=== PATIENT | male | born 1945 | race Caucasian/White ===

== ENCOUNTER 2019-11-14 09:49 | Inpatient (IN) | payer MEDICARE, OTHER, SELFPAY ==
[2019-11-14] VITALS (48 sets, daily range): BP systolic 137–200; BP diastolic 77–114; PULSE 75–97; RESP 12–26; TEMP 36.1–37.2; O2SAT 92–100; BMI 27.8; BMI 24.7; BMI 80.5
--- NOTE | 2019-11-14 09:50 | CT_ITS ---
STUDY: CT BRAIN WITHOUT CONTRAST REASON FOR EXAM: Male, 72 years old. CVA RADIATION DOSAGE (If Supplied By Facility): CTDIvol = ( 44.99 ) mGy, DLP = ( 846.73 ) mGycm TECHNIQUE: Transaxial CT imaging of the brain was performed without administration of intravenous contrast material. Individualized dose optimization techniques were used for this CT. COMPARISON: No relevant priors. FINDINGS: Normal soft tissue structures. Normal calvarium. There is mild cerebral atrophy with widening of the extra-axial spaces and ventricular dilatation. There are areas of decreased attenuation within the white matter tracts of the supratentorial brain, consistent with microvascular disease changes. Normal basal ganglia and thalami. Normal brainstem. Normal cerebellum. There is no intracranial hemorrhage. There are no findings of an acute ischemic infarction. Atherosclerotic calcification of the vertebral arteries and cavernous portions of the internal carotid arteries bilaterally. 1.2 cm polyp along the lateral wall of the right axillary sinus. CT/Brain/Head without Contrast IMPRESSION: Chronic involutional changes of the brain. N.B. : The above information has been verbally conveyed by Júnior Harrison to Rod Cartagena on 11/14/2019 10:08:04 (ET). Electronically Signed: Júnior Harrison, at 10:09 EDT , Service support ,
--- NOTE | 2019-11-14 09:50 | EKG12_ITS ---
Test Reason : CVA Blood Pressure : / mmHG Vent. Rate : 086 BPM Atrial Rate : 086 BPM P-R Int : 176 ms QRS Dur : 080 ms QT Int : 382 ms P-R-T Axes : 058 -24 044 degrees QTc Int : 457 ms Normal sinus rhythm Normal ECG Confirmed by RAY BULLOCK, JOSE ([id number]), editorial project manager SARAH CHRISTIAN ([id number]) on 11/17/2019 1:43:25 PM Referred By: ELOY Confirmed By:JOSE BELL MD
--- NOTE | 2019-11-14 09:51 | CT_ITS ---
STUDY: CTA HEAD AND NECK WITH CONTRAST REASON FOR EXAM: Male, 72 years old. NEURO DEFICIT RADIATION DOSAGE (If Supplied By Facility): CTDIvol = ( 25.31 ) mGy, DLP = ( 656.68 ) mGycm TECHNIQUE: CT angiography was performed with a multi-detector CT scanner. Data acquisition was obtained from the skull base through the vertex following intravenous administration of IV 100mL [id number]-370. MIP images were reconstructed from the axial data set. Post-processing of the angiographic images was performed, with multiplanar reformation and 3D reconstruction. Individualized dose optimization techniques were used for this CT. COMPARISON: No relevant priors. FINDINGS: Normal bilateral petrous carotid arteries. There is calcified plaque formation of the right cavernous carotid artery, without a cross-sectional luminal stenosis. There is calcified plaque formation of the left cavernous carotid artery, without a cross-sectional luminal stenosis. Normal right A1 segments of the anterior cerebral artery. Normal left A1 segments of the anterior cerebral artery. Normal intact anterior communicating artery (ACOM). Normal bilateral A2 segments of the anterior cerebral arteries. Normal right M1 and M2 segments of the middle cerebral arteries, with a normal M1 bifurcation. Normal left M1 and M2 segments of the middle cerebral arteries, with a normal M1 bifurcation. Normal right posterior communicating artery (PCOM). Normal left posterior communicating artery (PCOM). Normal bilateral vertebral arteries. Normal basilar artery with a normal basilar bifurcation. The visualized bilateral superior cerebellar (SCA) arteries are normal. Normal bilateral P1, P2 and visualized P3 segments of the posterior cerebral arteries. There is no demonstrated aneurysm of the [place] of [place]. There is no demonstrated abnormality of the visualized brain. AORTIC ARCH: There is atherosclerotic calcific plaque formation of the aortic arch and great vessels arising from the aortic arch, without a hemodynamically significant stenosis. There is a normal origin of the brachiocephalic, left common carotid, and left subclavian arteries. Atherosclerotic plaque formation at the origins of the right brachiocephalic artery and left subclavian artery. RIGHT CAROTID ARTERIES: Normal right common carotid artery (CCA). Normal right common carotid bulb. There is mild atherosclerotic plaque formation of the origin of the right internal carotid artery with less than 50% cross sectional diameter stenosis. Normal visualized cervical portion of the right internal carotid artery. Normal origin of the right external carotid artery (ECA). LEFT CAROTID ARTERIES: Normal left common carotid artery (CCA). Normal left common carotid bulb. There is moderate atherosclerotic plaque formation of the origin of the left internal carotid artery with an estimated stenosis of 50-69% stenosis. Normal visualized cervical portion of the left internal carotid artery. Normal origin of the left external carotid artery (ECA). VERTEBRAL ARTERIES: Normal bilateral vertebral arteries. CT/CTA Head AND Neck W/ Contrast IMPRESSION: Calcific plaque at the origin of the left internal carotid artery causing between 50 and 69% stenosis. Mild calcific plaque at the origin of the right internal carotid artery with less than 50% stenosis. Electronically Signed: Júnior Harrison, at 11:39 EDT , Service support ,
[2019-11-14 10:08] LABS: Absolute Lymphocyte Count 1.27 X10^3/uL (0.83-4.51); Absolute Neutrophil Count 2.9 X10^3/uL (2.0-7.7); Basophil# 0.03 X10^3/uL; Basophil% 0.6 % (0-1); Eosinophil# 0.06 X10^3/uL; Eosinophils% 1.2 % (0-5); Hematocrit 41.3 % (40-54); Hemoglobin 14.4 g/dL (13.0-16.5); Lymphocyte # 1.27 X10^3/ul (4.0); Lymphocyte % 26.2 % (19-41); Mean Corp Hgb Conc 34.9 g/dL (32-36); Mean Corpuscular Hgb 31.3 pg (27.0-32.0); Mean Corpuscular Volume 89.8 fL (80-94); Mean Platelet Vol. 9.1 fl (6.2-12.0); Monocyte# 0.53 X10^3/uL; NRBC Flagged by Analyzer 0 % (0-5); Neutrophil # 2.94 X10^3/uL (2.7-7.7); Neutrophil % 60.8 % (47-70); Platelet Count 282 K/mm3 (150-450); RBC Distribution Width CV 11.9 % (11.6-14.6); RBC Distribution Width SD 38.7 fl (35.1-43.9); White Blood Count 4.8 K/mm3 (4.4-11.0)
--- NOTE | 2019-11-14 10:12 | ED.RN ---
Awaiting troponin results prior to activase administration. Lab [id number] and will call as soon as troponin is resulted.
[2019-11-14] MEDS: Ondansetron 4 MG/2 ML Vial IV (10:15)
[2019-11-14 10:16] LABS: Prothrombin Time (Protime)PT. 12.6 SECONDS (11.7-14.9)
[2019-11-14] MEDS: DiphenhydrAMINE 50 MG/ML Syringe 25 MG IV (10:18)
[2019-11-14] MEDS: MethylPREDNISolone 125 MG/2 ML Vial IV (10:19)
[2019-11-14] MEDS: 0.9% Normal Saline 1,000 ML 100 ML IV (10:25)
[2019-11-14 10:26] LABS: Anion Gap 14 (5-15); BUN 7 mg/dL (7-18); BUN/Creat Ratio 6.5 RATIO (10-20); Chloride 90 mmol/L (98-107); Creatinine, Serum 1.07 mg/dL (0.70-1.30); EST Glomerular Filtration Rate 73 mL/min (>60); Est Glom Filt Rate - Afr Amer 88 mL/min (>60); Estimated Creatinine Clearance 66.33 ml/min; Glucose 122 mg/dL (74-106); Potassium 3.4 mmol/L (3.5-5.1); Sodium Level 129 mmol/L (136-145)
[2019-11-14] MEDS: Labetalol (Prefilled) 20 MG/4 ML IV ×2 (10:29→15:37)
--- NOTE | 2019-11-14 10:40 | RAD_ITS ---
STUDY: X-RAY CHEST REASON FOR EXAM: Male, 72 years old. Stroke protocol TECHNIQUE: Single AP portable view of the chest. COMPARISON: None. FINDINGS: EKG electrodes are seen. Minimal increased markings at the lung bases suggestive of mild bibasilar atelectasis and/or scarring. Blunting of the left costophrenic angle. Normal size heart. Normal mediastinum and kennedi. Normal visualized pulmonary arteries. There is atherosclerotic calcification of the aortic arch with tortuosity. There are diffuse degenerative changes of the visualized thoracic spine. Normal visualized ribs, clavicles, and shoulders. There is no demonstrated abnormality of the visualized soft tissue structures of the upper abdomen. RAD/Chest 1 View IMPRESSION: Findings suggesting mild bibasilar scarring with blunting of the left costophrenic angle. Electronically Signed: Júnior Harrison, at 10:58 EDT , Service support ,
--- NOTE | 2019-11-14 10:41 | ED.DCSUM_ITS ---
- ER Visit Summary Date of Service: 11/14/19 Chief Complaint: Stroke History of Present Illness: The patient is a 72 M who presents by EMS for possible stroke. EMS was initially contacted for chest pain, and they reported that he was in and out of consciousness. At 9:39 AM, they noticed left-sided facial droop and he was unable to move the left arm. Stroke team was activated. History is limited secondary to the patient's medical condition. I did briefly speak with his over the phone while he was in the CAT scanner and he has an IV dye allergy but he takes no blood thinners. Patient's chest pain has currently resolved. He is only complaining of a headache and some nausea. Physical Examination: Blood pressure 168/97. Other vitals are normal. Head and neck atraumatic. Heart regular. Lungs clear. Abdomen soft. Skin appears normal. Stroke scale equals 14. He has decreased level of consciousness, change in gaze and visual mi, mild facial palsy, left arm and leg weakness, mild right arm and right leg weakness, dysarthria, and mild expressive aphasia. Test Results: CT brain without contrast was unremarkable per radiology. EKG showed sinus rhythm at a rate of 86. CBC normal. Sodium 129, potassium 3.4, chloride 90, glucose 122, coags normal, troponin normal. Further testing is pending at this time. Emergency Department Course and Treatment: Stroke team was activated per EMS before arrival. The patient went directly to CT. NIH score was 14. Noncontrast CT was negative. TPA was ordered. Neurology wanted us to hold the TPA until we confirm he was not having an IV. His EKG did not show signs of ischemia or infarction. Troponin was normal. He is not having chest pain currently. After subsequent discussion with neuro, TPA was ordered. He did receive Zofran for nausea and labetalol for hypertension. Patient will need CTA head and neck for his high NIH score. He is allergic to contrast and was premedicated with Solu-Medrol and Benadryl. If he does not have a large vessel occlusion, he will be admitted here for further care. Further testing is pending at this time. Per radiology, he has carotid occlusion but no large vessel occlusion on CTA. Patient is stable and will be admitted to the hospital here. Treatment Plan: As above Disposition: Admission Impression: Acute stroke This note was generated with [employer] dictation software. It may contain incorrect words, spelling, and punctuation that were not noted in review of the chart prior to signing
--- NOTE | 2019-11-14 11:15 | CM.ED ---
SOCIAL WORK This worker responded to Stroke Alert. No family at time alert was called. Nursing requested this worker follow up with . Call to number given, no answer. Call to patient's son, Jered [phone]. Per Jered, spoke with patient's 10 minutes ago and should be arriving to hospital any time. This worker to remain available for needs. Shannan Khoury, MUNITIONS FACTORY WORKER, DOCTOR OSTEOPATHIC
--- NOTE | 2019-11-14 11:16 | ED.RN ---
Pt to CT via cart, Susie Reyes RN at side
--- NOTE | 2019-11-14 11:23 | CM.ED ---
SOCIAL WORK arrived to ER. Nursing in with gathering information on medications. This worker introduced role. Support provided. Patient out of room at this time. Shannan Khoury, DRIVING INSTRUCTOR, MANAGER MARKETING COMMUNICATIONS
--- NOTE | 2019-11-14 11:30 | ED.RN ---
at side. Informed of plan of care
--- NOTE | 2019-11-14 11:52 | NURSING ---
ICU STROKE PAINTSIL
--- NOTE | 2019-11-14 11:53 | CHAPLAIN ---
Type of Pastoral Visit ___ Initial Visit ___ Follow-up Visit ___ On-call Visit ___ General Patient Visit ___ Spiritual Assessment ___ Family Conference ___ Bereavement _x__ Rapid Response ___ Code Blue ___ Other (describe below) Pastoral Care Referral From ___ Patient ___ Family ___ Nurse ___ Physician ___ Pump Oiler ___ Account Development Manager _x__ Other (describe below) Sacrament/Intervention ___ Active listening ___ Anointing ___ Rastafarian ___ Bereavement ___ Communion ___ Jadyn exploration ___ ___ Life review ___ Prayer ___ Reconciliation ___ Sacrament of Sick _x__ Supportive presence ___ Wedding ___ Other (describe below) Pastoral Comments offer of presence; as patient was medically evaluated waited for spouse to arrive; as spouse was delayed in coming this frameman left the unit after informing SW and US and RN to call if assistance/support needed; no follow up was requested
--- NOTE | 2019-11-14 11:55 | HP.PCM_ITS ---
Problem List (1) CVA (cerebral vascular accident) Status: Acute Qualifiers: CVA mechanism: unspecified Qualified Code(s): I63.9 - Cerebral infarction, unspecified (2) Hypertension Status: Chronic Qualifiers: Hypertension type: essential hypertension Qualified Code(s): I10 - Essential (primary) hypertension (3) BPH (benign prostatic hyperplasia) Status: Chronic Qualifiers: Lower urinary tract symptom presence: symptoms absent Qualified Code(s): N40.0 - Benign prostatic hyperplasia without lower urinary tract symptoms (4) Vitamin B12 deficiency Status: Chronic History of Present Illness Date of Admission: 11/14/19 Chief Complaint: Left sided weakness - today The patient is a 74 year old M with past medical history of hypertension, chronic venous insufficiency, remote history of prostate cancer status post treatment who presented with left-sided weakness. 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 He said to have gone to work this morning as a code enforcement inspector. His said to him go to work without any complaints. He had complained of feeling fatigue the night before. The EMS were called to the workplace for complaints of chest pain. Patient admitted to feeling lightheaded and not feeling well. He was diaphoretic. EKG did not show any acute STEMI. Patient was convinced to go to the hospital. He was supposed to have gone to [facility] but was noted to be semi-responsive. Evaluation by the EMS found patient to have a left-sided facial droop with no strength in his left arm and leg. Stroke team was activated. Patient's admitting NIHSS score was 14. He received TPA at 10:30am. Patient was seen in the ICU. He complains of mild headache. Denied any dizziness. He still had left-sided weakness. Denied any chest pain or palpitations. Vitals in the ED showed temperature 97.7 F, heart rate 97, blood pressure 186/98, respiratory 16, SPO2 was 99% on 2 L oxygen. CBCD was unremarkable. CMP shows sodium 129, potassium 3.4, bicarbonate 25, BUN 7, creatinine 1.07, Glucose 122, magnesium 1.4. CT scan of the brain showed chronic involuntary changes. CTA of the head and neck showed calcific plaque at the origin of the left internal carotid artery causing 50 to 69% stenosis, right internal carotid artery less than 50% stenosis. Chest x-ray showed mild bibasilar scarring blunting the left costophrenic angle. Past Medical History Past Medical History (Chronic Problems): Chronic Problems Hypertension (Chronic) BPH (benign prostatic hyperplasia) (Chronic) Vitamin B12 deficiency (Chronic) Allergies Iodinated Contrast Media [CONTRASTS] Allergy (Verified 11/14/19 11:24) PT UNABLE TO RESPOND-NEEDS F/U Home Medications: Ambulatory Orders Medication Instructions Recorded Amlodipine Besylate 5 mg PO DAILY 11/14/19 Cyanocobalamin (Vitamin B-12) 1,000 mcg PO DAILY 11/14/19 [Vitamin B-12] Hydrochlorothiazide [Hctz] 25 mg PO DAILY 11/14/19 Losartan Potassium [Cozaar] 100 mg PO DAILY 11/14/19 Metoprolol(XL)Succ [Toprol Xl 100 mg PO DAILY 11/14/19 (Beta Gokul)] Tamsulosin HCl 0.4 mg PO DAILY 11/14/19 Surgical History: - - s/p leg vein surgeries Psychiatric History: No pertinent psych hx Lives: Spouse/ Significant Other Smoking Status: Former smoker Tobacco Use: Non-smoker Alcohol: Heavy Drugs: None - *Family History Maternal History Items: Unknown Paternal History Items: Heart Disease Review of Systems Constitutional: Reports: Weakness, Fatigue. Denies: Anorexia, Chills, Fever, Malaise, Weight Change Eyes: Denies: Blurred vision, Cataracts, Conjunctivae Inflammation, Pain, Redness, Vision Change HEENT: Denies: Difficulty Hearing, Difficulty Swallowing, Head Aches, Hearing Changes, Sinus Congestion, Sinus Drainage Cardiovascular: Reports: Chest Pain. Denies: Claudication, Orthopnea, Palpitations, Paroxysmal Noc. Dyspnea Respiratory: Reports: Shortness of breath upon exertion. Denies: Cough, Hemoptysis, Shortness of breath at rest, Sputum production Gastrointestinal: Denies: Abdominal Pain, Constipation, Hematemesis, Hematochez ia, Nausea, Vomiting Genitourinary: Denies: Dysuria Musculoskeletal: Denies: Joint Pain, Joint stiffness, Joint swelling, Joint Tenderness Skin: Denies: Rash, Wounds Neurological: Reports: Focal weakness, Numbness, Tingling. Denies: Difficulty swallowing Psychiatric: Denies: Anxiety, Depression, Homicidal Ideations, Suicidal Ideations Endocrine: Denies: Change in Body Habitus, Heat/ Cold Intolerance Hematologic/ Lymphatic: Denies: Easy Bruising, Easy Bleeding VTE Information - Inpt Only VTE Present on Admission: No VTE Pharm Prophylaxis ordered?: Yes Patient Problems: Active and Suspected Problems CVA (cerebral vascular accident) (Acute) - Physical Exam Vitals/I&O's: Vital Signs Temp Pulse Resp BP Pulse Ox 97.0 F L 87 18 137/77 H 96 11/14/19 11:53 11/14/19 11:53 11/14/19 11:53 11/14/19 11:53 11/14/19 11:53 Oxygen Flow Rate (L/min) 2 Oxygen Delivery Method Nasal Cannula Weight: 88 kg Body Mass Index (BMI) 27.8 Finger Stick Blood Glucose 119 Intake and Output for Last 24 Hours 11/12/19 11/13/19 11/14/19 23:59 23:59 23:59 Intake Total 571.3 / 571.3 Balance 571.3 / 571.3 General: Alert, Oriented x3, Cooperative, No apparent distress HEENT: Atraumatic, PERRLA, EOMI, Normocephalic Oral: Moist Mucosa Neck: Supple Lungs: Clear to auscultation, Normal air movement Cardiovascular: Regular rate, Regular Rhythm, Normal S1, Normal S2, No murmurs Abdomen: Bowel Sounds Present, Soft, Non Tender, Non-Distended, No Hepato- splenomegaly Extremities: No edema Skin: No rashes Musculoskeletal: No Tenderness to Palpation of Joints or Extremities Lymphatic: No Cervical, Supraclavicular, or Inguinal Adenopathy Neurological: - - Left eye ptosis, not new, left partial hemianopsia, left facial droop, dysarthria, power in LUE is 2/5, power in LLE 1-2/5, increased tone, power in RUE 4/5, LLE 4/5 Psych/Mental Status: Normal Affect, Appropriate Laboratory Results 11/14/19 09:55: WBC 4.8, RBC 4.60, Hgb 14.4, Hct 41.3, MCV 89.8, MCH 31.3, MCHC 34.9, RDW Std Deviation 38.7, RDW Coeff of Denae 11.9, Plt Count 282, MPV 9.1, Immature Gran % (Auto) 0.200, Neut % (Auto) 60.8, Lymph % (Auto) 26.2, [place] % (Auto) 11.0 H, Eos % (Auto) 1.2, Baso % (Auto) 0.6, Absolute Neuts (auto) 2.9, Absolute Lymphs (auto) 1.27, Nucleated RBC % 0 11/14/19 09:55: PT 12.6, INR 1.0, APTT 25.0 11/14/19 09:55: Sodium 129 L, Potassium 3.4 L, Chloride 90 L, Carbon Dioxide 25.0, Anion Gap 14, BUN 7, Creatinine 1.07, Estim Creat Clear Calc 66.33, Est GFR (MDRD) Af Amer 88, Est GFR (MDRD) Non-Af 73, BUN/Creatinine Ratio 6.5 L, Glucose 122 H, Calcium 9.0, Troponin I 0.025 Current Medications Acetaminophen (Tylenol) 650 mg PO .X1 PRN PRN Reason: Temp > 99.6 F Diphenhydramine HCl (Benadryl) 50 mg IV .X1 PRN PRN Reason: Allergic Reaction Stop: 11/16/19 10:06 Sodium Chloride () 500 mls @ 999 mls/hr IV .Q31M ONE Last Infusion: 11/14/19 10:53 Dose: Infused Documented by: Sodium Chloride () 1,000 mls @ 100 mls/hr IV .Q10H JESUS Last Admin: 11/14/19 10:25 Dose: 100 mls/hr Documented by: Famotidine 20 mg/ Sodium (Chloride) 10 mls @ 300 mls/hr IV .X1 PRN PRN Reason: Allergic Reaction Stop: 11/16/19 10:06 Nicardipine/Dextrose (Cardene-Dex 20 Mg/200 Ml Soln) 20 mg in 200 mls @ 50 mls/hr IV .Q4H PRN; Protocol PRN Reason: See Instructions Labetalol HCl (Trandate) 20 mg IV X1 PRN PRN Reason: Blood Pressure Last Admin: 11/14/19 10:29 Dose: 20 mg Documented by: Labetalol HCl (Trandate) 20 mg IV X1 PRN; Protocol PRN Reason: BLOOD PRESSURE Methylprednisolone (Solu-Medrol) 125 mg IV .X1 PRN PRN Reason: Allergic Reaction Stop: 11/16/19 10:06 Assessment/Plan All Active Problems CVA (cerebral vascular accident) (Acute) 1. Acute left hemiplegia secondary to acute CVA, s/p TPA Admitting NIHSS was 14; NIHSS post-TPA 15 Will admit to ICU, post-TPA protocol( given at 10:30AM) Will get CT head without contrast, MRI of brain without contrast 24 hours post TPA. PT/OT/ST to evaluate and treat Journeyman Level Acoustic Analyst consult 2. Hypertension, uncontrolled, would hold patient's home medications, Continue with post-TPA protocol 3. Hypokalemia, potassium was 3.4, will replace, recheck in a.m. 4. Hypomagnesemia, magnesium is 1.4, replace, recheck in a.m. 5. Chronic alcohol use disorder, patient is a heavy drinker per , Will monitor on alcohol withdrawal protocol 6. BPH, continue on Flomax 7. DVT PPx-status post TPA, continue on SCDs Inpatient E&M: [id number] Init Hosp L3
--- NOTE | 2019-11-14 11:57 | NURSING ---
ICU 6
[2019-11-14 13:23] LABS: AST(SGOT) 32 U/L (15-37); Alanine Aminotransfer ALT/SGPT 31 U/L (16-61); Albumin, Serum 3.7 g/dL (3.2-5.0); Alkaline Phosphatase 79 U/L (45-117); Bilirubin, Direct 0.53 mg/dL (0.00-0.30); Magnesium 1.4 mg/dL (1.6-2.6); Protein, Total 7.7 g/dL (6.4-8.2)
[2019-11-14 14:07] LABS: Hemoglobin A1c 5.7 % (3.8-5.6)
[2019-11-14] MEDS: Potassium Chloride 10mEq/100mL 10 MEQ/100 ML IV.SOLN. 100 MEQ IV BOLUS ×2 (14:38→16:38)
--- NOTE | 2019-11-14 14:52 | PCM.CON.CC ---
Problem List (1) Alcohol consumption heavy Status: Chronic Comment: 6-8 beers daily (2) CVA (cerebral vascular accident) Status: Acute Qualifiers: CVA mechanism: unspecified Qualified Code(s): I63.9 - Cerebral infarction, unspecified (3) Hypertension Status: Chronic Qualifiers: Hypertension type: essential hypertension Qualified Code(s): I10 - Essential (primary) hypertension (4) BPH (benign prostatic hyperplasia) Status: Chronic Qualifiers: Lower urinary tract symptom presence: symptoms absent Qualified Code(s): N40.0 - Benign prostatic hyperplasia without lower urinary tract symptoms (5) Vitamin B12 deficiency Status: Chronic Reason for Consult Date of Consultation: 11/14/19 Reason for Consultation: CVA status post TPA History of Present Illness: The patient is a 74 year old M, with past medical history listed below, who presented to [facility] on 11/14/2019 secondary to possible stroke. EMS was contacted initially for chest pain that occurred while he was at work. Patient was reportedly in and out of consciousness and at 9:39 AM coworkers had noticed a left facial droop and an inability to move his left arm. EMS activated stroke team. Patient reportedly had an IV dye allergy and takes no blood thinners. On arrival to the ER, patient's chest pain had resolved. Patient had a stroke team activated. At that time patient had been complaining of a headache and some mild nausea. Initial CT scan without contrast was negative. Neurology was consulted for possible TPA, but wanted to delay to rule out myocardial infarction. Troponins were negative and patient received TPA secondary to an NIH score of 14. Patient was treated with Solu-Medrol and Benadryl prior to a CTA that showed moderate left internal carotid stenosis and mild right internal carotid stenosis. On arrival to the intensive care unit, patient was noted to have significant discomfort with opening the left eye. Patient was also noted to have a left facial droop, dysarthria, left-sided weakness and a right arm drift. Patient also has decreased sensation noted on the right arm. Patient's blood pressure has been somewhat labile, but no intervention is been required. Patient reports that he drinks 6-8 beers per day. Patient does have a [id number] smoking history, but quit some time ago. Patient denies any illicit drug use. 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 Patient continues to report that he believes he was in [facility] and was brought in from home by EMS. Neither of these are true. Patient was also asking if he could potentially go home today. Review of systems otherwise negative from a constitutional, HEENT, respiratory, cardiovascular, GI, genitourinary, musculoskeletal, skin, neurologic, psychiatric and hematologic system unless stated above. Past Medical History Past Medical History (Chronic Problems): Chronic Problems Hypertension (Chronic) BPH (benign prostatic hyperplasia) (Chronic) Vitamin B12 deficiency (Chronic) Alcohol consumption heavy (Chronic) 6-8 beers daily Allergies Iodinated Contrast Media [CONTRASTS] Allergy (Verified 11/14/19 11:24) PT UNABLE TO RESPOND-NEEDS F/U Home Medications: Ambulatory Orders Medication Instructions Recorded Amlodipine Besylate 5 mg PO DAILY 11/14/19 Cyanocobalamin (Vitamin B-12) 1,000 mcg PO DAILY 11/14/19 [Vitamin B-12] Hydrochlorothiazide [Hctz] 25 mg PO DAILY 11/14/19 Losartan Potassium [Cozaar] 100 mg PO DAILY 11/14/19 Metoprolol(XL)Succ [Toprol Xl 100 mg PO DAILY 11/14/19 (Beta Gokul)] Tamsulosin HCl 0.4 mg PO DINNER 11/14/19 Surgical History: - - s/p leg vein surgeries Psychiatric History: No pertinent psych hx Lives: Spouse/ Significant Other Smoking Status: Former smoker Tobacco Use: Non-smoker Alcohol: Heavy Drugs: None - *Family History Maternal History Items: Unknown Paternal History Items: Heart Disease Review of Systems Comment: See HPI Patient Problems: Active and Suspected Problems CVA (cerebral vascular accident) (Acute) Objective: All imaging was personally reviewed. Chest x-ray showed by basilar scarring. No previous echocardiogram is available for review. CT head reports were reviewed. - Physical Exam Vitals/I&O's: Vital Signs Temp Pulse Resp BP Pulse Ox 36.8 C 81 16 165/103 H 97 11/14/19 14:00 11/14/19 14:00 11/14/19 14:00 11/14/19 14:00 11/14/19 14:00 Oxygen Flow Rate (L/min) 2 Oxygen Delivery Method Room Air Weight: 88 kg Body Mass Index (BMI) 27.8 Finger Stick Blood Glucose 119 Intake and Output for Last 24 Hours 11/12/19 11/13/19 11/14/19 23:59 23:59 23:59 Intake Total 1099.63 / 1099.63 Output Total 975 / 975 Balance 124.63 / 124.63 General: Alert, Cooperative, No apparent distress, - - Slight dysarthria HEENT: Atraumatic, PERRLA, EOMI, Normocephalic, - - Left temporal hemianopsia. Closes left eye as appears discomfort. Able to spontaneously open eye Oral: Moist Mucosa, No Gingival or Mucosal Lesions/ Ulcerations Neck: Supple, No JVD, No Nodes, Trachea Midline Lungs: No rhonchi, No wheeze, No rales, Diminished, - - Symmetric expansion. Slightly increased AP diameter. Cardiovascular: Regular rate, Regular Rhythm, Normal S1, Normal S2, No murmurs, No rub noted, No Gallop Abdomen: Bowel Sounds Present, Soft, Non Tender, Non-Distended Extremities: No clubbing, No cyanosis, No edema, Capillary Refill Less than 3 Seconds Skin: No rashes, No breakdown Musculoskeletal: No Tenderness to Palpation of Joints or Extremities Lymphatic: No Cervical, Supraclavicular, or Inguinal Adenopathy Neurological: - - Left-sided paresthesia, left upper extremity weakness, left lower extremity paralysis and drift of the right upper extremity. Psych/Mental Status: Normal Affect, Appropriate Laboratory Results 11/14/19 09:55: WBC 4.8, RBC 4.60, Hgb 14.4, Hct 41.3, MCV 89.8, MCH 31.3, MCHC 34.9, RDW Std Deviation 38.7, RDW Coeff of Denae 11.9, Plt Count 282, MPV 9.1, Immature Gran % (Auto) 0.200, Neut % (Auto) 60.8, Lymph % (Auto) 26.2, [place] % (Auto) 11.0 H, Eos % (Auto) 1.2, Baso % (Auto) 0.6, Absolute Neuts (auto) 2.9, Absolute Lymphs (auto) 1.27, Nucleated RBC % 0 11/14/19 09:55: PT 12.6, INR 1.0, APTT 25.0 11/14/19 09:55: Sodium 129 L, Potassium 3.4 L, Chloride 90 L, Carbon Dioxide 25.0, Anion Gap 14, BUN 7, Creatinine 1.07, Estim Creat Clear Calc 66.33, Est GFR (MDRD) Af Amer 88, Est GFR (MDRD) Non-Af 73, BUN/Creatinine Ratio 6.5 L, Glucose 122 H, Calcium 9.0, Troponin I 0.025 11/14/19 09:55: Hemoglobin A1c 5.7 H 11/14/19 12:40: Magnesium 1.4 L, Total Bilirubin 1.50 H, Direct Bilirubin 0.53 H, AST 32, ALT 31, Alkaline Phosphatase 79, Total Protein 7.7, Albumin 3.7, Globulin 4.0 11/14/19 12:40: Magnesium Cancelled Current Medications Acetaminophen (Tylenol) 650 mg PO Q6H PRN PRN PRN Reason: Pain Score 1-10/Temp > 100.7 F Dicyclomine HCl (Bentyl) 20 mg PO Q6H PRN PRN PRN Reason: abdominal discomfort Diphenhydramine HCl (Benadryl) 50 mg IV .X1 PRN PRN Reason: Allergic Reaction Stop: 11/16/19 10:06 Folic Acid (Folic Acid) 1 mg PO DAILY@0800 JESUS Gabapentin (Neurontin) 300 mg PO Q8H PRN PRN PRN Reason: moderate to severe anxiety Hydroxyzine Pamoate (Vistaril Pamoate Capsule) 50 mg PO Q4H PRN PRN PRN Reason: mild anxiety Sodium Chloride () 500 mls @ 999 mls/hr IV .Q31M ONE Last Infusion: 11/14/19 10:53 Dose: Infused Documented by: Sodium Chloride () 1,000 mls @ 100 mls/hr IV .Q10H JESUS Last Infusion: 11/14/19 14:42 Dose: 0 mls/hr Documented by: Famotidine 20 mg/ Sodium (Chloride) 10 mls @ 300 mls/hr IV .X1 PRN PRN Reason: Allergic Reaction Stop: 11/16/19 10:06 Nicardipine/Dextrose (Cardene-Dex 20 Mg/200 Ml Soln) 20 mg in 200 mls @ 50 mls/hr IV .Q4H PRN; Protocol PRN Reason: See Instructions Potassium Chloride () 10 meq in 100 mls @ 100 mls/hr IV BOLUS Q1H JESUS Stop: 11/14/19 15:29 Last Admin: 11/14/19 14:38 Dose: 100 mls/hr Documented by: Sodium Chloride () 250 mls @ 15 mls/hr IV .[id number] PRN PRN Reason: Saline Flush Sodium Chloride () 250 mls @ 15 mls/hr IV .[id number] PRN PRN Reason: Additional IVPB Infusion Magnesium Sulfate 2 gm/ Sodium (Chloride) 104 mls @ 52 mls/hr IV X1 ONE Stop: 11/14/19 15:59 Labetalol HCl (Trandate) 20 mg IV X1 PRN PRN Reason: Blood Pressure Last Admin: 11/14/19 10:29 Dose: 20 mg Documented by: Labetalol HCl (Trandate) 20 mg IV X1 PRN; Protocol PRN Reason: BLOOD PRESSURE Loperamide HCl (Imodium) 2 mg PO Q4H PRN PRN PRN Reason: LOOSE STOOLS Methylprednisolone (Solu-Medrol) 125 mg IV .X1 PRN PRN Reason: Allergic Reaction Stop: 11/16/19 10:06 Ondansetron HCl (Zofran) 4 mg IV Q8H PRN PRN PRN Reason: NAUSEA/VOMITING Ondansetron HCl (Zofran) 8 mg PO Q8H PRN PRN PRN Reason: NAUSEA Sodium Chloride () 10 - 40 ml IV UD PRN PRN Reason: SALINE FLUSH Tamsulosin HCl (Flomax) 0.4 mg PO DAILY@1730 JESUS Thiamine HCl (Vitamin B1) 100 mg PO DAILYCM JESUS Trazodone HCl (Desyrel) 100 mg PO QHS PRN PRN Reason: INSOMNIA Clinical Impression(s) from Imaging Studies Brain CT 11/14/19 09:50 IMPRESSION: Chronic involutional changes of the brain. N.B. : The above information has been verbally conveyed by Júnior Harrison to Rod Cartagena on 11/14/2019 10:08:04 (ET). Electronically Signed: Júnior Harrison, at 10:09 EDT , Service support , ADDENDUM: 11/14/19 1016 IMPRESSION: Chronic involutional changes of the brain. N.B. : The above information has been verbally conveyed by Júnior Harrison to Rod Cartagena on 11/14/2019 10:08:04 (ET). Electronically Signed: Júnior Harrison, at 10:09 EDT , Service support , Head/Neck CTA 11/14/19 09:51 IMPRESSION: Calcific plaque at the origin of the left internal carotid artery causing between 50 and 69% stenosis. Mild calcific plaque at the origin of the right internal carotid artery with less than 50% stenosis. Electronically Signed: Júnior Harrison, at 11:39 EDT , Service support , Chest X-Ray 11/14/19 10:40 IMPRESSION: Findings suggesting mild bibasilar scarring with blunting of the left costophrenic angle. Electronically Signed: Júnior Harrison, at 10:58 EDT , Service support , Assessment/Plan Active and Suspected Problems CVA (cerebral vascular accident) (Acute) RECOMMENDATIONS: 1. Continue post TPA protocol 2. Initiate CIWA protocol 3. Await swallow evaluation prior to initiation of any basal therapy for alcohol 4. PRN labetalol and hydralazine if needed for hypertension 5. Okay to continue Flomax for BPH IMPRESSIONS: 1. 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 Patient was given TPA at 10:30 AM and does not appear to have any complications with bleeding at this time. There has been some improvement in facial droop noted by nursing, but this is not reflected in the NIH. We will continue with post TPA protocol. Anticipate MRI tomorrow for evaluation. Therapies have been consulted. 2. Hypertension Unclear compliance with baseline medications. Patient has had some elevated blood pressures noted during hospitalization. Will treat with PRN hydralazine and labetalol. If patient passes swallow evaluation, home medications can be initiated in a stepwise fashion. 3. Euvolemic hyponatremia/hypochloremia/alcohol abuse versus chronic alcohol use disorder/hypomagnesemia Electrolyte issues may be secondary to chronic alcohol intake. Patient reported 8 beers, but is reporting up to 24 beers per day. Patient will be placed on the CIWA protocol. Thiamine and folate have been ordered. 4. Poor historian/BPH/history of tobacco abuse Complicates care, management, recovery and prognosis. Did confirm with full CODE STATUS. Addendum 3:50 PM: Called emergently to patient's bedside at approximately 3:30 PM secondary to elevated blood pressure, chest pain, left arm pain and worsening left facial droop. Patient was given labetalol per the protocol with improvement in pain. EKG showed no ST segment changes. Patient will be continued per the protocol Inpatient E&M: 83162 Init Hosp L3
--- NOTE | 2019-11-14 16:00 | EKG12_ITS ---
Test Reason : Blood Pressure : / mmHG Vent. Rate : 082 BPM Atrial Rate : 082 BPM P-R Int : 198 ms QRS Dur : 084 ms QT Int : 392 ms P-R-T Axes : 044 -32 039 degrees QTc Int : 457 ms Normal sinus rhythm Left axis deviation Abnormal ECG When compared with ECG of 14-NOV-2019 10:11, No significant change was found Confirmed by RAY BULLOCK, JOSE ([id number]), web editor SARAH CHRISTIAN ([id number]) on 11/25/2019 12:49:38 PM Referred By: Confirmed By:JOSE BELL MD
[2019-11-15] VITALS (36 sets, daily range): BP systolic 104–177; BP diastolic 65–103; PULSE 67–88; RESP 12–21; TEMP 36.8–37.4; O2SAT 93–99; BMI 24.7
[2019-11-15 04:41] LABS: Absolute Lymphocyte Count 0.44 X10^3/uL (0.83-4.51); Absolute Neutrophil Count 4.5 X10^3/uL (2.0-7.7); Eosinophil# 0.01 X10^3/uL; Eosinophils% 0.2 % (0-5); Hematocrit 44.6 % (40-54); Hemoglobin 15.1 g/dL (13.0-16.5); Lymphocyte # 0.44 X10^3/ul (4.0); Lymphocyte % 8.3 % (19-41); Mean Corp Hgb Conc 33.9 g/dL (32-36); Mean Corpuscular Hgb 31.1 pg (27.0-32.0); Mean Platelet Vol. 9.4 fl (6.2-12.0); Monocyte# 0.37 X10^3/uL; Monocyte% 6.9 % (0-10); NRBC Flagged by Analyzer 0 % (0-5); Neutrophil % 84.4 % (47-70); POSITIVE DIFFERENTIAL YES; Platelet Count 291 K/mm3 (150-450); RBC Distribution Width CV 11.9 % (11.6-14.6); RBC Distribution Width SD 39.9 fl (35.1-43.9); Red Blood Count 4.85 M/mm3 (4.6-6.2); White Blood Count 5.3 K/mm3 (4.4-11.0)
[2019-11-15 04:44] LABS: Differential Indicated SCAN CRITERIA MET
[2019-11-15 05:02] LABS: ALB/GLOB Ratio 0.8 RATIO (0.9-2.4); AST(SGOT) 19 U/L (15-37); Alanine Aminotransfer ALT/SGPT 23 U/L (16-61); Albumin, Serum 2.8 g/dL (3.2-5.0); Alkaline Phosphatase 61 U/L (45-117); Anion Gap 9 (5-15); BUN 8 mg/dL (7-18); BUN/Creat Ratio 12.2 RATIO (10-20); Calcium,Total 7.6 mg/dL (8.5-10.1); Chloride 106 mmol/L (98-107); Cholesterol 153 mg/dL (200); Creatinine, Serum 0.66 mg/dL (0.70-1.30); EST Glomerular Filtration Rate 127 mL/min (>60); Est Glom Filt Rate - Afr Amer 153 mL/min (>60); Estimated Creatinine Clearance 71.12 ml/min; Globulin 3.5 g/dL (2.2-4.2); Glucose 121 mg/dL (74-106); High Density Lipoprotein 97 mg/dL; Magnesium 1.7 mg/dL (1.6-2.6); Potassium 3.7 mmol/L (3.5-5.1); Protein, Total 6.3 g/dL (6.4-8.2); Sodium Level 138 mmol/L (136-145); Triglycerides 37 mg/dL; Very Low Density Lipoprotein 7 mg/dL (5-40)
[2019-11-15 05:07] LABS: Differential Comment SCANNED
--- NOTE | 2019-11-15 07:54 | PN_ITS ---
Subjective: Patient did okay overnight. No bleeding complications have been reported. Patient's NIH has been relatively variable with a shelby of 9, but currently at 10. Patient has had improvement in right-sided symptoms and speech, but continues to have left paresthesia, left upper extremity weakness and left lower extremity paralysis. Patient has been able to be taken off of Cardene drip. General: Alert, Oriented x3, Cooperative, No apparent distress, - - More clear speech. Still attempts to close left eye HEENT: Atraumatic, PERRLA, EOMI, - - Difficulty assessing left eye secondary to voluntary closing. Appears to have a left temporal hemianopsia Oral: Moist Mucosa, No Gingival or Mucosal Lesions/ Ulcerations, - - No facial droop appreciated Neck: Supple, No JVD, No Nodes, Trachea Midline Lungs: No rhonchi, No wheeze, No rales, Diminished, - - Symmetric expansion. Cardiovascular: Regular rate, Regular Rhythm, Normal S1, Normal S2, No murmurs, No rub noted, No Gallop Abdomen: Bowel Sounds Present, Soft, Non Tender, Non-Distended Extremities: No clubbing, No cyanosis, No edema Skin: - - No change compared to previous Musculoskeletal: No Tenderness to Palpation of Joints or Extremities Lymphatic: No Cervical, Supraclavicular, or Inguinal Adenopathy Neurological: - - Left upper extremity weakness, left lower extremity paralysis and left-sided decreased sensation noted. Psych/Mental Status: Alert and oriented to time, place, person, mood and affect Vital Signs Temp Pulse Resp BP Pulse Ox 36.9 C 68 14 134/81 H 95 11/15/19 07:00 11/15/19 07:00 11/15/19 07:00 11/15/19 07:00 11/15/19 07:00 Oxygen Flow Rate (L/min) 2 Oxygen Delivery Method Room Air Weight: 80.3 kg Body Mass Index (BMI) 24.7 Finger Stick Blood Glucose 119 Intake and Output for Last 24 Hours 11/13/19 11/14/19 11/15/19 23:59 23:59 23:59 Intake Total 1596.91 / 1596.91 Output Total 3255 / 3255 285 / 285 Balance -1658.09 / -1658.09 -285 / -285 Labs (Last 48 Hours) 11/14/19 11/14/19 11/14/19 09:55 09:55 09:55 WBC 4.8 RBC 4.60 Hgb 14.4 Hct 41.3 MCV 89.8 MCH 31.3 MCHC 34.9 RDW Std Deviation 38.7 RDW Coeff of Denae 11.9 Plt Count 282 MPV 9.1 Immature Gran % (Auto) 0.200 Neut % (Auto) 60.8 Lymph % (Auto) 26.2 [place] % (Auto) 11.0 H Eos % (Auto) 1.2 Baso % (Auto) 0.6 Absolute Neuts (auto) 2.9 Absolute Lymphs (auto) 1.27 Nucleated RBC % 0 Differential Comment PT 12.6 INR 1.0 APTT 25.0 Sodium 129 L Potassium 3.4 L Chloride 90 L Carbon Dioxide 25.0 Anion Gap 14 BUN 7 Creatinine 1.07 Estim Creat Clear Calc 66.33 Est GFR (MDRD) Af Amer 88 Est GFR (MDRD) Non-Af 73 BUN/Creatinine Ratio 6.5 L Glucose 122 H Hemoglobin A1c Calcium 9.0 Magnesium Total Bilirubin Direct Bilirubin AST ALT Alkaline Phosphatase Troponin I 0.025 Total Protein Albumin Globulin Albumin/Globulin Ratio Triglycerides Cholesterol LDL Cholesterol VLDL Cholesterol HDL Cholesterol 11/14/19 11/14/19 11/14/19 09:55 12:40 12:40 WBC RBC Hgb Hct MCV MCH MCHC RDW Std Deviation RDW Coeff of Denae Plt Count MPV Immature Gran % (Auto) Neut % (Auto) Lymph % (Auto) [place] % (Auto) Eos % (Auto) Baso % (Auto) Absolute Neuts (auto) Absolute Lymphs (auto) Nucleated RBC % Differential Comment PT INR APTT Sodium Potassium Chloride Carbon Dioxide Anion Gap BUN Creatinine Estim Creat Clear Calc Est GFR (MDRD) Af Amer Est GFR (MDRD) Non-Af BUN/Creatinine Ratio Glucose Hemoglobin A1c 5.7 H Calcium Magnesium 1.4 L Cancelled Total Bilirubin 1.50 H Direct Bilirubin 0.53 H AST 32 ALT 31 Alkaline Phosphatase 79 Troponin I Total Protein 7.7 Albumin 3.7 Globulin 4.0 Albumin/Globulin Ratio Triglycerides Cholesterol LDL Cholesterol VLDL Cholesterol HDL Cholesterol 11/15/19 11/15/19 04:30 04:30 WBC 5.3 RBC 4.85 Hgb 15.1 Hct 44.6 MCV 92.0 MCH 31.1 MCHC 33.9 RDW Std Deviation 39.9 RDW Coeff of Denae 11.9 Plt Count 291 MPV 9.4 Immature Gran % (Auto) 0.200 Neut % (Auto) 84.4 H Lymph % (Auto) 8.3 L [place] % (Auto) 6.9 Eos % (Auto) 0.2 Baso % (Auto) 0.0 Absolute Neuts (auto) 4.5 Absolute Lymphs (auto) 0.44 L Nucleated RBC % 0 Differential Comment SCANNED PT INR APTT Sodium 138 Potassium 3.7 Chloride 106 Carbon Dioxide 23.0 Anion Gap 9 BUN 8 Creatinine 0.66 L Estim Creat Clear Calc 71.12 Est GFR (MDRD) Af Amer 153 Est GFR (MDRD) Non-Af 127 BUN/Creatinine Ratio 12.2 Glucose 121 H Hemoglobin A1c Calcium 7.6 L Magnesium 1.7 Total Bilirubin 0.70 Direct Bilirubin AST 19 ALT 23 Alkaline Phosphatase 61 Troponin I Total Protein 6.3 L Albumin 2.8 L Globulin 3.5 Albumin/Globulin Ratio 0.8 L Triglycerides 37 Cholesterol 153 LDL Cholesterol 49 VLDL Cholesterol 7 HDL Cholesterol 97 Clinical Impression(s) from Imaging Studies Brain CT 11/14/19 09:50 IMPRESSION: Chronic involutional changes of the brain. N.B. : The above information has been verbally conveyed by Júnior Harrison to Rod Cartagena on 11/14/2019 10:08:04 (ET). Electronically Signed: Júnior Harrison, at 10:09 EDT , Service support , ADDENDUM: 11/14/19 1016 IMPRESSION: Chronic involutional changes of the brain. N.B. : The above information has been verbally conveyed by Júnior Harrison to Rod Cartagena on 11/14/2019 10:08:04 (ET). Electronically Signed: Júnior Harrison at 10:09 EDT , Service support , Head/Neck CTA 11/14/19 09:51 IMPRESSION: Calcific plaque at the origin of the left internal carotid artery causing between 50 and 69% stenosis. Mild calcific plaque at the origin of the right internal carotid artery with less than 50% stenosis. Electronically Signed: Júnior Harrison, at 11:39 EDT , Service support , Chest X-Ray 11/14/19 10:40 IMPRESSION: Findings suggesting mild bibasilar scarring with blunting of the left costophrenic angle. Electronically Signed: Júnior Harrison, at 10:58 EDT , Service support , Medical Necessity - Tobacco Use Smoking Status: Former smoker Tobacco Use: Non-smoker Assessment/Plan All Active Problems CVA (cerebral vascular accident) (Acute) RECOMMENDATIONS: 1. Continue post TPA protocol 2. Continue CIWA protocol 3. Continue aggressive therapies 4. Okay to discontinue CT if MRI can be timed appropriately 5. Okay to continue Flomax for BPH 6. Hemodynamically stable on room air. Will sign off from a critical care perspective if MRI/CT shows no complications IMPRESSIONS: 1. 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 Patient was given TPA at 10:30 AM and does not appear to have any complications with bleeding at this time. Continue with post TPA protocol. Patient has had some improvement following TPA. Likely okay to discontinue CT scan if MRI can be timed appropriately. Patient would benefit from neurologic evaluation and aggressive therapies. 2. Hypertension Unclear compliance with baseline medications. Patient has had some elevated blood pressures noted during hospitalization. Will treat with PRN hydralazine and labetalol. If patient passes swallow evaluation, home medications can be initiated in a stepwise fashion. 3. Euvolemic hyponatremia/hypochloremia/alcohol abuse versus chronic alcohol use disorder/hypomagnesemia Electrolyte issues may be secondary to chronic alcohol intake. Patient reported 8 beers, but is reporting up to 24 beers per day. Patient will be placed on the CIWA protocol. Thiamine and folate have been ordered. No intervention is been required thus far. 4. Poor historian/BPH/history of tobacco abuse Complicates care, management, recovery and prognosis. Did confirm with full CODE STATUS. Inpatient E&M: 10747 Subs Hosp L3
--- NOTE | 2019-11-15 08:31 | PN_ITS ---
Patient Problems: Active and Suspected Problems CVA (cerebral vascular accident) (Acute) Reason for Visit: Follow-up on acute stroke status post TPA/hypertensive emergency Subjective: Patient was seen and examined. He feels improved. The weakness in his left upper and lower extremities are getting better. He denied any headaches or dizziness or palpitation. Overnight, patient received medications for blood pressure control on account of worsening left upper and lower extremity pain with worsening dysarthria. His NIHSS score is 9. Objective: Physical exam: General: Alert, Oriented x3, Cooperative, No apparent distress HEENT: Atraumatic, PERRLA, EOMI, Normocephalic Oral: Moist Mucosa Neck: Supple Lungs: Clear to auscultation, Normal air movement Cardiovascular: Regular rate, Regular Rhythm, Normal S1, Normal S2, No murmurs Abdomen: Bowel Sounds Present, Soft, Non Tender, Non-Distended, No Hepato- splenomegaly Extremities: No edema Skin: No rashes Musculoskeletal: No Tenderness to Palpation of Joints or Extremities Lymphatic: No Cervical, Supraclavicular, or Inguinal Adenopathy Neurological: - - Left eye ptosis, not new, left partial hemianopsia, left facial droop, dysarthria, power in LUE is 2/5, power in LLE 1-2/5, increased tone, power in RUE 4/5, LLE 4/5 Psych/Mental Status: Normal Affect, Appropriate Vitals/I&O's: Vital Signs Temp Pulse Resp BP Pulse Ox 98.5 F 73 18 158/84 H 94 11/15/19 07:30 11/15/19 08:30 11/15/19 08:30 11/15/19 08:30 11/15/19 08:30 Oxygen Flow Rate (L/min) 2 Oxygen Delivery Method Room Air Weight: 80.3 kg Body Mass Index (BMI) 24.7 Finger Stick Blood Glucose 119 Intake and Output for Last 24 Hours 11/13/19 11/14/19 11/15/19 23:59 23:59 23:59 Intake Total 1596.91 / 1596.91 Output Total 3255 / 3255 285 / 285 Balance -1658.09 / -1658.09 -285 / -285 Laboratory Results 11/14/19 09:55: WBC 4.8, RBC 4.60, Hgb 14.4, Hct 41.3, MCV 89.8, MCH 31.3, MCHC 34.9, RDW Std Deviation 38.7, RDW Coeff of Denae 11.9, Plt Count 282, MPV 9.1, Immature Gran % (Auto) 0.200, Neut % (Auto) 60.8, Lymph % (Auto) 26.2, Ogle % (Auto) 11.0 H, Eos % (Auto) 1.2, Baso % (Auto) 0.6, Absolute Neuts (auto) 2.9, Absolute Lymphs (auto) 1.27, Nucleated RBC % 0 11/14/19 09:55: PT 12.6, INR 1.0, APTT 25.0 11/14/19 09:55: Sodium 129 L, Potassium 3.4 L, Chloride 90 L, Carbon Dioxide 25.0, Anion Gap 14, BUN 7, Creatinine 1.07, Estim Creat Clear Calc 66.33, Est GFR (MDRD) Af Amer 88, Est GFR (MDRD) Non-Af 73, BUN/Creatinine Ratio 6.5 L, Glucose 122 H, Calcium 9.0, Troponin I 0.025 11/14/19 09:55: Hemoglobin A1c 5.7 H 11/14/19 12:40: Magnesium 1.4 L, Total Bilirubin 1.50 H, Direct Bilirubin 0.53 H , AST 32, ALT 31, Alkaline Phosphatase 79, Total Protein 7.7, Albumin 3.7, Globulin 4.0 11/14/19 12:40: Magnesium Cancelled 11/15/19 04:30: WBC 5.3, RBC 4.85, Hgb 15.1, Hct 44.6, MCV 92.0, MCH 31.1, MCHC 33.9, RDW Std Deviation 39.9, RDW Coeff of Denae 11.9, Plt Count 291, MPV 9.4, Immature Gran % (Auto) 0.200, Neut % (Auto) 84.4 H, Lymph % (Auto) 8.3 L, Ogle % (Auto) 6.9, Eos % (Auto) 0.2, Baso % (Auto) 0.0, Absolute Neuts (auto) 4.5, Abso lute Lymphs (auto) 0.44 L, Nucleated RBC % 0, Differential Comment SCANNED 11/15/19 04:30: Sodium 138, Potassium 3.7, Chloride 106, Carbon Dioxide 23.0, Anion Gap 9, BUN 8, Creatinine 0.66 L, Estim Creat Clear Calc 71.12, Est GFR (MDRD) Af Amer 153, Est GFR (MDRD) Non-Af 127, BUN/Creatinine Ratio 12.2, Glucose 121 H, Calcium 7.6 L, Magnesium 1.7, Total Bilirubin 0.70, AST 19, ALT 23, Alkaline Phosphatase 61, Total Protein 6.3 L, Albumin 2.8 L, Globulin 3.5, Albumin/Globulin Ratio 0.8 L, Triglycerides 37, Cholesterol 153, LDL Cholesterol 49, VLDL Cholesterol 7, HDL Cholesterol 97 Current Medications Acetaminophen (Tylenol) 650 mg PO Q6H PRN PRN PRN Reason: Pain Score 1-10/Temp > 100.7 F Dicyclomine HCl (Bentyl) 20 mg PO Q6H PRN PRN PRN Reason: abdominal discomfort Diphenhydramine HCl (Benadryl) 50 mg IV .X1 PRN PRN Reason: Allergic Reaction Stop: 11/16/19 10:06 Gabapentin (Neurontin) 300 mg PO Q8H PRN PRN PRN Reason: moderate to severe anxiety Hydroxyzine Pamoate (Vistaril Pamoate Capsule) 50 mg PO Q4H PRN PRN PRN Reason: mild anxiety Sodium Chloride () 500 mls @ 999 mls/hr IV .Q31M ONE Last Infusion: 11/14/19 10:53 Dose: Infused Documented by: Famotidine 20 mg/ Sodium (Chloride) 10 mls @ 300 mls/hr IV .X1 PRN PRN Reason: Allergic Reaction Stop: 11/16/19 10:06 Nicardipine/Dextrose (Cardene-Dex 20 Mg/200 Ml Soln) 20 mg in 200 mls @ 50 mls/hr IV .Q4H PRN; Protocol PRN Reason: See Instructions Last Titration: 11/14/19 20:15 Dose: 0 mg/hr, 0 mls/hr Documented by: Sodium Chloride () 250 mls @ 15 mls/hr IV .[id number] PRN PRN Reason: Saline Flush Sodium Chloride () 250 mls @ 15 mls/hr IV .[id number] PRN PRN Reason: Additional IVPB Infusion Folic Acid 1 mg/ Sodium (Chloride) 50.2 mls @ 200 mls/hr IV DAILY [facility] Last Infusion: 11/14/19 20:45 Dose: Infused Documented by: Thiamine HCl 100 mg/ Sodium (Chloride) 51 mls @ 200 mls/hr IV DAILY [facility] Last Infusion: 11/14/19 20:20 Dose: Infused Documented by: Influenza Virus Vaccine Quadrival (Flucelvax /Fluzone ) 0.5 ml IM .ONCE ONE Stop: 11/15/19 10:01 Loperamide HCl (Imodium) 2 mg PO Q4H PRN PRN PRN Reason: LOOSE STOOLS Lorazepam (Ativan) 2 mg IV Q2H PRN PRN; Protocol PRN Reason: CIWA score > 8 but <15 Lorazepam (Ativan) 2 mg IV UD PRN; Protocol PRN Reason: CIWA score >/=15. Methylprednisolone (Solu-Medrol) 125 mg IV .X1 PRN PRN Reason: Allergic Reaction Stop: 11/16/19 10:06 Ondansetron HCl (Zofran) 4 mg IV Q8H PRN PRN PRN Reason: NAUSEA/VOMITING Ondansetron HCl (Zofran) 8 mg PO Q8H PRN PRN PRN Reason: NAUSEA Sodium Chloride () 10 - 40 ml IV UD PRN PRN Reason: SALINE FLUSH Tamsulosin HCl (Flomax) 0.4 mg PO DAILY@1730 [facility] Last Admin: 11/14/19 16:42 Dose: Not Given Documented by: Trazodone HCl (Desyrel) 100 mg PO QHS PRN PRN Reason: INSOMNIA STROKE Vital Signs/Narrative: Vital Signs Temp Pulse Resp BP BP Pulse Ox 11/15/19 08:30 73 18 158/84 H 94 11/15/19 07:30 98.5 F 76 21 H 156/90 H 95 11/15/19 07:00 98.5 F 68 14 134/81 H 95 11/15/19 06:30 98.5 F 71 12 146/88 H 94 11/15/19 06:00 98.5 F 71 14 131/76 H 95 11/15/19 05:30 98.4 F 72 13 133/82 H 94 11/15/19 05:00 98.4 F 74 14 152/91 H 94 Medical Necessity - Tobacco Use Smoking Status: Former smoker Tobacco Use: Non-smoker Assessment/Plan All Active Problems CVA (cerebral vascular accident) (Acute) 1. Acute left hemiplegia secondary to acute CVA, s/p TPA (given at 10:30AM on 11/14/19) Admitting NIHSS was 14; NIHSS this morning is 9 Status post TPA protocol. MRI brain pending. Will consult Tele-neurology and follow-up on recommendations HgbA1c was 5.7. Total cholesterol is 153, triglycerides 37, LDL 49 2. Hypertension, remains uncontrolled, Home meds on hold on account of severe dysphagia Continue with post-TPA protocol 3. Hypokalemia, resolved, recheck in a.m. 4. Hypomagnesemia, resolved, Recheck in a.m. 5. Dysphagia secondary to #1 Speech therapy consulted, on a mechanical soft diet/pur?ed with swallow precautions 6. Chronic alcohol use disorder, patient is a heavy drinker per , Continue to monitor on alcohol withdrawal protocol 7. KAROLYN, prerenal, likely from dehydration, admitting creatinine was 1.07, cre atinine today 0.66 8. BPH, continue on Flomax 9. DVT PPx-status post TPA, continue on SCDs We will resume DVT prophylaxis with anticoagulation from tomorrow Inpatient E&M: 28485 Subs Hosp L3
--- NOTE | 2019-11-15 11:00 | MRI_ITS ---
STUDY: MRI BRAIN WITHOUT CONTRAST REASON FOR EXAM: Male, 74 years old. cva, 24 hr post tpa, lt facial droop, left arm weakness, h/a, lt leg paralysis, rt arm weakness TECHNIQUE: Standardized multiplanar fat and water weighted pulse sequences were obtained. COMPARISON: CT 11/14/2019 FINDINGS: There is moderate cerebral atrophy with widening of the extra-axial spaces and ventricular dilatation. There are a limited number of small white matter hyperintensities, distributed throughout the deep white matter tracts of the cerebral hemispheres, consistent with mild chronic white matter ischemic changes. There is no evidence for recent intracranial ischemia or other cause of cytotoxic edema on diffusion weighted imaging (DWI). Normal T2* images of the brain without demonstrated susceptibility artifact. There is no demonstrated hemosiderin stain. Normal bilateral basal ganglia. Normal thalami. There is no extra-axial fluid accumulation. Normal flow voids within the major intracranial circulation suggesting patency by spin echo criteria. Normal sella turcica, pituitary gland, infundibular stalk, optic chiasm and hypothalamus. Normal tectal plate and pineal gland. Normal midbrain, aris and medulla. Normal cerebellum. Normal basal cisterns. Normal bilateral temporal bones. Normal bilateral internal auditory canals. There are bilateral ocular lens implants with otherwise normal intraorbital contents. Normal visualized paranasal sinuses. Normal calvarium and skull base. Normal visualized soft tissue structures. Normal visualized upper cervical spine. MRI/Brain without Contrast IMPRESSION: Involutional changes of the brain, as described above. No acute infarct or hemorrhage. Electronically Signed: Darrion Sanford MD at 12:41 EDT Tel , Service support ,
[2019-11-15] MEDS: 0.9% Saline Lock 10 ML Syringe IV (12:54)
--- NOTE | 2019-11-15 13:10 | TELEMED_ITS ---
SOC Telemed has confirmed receipt of a request for visit. This document confirms receipt of the order initiating the consult. To find the results of the consultation, please view the patient's reports for the scanned Telemed Consult.
--- NOTE | 2019-11-15 13:18 | CASEMGMT ---
Addendum entered by Mimi High 11/15/19 13:32: SW did ask pt about his alcohol consumption, pt states drinks 8 beers per day, not interested in any rehab or referrals for this at this time. HENOK Jimenez Original Note: SW reviewed chart, met w/pt briefly. Pt having some difficulty answering questions, forgetting the questions shortly after SW asked them so conversation brief. PHQ-9 deferred at this time due to pt having forgetting questions shortly after they are being asked. 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 after an injury. SW inquired w/pt, he confirmed this. Plan: TBD SW spoke w/pt briefly about discharge plan. Pt wants to go home and go back to work. had mentioned to RN earlier however that pt may need rehab, they may want [facility] or [facility] Rehab, not sure yet. SW explained to pt we can talk more about this once he has had more testing, to see what will be most appropriate at discharge. Pt struggling to stay awake during conversation, and at this time pt is reporting wants to go home. SW did leave a list of rehab facilities in the room. SW called , message left to call SW back. SW will follow up Sunday w/pt and , and make appropriate referral as needed. HENOK Jimenez
[2019-11-15] MEDS: Acetaminophen 325 MG Tablet 650 MG PO ×2 (13:53→20:49)
--- NOTE | 2019-11-15 14:20 | ECHOD_ITS ---
Reason For Study: TIA/CVA Procedure This was a 2D Doppler, Color Flow transthoracic echocardiogram. The study was technically difficult. Exam performed portable in patient room. Left Ventricle Normal LV size. Left ventricular systolic function is normal. The estimated ejection fraction is 65 %. Stage 1 diastolic dysfunction. No regional wall motion abnormalities noted. Right Ventricle Normal RV size. Normal systolic function. Atria The left atrium is moderately enlarged. The right atrium is mildly enlarged. Bubble contrast study negative for right to left interatrial shunt. Mitral Valve Normal mitral valve. Tricuspid Valve Normal tricuspid valve. Aortic Valve Normal aortic valve. Pulmonic Valve The pulmonic valve is not well visualized. Great Vessels Normal aortic root. The pulmonary artery is normal size. Normal inferior vena cava. Pericardium/Pleural No pericardial effusion. Medication Performed a rapid injection of agitated mix of 9 cc saline and 1cc air to assess for atrial septal defect. MMode/2D Measurements & Calculations LVIDd: 4.5 cm IVSd: 0.90 cm Ao root diam: 4.3 cm LVIDs: 3.1 cm LVPWd: 1.2 cm RVDd: 4.6 cm FS: 30.7 % LAV(MOD-bp): 89.8 ml LA A4 area: 25.5 cm2 LA dimension(2D): 3.4 cm LAV(MOD-bp) Indexed: 44.9 ml/m2 LAV(MOD-sp2): 80.1 ml LAV(MOD-sp4): 84.6 ml RA A4 area: 22.7 cm2 Time Measurements MV dec time: 0.21 sec Doppler Measurements & Calculations MV E max paco: 54.5 cm/sec Lat Peak E' Paco: 8.4 cm/sec Med Peak E' Paco: 6.7 cm/sec MV A max paco: 61.3 cm/sec E/E' lat: 6.5 E/E' med: 8.1 MV E/A: 0.89 Ao V2 max: 144.7 cm/sec LV V1 max: 113.7 cm/sec PA V2 max: 131.6 cm/sec Ao max P.4 mmHg LV V1 max P.2 mmHg Interpretation Summary Normal LV size. Left ventricular systolic function is normal. The estimated ejection fraction is 65 %. Stage 1 diastolic dysfunction. Structurally normal valves. Ordering Physician: Brittaney Mcgarry Performed By: Estela Bojorquez, CARLOS, RVT
[2019-11-15] MEDS: 0.9% Normal Saline 1,000 ML 50 ML IV (16:00)
[2019-11-15] MEDS: Tamsulosin HCl 0.4 MG Capsule PO (18:05)
[2019-11-15] MEDS: Aspirin 81 MG TAB.CHEW PO (18:05)
[2019-11-15] MEDS: Clopidogrel Bisulfate 75 MG Tablet PO (18:05)
[2019-11-15] MEDS: Atorvastatin Calcium 20 MG Tablet PO (20:43)
[2019-11-16] VITALS (20 sets, daily range): BP systolic 103–179; BP diastolic 62–94; PULSE 60–114; RESP 13–20; TEMP 36.6–37.2; O2SAT 94–99; BMI 24.7
[2019-11-16 05:47] LABS: Absolute Lymphocyte Count 1.22 X10^3/uL (0.83-4.51); Absolute Neutrophil Count 5.8 X10^3/uL (2.0-7.7); Basophil# 0.03 X10^3/uL; Basophil% 0.4 % (0-1); Eosinophil# 0.04 X10^3/uL; Eosinophils% 0.5 % (0-5); Hematocrit 43.3 % (40-54); Hemoglobin 14.4 g/dL (13.0-16.5); Lymphocyte # 1.22 X10^3/ul (4.0); Lymphocyte % 15.5 % (19-41); Mean Corp Hgb Conc 33.3 g/dL (32-36); Mean Corpuscular Hgb 31.2 pg (27.0-32.0); Mean Corpuscular Volume 93.9 fL (80-94); Mean Platelet Vol. 9.3 fl (6.2-12.0); Monocyte# 0.74 X10^3/uL; Monocyte% 9.4 % (0-10); NRBC Flagged by Analyzer 0 % (0-5); Neutrophil # 5.84 X10^3/uL (2.7-7.7); Neutrophil % 73.9 % (47-70); Platelet Count 262 K/mm3 (150-450); RBC Distribution Width CV 12.4 % (11.6-14.6); RBC Distribution Width SD 42.6 fl (35.1-43.9); Red Blood Count 4.61 M/mm3 (4.6-6.2); White Blood Count 7.9 K/mm3 (4.4-11.0)
[2019-11-16 06:17] LABS: ALB/GLOB Ratio 0.8 RATIO (0.9-2.4); AST(SGOT) 15 U/L (15-37); Alanine Aminotransfer ALT/SGPT 24 U/L (16-61); Albumin, Serum 3.2 g/dL (3.2-5.0); Alkaline Phosphatase 65 U/L (45-117); Anion Gap 5 (5-15); BUN 17 mg/dL (7-18); BUN/Creat Ratio 19.4 RATIO (10-20); Calcium,Total 9.2 mg/dL (8.5-10.1); Chloride 102 mmol/L (98-107); Creatinine, Serum 0.88 mg/dL (0.70-1.30); EST Glomerular Filtration Rate 91 mL/min (>60); Est Glom Filt Rate - Afr Amer 110 mL/min (>60); Estimated Creatinine Clearance 80.81 ml/min; Globulin 3.8 g/dL (2.2-4.2); Glucose 111 mg/dL (74-106); Lipase 141 U/L (73-393); Potassium 3.8 mmol/L (3.5-5.1); Sodium Level 136 mmol/L (136-145)
[2019-11-16 07:32] LABS: International Normalized Ratio 1.1; Prothrombin Time (Protime)PT. 13.3 SECONDS (11.7-14.9)
[2019-11-16 07:37] LABS: Fibrinogen 310 mg/dl (203-444)
--- NOTE | 2019-11-16 08:19 | PCM.PN.HOSP ---
Patient Problems: Active and Suspected Problems CVA (cerebral vascular accident) (Acute) Reason for Visit: Follow-up on acute stroke status post TPA Subjective: Patient was seen and examined. Denied any new complaint. He feels much improved. Strength in his left upper and lower extremities are improved. Patient had episodes of bleeding from his [place]. Urine in the bag looks clear, with a pink tinge. Objective: Physical exam: General: Alert, Oriented x3, Cooperative, No apparent distress HEENT: Atraumatic, PERRLA, EOMI, Normocephalic Oral: Moist Mucosa Neck: Supple Lungs: Clear to auscultation, Normal air movement Cardiovascular: Regular rate, Regular Rhythm, Normal S1, Normal S2, No murmurs Abdomen: Bowel Sounds Present, Soft, Non Tender, Non-Distended, No Hepato-splenomegaly Extremities: No edema Skin: No rashes Musculoskeletal: No Tenderness to Palpation of Joints or Extremities Lymphatic: No Cervical, Supraclavicular, or Inguinal Adenopathy Neurological: - - Left eye ptosis, not new, left partial hemianopsia, left facial droop, appears improved, dysarthria, improved, power in LUE is 3-4/5, power in LLE 3/5, increased tone, power in RUE 5/5, LLE 5/5 Psych/Mental Status: Normal Affect, Appropriate Vitals/I&O's: Vital Signs Temp Pulse Resp BP Pulse Ox 98.2 F 71 14 154/81 H 97 11/16/19 06:00 11/16/19 07:00 11/16/19 06:00 11/16/19 06:00 11/16/19 06:00 Oxygen Flow Rate (L/min) 2 Oxygen Delivery Method Room Air Weight: 80.6 kg Body Mass Index (BMI) 24.7 Finger Stick Blood Glucose 119 Intake and Output for Last 24 Hours 11/14/19 11/15/19 11/16/19 23:59 23:59 23:59 Intake Total 1596.91 / 1596.91 972.87 / 972.87 180 / 180 Output Total 3255 / 3255 905 / 1005 310 / 310 Balance -1658.09 / -1658.09 67.87 / -32.13 -130 / -130 Laboratory Results 11/16/19 05:30: WBC 7.9, RBC 4.61, Hgb 14.4, Hct 43.3, MCV 93.9, MCH 31.2, MCHC 33.3, RDW Std Deviation 42.6, RDW Coeff of Denae 12.4, Plt Count 262, MPV 9.3, Immature Gran % (Auto) 0.300, Neut % (Auto) 73.9 H, Lymph % (Auto) 15.5 L, [place] % (Auto) 9.4, Eos % (Auto) 0.5, Baso % (Auto) 0.4, Absolute Neuts (auto) 5.8, Absolute Lymphs (auto) 1.22, Nucleated RBC % 0 11/16/19 05:30: Sodium 136, Potassium 3.8, Chloride 102, Carbon Dioxide 29.0, Anion Gap 5, BUN 17, Creatinine 0.88, Estim Creat Clear Calc 80.81, Est GFR (MDRD) Af Amer 110, Est GFR (MDRD) Non-Af 91, BUN/Creatinine Ratio 19.4, Glucose 111 H, Calcium 9.2, Total Bilirubin 0.90, AST 15, ALT 24, Alkaline Phosphatase 65, Total Protein 7.0, Albumin 3.2, Globulin 3.8, Albumin/Globulin Ratio 0.8 L, Lipase 141 11/16/19 05:30: PT 13.3, INR 1.1, APTT 26.0, Fibrinogen 310 Current Medications Acetaminophen (Tylenol) 650 mg PO Q6H PRN PRN PRN Reason: Pain Score 1-10/Temp > 100.7 F Last Admin: 11/15/19 20:49 Dose: 650 mg Documented by: Amlodipine Besylate (Norvasc) 5 mg PO DAILY [facility] Aspirin (Aspirin, Baby) 81 mg PO DAILY@0800 [facility] Last Admin: 11/15/19 18:05 Dose: 81 mg Documented by: Atorvastatin Calcium (Lipitor) 20 mg PO QHS [facility] Last Admin: 11/15/19 20:43 Dose: 20 mg Documented by: Clopidogrel Bisulfate (Plavix) 75 mg PO DAILY [facility] Last Admin: 11/15/19 18:05 Dose: 75 mg Documented by: Dicyclomine HCl (Bentyl) 20 mg PO Q6H PRN PRN PRN Reason: abdominal discomfort Diphenhydramine HCl (Benadryl) 50 mg IV .X1 PRN PRN Reason: Allergic Reaction Stop: 11/16/19 10:06 Gabapentin (Neurontin) 300 mg PO Q8H PRN PRN PRN Reason: moderate to severe anxiety Hydroxyzine Pamoate (Vistaril Pamoate Capsule) 50 mg PO Q4H PRN PRN PRN Reason: mild anxiety Sodium Chloride () 500 mls @ 999 mls/hr IV .Q31M ONE Last Infusion: 11/14/19 10:53 Dose: Infused Documented by: Famotidine 20 mg/ Sodium (Chloride) 10 mls @ 300 mls/hr IV .X1 PRN PRN Reason: Allergic Reaction Stop: 11/16/19 10:06 Nicardipine/Dextrose (Cardene-Dex 20 Mg/200 Ml Soln) 20 mg in 200 mls @ 50 mls/hr IV .Q4H PRN; Protocol PRN Reason: See Instructions Last Titration: 11/14/19 20:15 Dose: 0 mg/hr, 0 mls/hr Documented by: Sodium Chloride () 250 mls @ 15 mls/hr IV .[id number] PRN PRN Reason: Saline Flush Sodium Chloride () 250 mls @ 15 mls/hr IV .[id number] PRN PRN Reason: Additional IVPB Infusion Folic Acid 1 mg/ Sodium (Chloride) 50.2 mls @ 200 mls/hr IV DAILY [facility] Last Infusion: 11/15/19 13:43 Dose: Infused Documented by: Thiamine HCl 100 mg/ Sodium (Chloride) 51 mls @ 200 mls/hr IV DAILY [facility] Last Infusion: 11/15/19 13:11 Dose: Infused Documented by: Sodium Chloride () 1,000 mls @ 50 mls/hr IV .Q20H [facility] Stop: 11/16/19 10:24 Last Infusion: 11/15/19 23:50 Dose: 50 mls/hr Documented by: Influenza Virus Vaccine Quadrival (Flucelvax /Fluzone ) 0.5 ml IM .ONCE ONE Stop: 11/16/19 13:01 Loperamide HCl (Imodium) 2 mg PO Q4H PRN PRN PRN Reason: LOOSE STOOLS Lorazepam (Ativan) 2 mg IV Q2H PRN PRN; Protocol PRN Reason: CIWA score > 8 but <15 Lorazepam (Ativan) 2 mg IV UD PRN; Protocol PRN Reason: CIWA score >/=15. Losartan Potassium (Cozaar) 100 mg PO DAILY [facility] Methylprednisolone (Solu-Medrol) 125 mg IV .X1 PRN PRN Reason: Allergic Reaction Stop: 11/16/19 10:06 Nutritional Formula (Lactose Free) (Ensure Enlive) 120 ml PO 4X/DAY [facility] Last Admin: 11/15/19 20:43 Dose: 120 ml Documented by: Ondansetron HCl (Zofran) 4 mg IV Q8H PRN PRN PRN Reason: NAUSEA/VOMITING Ondansetron HCl (Zofran) 8 mg PO Q8H PRN PRN PRN Reason: NAUSEA Sodium Chloride () 10 - 40 ml IV UD PRN PRN Reason: SALINE FLUSH Last Admin: 11/15/19 12:54 Dose: 20 ml Documented by: Tamsulosin HCl (Flomax) 0.4 mg PO DAILY@1730 [facility] Last Admin: 11/15/19 18:05 Dose: 0.4 mg Documented by: Trazodone HCl (Desyrel) 100 mg PO QHS PRN PRN Reason: INSOMNIA STROKE Vital Signs/Narrative: Vital Signs Temp Pulse Resp BP BP Pulse Ox 11/16/19 07:00 71 11/16/19 06:00 98.2 F 64 14 154/81 H 154/81 H 97 11/16/19 05:00 98 F 70 17 174/92 H 98 Medical Necessity - Tobacco Use Smoking Status: Former smoker Tobacco Use: Non-smoker Assessment/Plan All Active Problems CVA (cerebral vascular accident) (Acute) 1. Acute left hemiplegia secondary to acute CVA, s/p TPA (given at 10:30AM on 11/14/19) Admitting NIHSS was 14; Status post TPA protocol. MRI brain is negative; likely acute MRI negative CVA CT of the head and neck shows left internal carotid artery stenosis of 50 to 69%, right internal carotid artery stenosis less than 50%. Intracranial CT was unremarkable. HgbA1c was 5.7. Total cholesterol is 153, triglycerides 37, LDL 49 2D echo pending Discussed with SOC tele-neurology, recommended aspirin and Plavix overlap for 3 weeks and then monotherapy On atorvastatin 20 mg nightly Patient will require intensive acute rehab-discussed with both patient and her -both agree 2. Hypertension, remains uncontrolled, 24-hour permissive hypertensive. Over Resumed on amlodipine 5 mg p.o. daily, losartan 100 mg p.o. daily Home Hydrochlorothiazide and metoprolol remains on hold; will consider resumption if blood pressure remains uncontrolled 3. Hypokalemia, resolved 4. Hypomagnesemia, resolved, 5. Dysphagia secondary to #1, on a mechanical soft diet/pur?ed with swallow precautions Speech therapy consulted 6. Chronic alcohol use disorder, patient is a heavy drinker per , Continue to monitor on alcohol withdrawal protocol Would hold off on starting on phenobarbital taper as patient is showing no signs of acute withdrawal Continue on po thiamine and folic acid 7. KAROLYN, prerenal, likely from dehydration, resolved Admitting creatinine was 1.07, creatinine today 0.88 8. BPH, continue on Flomax 9. DVT PPx-will start on Lovenox SC Inpatient E&M: 15873 Subs Hosp L2
[2019-11-16 11:51] LABS: Magnesium 1.8 mg/dL (1.6-2.6)
[2019-11-16] MEDS: Aspirin 81 MG TAB.CHEW PO (12:01)
[2019-11-16] MEDS: amLODIPine 5 MG Tablet PO (12:01)
[2019-11-16] MEDS: Clopidogrel Bisulfate 75 MG Tablet PO (12:02)
--- NOTE | 2019-11-16 12:15 | RAD_ITS ---
STUDY: X-RAY - PELVIS AND BILATERAL HIPS REASON FOR EXAM: Male, 74 years old. bilateral hip and low back pain, no trauma TECHNIQUE: AP view of the pelvis.? 2 views of the right hip, and 2 views of the left hip were obtained. COMPARISON: None. FINDINGS: There is a non-specific bowel gas pattern. Normal visualized soft tissue structures. Metallic implants of the prostate gland noted. Normal bilateral iliac wings, sacroiliac joints and visualized sacrum. Normal bilateral superior and inferior pubic rami. Normal pubic symphysis. Normal bilateral ischial tuberosities. 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 Normal right acetabulum. There is mild articular joint space narrowing of the right hip. Normal visualized left femoral head. There is osteoarthritic spur formation of the left acetabular rim. There is mild articular joint space narrowing of the left hip. RAD/Hips B/L min 2 views w/ Pelvis IMPRESSION: Degenerative changes of the bilateral hips. No fracture or malalignment. Electronically Signed: Hiro Lyons MD ([place]) at 13:04 EDT , Service support ,
[2019-11-16] MEDS: Acetaminophen 325 MG Tablet 650 MG PO (13:23)
[2019-11-16] MEDS: Losartan Potassium 100 MG Tablet PO (14:07)
[2019-11-16] MEDS: Enoxaparin 40 MG/0.4 ML Syringe SC (14:07)
[2019-11-16] MEDS: Tamsulosin HCl 0.4 MG Capsule PO (17:17)
[2019-11-16] MEDS: Atorvastatin Calcium 20 MG Tablet PO (21:08)
[2019-11-17] VITALS (8 sets, daily range): BP systolic 139–168; BP diastolic 88–99; PULSE 63–102; RESP 14–18; TEMP 36.4–36.6; O2SAT 94–97; BMI 24.7
[2019-11-17] MEDS: Enoxaparin 40 MG/0.4 ML Syringe SC (06:05)
[2019-11-17] MEDS: Aspirin 81 MG TAB.CHEW PO (09:12)
[2019-11-17] MEDS: amLODIPine 5 MG Tablet PO (09:12)
[2019-11-17] MEDS: Losartan Potassium 100 MG Tablet PO (09:12)
[2019-11-17] MEDS: Clopidogrel Bisulfate 75 MG Tablet PO (09:12)
--- NOTE | 2019-11-17 10:58 | CASEMGMT ---
SW completed PHQ 9 with patient as he had a Stroke/TIA. He scored a 0 which indicates no depression. Ruth RICE MSW
--- NOTE | 2019-11-17 10:59 | CASEMGMT ---
ALEXIS received a call from Lou in [facility] and Dr Mcbride will take patient if he is in agreement. ALEXIS met with patient, introduced self and role at [facility]. SW discussed d/c planning with patient. He is open to going to [facility] 4th floor rehab unit. SW let him know they would be willing to take him. He asked if SW could come back and talk with his when she gets here. SW told him SW can definitely come back when his gets here. SW told him to just ask for Social Work. Plan: d/c to [facility] 4th floor Inpatient Rehab Unit Ruth RICE MSW
--- NOTE | 2019-11-17 11:44 | DCINST_ITS ---
- Discharge Diagnoses Current Active Problems: Current Active and Chronic Problems 1. 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 Hypertension, uncontrolled 3. Hypokalemia, resolved likely secondary to chronic EtOH abuse 4. Hypomagnesemia, resolved likely secondary to chronic EtOH abuse 5. Hyponatremia, resolved likely secondary to dehydration and chronic EtOH abuse 6. Chronic alcohol use disorder 7. Renal Insufficiency, likely prerenal from dehydration coupled with EtOH abuse, resolved 8. BPH You will use the following diet at home:: Cardiac - Mechanical soft diet/pur?ed with swallow precautions Your food should be the consistency of: Puree - Mechanical soft diet/pur?ed with swallow precautions Your liquids should be the consistency of: Regular/Thin Discharge Activity: - - Continue aggressive PT/OT/ST in acute rehab setting with assist devices as needed. May resume sexual activity in: No Restrictions Call your doctor if you observe: Fever of 101 or Higher, Inability to urinate, Inability to have a bowel movement, Shortness of breath, Dizziness, Fainting spells, Chest pain, Uncontrolled pain Instructions: Intimacy After Stroke, Effects of a Stroke on the Brain and Body, What Is Ischemic Stroke?, Stroke: Taking Medications, Preparing Your Home After Stroke, ED Alcohol Abuse, Addiction: Your Treatment Options Additional Instructions: During the admission you were evaluated and aggressively treated for acute stroke. You will transition to acute rehab to continue ongoing aggressive physical therapy, Occupational Therapy and speech therapy. Currently from most recent speech therapy evaluation you are to be maintained on mechanical soft diet/pur?ed with swallow precautions but with continued aggressive interventions she may able to return to a normal diet texture. Additionally, per neurology recommendations he will be maintained on a dual antiplatelet therapy with aspirin and Plavix for 3 weeks with then transition to single agent per their recommendation. During the admission you were resumed on your blood pressure medications however given your low sodium your hydrochlorothiazide was decreased by one half but this may need to return to the full dose to achieve blood pressure control. During the admission, you were also treated for alcohol abuse and associated electrolyte disturbances. It is important you continue sobriety for your ongoing health improvement. Please do not hesitate to discuss home transition treatment with acute rehab as well. Allergies/Adverse Reactions: Allergies Iodinated Contrast Media [CONTRASTS] Allergy (Verified 11/14/19 11:24) PT UNABLE TO RESPOND-NEEDS F/U Medications to take at Discharge Amlodipine Besylate 5 mg PO DAILY 11/14/19 Cyanocobalamin (Vitamin B-12) [Vitamin B-12] 1,000 mcg PO DAILY 11/14/19 Losartan Potassium [Cozaar] 100 mg PO DAILY 11/14/19 Metoprolol(XL)Succ [Toprol Xl (Beta Goukl)] 100 mg PO DAILY 11/14/19 Tamsulosin HCl 0.4 mg PO DINNER 11/14/19 Aspirin [Aspirin, Baby] 81 mg PO DAILY@0800 tab.chew 11/17/19 Atorvastatin Calcium [Lipitor] 20 mg PO QHS tablet 11/17/19 Clopidogrel Bisulfate [Plavix] 75 mg PO DAILY tablet 11/17/19 Ensure Enlive 120 ml PO 4X/DAY liquid 11/17/19 Hydrochlorothiazide [Hctz] 12.5 mg PO DAILY #30 tablet 11/17/19 Multivitamin 1 each PO DAILY #30 tablet 11/17/19 traZODone [Desyrel] 100 mg PO QHS PRN tablet 11/17/19 The following prescriptions were given: Hydrochlorothiazide [Hctz] 12.5 mg PO DAILY #30 tablet Multivitamin 1 each PO DAILY #30 tablet Primary Care Physician: Care Physician,No Primary [Primary Care Provider] - Please follow up with your Primary Care Physician in: Please follow-up with PCP upon Rehab discharge within 1-2 days. Test Results: Test results from this visit will be discussed in further detail at your follow- up appointment, if applicable. Please Follow Up With: Juan Norwood MD When: Please follow-up within 4 weeks. Please Follow Up With: 180 EtOH Abuse Follow-up When: Please assure follow-up upon rehab discharge. Proposed Discharge Date: 11/17/19
--- NOTE | 2019-11-17 11:53 | DS.PCM_ITS ---
Discharge Date and Diagnosis - Problem List Patient Problems: Active and Suspected Problems CVA (cerebral vascular accident) (Acute) Date of Admission: 11/14/19 Date of Discharge: 11/17/19 - Primary Discharge Diagnosis Acute Problems: Active Problems 1. 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 Hypertension, uncontrolled 3. Hypokalemia, resolved likely secondary to chronic EtOH abuse 4. Hypomagnesemia, resolved likely secondary to chronic EtOH abuse 5. Hyponatremia, resolved likely secondary to dehydration and chronic EtOH abuse 6. Chronic alcohol use disorder 7. Renal Insufficiency, likely prerenal from dehydration coupled with EtOH abuse, resolved 8. BPH - Secondary Discharge Diagnosis Chronic Problems: Chronic Problems Hypertension, uncontrolled Chronic alcohol use disorder BPH Hospital Course and Treatment Teleneurology consultation PT/OT/Speech consultations Procedures: 2-D Echocardiogram, EKG, - - TPA administration. 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 Patient was transitioned to the ED and received TPA at 10:30 AM. Following which patient was transitioned to the ICU and continue neurological evaluation was ensued. Additional ED work-up included initial CT brain with chronic involutional changes, CTA head and neck with calcific plaque at the origin of the left internal carotid artery causing 50 to 69% stenosis, right internal carotid less than 50% stenosis, chest x-ray with findings suggestive of mild basilar scarring with blunting of the left costophrenic angle. MRI of the brain was obtained 24 hours following TPA administration with noted chronic involutional changes; however, neurology felt patient presentation, evaluation, imaging w/ suspected Punctate posterior circulation stroke missed on MRI. Echocardiogram was obtained noting normal LV size, normal LV systolic function, EF 65%, stage I diastolic dysfunction, structurally normal valves. PT, OT, speech therapy was involved and evaluated the patient. Patient was noted to have dysphasia and following evaluation diet was transitioned to mechanical soft/pur?ed with swallow precautions. During the admission patient was maintained on CIWA protocol with evaluation of magnesium and phosphorus dose with supplementation as needed. Additionally patient with mild hyponatremia likely secondary to dehydration and beer Ruel laura with improvement with IV fluids. Patient was maintained following imaging at 24 hours status post TPA given no evidence of bleeding on aspirin therapy in addition to Plavix with plan 3-week duration with transition following to monotherapy. Patient was initially started on lower dose statin however given significant presentation requiring TPA this was changed to high dose and discussed at length with patient and family and if not tolerated noted that could consider decreasing down. Patient was transitioned to Acute rehab for ongoing therapies. He was discharged with recommended PCP, Neurology and Vascular surgery follow-up. Patient once appropriate was resumed on his hypertensive regimen; however, HCTZ was decreased secondary to his underlying suspected chronic sodium levels secondary to EtOH abuse but discussed with him and his this may need increased depending on his continued BP trends. Domitila lindquist encouraged safe sobriety during admission and at discharge with recommended 180 referral. DAY OF DISCHARGE PROGRESS NOTE: Subjective: Patient without acute event overnight per self and nursing report. Patient denies any acute events overnight. He does feel as though he is working better with therapies and was able to walk with assist to the bedside chair today with them. He still has ongoing left-sided weakness but prior left-sided facial droop has nearly resolved. He does state he has ongoing decreased sensation to the left side including the face. Patient denies fever, chills, nausea, emesis, abdominal pain, chest pain or dyspnea. Patient agreeable to discharge to acute rehab for ongoing therapies. Patient will be discharged with follow-up with primary care physician, neurology as well as vascular surgery in addition to 180. Objective: T7.5, heart rate 79, BP 155/89, respiratory rate 16, 96% room air. Physical Examination: General: awake, alert, oriented x 3 and cooperative, seated upright in the PCU bedside chair, no acute distress. Skin: normal color, turgor, no icterus, cyanosis. HEENT: AT/NC, EOMI, PERRLA, MMM. Lungs: CTA bilaterally, moderate effort, mild decrease BL bases, no rales, ronchi or wheezing; Heart: Regular rate and rhythm; no gallop, rub audible. Abdomen: soft, NTTP, ND, normal BS. Extremities: no cyanosis, clubbing, or edema. Neurological: patient awake, alert, oriented x 3; cognitive function appears intact upon questioning, but does seem to repeat questions several times; pupils equally reactive to light and accomodation; cranial nerves II-XII grossly normal, [id number] and [id number]-[id number] diminished left side, ongoing sensation decreased to left side including face, apparent resolution of prior noted left facial droop, left-sided hemiplegia evident. Psychiatric: affect appears normal, no acute evidence of depressive or anxiety feelings. Assessment and Plan: Please see hospital summary above. Patient Problems: Active and Suspected Problems CVA (cerebral vascular accident) (Acute) - Physical Exam Vitals/I&O's: Vital Signs Temp Pulse Resp BP Pulse Ox 97.6 F L 77 16 166/90 H 97 11/17/19 09:11 11/17/19 09:11 11/17/19 09:11 11/17/19 09:11 11/17/19 09:11 Oxygen Flow Rate (L/min) 2 Oxygen Delivery Method Room Air Weight: 177 lb 11.081 oz Body Mass Index (BMI) 24.7 Finger Stick Blood Glucose 119 Intake and Output for Last 24 Hours 11/15/19 11/16/19 11/17/19 23:59 23:59 23:59 Intake Total 972.87 / 972.87 1293.53 / 1293.53 171 / 171 Output Total 905 / 1005 960 / 960 200 / 200 Balance 67.87 / -32.13 333.53 / 333.53 -29 / -29 Current Medications Acetaminophen (Tylenol) 650 mg PO Q6H PRN PRN PRN Reason: Pain Score 1-10/Temp > 100.7 F Last Admin: 11/16/19 13:23 Dose: 650 mg Documented by: Amlodipine Besylate (Norvasc) 5 mg PO DAILY [facility] Last Admin: 11/17/19 09:12 Dose: 5 mg Documented by: Aspirin (Aspirin, Baby) 81 mg PO DAILY@0800 [facility] Last Admin: 11/17/19 09:12 Dose: 81 mg Documented by: Atorvastatin Calcium (Lipitor) 20 mg PO QHS [facility] Last Admin: 11/16/19 21:08 Dose: 20 mg Documented by: Clopidogrel Bisulfate (Plavix) 75 mg PO DAILY [facility] Last Admin: 11/17/19 09:12 Dose: 75 mg Documented by: Dicyclomine HCl (Bentyl) 20 mg PO Q6H PRN PRN PRN Reason: abdominal discomfort Enoxaparin Sodium (Lovenox) 40 mg SC DAILY@0600 [facility] Last Admin: 11/17/19 06:05 Dose: 40 mg Documented by: Gabapentin (Neurontin) 300 mg PO Q8H PRN PRN PRN Reason: moderate to severe anxiety Hydrochlorothiazide () 12.5 mg PO DAILY [facility] Hydroxyzine Pamoate (Vistaril Pamoate Capsule) 50 mg PO Q4H PRN PRN PRN Reason: mild anxiety Sodium Chloride () 250 mls @ 15 mls/hr IV .[id number] PRN PRN Reason: Saline Flush Sodium Chloride () 250 mls @ 15 mls/hr IV .[id number] PRN PRN Reason: Additional IVPB Infusion Folic Acid 1 mg/ Sodium (Chloride) 50.2 mls @ 200 mls/hr IV DAILY [facility] Last Admin: 11/17/19 11:05 Dose: 200 mls/hr Documented by: Thiamine HCl 100 mg/ Sodium (Chloride) 51 mls @ 200 mls/hr IV DAILY [facility] Last Infusion: 11/17/19 10:24 Dose: Infused Documented by: Influenza Virus Vaccine Quadrival (Flucelvax /Fluzone ) 0.5 ml IM .ONCE ONE Stop: 11/17/19 13:01 Loperamide HCl (Imodium) 2 mg PO Q4H PRN PRN PRN Reason: LOOSE STOOLS Lorazepam (Ativan) 2 mg IV Q2H PRN PRN; Protocol PRN Reason: CIWA score > 8 but <15 Lorazepam (Ativan) 2 mg IV UD PRN; Protocol PRN Reason: CIWA score >/=15. Losartan Potassium (Cozaar) 100 mg PO DAILY [facility] Last Admin: 11/17/19 09:12 Dose: 100 mg Documented by: Metoprolol Succinate (Toprol Xl (Beta Gokul)) 100 mg PO DAILY [facility] Nutritional Formula (Lactose Free) (Ensure Enlive) 120 ml PO 4X/DAY [facility] Last Admin: 11/17/19 09:53 Dose: Not Given Documented by: Ondansetron HCl (Zofran) 4 mg IV Q8H PRN PRN PRN Reason: NAUSEA/VOMITING Ondansetron HCl (Zofran) 8 mg PO Q8H PRN PRN PRN Reason: NAUSEA Sodium Chloride () 10 - 40 ml IV UD PRN PRN Reason: SALINE FLUSH Last Admin: 11/15/19 12:54 Dose: 20 ml Documented by: Tamsulosin HCl (Flomax) 0.4 mg PO DAILY@1730 [facility] Last Admin: 11/16/19 17:17 Dose: 0.4 mg Documented by: Trazodone HCl (Desyrel) 100 mg PO QHS PRN PRN Reason: INSOMNIA Discharge Activity: - - Continue aggressive PT/OT/ST in acute rehab setting with assist devices as needed. May resume sexual activity in: No Restrictions Call your doctor if you observe: Fever of 101 or Higher, Inability to urinate, Inability to have a bowel movement, Shortness of breath, Dizziness, Fainting spells, Chest pain, Uncontrolled pain Home Medications: Medications to take at Discharge Amlodipine Besylate 5 mg PO DAILY 11/14/19 Cyanocobalamin (Vitamin B-12) [Vitamin B-12] 1,000 mcg PO DAILY 11/14/19 Losartan Potassium [Cozaar] 100 mg PO DAILY 11/14/19 Metoprolol(XL)Succ [Toprol Xl (Beta Gokul)] 100 mg PO DAILY 11/14/19 Tamsulosin HCl 0.4 mg PO DINNER 11/14/19 Aspirin [Aspirin, Baby] 81 mg PO DAILY@0800 tab.chew 11/17/19 Atorvastatin Calcium 80 mg PO QHS #30 tab 11/17/19 Clopidogrel Bisulfate [Plavix] 75 mg PO DAILY tab 11/17/19 Ensure Enlive 120 ml PO 4X/DAY liquid 11/17/19 Hydrochlorothiazide [Hctz] 12.5 mg PO DAILY #30 tab 11/17/19 Multivitamin 1 ea PO DAILY #30 tab 11/17/19 traZODone [Desyrel] 100 mg PO QHS PRN tab 11/17/19 Following Prescriptions Were Given to Patient: Atorvastatin Calcium 80 mg PO QHS #30 tab Hydrochlorothiazide [Hctz] 12.5 mg PO DAILY #30 tab Multivitamin 1 ea PO DAILY #30 tab Primary Care Physician: Care Physician,No Primary [Primary Care Provider] - Please follow up with your Primary Care Physician in: Please follow-up with PCP upon Rehab discharge within 1-2 days. Please Follow Up With: Juan Norwood MD When: Please follow-up within 4 weeks. Please Follow Up With: 180 EtOH Abuse Follow-up When: Please assure follow-up upon rehab discharge. Patient Instructions: Intimacy After Stroke, Effects of a Stroke on the Brain and Body, What Is Ischemic Stroke?, Stroke: Taking Medications, Preparing Your Home After Stroke, Addiction: Your Treatment Options, ED Alcohol Abuse Disposition: Inpt Rehab Unit/Facility Minutes spent on discharge:: 35 Patient Condition:: Fair Medical Necessity - Tobacco Use Smoking Status: Former smoker Tobacco Use: Non-smoker Meaningful Use Info Meaningful Use Diagnoses (Choose all that apply): Ischemic CVA - CVA Therapy Assessed for PT,OT and/or ST?: Yes - Ischemic Stroke Antithrombotic order at d/c?: Yes Dx of Atrial fib/flutter?: No Anticoagulant at discharge?: No Reason anticoagulant not ordered: Treatment not Indicated Statins at discharge?: Yes Primary Dx Acute Ischemic CVA?: Yes IV tPA ordered during stay?: Yes Inpatient E&M: [id number] Disch Hosp
--- NOTE | 2019-11-17 12:07 | PHA.DC.MR ---
Pharmacy Service has performed discharge medication reconciliation for this patient upon transfer to inpatient rehab unit. The patient's discharge medication list was reviewed for discrepancies and discrepancies were resolved. Home Medications Amlodipine Besylate 5 mg PO DAILY 11/14/19 Cyanocobalamin (Vitamin B-12) [Vitamin B-12] 1,000 mcg PO DAILY 11/14/19 Losartan Potassium [Cozaar] 100 mg PO DAILY 11/14/19 Metoprolol(XL)Succ [Toprol Xl (Beta Gokul)] 100 mg PO DAILY 11/14/19 Tamsulosin HCl 0.4 mg PO DINNER 11/14/19 Aspirin [Aspirin, Baby] 81 mg PO DAILY@0800 tab.chew 11/17/19 Atorvastatin Calcium 80 mg PO QHS #30 tab 11/17/19 Clopidogrel Bisulfate [Plavix] 75 mg PO DAILY tab 11/17/19 Ensure Enlive 120 ml PO 4X/DAY liquid 11/17/19 Hydrochlorothiazide [Hctz] 12.5 mg PO DAILY #30 tab 11/17/19 Multivitamin 1 ea PO DAILY #30 tab 11/17/19 traZODone [Desyrel] 100 mg PO QHS PRN tab 11/17/19
[2019-11-17] MEDS: hydroCHLOROthiazide 12.5mg 12.5 MG PO (13:48)
[2019-11-17] MEDS: Metoprolol(XL)Succ 100 MG Tablet PO (13:48)
--- NOTE | 2019-11-17 14:15 | CASEMGMT ---
SW spoke with patient and his . SW gave them a pamphlet on Inpatient Rehab Unit and answered any questions they had. Plan: [facility] 4th floor Inpatient Rehab Unit Ruth ZARAGOZA
--- NOTE | 2019-11-17 14:41 | NURSING ---
report called to inpatient rehab
== END 2019-11-17 14:49 | DRG 62 ==
LOC: ED 11:40 → ICU 12:01 → PCU 11-16 13:57
PROVIDERS: Internal Medicine Critical Care Medicine; Admitting Provider Internal Medicine; Emergency Provider Emergency Medicine; Visit Provider Family Medicine
DX: I63.9 Cerebral infarction, unspecified (principal); G81.94 Hemiplegia, unspecified affecting left nondominant side; N17.9 Acute kidney failure, unspecified; E87.1 Hypo-osmolality and hyponatremia; R13.10 Dysphagia, unspecified; H53.8 Other visual disturbances; R29.810 Facial weakness; R53.1 Weakness; R47.1 Dysarthria and anarthria; R29.714 NIHSS score 14; I10 Essential (primary) hypertension; I65.23 Occlusion and stenosis of bilateral carotid arteries; Z79.899 Other long term (current) drug therapy; Z87.891 Personal history of nicotine dependence; E87.6 Hypokalemia; E83.42 Hypomagnesemia; F10.10 Alcohol abuse, uncomplicated; N40.0 Benign prostatic hyperplasia without lower urinary tract symptoms; E86.0 Dehydration; Z23 Encounter for immunization
CPT/HCPCS: 51702; 70450; 70496; 70498; 70551; 71045; 73521; 80048; 80053; 80061; 80076; 83036; 83690; 83735; 84484; 85025; 85384; 85610; 85730; 92523; 92526; 92610; 93005; 93306; 97110; 97116; 97163; 97165; 97530; 97802; 97803; 99251; 99285; G0008; J2997; J7030; Q9967; 90686; A4216; G0463; J2405; J3490

== ENCOUNTER 2019-11-17 15:00 | Inpatient (IN) | payer MEDICARE, OTHER, SELFPAY ==
[2019-11-17 08:16] VITALS: BMI 24.7
[2019-11-17 15:16] VITALS: BP 166/85; PULSE 78; RESP 18; TEMP 37; O2SAT 99; BMI 25.4; BMI 25.5
[2019-11-17] MEDS: Tamsulosin HCl 0.4 MG Capsule PO (18:24)
[2019-11-17] MEDS: Atorvastatin Calcium 80 MG Tablet PO (21:07)
[2019-11-17] MEDS: Acetaminophen 325 MG Tablet 650 MG PO (21:37)
[2019-11-17 22:00] VITALS: BP 130/92; PULSE 81; RESP 16; TEMP 37.2; O2SAT 95
[2019-11-18 05:35] VITALS: RESP 18; O2SAT 96
[2019-11-18 07:12] VITALS: O2SAT 94
[2019-11-18] MEDS: Losartan Potassium 100 MG Tablet PO (08:12)
[2019-11-18] MEDS: Multivitamins,Therapeutic Tablet 1 TABLET PO (08:12)
[2019-11-18] MEDS: Clopidogrel Bisulfate 75 MG Tablet PO (08:12)
[2019-11-18] MEDS: hydroCHLOROthiazide 12.5mg 12.5 MG PO (08:12)
[2019-11-18] MEDS: Senna/Docusate Sodium 1 Tablet 2 TABLET PO (08:12)
[2019-11-18] MEDS: amLODIPine 5 MG Tablet PO (08:12)
[2019-11-18] MEDS: Cyanocobalamin 500 MCG Tablet 1000 MCG PO (08:12)
[2019-11-18 08:13] VITALS: PULSE 65
[2019-11-18] MEDS: Aspirin 81 MG TAB.CHEW PO (08:13)
[2019-11-18] MEDS: Metoprolol(XL)Succ 100 MG Tablet PO (08:13)
--- NOTE | 2019-11-18 08:43 | REHABEVAL_ITS ---
Admission Information Primary Diagnosis:: debiilty due to right cerebral CVA with resultant dysphagia, dysarthria, left hemiparesis and sensory loss left side Status Changes from Prescreening?: No changes Identified Actual Problem List:: Cognitve Impr/Memory Loss, Mobility Impaired, Self Care Deficit, BP, Hypertension, Alteration-Leisure Activ. Potential Problem List:: DVT, Bleeding, Infection, UTI, Aspiration, Falls, Skin Integrity, Depression Risk of Complications DVT: LMWH, JOHN Hose Bleeding: Monitor Lab Values, Nursing to Teach Precautions for anti-coagulation therapy., Wound, if applicable, to be assessed every shift., Stroke patients assessed for lethargy or change in status. Infection: Clinical Staff to Monitor for S/S of infection:, S/S of infection include fever, redness, warmth, etc. Urinary Tract Infection: Monitor for frequency, burning, discomfort, or incontinence., Nursing will obtain urine sample for urinalysis and C&S when orde red. Aspiration: Clinical staff will monitor for coughing, drooling, congestion., Speech will evaluate swallowing and dsyphasia., Nursing will monitor patient swallowing during meals. Falls: Patient will be evaluated for Fall Precautions, Patient will be placed on Fall Precautions as indicated per protocol. Skin Breakdown: Nursing will assess skin daily using assessment tool., Nursing will place on Skin Breakdown Precautions as indicated. Pain: Clinical staff will assess patient's pain level per protocol., Medications will be given, if needed, and the pain level reassessed., Other methods: Massage, distraction, decrease stimulus, etc. used PRN. Plan of Care Patient requires physician specializing in physical medicine and rehab oversight to provide close medical supervision of rehab issues including: Pain Management, Sleep Problems, Bowel and Bladder, Medical and co-morbidity Management, DVT prophylaxis, Rehabilitation Leadership, Coordination of treatment team Patient needs Physical Therapy: For a minimum of 1 hour, At least 5 out of 7 days Patient needs Physical Therapy to improve:: Mobility, Mobility, Mobility, Strengthening, Transfers, Stretching, ROM, Endurance, Stairs, Gait, Balance Patient needs Occupational Therapy: For a minimum of 1 hour, At least 5 out of 7 days Patient needs Occupational Therapy to improve ADL's incl.: Eating, Grooming, Bathing, Dressing, Toileting, Toilet transfers, Community Reintegration, Higher functioning activities, Household tasks, Adaptive Equipment, Splinting, Other activities as determined Patient requires speech therapy: For a minimum of 1 hour, At least 5 out of 7 days Patient requires speech therapy for: Swallowing, Cognition, Language Skills, Compensatory Strategies Patient requires 24/ Rehabilitation Nursing for: Pain Issues, Identifying and preventing risk factors, Monitoring and reporting current medical conditions, Assisting with ambulation, transfer, and all ADL's, Teaching patients about disease process and medications, Family teaching, Providing safe environment, Bowel and Bladder Issues, Skin integrity, Medication Management Patient needs Financial Accountant/ Case Management for: Discharge Planning, Arranging Home Equipment or Services, Family Interventions Patient needs Dietary and Nutrition Services for: Adequate Nutrition, Nutritional Supplements, Nutritional Education Goals Patient will remain: free from falls, or injury at time of discharge. Patient will perform bed mobility at: MOD I level of assist. Patient will complete transfers from bed to chair at: MOD I level of assist. Patient will ambulate: with MOD I assist, with LRD, - - 300 feet Patient will complete upper body dressing at: MOD I level of assist. Patient will complete lower body dressing at: MOD I level of assist. Patient will complete toileting at: MOD I level of assist. Patient will perform bathing at: MOD I level of assist. Patient will complete grooming at: MOD I level of assist. Patient will complete home management skills at: MOD I level of assist. Patient will achieve: 12 stairs, at MOD I assist Patient will have pain level of: of 3 or less Patient's skin will: remain intact, free from infection. Patient will receive: adequate nutrition. Discharge Planning Pt Prognosis for Sig. Practical Improv. w/in Reasonable Time: Good Estimated Length of stay (days): 14 Anticipated D/C Destination: Home with Outpt Therapy Was Preadmission Assessment Accurate?: Yes
--- NOTE | 2019-11-18 08:43 | PCM.HP.STD ---
Problem List (1) Venous insufficiency Status: Chronic (2) History of prostate cancer Status: Chronic (3) Hyponatremia Status: Resolved (4) Hypomagnesemia Status: Resolved (5) Hypokalemia Status: Resolved (6) Diastolic dysfunction Status: Chronic Comment: Stage I (7) Biatrial enlargement Status: Chronic Comment: moderate on the Left and mild on the right (8) CVA (cerebral vascular accident) Status: Acute Qualifiers: CVA mechanism: unspecified Qualified Code(s): I63.9 - Cerebral infarction, unspecified (9) Alcohol consumption heavy Status: Chronic Comment: 6-8 beers daily (10) BPH (benign prostatic hyperplasia) Status: Chronic Qualifiers: Lower urinary tract symptom presence: symptoms absent Qualified Code(s): N40.0 - Benign prostatic hyperplasia without lower urinary tract symptoms (11) Hypertension Status: Chronic Qualifiers: Hypertension type: essential hypertension Qualified Code(s): I10 - Essential (primary) hypertension (12) Vitamin B12 deficiency Status: Chronic (13) Left carotid stenosis Status: Chronic Comment: 50 to 69% stenosis on the left takeoff of the internal carotid and less than 50% on the right History of Present Illness Date of Admission: 11/17/19 Chief Complaint: Debility secondary to recent ischemic CVA with left hemiplegia and dysphagia The patient is a 74 year old M with a past medical history of BPH, history of prostate cancer, hypertension, alcohol abuse, tobacco dependence in remission and recent ischemic CVA who received TPA in the ED at [facility] on 11/14/19 for witnessed dense left hemiparesis, dysphagia, dysarthria and waxing and waning alertness. His NIH in the ED was 14. Noncontrasted CT brain showed involutional changes with no acute findings. CTA of the head and neck showed 50 to 69% stenosis at the origin of the left internal carotid and less than 50% stenosis at the origin of the right internal carotid artery. [facility] tele-neurology was consulted and recommended TPA and the patient agreed. MRI done 24 hours after TPA administration showed moderate cerebral atrophy and a limited number of small white hyperintensities distributed throughout the deep white matter tracts of the cerebral hemispheres. There was no evidence for recent intracranial ischemia. [facility] teleneurology consult was obtained and the neurologist suspected punctate posterior circulation stroke that was missed on the MRI interpretation. Aspirin 81 mg daily and Plavix 75 mg daily for 3 weeks was recommended. Echocardiogram showed an ejection fraction of 65% with no wall motion abnormalities and no valvular heart disease. There was moderate left atrial enlargement and mild right atrial enlargement. He was seen in consultation by PT/OT/ST and transferred to the acute rehab unit was recommended. He was admitted to the inpatient rehab unit on 11/17/2019 for greater than 3 hours of therapy daily to restore him at or near his prior level of function. All lab from the hospital admission was personally reviewed. CBC at admission was unremarkable. PT and PTT were within normal limits. Sodium was low at 129, potassium was low at 3.4, chloride was low at 90, creatinine was elevated at 1.07, magnesium was low at 1.4 and total bilirubin was increased at 1.50. Random blood sugar was 122 but a hemoglobin A1c was 5.7. Following supplementation the sodium, potassium, magnesium and chloride were all within normal limits. The BUN and creatinine on 11/16/2019 were 17 and 0.88 respectively. A lipid panel showed a total cholesterol of 153 with an LDL of 49 and HDL of 97. Triglycerides were 37. He was discharged on aspirin 81 mg daily for life and Plavix 75 mg p.o. daily x21 days. He is not on a statin because his LDL is 47 and his HDL is 97 and he is already a goal without medication. Past Medical History Past Medical History (Chronic Problems): Chronic Problems Hypertension (Chronic) BPH (benign prostatic hyperplasia) (Chronic) Vitamin B12 deficiency (Chronic) Alcohol consumption heavy (Chronic) 6-8 beers daily Venous insufficiency (Chronic) History of prostate cancer (Chronic) Diastolic dysfunction (Chronic) Stage I Biatrial enlargement (Chronic) moderate on the Left and mild on the right Left carotid stenosis (Chronic) 50 to 69% stenosis on the left takeoff of the internal carotid and less than 50% on the right Allergies Iodinated Contrast Media [CONTRASTS] Allergy (Verified 11/14/19 11:24) PT UNABLE TO RESPOND-NEEDS F/U Home Medications: Ambulatory Orders Medication Instructions Recorded Amlodipine Besylate 5 mg PO DAILY 11/14/19 Cyanocobalamin (Vitamin B-12) 1,000 mcg PO DAILY 11/14/19 [Vitamin B-12] Losartan Potassium [Cozaar] 100 mg PO DAILY 11/14/19 Metoprolol(XL)Succ [Toprol Xl 100 mg PO DAILY 11/14/19 (Beta Gokul)] Tamsulosin HCl 0.4 mg PO DINNER 11/14/19 Aspirin [Aspirin, Baby] 81 mg PO DAILY@0800 11/17/19 Atorvastatin Calcium 80 mg PO QHS 11/17/19 Clopidogrel Bisulfate [Plavix] 75 mg PO DAILY 11/17/19 Ensure Enlive 120 ml PO 4X/DAY 11/17/19 Hydrochlorothiazide [Hctz] 12.5 mg PO DAILY 11/17/19 Multivitamin 1 ea PO DAILY 11/17/19 traZODone [Desyrel] 100 mg PO QHS PRN tab 11/17/19 Surgical History: - - s/p leg vein surgeries Psychiatric History: No pertinent psych hx Lives: Spouse/ Significant Other Smoking Status: Former smoker - quit in 2010 Tobacco Use: Cigarettes Alcohol: Heavy - 6-10 beers a day Drugs: None - *Family History Maternal History Items: - - Hsi mother lived to be 95 and she was murdered Paternal History Items: Heart Disease - His father had an FL at the age of 60 but lived to be 87. Sibling History Items: - - He has 1 brother who lives in [place] and he does not know his brothers medical history. Review of Systems Constitutional: Reports: Weakness - On the left side. Denies: Chills, Fever, Weight Change Eyes: Reports: - - He could not open the left eye wide when he first came to the hospital but he can now. Denies: Blurred vision, Double vision, Vision Change HEENT: Reports: Difficulty Swallowing. Denies: Difficulty Hearing, Eye Pain, Head Aches, Nasal Congestion, Sinus Congestion, Sinus Drainage, Sore Throat Cardiovascular: Reports: Chest Pain - he had this the day he came to the hospital. It was located in the left chest and radiated down the left arm. It was associated with SOB. He only had 1 troponin done and it was WNL, Light Headedness - This is episodic and it is associated with a fast heart rate. It comes and goes without treatment. He gets SOB with this and sometimes has chest tightness.. Denies: Claudication, Edema, Orthopnea, Palpitations, Syncope Respiratory: Reports: Shortness of Breath - with fast heart rate.. Denies: Cough, Shortness of breath at rest, Sputum production Gastrointestinal: Denies: Abdominal Pain, Constipation, Diarrhea, Dyspepsia, Nausea, Vomiting Genitourinary: Denies: Dysuria Musculoskeletal: Denies: Joint Pain, Joint Tenderness Skin: Denies: Jaundice, Rash, Wounds Neurological: Reports: Change in Speech - he is having some trouble with word finding, Focal weakness - left side. Denies: Numbness, Tingling, Tremor, Seizures Psychiatric: Denies: Anxiety, Depression, Homicidal Ideations, Suicidal Ideations Endocrine: Denies: Change in Body Habitus, Hx of Thyroiditis Hematologic/ Lymphatic: Denies: Easy Bruising, Easy Bleeding, Hx of blood clot VTE Information - Inpt Only VTE Present on Admission: No VTE Pharm Prophylaxis ordered?: No Reason prophylaxis not ordered:: Treatment Not Indicated - no DVT prophylaxis at DC from the acute hospital stay. He is ambulatory and has no hx of DVT but, he has had prostate CA in the past - Physical Exam Vitals/I&O's: Vital Signs Temp Pulse Resp BP Pulse Ox 98.9 F 65 18 130/92 H 94 11/17/19 22:00 11/18/19 08:13 11/18/19 05:35 11/17/19 22:00 11/18/19 07:12 Oxygen Delivery Method Room Air Weight: 177 lb 11.081 oz Body Mass Index (BMI) 25.4 Finger Stick Blood Glucose 119 Intake and Output for Last 24 Hours 11/16/19 11/17/19 11/18/19 23:59 23:59 23:59 Intake Total 740 / 740 Output Total 800 / 800 300 / 300 Balance -60 / -60 -300 / -300 General: Alert, Oriented x3, Cooperative, No apparent distress, Well developed, Well nourished, - - Sitting in the recliner at the bedside. Having occasional difficulty with word finding. HEENT: Atraumatic, PERRLA, EOMI, Normocephalic Oral: Moist Mucosa, No Gingival or Mucosal Lesions/ Ulcerations Neck: Supple, No JVD, Negative Carotid Bruits, No Nodes, Trachea Midline Lungs: Clear to auscultation, Diminished - mildly decreased in the upper lobes but good air exchange in the lower lobes posteriorly Cardiovascular: Regular rate, Regular Rhythm, Normal S1, Normal S2, No murmurs, No Ectopic Activity, No rub noted, No Gallop Abdomen: Bowel Sounds Present, Soft, Non Tender, Non-Distended Extremities: No edema, Capillary Refill Less than 3 Seconds, No Calf Tenderness, Clubbing - he has some clubbing of the fingernails Skin: No rashes, No breakdown Musculoskeletal: No Tenderness to Palpation of Joints or Extremities, No Muscle Wasting Neurological: Cranial nerves II-XII grossly intact, - - NIH score is currently 3. He has drift with the left upper extremity and left lower extremity and decreased sensation in the left face, left arm and left leg. Psych/Mental Status: Normal Affect, Appropriate Current Medications Acetaminophen (Tylenol) 650 mg PO Q6H PRN PRN PRN Reason: Pain Score 1-12/05 Last Admin: 11/17/19 21:37 Dose: 650 mg Documented by: Amlodipine Besylate (Norvasc) 5 mg PO DAILY [facility] Last Admin: 11/18/19 08:12 Dose: 5 mg Documented by: Aspirin (Aspirin, Baby) 81 mg PO DAILY@0800 [facility] Last Admin: 11/18/19 08:13 Dose: 81 mg Documented by: Atorvastatin Calcium (Lipitor) 80 mg PO QHS [facility] Last Admin: 11/17/19 21:07 Dose: 80 mg Documented by: Bisacodyl (Dulcolax) 10 mg RECTAL .PRN X 1 PRN PRN Reason: Constipation Clopidogrel Bisulfate (Plavix) 75 mg PO DAILY [facility] Last Admin: 11/18/19 08:12 Dose: 75 mg Documented by: Cyanocobalamin (Vitamin B12) 1,000 mcg PO DAILY [facility] Last Admin: 11/18/19 08:12 Dose: 1,000 mcg Documented by: Hydrochlorothiazide () 12.5 mg PO DAILY [facility] Last Admin: 11/18/19 08:12 Dose: 12.5 mg Documented by: Losartan Potassium (Cozaar) 100 mg PO DAILY [facility] Last Admin: 11/18/19 08:12 Dose: 100 mg Documented by: Magnesium Hydroxide (Milk Of Magnesia) 30 ml PO .PRN X 1 PRN PRN Reason: Constipation Metoprolol Succinate (Toprol Xl (Beta Gokul)) 100 mg PO DAILY [facility] Last Admin: 11/18/19 08:13 Dose: 100 mg Documented by: Multivitamins (Multivitamin) 1 tablet PO DAILY@0800 [facility] Last Admin: 11/18/19 08:12 Dose: 1 tablet Documented by: Nutritional Formula (Lactose Free) (Ensure Enlive) 120 ml PO 4X/DAY [facility] Last Admin: 11/18/19 08:14 Dose: 120 ml Documented by: Senna/Docusate Sodium (Senokot-S, Caterina-Colace) 2 tablet PO BID [facility] Last Admin: 11/18/19 08:12 Dose: 2 tablet Documented by: Tamsulosin HCl (Flomax) 0.4 mg PO DAILY@1730 [facility] Last Admin: 11/17/19 18:24 Dose: 0.4 mg Documented by: Trazodone HCl (Desyrel) 100 mg PO QHS PRN PRN Reason: INSOMNIA Assessment/Plan All Active Problems CVA (cerebral vascular accident) (Acute) Hyponatremia (Resolved) Hypomagnesemia (Resolved) Hypokalemia (Resolved) Impressions 1. Physical debility secondary to right cerebral CVA with left side weakness and decreased sensation, dysarthria and dysphagia. He received TPA in the ED. 2. Hypertension 3. Hyponatremia, hypomagnesemia and hypokalemia at admission to emergency department-resolved. He was on HCTZ for BP as an OP. This has been discontinued 4. Biatrial enlargement on echocardiogram 5. History of heavy alcohol consumption -with the hypomagnesemia and hypokalemia in conjunction with left atrial enlargement and right atrial enlargement need to consider paroxysmal atrial fibrillation, especially since he admits to periodic episodes of racing heart associated with chest tightness and shortness of breath. 6. History of B12 deficiency 7. 50 to 69% carotid stenosis at the takeoff of the left internal carotid artery 8. History of prostate cancer 9. Stage I diastolic dysfunction 10. BPH-on Flomax PLAN PT for gait stability OT for ADL's ST for evaluation Bowel protocol Fall precautions Assess for Anxiety/Depression GI prophylaxis-not necessary at this time. Patient has no history of peptic ulcer disease and no nausea/vomiting/epigastric pain DVT prophylaxis with JOHN hose and enoxaparin 40 mg subcu daily Follow up with neurology and cardiology following DC from [facility]. He will also need a PCP...none listed on the patient summary 30-day event monitor at discharge Nuclear stress test going forward.... May need to be chemical since he has significant weakness of the left leg and is currently using a front wheeled walker Advised he discontinue ETOH or limit beer consumption to 1-2 beers no more than 2-3 times a week Lipid panel and liver panel in 6 weeks Inpatient E&M: 59932 Init Hosp L3
[2019-11-18 09:29] VITALS: RESP 16
[2019-11-18 09:38] VITALS: BP 138/84; PULSE 65; RESP 18; TEMP 36.4; O2SAT 100
--- NOTE | 2019-11-18 16:12 | CASEMGMT ---
Social Work Completed PHQ-9 with pt. Score: 05/22 Carla Kurtz, LOCKER OPERATOR ADMISSIONS CLERK
[2019-11-18] MEDS: Tamsulosin HCl 0.4 MG Capsule PO (16:43)
[2019-11-18 22:00] VITALS: BP 127/72; PULSE 75; RESP 18; TEMP 36.4; O2SAT 97
[2019-11-18] MEDS: Acetaminophen 325 MG Tablet 650 MG PO (22:05)
[2019-11-18] MEDS: Atorvastatin Calcium 40 MG Tablet PO (22:05)
--- NOTE | 2019-11-19 02:15 | NURSING ---
pt up to restroom at thsi time complaining of upset stomach- pt states that it feels like a burning sensation. this nurse cortex dr will at this time. dr will orders tums 1000 mg Q4H PRN. will continue to monitor for upset stomach and indigestion.
[2019-11-19] MEDS: Calcium Carbonate 500 MG Tablet 1000 MG PO (02:39)
[2019-11-19] MEDS: Multivitamins,Therapeutic Tablet 1 TABLET PO (09:02)
[2019-11-19] MEDS: Aspirin 81 MG TAB.CHEW PO (09:02)
[2019-11-19] MEDS: amLODIPine 5 MG Tablet PO (09:03)
[2019-11-19] MEDS: Clopidogrel Bisulfate 75 MG Tablet PO (09:03)
[2019-11-19] MEDS: Losartan Potassium 100 MG Tablet PO (09:03)
[2019-11-19 09:04] VITALS: BP 110/68; PULSE 66
[2019-11-19] MEDS: Metoprolol(XL)Succ 100 MG Tablet PO (09:04)
[2019-11-19] MEDS: Cyanocobalamin 500 MCG Tablet 1000 MCG PO (09:05)
[2019-11-19 10:00] VITALS: BP 110/68; PULSE 66; RESP 16; TEMP 36.4; O2SAT 97
[2019-11-19] MEDS: Tamsulosin HCl 0.4 MG Capsule PO (18:10)
[2019-11-19] MEDS: Acetaminophen 325 MG Tablet 650 MG PO (20:14)
[2019-11-19] MEDS: Atorvastatin Calcium 40 MG Tablet PO (20:23)
[2019-11-19 22:00] VITALS: BP 108/61; PULSE 71; RESP 16; RESP 17; TEMP 36.5; O2SAT 96
[2019-11-20] MEDS: Enoxaparin 40 MG/0.4 ML Syringe SC (05:48)
[2019-11-20 06:38] VITALS: O2SAT 97
[2019-11-20 06:40] LABS: ALB/GLOB Ratio 0.8 RATIO (0.9-2.4); AST(SGOT) 12 U/L (15-37); Alanine Aminotransfer ALT/SGPT 20 U/L (16-61); Albumin, Serum 3.1 g/dL (3.2-5.0); Alkaline Phosphatase 71 U/L (45-117); Anion Gap 5 (5-15); BUN 21 mg/dL (7-18); BUN/Creat Ratio 21.5 RATIO (10-20); Calcium,Total 9.6 mg/dL (8.5-10.1); Chloride 97 mmol/L (98-107); Creatinine, Serum 0.98 mg/dL (0.70-1.30); EST Glomerular Filtration Rate 80 mL/min (>60); Est Glom Filt Rate - Afr Amer 97 mL/min (>60); Estimated Creatinine Clearance 70.35 ml/min; Globulin 4.1 g/dL (2.2-4.2); Glucose 105 mg/dL (74-106); Magnesium 1.7 mg/dL (1.6-2.6); Phosphorus 3.5 mg/dL (2.5-4.9); Potassium 3.8 mmol/L (3.5-5.1); Protein, Total 7.2 g/dL (6.4-8.2); Sodium Level 130 mmol/L (136-145)
[2019-11-20 07:56] VITALS: BP 137/72; PULSE 76
[2019-11-20] MEDS: Cyanocobalamin 500 MCG Tablet 1000 MCG PO (07:56)
[2019-11-20] MEDS: amLODIPine 5 MG Tablet PO (07:56)
[2019-11-20] MEDS: Losartan Potassium 100 MG Tablet PO (07:56)
[2019-11-20] MEDS: Senna/Docusate Sodium 1 Tablet 2 TABLET PO ×2 (07:56→21:57)
[2019-11-20] MEDS: Metoprolol(XL)Succ 100 MG Tablet PO (07:56)
[2019-11-20] MEDS: Aspirin 81 MG TAB.CHEW PO (07:57)
[2019-11-20] MEDS: Multivitamins,Therapeutic Tablet 1 TABLET PO (07:57)
[2019-11-20] MEDS: Clopidogrel Bisulfate 75 MG Tablet PO (07:57)
[2019-11-20 09:40] VITALS: BP 131/68; PULSE 69; RESP 16; TEMP 36.6; O2SAT 95
--- NOTE | 2019-11-20 10:29 | CASEMGMT ---
Social Work IDT met with patient and for Team meeting. Discussed patient's progress in therapy. Pt is Helen for bed mobility, mod for sit to stands, ambulating 100ft with FWW, min for steps with 2 HR, min for bathing while seated. Pt is set up for UE dressing, max for LE dressing to assist with bending forward and balance. Pt is mod for toileting tasks. ST working on swallowing and apraxia, taking small sips. Working on cognition with impulsivity, speech intelligibility, motor processing, automatic tasks, memory and recall. Pt to start on IV fluids. Explained Medicare benefit with 19 approved days with [facility] 12/05. The goal is for pt to return home with at [facility]. Will Reteam next week. Will continue to follow. NIK ArboledaW
[2019-11-20] MEDS: 0.9% Normal Saline 1,000 ML 75 ML IV (13:57)
[2019-11-20 14:16] LABS: Urine Sodium 8 mmol/L (Not Establ.)
--- NOTE | 2019-11-20 15:15 | PCM.PN.BLA ---
Progress Note Jakub was seen on team rounds today. His Manjinder was present for rounds. Afebrile VSS Maintaining appropriate oxygen saturation on RA Oral intake is [] Discussed with nursing - no problems that need addressed Reviewed the PT/OT/ST notes Medication list reviewed. He has no complaints today. Denies BRAND, CP, SOB, palpitations. Jakub's reported to the ST that Jakub drinks 20-30 beers a day. He told me 6-10. Alert, oriented X3 sitting in the recliner at the bedside. 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 Post stroke debility - he received TPA Has persistent Left side weakness and some cognitive dysfunction 2. dehydration and hyponatremia 3. alcohol dependence 4. Left Carotid stenosis - will need to see vascular surgery going forward to follow this 5. HTN - controlled Fractional excretion of sodium is 0.1% which is consistent with prerenal azotemia/dehydration. Normal saline at 75 cc/h x 2 L. Recheck BMP in the a.m. Followup with Vascular surgery as an OP Needs a 30day event monitor at [place]......biatrial enlargement and alcoholism....possible AF also needs a stress test going forward since his presenting complaint prior to developing neurologic sx was CP. Inpatient E&M: 91472 Subs Hosp L2
[2019-11-20] MEDS: Tamsulosin HCl 0.4 MG Capsule PO (17:07)
[2019-11-20 19:21] VITALS: BP 107/69; PULSE 74; RESP 16; TEMP 36.7; O2SAT 95
[2019-11-20] MEDS: Atorvastatin Calcium 40 MG Tablet PO (21:58)
[2019-11-20 22:00] VITALS: RESP 16
[2019-11-20] MEDS: Acetaminophen 325 MG Tablet 650 MG PO (22:04)
[2019-11-21] MEDS: 0.9% Normal Saline 1,000 ML 75 ML IV (02:28)
[2019-11-21 06:34] LABS: Anion Gap 3 (5-15); BUN 15 mg/dL (7-18); BUN/Creat Ratio 18.8 RATIO (10-20); Calcium,Total 8.8 mg/dL (8.5-10.1); Chloride 104 mmol/L (98-107); EST Glomerular Filtration Rate 101 mL/min (>60); Est Glom Filt Rate - Afr Amer 123 mL/min (>60); Estimated Creatinine Clearance 86.18 ml/min; Glucose 101 mg/dL (74-106); Sodium Level 136 mmol/L (136-145)
[2019-11-21] MEDS: Enoxaparin 40 MG/0.4 ML Syringe SC (06:42)
[2019-11-21] MEDS: Cyanocobalamin 500 MCG Tablet 1000 MCG PO (08:10)
[2019-11-21] MEDS: Multivitamins,Therapeutic Tablet 1 TABLET PO (08:10)
[2019-11-21] MEDS: amLODIPine 5 MG Tablet PO (08:10)
[2019-11-21] MEDS: Aspirin 81 MG TAB.CHEW PO (08:10)
[2019-11-21] MEDS: Losartan Potassium 100 MG Tablet PO (08:10)
[2019-11-21] MEDS: Senna/Docusate Sodium 1 Tablet 2 TABLET PO (08:12)
[2019-11-21] MEDS: Clopidogrel Bisulfate 75 MG Tablet PO (08:12)
[2019-11-21 08:13] VITALS: PULSE 72
[2019-11-21] MEDS: Metoprolol(XL)Succ 100 MG Tablet PO (08:13)
[2019-11-21 10:00] VITALS: BP 133/80; PULSE 75; RESP 16; TEMP 37.2; O2SAT 99
--- NOTE | 2019-11-21 11:18 | PCM.PN.BLA ---
Progress Note Afebrile since admission Vital signs are stable Maintaining appropriate oxygen saturation on room air Fluid balance for 11/20/2019 was -460 despite intravenous normal saline at 75 cc/h. So far today is -621 however the sodium is up to 146 and the BUN has come down to 15 from 21 yesterday. Creatinine is 0.8, down from 0.98 on 11/20/2019. Fractional excretion of sodium on 924 was 0.1% which is consistent with prerenal azotemia. Weight at admission was 177 pounds and 11 ounces and today his weight is 178 pounds and 12 ounces. PT/ST/OT notes were all reviewed Medication list was reviewed. I had a conversation with Manjinder on the phone today and she said Jakub drinks 20 more beers a day for the past 40 years. He has never expressed a desire to quit. He does not drink hard liquor. Alert, appropriate Lungs - CTA Heart - RRR, no gallop Abd- soft and NT no edema Impressions 1. hyponatremia due to pre-renal azotemia 2. dehydration 3. alcohol dependence - counselled to limit his beer to 1-2 daily or preferably quit Finish the second liter of IV fluid and then DC Encourage increased fluid intake HTN is controlled without a diuretic. Continue therapy STROKE Vital Signs/Narrative: Vital Signs Temp Pulse Resp BP Pulse Ox 11/21/19 10:00 98.9 F 75 16 133/80 H 99 11/21/19 08:13 72 Inpatient E&M: 63495 Subs Hosp L2
[2019-11-21] MEDS: Tamsulosin HCl 0.4 MG Capsule PO (17:10)
[2019-11-21 19:52] VITALS: BP 126/80; PULSE 77; RESP 16; TEMP 36.6; O2SAT 99
[2019-11-21] MEDS: Acetaminophen 325 MG Tablet 650 MG PO (20:14)
[2019-11-21] MEDS: Atorvastatin Calcium 40 MG Tablet PO (20:14)
[2019-11-22] MEDS: Enoxaparin 40 MG/0.4 ML Syringe SC (06:00)
[2019-11-22 06:06] VITALS: BMI 25.4
[2019-11-22 08:43] VITALS: PULSE 71
[2019-11-22] MEDS: Multivitamins,Therapeutic Tablet 1 TABLET PO (08:43)
[2019-11-22] MEDS: amLODIPine 5 MG Tablet PO (08:43)
[2019-11-22] MEDS: Cyanocobalamin 500 MCG Tablet 1000 MCG PO (08:43)
[2019-11-22] MEDS: Losartan Potassium 100 MG Tablet PO (08:43)
[2019-11-22] MEDS: Metoprolol(XL)Succ 100 MG Tablet PO (08:43)
[2019-11-22] MEDS: Aspirin 81 MG TAB.CHEW PO (08:44)
[2019-11-22] MEDS: Clopidogrel Bisulfate 75 MG Tablet PO (08:44)
[2019-11-22 08:50] VITALS: BMI 25.4
[2019-11-22 09:01] VITALS: BP 133/77; PULSE 71; RESP 18; TEMP 36.6; O2SAT 97
[2019-11-22] MEDS: Tamsulosin HCl 0.4 MG Capsule PO (16:55)
[2019-11-22 19:28] VITALS: BP 147/58; PULSE 80; RESP 16; TEMP 36.6; O2SAT 99
[2019-11-22 21:40] VITALS: BMI 25.4
[2019-11-22] MEDS: Acetaminophen 325 MG Tablet 650 MG PO (21:42)
[2019-11-22] MEDS: Atorvastatin Calcium 40 MG Tablet PO (21:43)
[2019-11-22 21:56] VITALS: RESP 17
[2019-11-23] MEDS: Enoxaparin 40 MG/0.4 ML Syringe SC (05:29)
[2019-11-23] MEDS: 0.9% Saline Lock 10 ML Syringe IV ×2 (06:08→22:10)
[2019-11-23 09:14] VITALS: BMI 25.4
[2019-11-23] MEDS: Multivitamins,Therapeutic Tablet 1 TABLET PO (09:50)
[2019-11-23] MEDS: Losartan Potassium 100 MG Tablet PO (09:50)
[2019-11-23] MEDS: Clopidogrel Bisulfate 75 MG Tablet PO (09:50)
[2019-11-23] MEDS: Aspirin 81 MG TAB.CHEW PO (09:50)
[2019-11-23] MEDS: amLODIPine 5 MG Tablet PO (09:50)
[2019-11-23 09:51] VITALS: PULSE 69
[2019-11-23] MEDS: Cyanocobalamin 500 MCG Tablet 1000 MCG PO (09:51)
[2019-11-23] MEDS: Metoprolol(XL)Succ 100 MG Tablet PO (09:51)
[2019-11-23] MEDS: Senna/Docusate Sodium 1 Tablet 2 TABLET PO ×2 (09:53→21:58)
[2019-11-23] MEDS: Acetaminophen 325 MG Tablet 650 MG PO ×2 (09:55→21:58)
[2019-11-23 10:00] VITALS: BP 128/80; PULSE 75; RESP 17; TEMP 36.6; O2SAT 98
--- NOTE | 2019-11-23 11:09 | PCA ---
pt went for a walk did the new step and returned to his room
--- NOTE | 2019-11-23 12:00 | NURSING ---
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 Aphasic speech but improving. This nurse provided education on diet, alcohol intake reduction, current medications, monitoring HTN, decreasing stress in life, etc.
[2019-11-23] MEDS: Tamsulosin HCl 0.4 MG Capsule PO (17:10)
[2019-11-23 18:53] VITALS: BP 108/62; PULSE 72; RESP 18; TEMP 36.5; O2SAT 99
[2019-11-23 21:41] VITALS: BMI 25.4
[2019-11-23] MEDS: Atorvastatin Calcium 40 MG Tablet PO (21:58)
[2019-11-23 22:00] VITALS: PULSE 72; RESP 16; O2SAT 99
[2019-11-24] MEDS: Enoxaparin 40 MG/0.4 ML Syringe SC (05:28)
[2019-11-24 08:35] VITALS: BP 135/77; PULSE 69; RESP 17; TEMP 36.5; O2SAT 100
[2019-11-24] MEDS: Aspirin 81 MG TAB.CHEW PO (09:14)
[2019-11-24] MEDS: amLODIPine 5 MG Tablet PO (09:14)
[2019-11-24] MEDS: Multivitamins,Therapeutic Tablet 1 TABLET PO (09:14)
[2019-11-24] MEDS: Losartan Potassium 100 MG Tablet PO (09:14)
[2019-11-24] MEDS: Clopidogrel Bisulfate 75 MG Tablet PO (09:14)
[2019-11-24 09:15] VITALS: BP 135/77; PULSE 69
[2019-11-24] MEDS: Cyanocobalamin 500 MCG Tablet 1000 MCG PO (09:15)
[2019-11-24] MEDS: Metoprolol(XL)Succ 100 MG Tablet PO (09:15)
[2019-11-24] MEDS: Senna/Docusate Sodium 1 Tablet 2 TABLET PO ×2 (09:15→21:51)
[2019-11-24 09:31] VITALS: BMI 25.4
--- NOTE | 2019-11-24 12:05 | PN_ITS ---
Progress Note Afebrile since admission. VSS-blood pressure is adequately controlled. Heart rate is within normal limits. Maintaining appropriate oxygen saturation on RA Oral intake is very good. No urine retention Last bowel movement 11/24/2019 Discussed with nursing - no problems that need addressed Reviewed the PT/OT/ST notes. He is progressing well. On 11/22/2019 he was able to ambulate 200 feet with a wheeled walker and also able to ambulate 200 feet with a standard cane. Still requiring moderate assistance with bathing and max assist with lower body dressing. He is now contact-guard assist with toilet transfer and toileting. He is contact-guard with tub/shower transfer. Medication list reviewed. His only complaint today is constipation when the stool softeners were held. They have been reinitiated. He denies cephalgia. No nausea/vomiting/abdominal pain/cough/shortness of breath/chest pain. Alert and oriented x3, no apparent distress. 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 He is walking with a SC. Lungs - CTA HRRR, occasional ectopic, no MM and no gallop or rub abd - soft, NT no edema no rashes and no skin breakdown no calf pain Impressions 1. Post stroke debility-he did receive TPA in the ED. 2. [id number] 3. Hyponatremia-resolved 4. Alcohol dependence - over 20 beers a day at home 5. Biatrial enlargement on echocardiogram-raises the possibility, especially in conjunction with alcoholism, of paroxysmal atrial fibrillation. 6. Carotid stenosis-not as of yet hemodynamically significant however he does have 50 to 69% carotid stenosis at the takeoff of the left internal carotid artery and this will need to be monitored as an outpatient. Continue therapy Continue stool softeners PT reported he may have some waxing and waning of symptoms.....will continue monitoring for this and if in fact he does will get an EEG to r/o stroke induced seizures. STROKE Vital Signs/Narrative: Vital Signs Temp Pulse Resp BP Pulse Ox 11/24/19 09:15 69 135/77 H 11/24/19 08:35 97.7 F L 69 17 135/77 H 100 Inpatient E&M: 39072 Subs Hosp L2
[2019-11-24] MEDS: Tamsulosin HCl 0.4 MG Capsule PO (16:23)
[2019-11-24] MEDS: 0.9% Saline Lock 10 ML Syringe IV ×2 (16:27→22:03)
[2019-11-24 19:21] VITALS: BP 131/72; PULSE 70; RESP 16; TEMP 37.1; O2SAT 99
[2019-11-24 21:50] VITALS: BMI 25.4
[2019-11-24] MEDS: Atorvastatin Calcium 40 MG Tablet PO (21:51)
[2019-11-24] MEDS: Acetaminophen 325 MG Tablet 650 MG PO (21:55)
[2019-11-24 22:00] VITALS: PULSE 76; RESP 16
[2019-11-25] MEDS: Enoxaparin 40 MG/0.4 ML Syringe SC (05:06)
[2019-11-25] MEDS: Losartan Potassium 100 MG Tablet PO (07:32)
[2019-11-25] MEDS: amLODIPine 5 MG Tablet PO (07:32)
[2019-11-25] MEDS: Multivitamins,Therapeutic Tablet 1 TABLET PO (07:32)
[2019-11-25 07:33] VITALS: BP 150/82; PULSE 69
[2019-11-25] MEDS: Metoprolol(XL)Succ 100 MG Tablet PO (07:33)
[2019-11-25] MEDS: Cyanocobalamin 500 MCG Tablet 1000 MCG PO (07:33)
[2019-11-25] MEDS: Senna/Docusate Sodium 1 Tablet 2 TABLET PO ×2 (07:33→20:37)
[2019-11-25] MEDS: Clopidogrel Bisulfate 75 MG Tablet PO (07:33)
[2019-11-25] MEDS: Aspirin 81 MG TAB.CHEW PO (07:34)
[2019-11-25 08:42] VITALS: BP 150/82; PULSE 69; RESP 16; TEMP 36.9; O2SAT 97
[2019-11-25 13:42] VITALS: BMI 25.4
[2019-11-25] MEDS: Tamsulosin HCl 0.4 MG Capsule PO (16:48)
[2019-11-25 19:45] VITALS: BP 128/72; PULSE 66; RESP 16; TEMP 37.5; O2SAT 100; BMI 25.4
[2019-11-25 20:25] VITALS: TEMP 36.6
[2019-11-25] MEDS: Acetaminophen 325 MG Tablet 650 MG PO (20:37)
[2019-11-25] MEDS: Atorvastatin Calcium 40 MG Tablet PO (20:38)
[2019-11-25] MEDS: 0.9% Saline Lock 10 ML Syringe IV (21:05)
[2019-11-25 22:00] VITALS: PULSE 66; RESP 16; O2SAT 100
--- NOTE | 2019-11-26 01:01 | NURSING ---
reviewed and agree with charting
[2019-11-26] MEDS: Enoxaparin 40 MG/0.4 ML Syringe SC (06:20)
[2019-11-26 07:30] VITALS: BP 124/73; PULSE 62; RESP 16; TEMP 36.4; O2SAT 94
[2019-11-26 08:04] VITALS: PULSE 62
[2019-11-26] MEDS: Clopidogrel Bisulfate 75 MG Tablet PO (08:04)
[2019-11-26] MEDS: Aspirin 81 MG TAB.CHEW PO (08:04)
[2019-11-26] MEDS: Metoprolol(XL)Succ 100 MG Tablet PO (08:04)
[2019-11-26] MEDS: Cyanocobalamin 500 MCG Tablet 1000 MCG PO (08:04)
[2019-11-26] MEDS: Senna/Docusate Sodium 1 Tablet 2 TABLET PO ×2 (08:04→21:13)
[2019-11-26] MEDS: Losartan Potassium 100 MG Tablet PO (08:04)
[2019-11-26] MEDS: Multivitamins,Therapeutic Tablet 1 TABLET PO (08:04)
[2019-11-26] MEDS: amLODIPine 5 MG Tablet PO (08:04)
[2019-11-26 09:34] VITALS: PULSE 62; RESP 16; O2SAT 94
[2019-11-26 15:18] VITALS: BMI 25.4
[2019-11-26] MEDS: Tamsulosin HCl 0.4 MG Capsule PO (16:34)
[2019-11-26] MEDS: 0.9% Saline Lock 10 ML Syringe IV (16:34)
[2019-11-26 21:00] VITALS: BP 111/62; PULSE 67; RESP 16; TEMP 36.5; O2SAT 99; BMI 25.4
[2019-11-26] MEDS: Acetaminophen 325 MG Tablet 650 MG PO (21:13)
[2019-11-26] MEDS: Atorvastatin Calcium 40 MG Tablet PO (21:14)
--- NOTE | 2019-11-27 02:54 | NURSING ---
REVIEWED AND AGREE WITH PATIENT ACCESS SPECIALIST'S FUNCTIONAL ASSESSMENT AND HANDOFF CHARTING.
[2019-11-27] MEDS: Enoxaparin 40 MG/0.4 ML Syringe SC (05:02)
[2019-11-27] MEDS: Aspirin 81 MG TAB.CHEW PO (08:13)
[2019-11-27 08:14] VITALS: BP 122/69; PULSE 69
[2019-11-27] MEDS: Senna/Docusate Sodium 1 Tablet 2 TABLET PO ×2 (08:14→20:06)
[2019-11-27] MEDS: Losartan Potassium 100 MG Tablet PO (08:14)
[2019-11-27] MEDS: amLODIPine 5 MG Tablet PO (08:14)
[2019-11-27] MEDS: Clopidogrel Bisulfate 75 MG Tablet PO (08:14)
[2019-11-27] MEDS: Cyanocobalamin 500 MCG Tablet 1000 MCG PO (08:14)
[2019-11-27] MEDS: Multivitamins,Therapeutic Tablet 1 TABLET PO (08:14)
[2019-11-27] MEDS: Metoprolol(XL)Succ 100 MG Tablet PO (08:14)
[2019-11-27 08:32] VITALS: BP 122/69; PULSE 69; RESP 16; TEMP 36.6; O2SAT 97
[2019-11-27 10:20] VITALS: BMI 25.4
--- NOTE | 2019-11-27 10:20 | CASEMGMT ---
Social Work IDT met with patient and for Team meeting. Discussed patient's progress in therapy. Pt is working on more fluid walking, CGA when walking with FWW, has been trailing cane, ambulating 100 ft Helen. Pt completed flight of steps with 1HR - did well at CGA. Pt is SBA for bathing,m toilet tx, shower tx, and dressing. ST working on apraxia, motor planning. Pt gets frustrated when he struggles but that shows his insight has improved. Pt reporting some issues with swallowing- food getting stuck in throat. ST recommending alternate bites and sips, but may get MBS. Pt inquiring about returning to work - IDT recommending not returning to work currently. Explained insurance with 19 approved days with [facility] 12/05. The ogal is for pt to return home with ,. Will Reteam net week. Will continue to follow. Carla Kurtz, NIK PRINTED CIRCUIT BOARDS PLASMA ETCHER
--- NOTE | 2019-11-27 13:22 | PCM.PN.BLA ---
Progress Note Jakub was seen on team rounds today and his Manjinder was present. Afebrile BP is well controlled oral intake is better. Good bowel function Nursing reports no problems reviewed the therapy notes Alert and oriented X3, NAD, appropriate and very pleasant Lungs - CTA with good air exchange HRRR, no gallop abd - soft and NT no edema no rashes and no skin breakdown no calf pain Impressions 1. Post CVA debility 2. Vertigo - in light of the tinnitus and the hearing difficulties he may have Meniere's 3. hx of ETOH dependence He is c/o vertigo that comes and goes. He tells me that he has had tinnitus since he was in the and he also has some hearing loss. He denies vertigo prior to the stroke. Antivert 12.5.mg BID Inpatient E&M: [id number] Subs Hosp L2
[2019-11-27] MEDS: Tamsulosin HCl 0.4 MG Capsule PO (17:22)
[2019-11-27] MEDS: Meclizine 12.5 MG Tablet PO (20:06)
[2019-11-27] MEDS: Atorvastatin Calcium 40 MG Tablet PO (20:07)
[2019-11-27] MEDS: Acetaminophen 325 MG Tablet 650 MG PO (20:24)
[2019-11-27 22:00] VITALS: BP 113/46; PULSE 71; RESP 16; TEMP 37; O2SAT 97
[2019-11-28] MEDS: Enoxaparin 40 MG/0.4 ML Syringe SC (04:56)
[2019-11-28 07:34] VITALS: BP 112/64; PULSE 62; RESP 16; TEMP 36.4; O2SAT 97
[2019-11-28 07:39] VITALS: PULSE 66
[2019-11-28] MEDS: Meclizine 12.5 MG Tablet PO ×2 (07:39→21:03)
[2019-11-28] MEDS: Clopidogrel Bisulfate 75 MG Tablet PO (07:39)
[2019-11-28] MEDS: Metoprolol(XL)Succ 100 MG Tablet PO (07:39)
[2019-11-28] MEDS: Aspirin 81 MG TAB.CHEW PO (07:39)
[2019-11-28] MEDS: Losartan Potassium 100 MG Tablet PO (07:40)
[2019-11-28] MEDS: amLODIPine 5 MG Tablet PO (07:40)
[2019-11-28] MEDS: Cyanocobalamin 500 MCG Tablet 1000 MCG PO (07:40)
[2019-11-28] MEDS: Senna/Docusate Sodium 1 Tablet 2 TABLET PO ×2 (07:40→21:03)
[2019-11-28] MEDS: Multivitamins,Therapeutic Tablet 1 TABLET PO (07:40)
[2019-11-28 11:04] VITALS: BMI 25.4
[2019-11-28] MEDS: Tamsulosin HCl 0.4 MG Capsule PO (17:19)
[2019-11-28] MEDS: Atorvastatin Calcium 40 MG Tablet PO (21:03)
[2019-11-28] MEDS: Acetaminophen 325 MG Tablet 650 MG PO (21:06)
[2019-11-28 22:00] VITALS: BP 112/72; PULSE 82; RESP 16; TEMP 37; O2SAT 97
[2019-11-28 23:25] VITALS: BMI 25.4
[2019-11-29] MEDS: Enoxaparin 40 MG/0.4 ML Syringe SC (06:09)
[2019-11-29] MEDS: Aspirin 81 MG TAB.CHEW PO (07:26)
[2019-11-29] MEDS: Multivitamins,Therapeutic Tablet 1 TABLET PO (07:26)
[2019-11-29] MEDS: Meclizine 12.5 MG Tablet PO ×2 (07:26→22:02)
[2019-11-29 07:27] VITALS: PULSE 70
[2019-11-29] MEDS: Cyanocobalamin 500 MCG Tablet 1000 MCG PO (07:27)
[2019-11-29] MEDS: amLODIPine 5 MG Tablet PO (07:27)
[2019-11-29] MEDS: Losartan Potassium 100 MG Tablet PO (07:27)
[2019-11-29] MEDS: Metoprolol(XL)Succ 100 MG Tablet PO (07:27)
[2019-11-29] MEDS: Senna/Docusate Sodium 1 Tablet 2 TABLET PO ×2 (07:27→22:01)
[2019-11-29] MEDS: Clopidogrel Bisulfate 75 MG Tablet PO (07:28)
[2019-11-29] MEDS: Acetaminophen 325 MG Tablet 650 MG PO (08:29)
[2019-11-29 08:57] VITALS: BP 128/74; PULSE 69; RESP 18; TEMP 36.4; O2SAT 97
[2019-11-29 10:41] VITALS: BMI 25.4
[2019-11-29] MEDS: Tamsulosin HCl 0.4 MG Capsule PO (16:13)
[2019-11-29 19:37] VITALS: BP 110/69; PULSE 68; RESP 17; TEMP 36.4; O2SAT 97
[2019-11-29 22:00] VITALS: PULSE 68; RESP 17; O2SAT 97; BMI 25.4
[2019-11-29] MEDS: Atorvastatin Calcium 40 MG Tablet PO (22:02)
[2019-11-30] MEDS: Enoxaparin 40 MG/0.4 ML Syringe SC (06:30)
[2019-11-30] MEDS: Cyanocobalamin 500 MCG Tablet 1000 MCG PO (08:06)
[2019-11-30] MEDS: Senna/Docusate Sodium 1 Tablet 2 TABLET PO ×2 (08:06→20:06)
[2019-11-30] MEDS: Losartan Potassium 100 MG Tablet PO (08:07)
[2019-11-30] MEDS: Multivitamins,Therapeutic Tablet 1 TABLET PO (08:07)
[2019-11-30] MEDS: Meclizine 12.5 MG Tablet PO ×2 (08:07→20:07)
[2019-11-30] MEDS: Aspirin 81 MG TAB.CHEW PO (08:07)
[2019-11-30] MEDS: Clopidogrel Bisulfate 75 MG Tablet PO (08:07)
[2019-11-30 08:08] VITALS: PULSE 68
[2019-11-30] MEDS: Metoprolol(XL)Succ 100 MG Tablet PO (08:08)
[2019-11-30] MEDS: amLODIPine 5 MG Tablet PO (08:08)
[2019-11-30 10:00] VITALS: BP 114/65; PULSE 65; RESP 18; TEMP 36.4; O2SAT 97
[2019-11-30 10:30] VITALS: BMI 25.4
--- NOTE | 2019-11-30 11:13 | NURSING ---
Pt ambulated to and rode on NuStep x30 minutes. tolerated well.
[2019-11-30] MEDS: Tamsulosin HCl 0.4 MG Capsule PO (16:26)
[2019-11-30 20:00] VITALS: BP 132/72; PULSE 69; RESP 18; TEMP 36.3; O2SAT 99; BMI 25.4
[2019-11-30] MEDS: Acetaminophen 325 MG Tablet 650 MG PO (20:06)
[2019-11-30] MEDS: Atorvastatin Calcium 40 MG Tablet PO (20:07)
[2019-12-01] MEDS: Enoxaparin 40 MG/0.4 ML Syringe SC (05:30)
[2019-12-01] MEDS: Cyanocobalamin 500 MCG Tablet 1000 MCG PO (08:08)
[2019-12-01] MEDS: Senna/Docusate Sodium 1 Tablet 2 TABLET PO ×2 (08:09→21:30)
[2019-12-01] MEDS: Losartan Potassium 100 MG Tablet PO (08:09)
[2019-12-01] MEDS: Meclizine 12.5 MG Tablet PO ×2 (08:09→21:30)
[2019-12-01] MEDS: Multivitamins,Therapeutic Tablet 1 TABLET PO (08:09)
[2019-12-01 08:10] VITALS: PULSE 65
[2019-12-01] MEDS: amLODIPine 5 MG Tablet PO (08:10)
[2019-12-01] MEDS: Clopidogrel Bisulfate 75 MG Tablet PO (08:10)
[2019-12-01] MEDS: Aspirin 81 MG TAB.CHEW PO (08:10)
[2019-12-01] MEDS: Metoprolol(XL)Succ 100 MG Tablet PO (08:10)
[2019-12-01 08:47] VITALS: BP 136/74; PULSE 65; RESP 16; TEMP 36.4; O2SAT 98
[2019-12-01 11:31] VITALS: BMI 25.4
[2019-12-01] MEDS: Tamsulosin HCl 0.4 MG Capsule PO (16:21)
--- NOTE | 2019-12-01 18:50 | PCM.PN.BLA ---
Progress Note Afebrile Vital signs are stable and the blood pressure is well controlled. He is maintaining appropriate oxygen saturation on room air Good bowel function Nursing reports no problems PT/OT/ST notes were reviewed. Jakub states the vertigo is better since the Antivert was started. He denies cephalgia, nausea, shortness of breath, cough, abdominal pain, chest pain. Alert, oriented x3, pleasant Lungs-clear to auscultation with excellent air exchange, no tachypnea with exertion Heart-regular rate and rhythm, no gallop Abdomen-soft, nontender, nondistended, bowel sounds in all quadrants No peripheral edema, no calf tenderness No rashes and no skin breakdown His strength in his left arm/hand is significantly improved. He is ambulating with a front wheeled walker with no loss of balance. Impressions 1. Post stroke debility-patient did receive TPA 2. Vertigo-secondary to recent CVA? Or does he have M?ni?re's disease since he also has hearing loss and tinnitus? Symptoms have improved with Antivert so will continue. The Antivert is not making him too sleepy to do his therapy. Recheck a BMP in the a.m. Inpatient E&M: [id number] Subs Hosp L1
[2019-12-01] MEDS: Acetaminophen 325 MG Tablet 650 MG PO (21:30)
[2019-12-01] MEDS: Atorvastatin Calcium 40 MG Tablet PO (21:30)
[2019-12-01 21:50] VITALS: BP 116/66; PULSE 75; RESP 16; TEMP 36.4; O2SAT 97; BMI 25.4
[2019-12-02] MEDS: Enoxaparin 40 MG/0.4 ML Syringe SC (05:57)
[2019-12-02] MEDS: Acetaminophen 325 MG Tablet 650 MG PO (05:59)
[2019-12-02 06:08] LABS: Anion Gap 5 (5-15); BUN 15 mg/dL (7-18); BUN/Creat Ratio 17.2 RATIO (10-20); Calcium,Total 9.1 mg/dL (8.5-10.1); Chloride 101 mmol/L (98-107); Creatinine, Serum 0.87 mg/dL (0.70-1.30); EST Glomerular Filtration Rate 92 mL/min (>60); Est Glom Filt Rate - Afr Amer 111 mL/min (>60); Estimated Creatinine Clearance 79.25 ml/min; Glucose 106 mg/dL (74-106); Potassium 3.8 mmol/L (3.5-5.1); Sodium Level 134 mmol/L (136-145)
[2019-12-02 08:24] VITALS: BP 127/78; PULSE 71; RESP 18; TEMP 36.6; O2SAT 100
--- NOTE | 2019-12-02 09:00 | SP.MBSS_ITS ---
Modified Barium Swallow - Patient Information Study Date: 12/02/19 Study Time: 09:00 Direct Billable Minutes: 135 Total Minutes procedure & reportin Diagnosis: Dysphagia Referring Physician: Allison Mcbride Reason for Referral: Objective assessment of oropharyngeal and pharyngoesophageal swallow function under fluoroscopy required to determine etiology of globus sensation w/ chronic throat clearing and to tailor this patient's dysphagia treatment plan to specifically address deficits identified for optimal benefit from services provided. Medical History: The patient is a 74/M with past medical history significant for Hypertension, BPH (benign prostatic hyperplasia), Vitamin B12 deficiency, and heavy alcohol consumption. 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 Current Diet Ordered: Mechanical Soft/Moist/Minced with Thin Liquids Dentition: Natural Teeth Mental Status: WNL - benefits from repetition and extra time to process information Respiratory Status: Oxygenating on Room Air - Study Findings Consistencies: Thin Liquid, Pudding, Cookie - Penetration-Aspiration Scale Penetration-Aspiration Scale: OBJECTIVE ASSESSMENT OF SWALLOW FUNCTION (QUANTITATIVE ? PER TRIAL): PENETRATION / ASPIRATION SCALE (ZHAO): 1 = does not enter airway 2 = enters airway/above vocal folds/ejected 3 = enters airway/above vocal folds/not ejected 4 = enters airway/contacts vocal folds/ejected 5 = enters airway/contacts vocal folds/not ejected 6 = enters airway/below vocal folds/ejected 7 = enters airway/below vocal folds/not ejected despite effort 8 = enters airway/below vocal folds/no effort - Penetration-Aspiration Scale Score Thin Liquid Result: 3= enters airways/above vocal folds/not ejected Comment: large sip via straw Thin Liquid via single sip from straw Result: 1= does not enter airway Comment: cued for small sip Thin Liquid via small single sip from cup Trial 3 Result: 1= does not enter airway Comment: independently utilized an effortful swallow d/t reported need to try to control it going down Thin Liquid via small single sip from cup Trial 4 Result: 1= does not enter airway Comment: independently utilized an effortful swallow d/t reported need to try to control it going down Thin Liquid via sequential sips from straw Result: 2= enter airway/above vocal folds/ejected Comment: sequential sips from CUP, not straw Pudding Trial 3 Result: 1= does not enter airway Comment: A-P view Thin Liquid via single sip from straw Trial 2 Result: 1= does not enter airway Comment: A-P view Thin Liquid via single sip from straw Trial 3 Result: 4= enters airway/contacts vocal folds/ejected Thin Liquid via single sip from straw Chin tuck Result: 1= does not enter airway Comment: significant difficulty w/ oral to pharyngeal bolus transfer w/ chin tuck posture Thin Liquid via teaspoon Result: 1= does not enter airway Thin Liquid via teaspoon Trial 2 Result: 1= does not enter airway Thin Liquid via small single sip from cup Result: 3= enters airways/above vocal folds/not ejected - trace retention along anterior wall of the laryngeal vestibule - difficult to discern d/t darkening of anterior wall of laryngeal vestibule present prior to giving contrast consumption Thin Liquid via small single sip from cup Trial 2 Result: 2= enter airway/above vocal folds/ejected Pudding Result: 1= does not enter airway Cookie Result: 1= does not enter airway Pudding Trial 2 Result: 1= does not enter airway - Oral Phase Labial Seal: No Labial Escape Tongue Control During Bolus Hold: Cohesive bolus between tongue to palatal seal Bolus Preparation/Mastication: Slow prolonged chewing/mashing with complete recollection Bolus Transport/Lingual Motion: Repetitive/disorganized tongue motion Oral Residue: Residue collection on oral structures - Pharyngeal Phase Initiation of Pharyngeal Swallow: Bolus head at posterior laryngeal surgace of epiglottis Soft Palate Elevation: No bolus between soft palate and pharyngeal wall Laryngeal Elevation: Comp. Superior move thyroid cart w/comp. apprx arytenoid cart-epig pet Anterior Hyoid Excursion: Complete anterior movement Epiglottic Movement: Complete inversion Laryngeal Vestibule Closure at Height of Swallow: Complete; no air/contrast in laryngeal vestibule Pharyngeal Stripping Wave: Present - complete Pharyngoesophageal Segment Opening: Parital distension and partial duration; parital obstruction of flow Tongue Base Retraction: Trace column of contrast between tongue base & post. pharyngeal wall Pharyngeal Residue: Trace residue within or on pharyngeal structures - Esophageal Phase Esophageal Clearance: Complete clearance - Treatment Strategies Effects of treatment strategies attemped:: Chin tuck - not effective Reduction in bolus size - effective Reduction in rate of intake - effective CUed cough adn reswallow - effective to clear the laryngeal vestibule - Diagnosis/Impression Diagnosis: mild oropharyngeal dysphagia Impression: Swallow function was viewed in the lateral and A-P views w/ a screening of esophageal clearance. 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 The oral phase marked by impaired A-P bolus transit w/ difficulty coordinating oral to pharyngeal transfer. Mild oral residue retention was consistently evident post deglutition, necessitating use of a second swallow to sufficiently clear the oral cavity. The pharyngeal phase marked by inconsistency in timing of swallow onset, likely secondary to apraxia s/p CVA. With timely swallow onset, the patient achieved complete laryngeal vestibule closure w/a functional swallow adequate tongue base to posterior pharyngeal wall contact w/ sufficient pharyngeal contraction/pharyngeal stripping wave, adequate anterior hyoid movement, arytenoid to epiglottic petiole contact was complete w/ successful laryngeal vestibule closure, complete epiglottic inversion w/ complete pharyngeal to esophageal bolus clearance. Inconsistencies in pharyngeal swallow onset noted w/ pudding pooling in the valleculae prior to swallow onset. Delayed swallow onset w/ liquid reaching the posterior laryngeal surface of the epiglottis prior to swallow onset resulted in penetration of thin liquid from the pyriforms into the laryngeal vestibule during the swallow. Cervical osteophytes noted at the C4-C5 level w/ increased prominence of the posterior pharyngeal wall near the pharyngoesophageal segment opening resulted in a narrowing of bolus flow through PES to esophagus. Laryngeal vestibule penetration occurred w/ larger volume liquid boluses due to posterior pharyngeal wall prominence w/ reduced distention for bolus flow through the pharynx into the esophagus w/ contrast reaching the pyriform sinuses, then penetrating into the laryngeal vestibule during deglutition. Darkening along the anterior wall of the laryngeal vestibule was noted prior to provision of contrast for this study. This darkening somewhat complicated ability to discern if laryngeal vestibule penetration of thin liquids were completely ejected vs. retained along the anterior wall of the laryngeal vestibule. Complete pharyngeal bolus clearance was achieved w/ all consistencies assessed; pharyngeal residue retention post deglutition is not the cause of reported globus sensation. The patient consistently reported a globus sensation through this study, pointing directly to the vocal folds/area of pharyngeal prominence. Suspect this sensation to be attributed to laryngeal vestibule penetration that that does completely eject w/ eventual contact to the vocal folds vs. sensory awareness of posterior wall prom inence. Esophageal phase was unremarkable. Intensive dysphagia intervention is recommended targeting coordination of bolus transfer, swallow onset timing and PES distention. Coordination of the swallow secondary to apraxic motor planning impairment is the primary factor placing this patient for increased aspiration risk. Further investigation of the pharynx should be considered - ENT w/ laryngoscopy? - if symptoms of globus sensation do not resolve w/ continued intensive dysphagia intervention. It is recommended that this patient remain on a mechanically altered moist/minced diet texture and thin liquid diet w/ the following recommended aspiration precautions in place: small bites, small sips, one sip at a time, reduce distractions during PO intake, medications to be taken whole/one at a time, seated upright at 90 degrees for PO intake, remain upright for 30-60 minutes after PO intake. - Recommendations Diet: Mechanical Soft Textures, Thin Liquids Comment: See impression for additional details re: diet recommendation, compensatory swallowing strategies, need for further dysphagia intervention and considerations for referral for further assessment Need for Skilled Speech Therapy Services: Yes Recommended Referrals: ENT Consult Education Completed: 1. Described result of evaluation., 2. Pt understands evaluation & agrees with goals and treatment plan. - Status Active ST Patient: Active - Contact Information [facility] Speech Therapy:: Nikky Gates M.A., [facility] [employer] Speech-Language Pathologist [email or web address] [phone]
[2019-12-02 10:00] VITALS: PULSE 71; RESP 18; O2SAT 100
[2019-12-02] MEDS: Losartan Potassium 100 MG Tablet PO (10:01)
[2019-12-02] MEDS: Meclizine 12.5 MG Tablet PO (10:01)
[2019-12-02] MEDS: Multivitamins,Therapeutic Tablet 1 TABLET PO (10:01)
[2019-12-02 10:02] VITALS: PULSE 71
[2019-12-02] MEDS: Clopidogrel Bisulfate 75 MG Tablet PO (10:02)
[2019-12-02] MEDS: Cyanocobalamin 500 MCG Tablet 1000 MCG PO (10:02)
[2019-12-02] MEDS: Metoprolol(XL)Succ 100 MG Tablet PO (10:02)
[2019-12-02] MEDS: amLODIPine 5 MG Tablet PO (10:02)
[2019-12-02] MEDS: Aspirin 81 MG TAB.CHEW PO (10:02)
[2019-12-02] MEDS: Senna/Docusate Sodium 1 Tablet 2 TABLET PO ×2 (10:02→22:17)
[2019-12-02] MEDS: Menthol/Lanolin/Calamine/Znox 113 GM Tube 1 APPLIC TOPICAL ×2 (10:12→22:17)
--- NOTE | 2019-12-02 10:43 | PCM.PN.BLA ---
Progress Note Afebrile since admission Blood pressure is well controlled Heart rate is within normal limits Maintaining appropriate oxygen saturation on room air I reviewed the PT/OT/ST notes and he continues to progress No problems reported by nursing All lab was reviewed. the sodium is mildly decreased at 134. BUN is 15 and the creat is 0.87. The BUN/creatinine ratio is 17.2. The potassium is stable at 3.8. Mag is pending. He feels good. the vertigo is improved but, he is still getting some if he turns his head suddenly. No drowsiness with the Antivert. Alert, oriented x3, no apparent distress Lungs-clear to auscultation with excellent air exchange Heart-regular rate and rhythm, no gallop Mucous membranes are moist Impressions 1. Postop debility 2. Jakub had many risk factors for paroxysmal atrial fibrillation when he presented to the ER and these included low magnesium and low potassium. The CP and diaphoresis with SOB and extreme fatigue that preceded the stroke came on very suddenly and may have been due to PAF with RVR. He also has biatrial enlargement. I explained to Jakub how this constellation findings could lead to AF and CVA. HE now sees how the low K, Low mag and atrial fibrillation could be due to excessive beer intake daily. 3. Suspect he may have PTSD - the SW also asked him what happened when he was in the and he told her we don't talk about that. 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 4. Mild hyponatremia - etiology? 5. Vertigo-improved with low-dose Antivert We had a long discussion about the possible etiology of the stroke. He started with diaphoresis, SOB, Left chest and arm pain and fatigue....he had to sit down. He developed left side weakness in the ambulance. He had a low mag and a low K in the ED and ECHO showed moderate left atrial enlargement and mild right atrial enlargement. He admits to not having much of an appetite at home.....he was full of beer. He was also having muscle cramps a lot and I suspect he had a B Vitamin deficiency. He has no cramps since admission to the rehab unit. 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 Has never been treated for PTSD, anxiety or depression. No hx of alcoholism in his family. He has some sx of PTSD. He may be self medicating with beer Urine sodium and creat. TSH and mag today. DC the salt restriction. 30 day event monitor at [place] and needs a stress test (pharmacologic) post DC. Increase the Antivert to 25 mg p.o. twice daily. If this makes him too drowsy or does not completely resolve the vertigo will decrease back to 12.5 twice daily STROKE Vital Signs/Narrative: Vital Signs Temp Pulse Resp BP Pulse Ox 12/02/19 10:02 71 12/02/19 08:24 97.8 F 71 18 127/78 H 100 Inpatient E&M: 47420 Subs Hosp L2
[2019-12-02 12:06] LABS: Magnesium 1.6 mg/dL (1.6-2.6); Thyroid Stim Hormone (TSH) 2.35 uIU/mL (0.358-3.74)
[2019-12-02 14:17] LABS: Urine Sodium 45 mmol/L (Not Establ.)
[2019-12-02] MEDS: Tamsulosin HCl 0.4 MG Capsule PO (17:06)
[2019-12-02 19:53] VITALS: BP 104/70; PULSE 75; RESP 18; TEMP 37.1; O2SAT 97
[2019-12-02 22:00] VITALS: PULSE 75; RESP 17; O2SAT 98
[2019-12-02] MEDS: Meclizine HCl 25 MG Tablet PO (22:16)
[2019-12-02] MEDS: Atorvastatin Calcium 40 MG Tablet PO (22:17)
[2019-12-02 22:23] VITALS: BMI 25.4
[2019-12-03] MEDS: Enoxaparin 40 MG/0.4 ML Syringe SC (06:17)
[2019-12-03] MEDS: Acetaminophen 325 MG Tablet 650 MG PO ×2 (06:22→20:46)
[2019-12-03] MEDS: Meclizine HCl 25 MG Tablet PO ×2 (08:10→20:46)
[2019-12-03] MEDS: Multivitamins,Therapeutic Tablet 1 TABLET PO (08:10)
[2019-12-03] MEDS: amLODIPine 5 MG Tablet PO (08:10)
[2019-12-03] MEDS: Aspirin 81 MG TAB.CHEW PO (08:10)
[2019-12-03] MEDS: Clopidogrel Bisulfate 75 MG Tablet PO (08:10)
[2019-12-03 08:11] VITALS: BP 140/81; PULSE 67
[2019-12-03] MEDS: Losartan Potassium 100 MG Tablet PO (08:11)
[2019-12-03] MEDS: Metoprolol(XL)Succ 100 MG Tablet PO (08:11)
[2019-12-03] MEDS: Senna/Docusate Sodium 1 Tablet 2 TABLET PO ×2 (08:11→20:46)
[2019-12-03] MEDS: Menthol/Lanolin/Calamine/Znox 113 GM Tube 1 APPLIC TOPICAL ×2 (08:12→20:58)
[2019-12-03] MEDS: Cyanocobalamin 500 MCG Tablet 1000 MCG PO (08:12)
--- NOTE | 2019-12-03 09:24 | PCM.PN.BLA ---
Progress Note Afebrile Vital signs stable Maintaining appropriate oxygen saturation on room air Good oral intake Fractional excretion of sodium calculated on 12/02/2019 is 1.4% which is not consistent with dehydration. TSH is normal. He denies vertigo or lightheadedness today and he is not overly drowsy. The increase in the Antivert to 25 mg twice daily seems to have helped. He denies chest pain, shortness of breath, palpitations. Alert, oriented x3, still having some memory issues and I referred him to his memory book and instructed him to read through his book at least twice a day. Lungs-clear to auscultation Heart-regular rate and rhythm, no ectopy No peripheral edema No rashes and no skin breakdown He had a PTS survey with the certified social workers in health care today and scored a 0 he does however reiterate that he does not like large crowds. We once again talked about suspected atrial fibrillation leading to the chest pain prior to the stroke symptoms. He is at high risk for atrial fibrillation and at admission he had low potassium and low magnesium. In addition he has biatrial enlargement and alcohol abuse. He really does not want to stop drinking and is focusing on having 1-2 a day but, he did admit to the certified social workers in health care that he will not likely stop at 1 or 2. She gave him some strategies to use on his friends when they query him about not drinking. I cautioned him that he would likely have more strokes if he continued with this type of behavior. ImPression 1. Hyponatremia- normal TSH. Will check an AM cortisol.......doubt adrenal insufficiency because the K is not increased. Maybe salt wasting. Sodium restriction was discontinued. 2. CP that preceded the stroke sx....associated with extreme fatigue, diaphoresis, radiation down the left arm and SOB. 3. Post stroke debility 4. alcohol abuse - he does not want to stop drinking - I have been spending time with him daily explaining how alcohol abuse has lead to some of his problems and what we can do to prevent future strokes. He was given printed literature on AF to review. I will discuss with him and his tomorrow when she is here for rounds. He is also resistant to a 30-day event monitor at discharge however I feel this is very important and I explained it to him. I am very suspicious that he had atrial fibrillation with RVR that led to the chest pain that led him to call the sales representative education courses. The stroke symptoms developed after they had picked him up and were on the way to the hospital. He will need to follow-up with cardiology going forward to review the results of the 30-day event monitor and he also needs a stress test. STROKE Vital Signs/Narrative: Vital Signs Pulse BP 12/03/19 08:11 67 140/81 H Inpatient E&M: 06412 Subs Hosp L2
[2019-12-03 09:30] VITALS: BP 140/81; PULSE 67; RESP 16; TEMP 36.7; O2SAT 95
--- NOTE | 2019-12-03 15:03 | CASEMGMT ---
Social Work Met with patient at length to further discuss DC plans and follow up on after care resources. Discussed outpatient therapy vs HHC at ID. Pt would prefer to not continue with therapy after DC but if needed, is agreeable to outpatient. Explained risk/benefit of continuing therapy at ID and that can be further discussed at Team meeting the following day. Completed PTSD screen, per physician request. Explored each question in depth. Patient scored 0/5. However, throughout conversation, pt explained being uncomfortable in larger crowds. Explored reasoning. Pt expressed he can't trust all of the people, it makes him feel uncomfortable, the unknown or uncertainty. 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 Pt expressed it wasn't hard but he always had to watch his back. Offered a possible correlation between that time and his now avoidance of crowds for that reason. Pt stated he never thought of that. Discussed further that possibility and emotions related to those two scenarios. SW also exploring pt's alcohol routine prior to hospitalization and physician's recommendations to no longer drink or limit to 1-2 beers per day. SW discussed with patient possible temptations when pt returns to his regular environment. Patient was able to express his understanding of the risks of drinking alcohol again, and the reality of stopping at 2 beers. Explored excuses for patient to use when others at home are encouraging pt to have a beer. Related back to medical conditions, taking medications, physician recommended against drinking, and pt having a 30 day heart monitor at DC and cannot drink. SW encouraged pt to remind himself that he has not had a drink since he admitted to the hospital so he does have the strengthen and capability to not drink each day. Offered to drink other beverages so it mimics the action of drinking. Pt very appreciative of options and SW conversation. Pt inquired about if he needed SW after DC - provided pt with contact information and offered if he feels it would be beneficial to talk with someone more consistently like this, SW can provide pt counseling resources. Pt appreciative and expressed this was helpful. Will continue to follow. Carla Kurtz, NIK GOODMANW
[2019-12-03 15:23] VITALS: BMI 25.4
[2019-12-03] MEDS: Tamsulosin HCl 0.4 MG Capsule PO (17:14)
[2019-12-03 20:40] VITALS: BP 138/91; PULSE 72; RESP 16; TEMP 36.4; O2SAT 95; BMI 25.4
[2019-12-03] MEDS: Atorvastatin Calcium 40 MG Tablet PO (20:48)
--- NOTE | 2019-12-04 02:19 | NURSING ---
Reviewed and agree with [employer]ISON [employer]EEPER documentation and charting.
[2019-12-04] MEDS: Enoxaparin 40 MG/0.4 ML Syringe SC (06:14)
[2019-12-04 07:41] VITALS: PULSE 72
[2019-12-04] MEDS: Metoprolol(XL)Succ 100 MG Tablet PO (07:41)
[2019-12-04] MEDS: Aspirin 81 MG TAB.CHEW PO (07:41)
[2019-12-04] MEDS: amLODIPine 5 MG Tablet PO (07:41)
[2019-12-04] MEDS: Meclizine HCl 25 MG Tablet PO ×2 (07:41→22:17)
[2019-12-04] MEDS: Clopidogrel Bisulfate 75 MG Tablet PO (07:41)
[2019-12-04] MEDS: Multivitamins,Therapeutic Tablet 1 TABLET PO (07:41)
[2019-12-04] MEDS: Losartan Potassium 100 MG Tablet PO (07:41)
[2019-12-04] MEDS: Senna/Docusate Sodium 1 Tablet 2 TABLET PO ×2 (07:41→22:17)
[2019-12-04] MEDS: Cyanocobalamin 500 MCG Tablet 1000 MCG PO (07:42)
[2019-12-04] MEDS: Acetaminophen 325 MG Tablet 650 MG PO ×2 (07:42→22:19)
[2019-12-04] MEDS: Menthol/Lanolin/Calamine/Znox 113 GM Tube 1 APPLIC TOPICAL ×2 (07:44→22:18)
[2019-12-04 09:34] VITALS: BP 106/73; PULSE 75; RESP 18; TEMP 37; O2SAT 98
--- NOTE | 2019-12-04 13:39 | CASEMGMT ---
Social Work IDT met with patient and for Team meeting. Discussed patient's progress in therapy. Pt is ambulating without a device over 400ft on multiple surfaces at A, completing a full flight of steps CGA, supervised for all ADLS. Pt completed MBS 12/01 which showed at times penetration to airway when swallowing d/t apraxia not d/t lack of strength. ST to change exercises, but continuing with small bites and sips for timing to swallow. Pt's speech intelligibility is improving. IDT recommending outpatient therapy PT/OT/ST. Pt agreeable and requesting [facility]. Referral made. No DME needs. Provided pt with resources to [facility]. Pt appreciative. Plan: DC home with 12/05 with [facility] PT/OT/ST. NIK Arboleda
--- NOTE | 2019-12-04 15:05 | CHAPLAIN ---
Type of Pastoral Visit _x__ Initial Visit ___ Follow-up Visit ___ On-call Visit ___ General Patient Visit ___ Spiritual Assessment ___ Family Conference ___ Bereavement ___ Rapid Response ___ Code Blue ___ Other (describe below) Pastoral Care Referral From _x__ Patient ___ Family ___ Nurse ___ Physician ___ Tab Cutting Machine Operator ___ Trauma Coordinator ___ Other (describe below) Sacrament/Intervention _x__ Active listening ___ Anointing ___ Scientology ___ Bereavement ___ Communion ___ Jadyn exploration ___ _x__ Life review ___ Prayer ___ Reconciliation ___ Sacrament of Sick _x__ Supportive presence ___ Wedding ___ Other (describe below) Pastoral Comments patient is talkative and is expressive about the promise that he can go home in two days; pt has had long career in [employer] and he talked of that; pt states that he has made significant progress and that others see it too; pt says he is hopeful for continued improvement; pt says that he has no other concerns at this time
[2019-12-04] MEDS: Tamsulosin HCl 0.4 MG Capsule PO (16:16)
[2019-12-04 17:00] VITALS: BMI 25.4
[2019-12-04 21:47] VITALS: BP 95/54; PULSE 62; RESP 16; TEMP 36.4; O2SAT 95
[2019-12-04 22:00] VITALS: PULSE 78; RESP 16
[2019-12-04] MEDS: Atorvastatin Calcium 40 MG Tablet PO (22:17)
[2019-12-04 22:31] VITALS: BMI 25.4
[2019-12-05 05:50] LABS: Anion Gap 6 (5-15); BUN 18 mg/dL (7-18); BUN/Creat Ratio 19.5 RATIO (10-20); Calcium,Total 8.8 mg/dL (8.5-10.1); Chloride 104 mmol/L (98-107); Creatinine, Serum 0.92 mg/dL (0.70-1.30); EST Glomerular Filtration Rate 86 mL/min (>60); Est Glom Filt Rate - Afr Amer 104 mL/min (>60); Estimated Creatinine Clearance 74.94 ml/min; Glucose 100 mg/dL (74-106); Magnesium 1.4 mg/dL (1.6-2.6); Phosphorus 3.9 mg/dL (2.5-4.9); Potassium 3.8 mmol/L (3.5-5.1); Sodium Level 136 mmol/L (136-145)
[2019-12-05] MEDS: Enoxaparin 40 MG/0.4 ML Syringe SC (06:45)
[2019-12-05] MEDS: amLODIPine 5 MG Tablet PO (07:49)
[2019-12-05] MEDS: Multivitamins,Therapeutic Tablet 1 TABLET PO (07:49)
[2019-12-05] MEDS: Losartan Potassium 100 MG Tablet PO (07:49)
[2019-12-05] MEDS: Aspirin 81 MG TAB.CHEW PO (07:49)
[2019-12-05] MEDS: Senna/Docusate Sodium 1 Tablet 2 TABLET PO ×2 (07:49→22:44)
[2019-12-05] MEDS: Meclizine HCl 25 MG Tablet PO ×2 (07:49→22:45)
[2019-12-05] MEDS: Clopidogrel Bisulfate 75 MG Tablet PO (07:49)
[2019-12-05 07:50] VITALS: PULSE 78
[2019-12-05] MEDS: Cyanocobalamin 500 MCG Tablet 1000 MCG PO (07:50)
[2019-12-05] MEDS: Metoprolol(XL)Succ 100 MG Tablet PO (07:50)
[2019-12-05] MEDS: Menthol/Lanolin/Calamine/Znox 113 GM Tube 1 APPLIC TOPICAL ×2 (07:51→22:46)
[2019-12-05 09:29] VITALS: BP 138/74; PULSE 68; RESP 16; TEMP 36.6; O2SAT 96
[2019-12-05 10:40] VITALS: BMI 25.4
--- NOTE | 2019-12-05 11:30 | PCM.DC ---
- Discharge Diagnoses Current Active Problems: Current Active and Chronic Problems Venous insufficiency (Chronic) History of prostate cancer (Chronic) Diastolic dysfunction (Chronic) Stage I Biatrial enlargement (Chronic) moderate on the Left and mild on the right Left carotid stenosis (Chronic) 50 to 69% stenosis on the left takeoff of the internal carotid and less than 50% on the right You will use the following diet at home:: Cardiac - low fat. you do not have to restrict salt. When we restricted the salt your sodium in the blood became mildly decreased. Discharge Activity: May Shower, - - To the exercises given to you by the therapist twice daily on the days that you do not have PT or OT as an outpatient. May resume sexual activity in: No Restrictions Call your doctor if you observe: Fever of 101 or Higher, Numbness or Tingling, Inability to urinate, Inability to have a bowel movement, Shortness of breath, Dizziness, Fainting spells, Swelling in the ankles, Chest pain, Calf discomfort, - - Go the ED or call 911 immediately if sudden onset: 1. facial droop 2. slurred speech or inability to get words out 3. weakness or numbness on 1 side of the face, arm or leg. 4. vertigo or room spinning 5. loss of vision or trouble seeing in one eye 6. Confusion 7. Trouble walking or maintaining balance and trouble with coordination 8. Sudden severe headache with no known cause Instructions: What Is Atrial Flutter/Atrial Fibrillation?, Addiction: Your Treatment Options, ED Alcohol Abuse Additional Instructions: 1. You have narrowing of the carotid arteries in your neck and this can lead to a stroke. The left internal carotid artery has between 50 and 69% narrowing and the right internal carotid artery has less than 50%. We generally do not have to intervene unless the percent narrowing is greater than 70%. Taking a medication such as atorvastatin to lower your cholesterol will help keep this from getting worse. Good blood pressure control will also help. Dr. Alexis will want to keep an eye on these arteries so that she can send you to see a vascular surgeon if the narrowing is > 70%. 2. You have a few risk factors for heart disease and these includ your age, your FH of heart disease in your dad, high blood pressure and history of stroke with narrowing of the carotid arteries (frequently if you have disease in 1 artery you have disease ion others). I am very concerned that initially called the EMT's for chest pain associated with sweating, shortness of breath and extreme fatigue. This could have come from coronary artery disease OR atrial fibrillation. You have risk factors for atrial fibillation and these include age, enlargement of both of the upper chambers of the heart and low magnesium and low potassium at presentation to the ER (this is because you do not eat.....you mostly drink beer and beer does not have potassium or magnesium in it. I am sending you home with a potassium and a magnesium supplement because I am afrqaid you are not going to stop drinking and I do not want you to have another stroke. Beer also does not contain B vitamins and B Vitamin deficiency is what caused the cramps in your legs. The cramps resolved with Folic acid and I am also giving you a prescription for folic acid to take at home. 3. The vertogo likely came from the stroke. I have given you a prescription for Antivert (also called Meclizine) which is what made the vertigo go away. You can take it every 8 hours as needed for vertigo. 4. You are a great joan Jakub and it has been a pleasure getting to know you and Lilis. I do not think that you can stop at 1 or 2 beers so I recommend you quit. I have given you supplements to take if you are unable to quit. There is help available if you do want to quit. You can not go 3-4 days without eating......at least eat if you are going to go back to drinking 20-30 beers a day. 5. You will get an event monitor to wear for 30 days and I have also given you a prescription to get a stress test. We have made you an appt to follow up at the hospital here with Dr. Johnson (screener and blender operator) to go over the resaults of the stress test and the monitor with you. His office is 1 floor below rehab on the third floor. 6. Take care of yourself Jakub. If you have any questions after you leave my cell is [phone]. The rehab floor is [phone]. Pending Tests on Discharge: none Allergies/Adverse Reactions: Allergies Iodinated Contrast Media [CONTRASTS] Allergy (Verified 11/14/19 11:24) PT UNABLE TO RESPOND-NEEDS F/U Medications to take at Discharge Amlodipine Besylate 5 mg PO DAILY 11/14/19 Cyanocobalamin (Vitamin B-12) [Vitamin B-12] 1,000 mcg PO DAILY 11/14/19 Tamsulosin HCl 0.4 mg PO DINNER 11/14/19 Aspirin [Aspirin, Baby] 81 mg PO DAILY@0800 11/17/19 Multivitamin 1 ea PO DAILY 11/17/19 Acetaminophen [Tylenol Tablet] 650 mg PO Q6H PRN PRN tablet 12/05/19 Atorvastatin Calcium [Lipitor] 40 mg PO QHS #30 tab 12/05/19 Clopidogrel Bisulfate [Plavix] 75 mg PO DAILY #30 tab 12/05/19 Folic Acid 1 mg PO BID #60 tab 12/05/19 Losartan Potassium [Cozaar] 100 mg PO DAILY #30 tab 12/05/19 Magnesium Citrate 125 mg PO BID #60 cap 12/05/19 Meclizine HCl [Antivert] 25 mg PO BID PRN PRN #30 tab 12/05/19 Metoprolol(XL)Succ [Toprol Xl (Beta Gokul)] 100 mg PO DAILY #30 tab 12/05/19 Potassium Chloride 10 meq PO DAILY #30 capsule.er 12/05/19 traZODone [Desyrel] 50 mg PO QHS PRN #15 tab 12/05/19 The following prescriptions were given: Meclizine HCl [Antivert] 25 mg PO BID PRN PRN #30 tab PRN Reason: Vertigo Transmission Status: Pending to [facility] traZODone [Desyrel] 50 mg PO QHS PRN #15 tab PRN Reason: .INSOMNIA Transmission Status: Pending to [facility] Folic Acid 1 mg PO BID #60 tab Transmission Status: Pending to [facility] Atorvastatin Calcium [Lipitor] 40 mg PO QHS #30 tab Transmission Status: Pending to [facility] Magnesium Citrate 125 mg PO BID #60 cap Transmission Status: Pending to [facility] Clopidogrel Bisulfate [Plavix] 75 mg PO DAILY #30 tab Transmission Status: Pending to [facility] Potassium Chloride 10 meq PO DAILY #30 capsule.er Prescription Printed Metoprolol(XL)Succ [Toprol Xl (Beta Gokul)] 100 mg PO DAILY #30 tab Transmission Status: Pending to [facility] Primary Care Physician: Care Physician,No Primary [Primary Care Provider] - Test Results: Test results from this visit will be discussed in further detail at your follow-up appointment, if applicable. Please Follow Up With: Lukas Solis MD When: Sunday Please Follow Up With: Gabi Flaherty- PCP When: Please Follow Up With: Azael Johnson MD Proposed Discharge Date: 12/06/19
--- NOTE | 2019-12-05 12:20 | DS.PCM_ITS ---
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 ( he received TPA in the ED) Vertigo (Acute)-resolved with meclizine, likely due to the CVA Hyponatremia-resolved Dehydration-resolved Hypomagnesemia Hypokalemia-resolved - Secondary Discharge Diagnosis Chronic Problems: Chronic Problems Bilateral carotid stenosis (Chronic) left greater than right Hypertension (Chronic) BPH (benign prostatic hyperplasia) (Chronic) Vitamin B12 deficiency (Chronic) Alcohol consumption heavy (Chronic) 20-30 beers daily Venous insufficiency (Chronic) History of prostate cancer (Chronic) Diastolic dysfunction stage I (Chronic) Biatrial enlargement (Chronic) moderate on the Left and mild on the right Left carotid stenosis (Chronic) 50 to 69% stenosis on the left takeoff of the internal carotid and less than 50% on the right Hospital Course and Treatment Imaging Results: Laboratory Last Values Sodium 136 mmol/L (136-145) 12/05/19 05:30 Potassium 3.8 mmol/L (3.5-5.1) 12/05/19 05:30 Chloride 104 mmol/L (98-107) 12/05/19 05:30 Carbon Dioxide 26.0 mmol/L (21.0-32.0) 12/05/19 05:30 Anion Gap 6 (5-15) 12/05/19 05:30 BUN 18 mg/dL (7-18) 12/05/19 05:30 Creatinine 0.92 mg/dL (0.70-1.30) 12/05/19 05:30 Estim Creat Clear Calc 74.94 ml/min 12/05/19 05:30 Est GFR (MDRD) Af Amer 104 mL/min (>60) 12/05/19 05:30 Est GFR (MDRD) Non-Af 86 mL/min (>60) 12/05/19 05:30 BUN/Creatinine Ratio 19.5 RATIO (-20) 12/05/19 05:30 Glucose 100 mg/dL (74-106) 12/05/19 05:30 Calcium 8.8 mg/dL (8.5-10.1) 12/05/19 05:30 Phosphorus 3.9 mg/dL (2.5-4.9) 12/05/19 05:30 Magnesium 1.4 mg/dL (1.6-2.6) L 12/05/19 05:30 Total Bilirubin 0.50 mg/dL (0.20-1.00) 11/20/19 05:47 AST 12 U/L (15-37) L 11/20/19 05:47 ALT 20 U/L (16-61) 11/20/19 05:47 Alkaline Phosphatase 71 U/L (45-117) 11/20/19 05:47 Total Protein 7.2 g/dL (6.4-8.2) 11/20/19 05:47 Albumin 3.1 g/dL (3.2-5.0) L 11/20/19 05:47 Globulin 4.1 g/dL (2.2-4.2) 11/20/19 05:47 Albumin/Globulin Ratio 0.8 RATIO (0.9-2.4) L 11/20/19 05:47 TSH 2.35 uIU/mL (0.358-3.74) 12/02/19 05:40 Cortisol 10.20 ug/dL (3.44-22.45) 12/04/19 05:28 Ur Random Sodium 45 mmol/L (Not Establ.) 12/02/19 13:57 Urine Creatinine 20.70 mg/dL (NO RANGE EST.) 12/02/19 13:57 CT/CTA Head AND Neck W/ Contrast IMPRESSION: Calcific plaque at the origin of the left internal carotid artery causing between 50 and 69% stenosis. Mild calcific plaque at the origin of the right internal carotid artery with less than 50% stenosis. ECHO Interpretation Summary Normal LV size. Left ventricular systolic function is normal. The estimated ejection fraction is 65 %. Stage 1 diastolic dysfunction. Structurally normal valves. MRI/Brain without Contrast IMPRESSION: Involutional changes of the brain, as described above. No acute infarct or hemorrhage. 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 none Operations: None Procedures: None Summary of Care Provided: Jakub Ayala is a 74 year old M with a past medical history of BPH, history of prostate cancer, hypertension, alcohol abuse and tobacco dependence in remission who called 911 on 11/14/19 for crushing CP associated with diaphoresis, SOB and extreme fatigue on 11/14/2019. While he was in the ambulance on the way to the hospital he developed stroke sx including dense left hemiparesis, dysphagia, dysarthria and waxing and waning alertness. His NIH in the ED was 14. Noncontrasted CT brain showed involutional changes with no acute findings. CTA of the head and neck showed 50 to 69% stenosis at the origin of the left internal carotid and less than 50% stenosis at the origin of the right internal carotid artery. [facility] tele-neurology was consulted and recommended TPA and the patient agreed. MRI done 24 hours after TPA administration showed moderate cerebral atrophy and a limited number of small white hyperintensities distributed throughout the deep white matter tracts of the cerebral hemispheres. There was no evidence for recent intracranial ischemia. [facility] teleneurology consult was obtained and the neurologist suspected punctate posterior circulation stroke that was missed on the MRI interpretation. Aspirin 81 mg daily and Plavix 75 mg daily for 3 weeks was recommended. Echocardiogram showed an ejection fraction of 65% with no wall motion abnormalities and no valvular heart disease. There was moderate left atrial enlargement and mild right atrial enlargement. There was no significant valvular heart disease. He was seen in consultation by PT/OT/ST and transferred to the acute rehab unit was recommended. He was admitted to the inpatient rehab unit on 11/17/2019 for greater than 3 hours of therapy daily to restore him at or near his prior level of function. Initially Jakub told me that he drinks 6-8 beers a day but, his Zeferino confirmed that he drinks 20-30 beers every day and has done so for years. He sometimes goes 3-4 days without eating because he is not hungry. This likely explains the low phosphorous, low magnesium and low potassium he had at presentation to the ED. 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 He was in [place] and he admits to seeing some traumatic things but, he will not discuss it. He feels unsafe in large crowds and he may have PTSD. He did not want treatment. The director of social media marketing and I discussed PTSD symptoms with him and gave him recommendations on where to receive treatment. He was also given recommendations on alcohol cessation and where to obtain counseling for addictions. I did not get the impression he was going to follow up for any counselling and he told his he had no plan to quit drinking. Given his ETOH abuse, age, low potassium, low magnesium and biatrial enlargement I suspect he may be having PAF. His told me that she has seen him clutching his chest at home at times. Jakub's father of an IA at an early age. He has never been evaluated for CAD. Jakub did very well in therapy and prior to DC she was ambulating without and assistive device. He had vertigo after the CVA but, this resolved with Antivert. He was independent with grooming, bathing, upper and lower body dressing, toileting and toilet transfer. He was standby assist for tub/shower transfer. He is still having difficulty with memory and swallowing and is on on thin liquids and mechanical soft foods with small bites and small sips. He was given a memory book put together by the speech therapist and he will continue to refer to the memory book at least twice a day. Jakub was discharged on 12/06/19 in good condition. He was discharged on aspirin 81 mg daily, Plavix 75 mg daily (this can likely be discontinued when he sees neurology and he will remain on ASA 81 mg daily)and atorvastatin 40 mg ni estrellita. Since he has no plan to stop drinking I also gave him prescriptions for Potassium, magnesium and Folic acid. The cramps he was having in his legs at night resolved with folic acid. A 30 day event monitor was ordered and an OP pharmacologic stress tino were ordered and he has an appt to follow up with cardiology to discuss the results of these tests. An appointment to follow-up with Dr. Flaherty, his PCP, was made for him prior to DC. He is going to follow up with Dr. Lukas Solis form neurology prior to DC. I talked with Lesvia at Dr. Alexis's office on 12/05/19 and discussed Jakub's stay in rehab and plans for testing post DC. Alert and oriented X 3, NAD, appropriate, cooperative, very pleasant PERRL, EOMI, no visual field cuts MM are moist and there are no mucosal lesions The neck is supple and the trachea is midline, there are no cervical nodes, no carotid bruits, no jugular vein distention Lungs are clear to auscultation with excellent air exchange Heart has a RRR with no gallop, no murmur and no rub. He has been in sinus rhythm every time I have examined him in rehab. He has an occasional ectopic beat. Abdomen is soft, NT, ND and there are normal bowel sounds heard in all quadrants. There was no guarding with palpation CN's II - XII are grossly intact. Strength on the left side has improved significantly. He still has mild weakness in the left upper extremity but prior to discharge was able to do 22 bicep curls with an 8 pound weight with the left upper extremity. 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 He is walking without an assistive device and had no loss of balance when walking without an assistive device carrying 2 plates of food. No peripheral edema, no calf tenderness Skin is warm and dry, no rashes, no breakdown. Mood is very good, upbeat and pleasant. This note was generated with [employer]el dictation software. It may contain incorrect words, spelling, and punctuation that were not noted in checking the note before signing. - Physical Exam Vitals/I&O's: Vital Signs Temp Pulse Resp BP Pulse Ox 98 F 68 16 138/74 H 96 12/05/19 09:29 12/05/19 09:29 12/05/19 09:29 12/05/19 09:29 12/05/19 09:29 Oxygen Delivery Method Room Air Weight: 183 lb 6.793 oz Body Mass Index (BMI) 25.4 Finger Stick Blood Glucose 119 Intake and Output for Last 24 Hours 12/03/19 12/04/19 12/05/19 23:59 23:59 23:59 Intake Total 2080 / 2080 2900 / 2900 560 / 560 Output Total 1550 / 1550 450 / 450 400 / 400 Balance 530 / 530 2450 / 2450 160 / 160 Laboratory Results 12/05/19 05:30: Sodium 136, Potassium 3.8, Chloride 104, Carbon Dioxide 26.0, Anion Gap 6, BUN 18, Creatinine 0.92, Estim Creat Clear Calc 74.94, Est GFR (MDRD) Af Amer 104, Est GFR (MDRD) Non-Af 86, BUN/Creatinine Ratio 19.5, Glucose 100, Calcium 8.8, Phosphorus 3.9, Magnesium 1.4 L Current Medications Acetaminophen (Tylenol) 650 mg PO Q6H PRN PRN PRN Reason: Pain Score 1-1010 Last Admin: 12/04/19 22:19 Dose: 650 mg Documented by: Amlodipine Besylate (Norvasc) 5 mg PO DAILY [facility] Last Admin: 12/05/19 07:49 Dose: 5 mg Documented by: Aspirin (Aspirin, Baby) 81 mg PO DAILY@0800 [facility] Last Admin: 12/05/19 07:49 Dose: 81 mg Documented by: Atorvastatin Calcium (Lipitor) 40 mg PO QHS [facility] Last Admin: 12/04/19 22:17 Dose: 40 mg Documented by: Bisacodyl (Dulcolax) 10 mg RECTAL .PRN X 1 PRN PRN Reason: Constipation Calamine/Phenol (Calmoseptine Ointment) 1 applic TOPICAL BID [facility]; Protocol Last Admin: 12/05/19 07:51 Dose: 1 applicatio Documented by: Clopidogrel Bisulfate (Plavix) 75 mg PO DAILY [facility] Stop: 12/06/19 23:55 Last Admin: 12/05/19 07:49 Dose: 75 mg Documented by: Cyanocobalamin (Vitamin B12) 1,000 mcg PO DAILY [facility] Last Admin: 12/05/19 07:50 Dose: 1,000 mcg Documented by: Enoxaparin Sodium (Lovenox) 40 mg SC DAILY@0600 [facility] Last Admin: 12/05/19 06:45 Dose: 40 mg Documented by: Losartan Potassium (Cozaar) 100 mg PO DAILY [facility] Last Admin: 12/05/19 07:49 Dose: 100 mg Documented by: Magnesium Chloride (Mag64) 128 mg PO BID [facility] Stop: 12/06/19 10:01 Magnesium Hydroxide (Milk Of Magnesia) 30 ml PO .PRN X 1 PRN PRN Reason: Constipation Meclizine HCl (Antivert) 25 mg PO BID [facility] Last Admin: 12/05/19 07:49 Dose: 25 mg Documented by: Metoprolol Succinate (Toprol Xl (Beta Gokul)) 100 mg PO DAILY [facility] Last Admin: 12/05/19 07:50 Dose: 100 mg Documented by: Multivitamins (Multivitamin) 1 tablet PO DAILY@0800 [facility] Last Admin: 12/05/19 07:49 Dose: 1 tablet Documented by: Senna/Docusate Sodium (Senokot-S, Caterina-Colace) 2 tablet PO BID [facility] Last Admin: 12/05/19 07:49 Dose: 1 tablet Documented by: Sodium Chloride () 10 - 40 ml IV UD PRN PRN Reason: SALINE FLUSH Last Admin: 11/26/19 16:34 Dose: 10 ml Documented by: Sodium Chloride () 10 - 40 ml IV UD PRN PRN Reason: SALINE FLUSH Tamsulosin HCl (Flomax) 0.4 mg PO DAILY@1730 [facility] Last Admin: 12/04/19 16:16 Dose: 0.4 mg Documented by: Trazodone HCl (Desyrel) 50 mg PO QHS PRN PRN Reason: .INSOMNIA Discharge Activity: May Shower, - - To the exercises given to you by the therapist twice daily on the days that you do not have PT or OT as an outpatient. May resume sexual activity in: No Restrictions Call your doctor if you observe: Fever of 101 or Higher, Numbness or Tingling, Inability to urinate, Inability to have a bowel movement, Shortness of breath, Dizziness, Fainting spells, Swelling in the ankles, Chest pain, Calf discomfort, - - Go the ED or call 911 immediately if sudden onset: 1. facial droop 2. slurred speech or inability to get words out 3. weakness or numbness on 1 side of the face, arm or leg. 4. vertigo or room spinning 5. loss of vision or trouble seeing in one eye 6. Confusion 7. Trouble walking or maintaining balance and trouble with coordination 8. Sudden severe headache with no known cause Home Medications: Medications to take at Discharge Amlodipine Besylate 5 mg PO DAILY 11/14/19 Cyanocobalamin (Vitamin B-12) [Vitamin B-12] 1,000 mcg PO DAILY 11/14/19 Tamsulosin HCl 0.4 mg PO DINNER 11/14/19 Aspirin [Aspirin, Baby] 81 mg PO DAILY@0800 11/17/19 Multivitamin 1 ea PO DAILY 11/17/19 Acetaminophen [Tylenol Tablet] 650 mg PO Q6H PRN PRN tab 12/05/19 Atorvastatin Calcium [Lipitor] 40 mg PO QHS #30 tab 12/05/19 Clopidogrel Bisulfate [Plavix] 75 mg PO DAILY #30 tab 12/05/19 Folic Acid 1 mg PO BID #60 tab 12/05/19 Losartan Potassium [Cozaar] 100 mg PO DAILY #30 tab 10/09/20 Magnesium Chloride 64 mg PO BID #60 tablet.dr 12/05/19 Magnesium Citrate 125 mg PO BID #60 cap 12/05/19 Meclizine HCl [Antivert] 25 mg PO BID PRN PRN #30 tab 12/05/19 Metoprolol(XL)Succ [Toprol Xl (Beta Gokul)] 100 mg PO DAILY #30 tab 12/05/19 Potassium Chloride 10 meq PO DAILY #30 capsule.er 12/05/19 traZODone [Desyrel] 50 mg PO QHS PRN #15 tab 12/05/19 Following Prescriptions Were Given to Patient: Meclizine HCl [Antivert] 25 mg PO BID PRN PRN #30 tab PRN Reason: Vertigo Transmission Status: Received by [facility] traZODone [Desyrel] 50 mg PO QHS PRN #15 tab PRN Reason: .INSOMNIA Transmission Status: Received by [facility] Folic Acid 1 mg PO BID #60 tab Transmission Status: Received by [facility] Atorvastatin Calcium [Lipitor] 40 mg PO QHS #30 tab Transmission Status: Received by [facility] Magnesium Chloride 64 mg PO BID #60 tablet.dr Transmission Status: Received by [facility] Magnesium Citrate 125 mg PO BID #60 cap Transmission Status: Received by [facility] Clopidogrel Bisulfate [Plavix] 75 mg PO DAILY #30 tab Transmission Status: Received by [facility] Potassium Chloride 10 meq PO DAILY #30 capsule.er Prescription Printed Metoprolol(XL)Succ [Toprol Xl (Beta Gokul)] 100 mg PO DAILY #30 tab Transmission Status: Received by [facility] Other Amb Orders: 30-Day Event Recorder [[facility]] Location: None Selected Nuclear Stress Test - Chemical [NM] Facility: [facility], Location: [facility] Primary Care Physician: Care Physician,No Primary [Primary Care Provider] - Please Follow Up With: Lukas Solis MD When: Sunday Please Follow Up With: Gabi Flaherty- PCP When: Please Follow Up With: Azael Johnson MD Patient Instructions: What Is Atrial Flutter/Atrial Fibrillation?, Addiction: Your Treatment Options, ED Alcohol Abuse Minutes spent on discharge:: 45 Patient Condition:: Good Medical Necessity - Tobacco Use Smoking Status: Never smoker Tobacco Use: Non-smoker Meaningful Use Info Meaningful Use Diagnoses (Choose all that apply): Ischemic CVA - CVA Therapy Assessed for PT,OT and/or ST?: Yes - Ischemic Stroke Antithrombotic order at d/c?: Yes Dx of Atrial fib/flutter?: No Anticoagulant at discharge?: No Reason anticoagulant not ordered: Treatment not Indicated Statins at discharge?: Yes Primary Dx Acute Ischemic CVA?: Yes IV tPA ordered during stay?: Yes Reason IV t-PA not ordered: Treatment not Indicated Inpatient E&M: 12563 Disch Hosp
[2019-12-05] MEDS: Magnesium Chloride 64 MG Delay Rel.Tablet 128 MG PO ×2 (14:18→22:45)
[2019-12-05] MEDS: Tamsulosin HCl 0.4 MG Capsule PO (17:22)
[2019-12-05 18:57] VITALS: BP 119/70; PULSE 75; RESP 18; TEMP 36.6; O2SAT 99
[2019-12-05] MEDS: Acetaminophen 325 MG Tablet 650 MG PO (22:44)
[2019-12-05] MEDS: Atorvastatin Calcium 40 MG Tablet PO (22:45)
[2019-12-06] MEDS: Enoxaparin 40 MG/0.4 ML Syringe SC (06:24)
[2019-12-06 07:10] VITALS: BP 148/79; PULSE 76; RESP 16; TEMP 36.5; O2SAT 94
[2019-12-06 09:17] VITALS: BP 148/79; PULSE 76
[2019-12-06] MEDS: Cyanocobalamin 500 MCG Tablet 1000 MCG PO (09:17)
[2019-12-06] MEDS: Multivitamins,Therapeutic Tablet 1 TABLET PO (09:17)
[2019-12-06] MEDS: Aspirin 81 MG TAB.CHEW PO (09:17)
[2019-12-06] MEDS: Metoprolol(XL)Succ 100 MG Tablet PO (09:17)
[2019-12-06] MEDS: Clopidogrel Bisulfate 75 MG Tablet PO (09:18)
[2019-12-06] MEDS: Losartan Potassium 100 MG Tablet PO (09:18)
[2019-12-06] MEDS: Magnesium Chloride 64 MG Delay Rel.Tablet 128 MG PO (09:18)
[2019-12-06] MEDS: Senna/Docusate Sodium 1 Tablet 2 TABLET PO (09:18)
[2019-12-06] MEDS: Meclizine HCl 25 MG Tablet PO (09:18)
[2019-12-06] MEDS: amLODIPine 5 MG Tablet PO (09:18)
[2019-12-06] MEDS: Menthol/Lanolin/Calamine/Znox 113 GM Tube 1 APPLIC TOPICAL (09:21)
[2019-12-06 09:28] VITALS: BP 148/79; PULSE 76; RESP 18; TEMP 36.5; O2SAT 94
[2019-12-06 11:04] VITALS: BP 127/79; PULSE 78; RESP 18
== END 2019-12-06 12:00 | disposition home or self-care (01) | DRG 57 ==
PROVIDERS: Admitting Provider Internal Medicine; Referring Provider Internal Medicine; Visit Provider Internal Medicine
DX: I69.354 Hemiplegia and hemiparesis following cerebral infarction affecting left non-dominant side (principal); E87.1 Hypo-osmolality and hyponatremia; I69.391 Dysphagia following cerebral infarction; I69.322 Dysarthria following cerebral infarction; I69.398 Other sequelae of cerebral infarction; R13.10 Dysphagia, unspecified; N40.0 Benign prostatic hyperplasia without lower urinary tract symptoms; I10 Essential (primary) hypertension; F10.20 Alcohol dependence, uncomplicated; Z87.891 Personal history of nicotine dependence; Z85.46 Personal history of malignant neoplasm of prostate; H93.19 Tinnitus, unspecified ear; H91.90 Unspecified hearing loss, unspecified ear
CPT/HCPCS: 36415; 74230; 80048; 80053; 82533; 82570; 83735; 84100; 84300; 84443; 92507; 92523; 92526; 92610; 92611; 97110; 97112; 97116; 97129; 97162; 97167; 97530; 97535; 97802; 99251; J7030; A4216; G0463

== ENCOUNTER 2019-12-16 13:00 | Outpatient (RCR) | payer MEDICARE, OTHER, SELFPAY ==
--- NOTE | 2019-12-16 12:44 | HP.PTEVAL ---
Patient's Visit Information BRANDEE CLIFTON is a 74 year old M referred to Physical Therapy by Dr. Allison Mcbride DO with a diagnosis of Stroke. Date of Evaluation: 12/16/19 Physical Therapist: Deric Adkins, DPT, OCS, CSCS - Visit Plan Plan: t doing well with strength and balance and does not wish to pursue further skilled intervention. Activities at home are normal and should be safe with return to [facility] from PT point of view. - Subjective I had a stroke 11/14/19. Thought it was afib which he has. He ran out of gas and felt like a dish mop at work. Almost fell off chair. Squad took to eR where his stroke. Gave clotbuster. Which helped. In hospital for 3 weeks on rehab. L side was weak and had a hard time walking at first. Went home 12/05. At this point feels 90% better on L side. L leg is 90% better. Balance and walking back to normal. No AD needed. Lives with , has steps to bedroom with railing. Stairs going well. No falls. Dresses sef, Cooking and cleaning. 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 R handed. 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 Uses saw and cuts parts about 95# at heaviest. Family Dr. [facility]. 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 Hobbies include cooking. Cabin at [employer] and has been down there one time. Walk on uneven surfaces without difficulty. - Objective Walks to therapy from speech I. Trasnfers I. Steps reciprocal with one rail I. Bed trasnfer I. LE strength symmetrical and 4+ except L PF 4-(Pt has h/o clubfoot and has never been able to heel raise on L). LE AROM WFL, UE AROM WFL. reflexes 1/3 patella and achilles. Sensation in LE B symmterical and WNL to gross light touch. coordination to reciprocal toe and heel tap and heel to hopkins is good. Some tightness in posterio LE musculature in HS and gastroc but functional. - Balance Scores Functional Gait Assessment Score: 26 % Disability: 13.3400 CATSIB Score (Max score 120 seconds): 120 - Rehabilitation Potential Physical Therapy Diagnosis: Stroke, - Anticipated Interventions Thank you for the opportunity to evaluate your patient. For Medicare and Medicare O plans, please review the plan of care and approve it. It will need to be FAXED BACK to us at [phone] for Medicare purposes. For Medicare only, by signing this I certify the plan of care. Please let me know if there are questions or concerns regarding this plan of care. Physician Signature: Date:
--- NOTE | 2019-12-16 13:23 | HP.OTEVAL_ITS ---
Patient's Visit Information BRANDEE CLIFTON is a 74 year old M, referred to Occupational Therapy by Dr. Allison Mcbride DO, with a diagnosis of CVA. Date of Evaluation: 12/16/19 Occupational Therapist: Flor Rose, OTR/Alfa, CHT - Subjective This 74 year old male was seen for OT eval with dx of CVA- with left side affected pt states he was at work when he suffed his stroke 11/14/19. 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 pt states he went to [facility] and stayed on Rehab until 2019. pt states he has return to his PLOF with shower/dressing tasks. Pt reports he is ready to return to work and does not feel he needs continuation of therapy services. - ROM ROM Comments: pt demo full BUE ROM WNL - Strength Shoulder: rigth/left 4+/5 Elbow: rigth/left 4+/5 Forearm: rigth/left 4+/5 Staff Psychiatrist: right 80# left 80# Lateral Pinch: right 22# left 22# Tripod Pinch: right 14# left 14# - Sensation Sensation Comments: denies - In-Hand Manipulation Finger to Palm Translation: Normal - Right, Normal - Left Palm to Finger Translation: Normal - Right, Normal - Left Shift: Normal - Right, Normal - Left Rotation: Normal - Right, Normal - Left - Quick DASH-Disab of Arm,Shoulder& Hand Quick DASH Score: 1.6650 - Rehabilitation General Assessment: pt demo ROM WNL and MMT strength equal throughout- pt does not demo a need for skilled OT services at this time. Pt to return to if he has change in abilities. pt demo understanding and agree to POC - Anticipated Interventions Other Interventions: pt does not demo a need for skilled OT services at this time. - Visit Plan TEXT: Thank you for the opportunity to evaluate your patient. For Medicare and Medicare HMO plans, please review the plan of care and approve it. It will need to be FAXED BACK to us at [phone] for Medicare purposes. Please let me know if there are questions or concerns regarding this plan of care. Physician Signature: Date:
--- NOTE | 2019-12-16 13:24 | HP.OTDCSUM ---
It has been my pleasure to treat BRANDEE CLIFTON under orders from Dr. Allison Mcbride DO, for the diagnosis of CVA for a total of 1 visit(s). Please see the following information for a summary of their discharge status. Objective/Function: pt was seen for Eval only If there are questions or concerns regarding this patient's occupational therapy, please fell free to call me at [phone]. Thank you for the referral of this patient. Sincerely, Flor Rose, OTR/L, CHT
--- NOTE | 2019-12-16 13:41 | HP.SP.AD_ITS ---
History - History Date of Eval: 12/16/19 Medical Diagnosis (from RX): CVA Date of Onset of Diagnosis: 11-14-19 Previous speech therapy: Yes Results: Inpatient Rehab Other Relevant Medical History/Diagnoses/Surgery: The patient is a 74 year old M with a past medical history of BPH, history of prostate cancer, hypertension, alcohol abuse, tobacco dependence in remission and recent ischemic CVA who received TPA in the ED at [facility] on 11/14/19 for witnessed dense left hemiparesis, dysphagia, dysarthria and waxing and waning alertness. CVA on 11-14-19 followed by a rehab stay until 12-06-19. 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 - Labial Impairment: WNL Observation at Rest: WNL Closure: WNL Pucker: WNL Retraction: WNL Alternating Pucker/Retraction: WNL Involuntary Movement noted: No - Lingual Impairment: WNL Protrusion: WNL Retraction: WNL Lateralization: WNL Involuntary Movement: No - Jaw Impairment: WNL Opening: WNL Closing: WNL Involuntary Movement: No - Respiratory Status Respiratory Status: Room Air Subjective Dysphagia - Current Diet Solids Current Diet: Regular - Current Diet Liquids Current Liquids: Thin CLQT - CLQT CLQT Administered: Yes CLQT: Cognitive Linguistic Quick Test (CLQT) is a criterion - referenced assessment designed for adults between the ages of 18 and 89 with known or suspected neurological dysfuntions. The CLQT is to assess strength and weaknesses in five cognitive domains. Severity ratings are within normal limits, mild, moderate, severe deficits. The subtests are as follows: Date: 12/16/19 - Attention Attention: Mild - Memory Memory: WNL - Executive Functions Executive Functions: WNL - Language Language: WNL - Visuospatial Skills Visuospatial Skills: WNL - CLQT Comments Comments Patient met the criteria cut off scores for all but sympbol cancellation subtest. He did not have his reading glasses and this test has small shapes to distinguish between. No concerns by patient or his . They stated he is having no difficulties at home. Plan - Plan Plan: No speech therapy warranted at this time. - Recommendations MBS: No Treatment Warranted: No Education - Patient has Indicated that the Following Identified Educational Needs: None The Patient has indicated that they have no educational or learning abilities t hat may effect their care.: Yes - Patient Instruction Patient Education: Diagnosis, Treatment Plan Person Taught: Patient, Significant Other Teaching Method: Discussion Response to teaching: Verbalize understanding
== END 2019-12-16 19:00 | disposition home or self-care (01) ==
LOC: OT 13:00
PROVIDERS: PCP Family Medicine; Referring Provider Family Medicine; Visit Provider Family Medicine
DX: R48.2 Apraxia (principal); Z86.73 Personal history of transient ischemic attack (TIA), and cerebral infarction without residual deficits
CPT/HCPCS: 92523; 97162; 97166

== ENCOUNTER → 2019-12-18 | Outpatient (CLI) | payer MEDICARE, OTHER, SELFPAY ==
[2019-12-05 10:40] VITALS: BMI 25.4
--- NOTE | 2019-12-24 15:51 | STRESSREP_ITS ---
Stress Test Report Date: 12/24/2019 Procedure: Pharmacologic stress nuclear imaging study Indications: Chest pain Consent: Per the patient Procedure: The patient underwent pharmacologic (Regadenoson) evaluation with a peak heart rate of 90 beats per minute (60%predicted maximal heart rate) and a peak blood pressure of 120/78 mmHg. The baseline ECG demonstrated normal sinus rhythm, possible prior anteroseptal OH. EKG during lexiscan infusion revealed no significant ischemic changes. EKG post infusion revealed no significant ischemic changes [There were no cardiac dysrhythmias pretest, during pharmacologic infusion, or recovery]. [There was no complaint of chest discomfort during pharmacologic infusion or recovery]. The examination was discontinued secondary to completion of protocol. Impression: 1. Lexiscan stress test test is negative for Lexiscan infusion induced EKG changes of ischemia. 2. Lexiscan stress test test is negative for Lexiscan infusion induced chest pain. 3. Results of the nuclear portion of the test is as below Myocardial perfusion imaging study: Technique: The patient was injected with 12 millicuries of technetium 99m Cardiolite and subsequently rest SPECT Cardiolite nuclear imaging was obtained in the horizontal long, vertical long, and short axis views. The patient underwent pharmacologic (Regadenoson) evaluation. Please see above for details. The patient was injected with 36 millicuries of technetium 99m Cardiolite and subsequently stress SPECT Cardiolite nuclear imaging was obtained in the horizontal long, vertical long, and short axis views. A gated Cardiolite study at peak stress was obtained. Interpretation: Rest and stress SPECT Cardiolite nuclear imaging status post realignment, normalization, and attenuation correction demonstrate normal myocardial radioisotope uptake. Gated images reveal no significant regional wall motion abnormalities. The reported LVEF greater than 70%. Impression: 1. There is no evidence of significant ischemia or infarction. 2. Estimated ejection fraction is greater than 70%. This note was generated with [employer] software. It may contain incorrect words, spelling, and punctuation that were not noted in checking the note before signing.
== END | disposition home or self-care (01) ==
LOC: CVS 06:54
PROVIDERS: PCP Family Medicine; Referring Provider Internal Medicine; Visit Provider Internal Medicine
DX: R07.9 Chest pain, unspecified (principal)
CPT/HCPCS: 78452; 93017; A9500; A4216; J2785

== ENCOUNTER 2024-02-12 08:30 | Inpatient (IN) | payer MEDICARE, OTHER, SELFPAY ==
[2024-02-12] VITALS (34 sets, daily range): BP systolic 120–177; BP diastolic 61–98; PULSE 57–90; RESP 12–24; TEMP 36.2–36.8; O2SAT 97–100; BMI 22.6; BMI 22.4
--- NOTE | 2024-02-12 08:35 | CT_ITS ---
STUDY: CT HEAD STROKE PROTOCOL W/O CONTRAST INJECTION REASON FOR EXAM: Male, 78 years old. Neuro deficit, acute, stroke suspected RADIATION DOSAGE (If Supplied By Facility): CTDIvol = ( 44.99 ) mGy, DLP = ( 863.6 ) mGycm TECHNIQUE: Transaxial CT imaging of the brain was performed without administration of intravenous contrast material. Individualized dose optimization techniques were used for this CT. COMPARISON: Comparison is made with prior study dated November 14, 2019. FINDINGS: Normal soft tissue structures. Normal calvarium. There is moderate cerebral atrophy with widening of the extra-axial spaces and ventricular dilatation. There are areas of decreased attenuation within the white matter tracts of the supratentorial brain, consistent with microvascular disease changes. Normal basal ganglia and thalami. Normal brainstem. There is mild cerebellar atrophy. There is no intracranial hemorrhage. There are no findings of an acute ischemic infarction. Atherosclerotic plaque formation of the vertebral arteries and cavernous portions of the internal carotid arteries bilaterally. Minimal mucosal thickening of the right maxillary sinus. ASPECT score: 10 CT/STROKE Brain/Head without Cont IMPRESSION: Chronic involutional changes of the brain. N.B. : The above Results were Read Back by Júnior Harrison MD to Rod Vargas and understanding confirmed on 02/12/2024 08:46:50 (ET). Electronically Signed: Júnior Harrison MD at 8:48 EST ,
--- NOTE | 2024-02-12 08:35 | EKG12_ITS ---
Test Reason : POSS STROKE Blood Pressure : */* mmHG Vent. Rate : 77 BPM Atrial Rate : 77 BPM P-R Int : 176 ms QRS Dur : 84 ms QT Int : 398 ms P-R-T Axes : 95 -23 43 degrees QTcB Int : 450 ms Sinus rhythm with Premature atrial complexes Otherwise normal ECG Confirmed by RAY BULLOCK, JOSE ([id number]), science editor SARAH CHRISTIAN ([id number]) on 02/14/2024 10:33:06 AM Referred By: Confirmed By: JOSE BELL MD
--- NOTE | 2024-02-12 08:38 | CT_ITS ---
STUDY: CTA HEAD AND NECK WITH CONTRAST REASON FOR EXAM: Male, 78 years old. Acute stroke RADIATION DOSAGE (If Supplied By Facility): CTDIvol = ( 23.70 ) mGy, DLP = ( 695.98 ) mGycm TECHNIQUE: CT angiography was performed with a multi-detector CT scanner. Data acquisition was obtained from the skull base through the vertex following intravenous administration of IV 100mL [id number]-370. MIP images were reconstructed from the axial data set. Post-processing of the angiographic images was performed, with multiplanar reformation and 3D reconstruction. Individualized dose optimization techniques were used for this CT. COMPARISON: Comparison is made with prior study dated November 14, 2019. FINDINGS: Normal bilateral petrous carotid arteries. There is calcified plaque formation of the right cavernous carotid artery, without a cross-sectional luminal stenosis. There is calcified plaque formation of the left cavernous carotid artery, without a cross-sectional luminal stenosis. Normal right A1 segments of the anterior cerebral artery. Normal left A1 segments of the anterior cerebral artery. Normal intact anterior communicating artery (ACOM). Normal bilateral A2 segments of the anterior cerebral arteries. Normal right M1 and M2 segments of the middle cerebral arteries, with a normal M1 bifurcation. Normal left M1 and M2 segments of the middle cerebral arteries, with a normal M1 bifurcation. Normal right posterior communicating artery (PCOM). Normal left posterior communicating artery (PCOM). Normal bilateral vertebral arteries. Normal basilar artery with a normal basilar bifurcation. The visualized bilateral superior cerebellar (SCA) arteries are normal. Normal bilateral P1, P2 and visualized P3 segments of the posterior cerebral arteries. There is no demonstrated aneurysm of the [place]. There is no demonstrated abnormality of the visualized brain. AORTIC ARCH: There is atherosclerotic calcific plaque formation of the aortic arch and great vessels arising from the aortic arch, without a hemodynamically significant stenosis. There is a normal origin of the brachiocephalic, left common carotid, and left subclavian arteries. Atherosclerotic plaque formation at the origin of the right brachiocephalic artery and left subclavian artery. RIGHT CAROTID ARTERIES: Normal right common carotid artery (CCA). Normal right common carotid bulb. There is extensive atherosclerotic plaque formation of the origin of the right internal carotid artery with an estimated stenosis of greater than 70%. Normal visualized cervical portion of the right internal carotid artery. Normal origin of the right external carotid artery (ECA). LEFT CAROTID ARTERIES: Normal left common carotid artery (CCA). Normal left common carotid bulb. There is extensive atherosclerotic plaque formation of the origin of the left internal carotid artery with an estimated stenosis of greater than 70%. Normal visualized cervical portion of the left internal carotid artery. Normal origin of the left external carotid artery (ECA). VERTEBRAL ARTERIES: Normal bilateral vertebral arteries. CT/CTA Head AND Neck W/ Contrast IMPRESSION: Calcific plaque at the origin of the right and left internal carotid arteries causing greater than 70% stenosis. Electronically Signed: Júnior Harrison MD at 9:04 EST ,
--- NOTE | 2024-02-12 08:39 | ED.VIS.STROK ---
HPI History of Present Illness Chief Complaint: Stroke Alert Informant: EMS Narrative Narrative: 78-year-old male presenting to the emergency room as a prehospital stroke alert. EMS states they were called to the patient's. They state the initial call was for stroke. Bystanders at work reported to EMS that it looked like he was going to pass out at 0758 hrs. He told EMS that he had left-sided weakness. EMS notes that he was able to respond with yes or no answers and did seem weak on the left side. They states he has had a prior stroke but did not know his medications. Patient noted to be drooling out of the left side of his mouth by EMS. [facility] Medical History (Updated 02/12/24 @ 09:[address] Rod Vargas, ) Dehydration Carotid stenosis Cognitive dysfunction Vertigo Physical debility Left carotid stenosis Biatrial enlargement Diastolic dysfunction Hypokalemia Hypomagnesemia Hyponatremia History of prostate cancer Venous insufficiency Alcohol consumption heavy Vitamin B12 deficiency BPH (benign prostatic hyperplasia) Hypertension CVA (cerebral vascular accident) Home Medications ?Medication ?Instructions ?Recorded ?Last Taken ?Type amlodipine 5 mg tablet 5 mg PO DAILY blood pressure 11/14/19 Unknown History cyanocobalamin (vitamin B-12) 1,000 mcg PO DAILY Vitamin 11/14/19 Unknown History 1,000 mcg capsule supplement aspirin 81 mg chewable tablet 81 mg PO DAILY@0800 heart 11/17/19 Unknown History acetaminophen 325 mg tablet 650 mg (2 x 325 mg) PO Q6H PRN PRN 12/05/19 Unknown Rx Pain Score 1-10/10 atorvastatin 40 mg tablet 40 mg PO QHS #30 tabs 12/05/19 Unknown Rx clopidogrel 75 mg tablet 75 mg PO DAILY blood thinner #30 12/05/19 Unknown Rx tabs folic acid 1 mg tablet 1 mg PO BID #60 tabs 12/05/19 Unknown Rx losartan 100 mg tablet 100 mg PO DAILY blood pressure #30 12/05/19 Unknown Rx tabs magnesium chloride 64 mg 64 mg PO BID ##60 12/05/19 Unknown Rx (magnesium chloride) tablet,delayed release magnesium citrate 125 mg capsule 125 mg PO BID #60 caps 12/05/19 Unknown Rx metoprolol succinate 100 mg 100 mg PO DAILY blood pressure #30 12/05/19 Unknown Rx tablet,extended release 24 hr tabs trazodone 50 mg tablet 50 mg PO QHS PRN .INSOMNIA #15 tabs 12/05/19 Unknown Rx multivitamin 1 tab PO DAILY 01/29/20 Unknown History potassium chloride 10 mEq 10 meq PO DAILY 01/29/20 Unknown History capsule,extended release tamsulosin 0.4 mg capsule 0.4 mg PO DAILY 01/29/20 Unknown History cholecalciferol (vitamin D3) 1,250 1,250 mcg PO 02/12/24 Unknown History mcg (50,000 unit) capsule Allergy/AdvReac Type Severity Reaction Status Date / Time Iodinated Contrast Media Allergy PT UNABLE Verified 01/29/20 14:21 (CONTRASTS) TO RESPOND-NEEDS F/U Family History Father Heart disease Cancer Surgical History History of vein stripping History of appendectomy History of tonsillectomy History of bilateral cataract extraction Social History Smoking Status: Former smoker alcohol intake: current details: 10+ beers daily ROS ROS ED Review of Systems ROS Unobtainable: due to mental status EXAM Physical Exam Const Vital Signs: 02/12/24 08:32 02/12/24 08:35 02/12/24 08:40 Temperature 98.2 F Temperature Source Oral Pulse Rate 70 90 Respiratory Rate 14 16 Blood Pressure 133/61 H 133/61 H Blood Pressure Mean 85 85 Pulse Ox 98 98 Oxygen Delivery Method Room Air Room Air Room Air Oxygen Flow Rate (L/min) 02/12/24 08:58 02/12/24 09:08 02/12/24 09:13 Temperature 98.2 F 98.1 F Temperature Source Oral Oral Pulse Rate 74 75 Respiratory Rate 18 22 H Blood Pressure 170/98 H 170/92 H 172/84 H Blood Pressure Mean 122 113 Pulse Ox 97 97 Oxygen Delivery Method Nasal Cannula Nasal Cannula Oxygen Flow Rate (L/min) 2 2 02/12/24 09:28 Temperature 98.2 F Temperature Source Oral Pulse Rate 71 Respiratory Rate 19 H Blood Pressure 163/85 H Blood Pressure Mean 111 Pulse Ox 100 Oxygen Delivery Method Nasal Cannula Oxygen Flow Rate (L/min) Positive well nourished and well developed Constitutional Narrative: Patient appears globally weak General Appearance ED: well developed and NAD HEENT Reports normocephalic, head/scalp atraumatic and moist mucous membranes Eyes PERRL and EOMs intact bilaterally Neck no lymphadenopathy, supple and no JVD Resp normal respiratory effort and clear to auscultation bilaterally Cardio regular rate, regular rhythm and no murmurs GI normal to inspection, nondistended, normoactive bowel sounds and non-tender Palpation: soft Back/Spine no CVA tenderness and normal ROM Extremity normal to inspection General Extremety ED: Negative for edema General Extremity: Negative for edema Neuro Neuro Narrative: Patient opens his eyes to voice. He makes an attempt to move all 4 extremities but is unable to lift them up off the bed. He nods his head yes when I ask him if he can feel me touching him. I can get the occasional yes answer from him otherwise he nods his head up and down. Sensorium / Orientation: alert Psych Psych Narrative: Unable to assess Skin no rashes or lesions noted and no wounds MDM MDM MDM Narrative Medical decision making narrative: Differential diagnosis includes but not limited to intracranial hemorrhage acute thrombotic stroke electrolyte abnormality encephalopathy UTI Patient was taken from the EMS cot directly to CT scanner where a noncontrasted head CT showed no acute intracranial hemorrhage mass or obvious swelling. CTA was performed with no evidence of LVO or dissection. Patient was brought back to the room. We are able to find a very old appearing medication list in his wallet but did not appear to have any direct anticoagulants. Plavix was noted. EKG shows a sinus rhythm with a rate of 77 white count 6.0 hemoglobin 14.9 platelet count of 252 normal coags troponin slightly elevated 84 glucose 143 my independent interpretation of the chest x-ray is no acute process. This was compared to prior chest x-ray dated 14 November 2019. I spoke with the neurologist from [facility]. They are unable to beam into the room due to technical issues. The recommendation is to give TNK. Patient was noted to have difficulty creating a cough continued difficulty speaking and drooling. He does however still have a gag reflex. He is on 2 L nasal cannula for support not for hypoxia. Patient received TNK. Working diagnosis at this time is acute thrombotic stroke. Plan will be admission into hospital. History & Record Review Discussion w/independent historian: EMS personnel and Patient Additional record(s) reviewed:: Prior ED visit and Prior labs Lab Data Attestation: I reviewed the patient's lab results. Labs: Laboratory Results - last 24 hr 02/12/24 08:46 WBC 6.0 RBC 4.81 Hgb 14.9 Hct 43.6 MCV 90.6 MCH 31.0 MCHC 34.2 RDW Std Deviation 40.2 RDW Coeff of Denae 12.2 Plt Count 252 MPV 9.1 Immature Gran % (Auto) 0.500 Neut % (Auto) 70.8 H Lymph % (Auto) 11.1 L [place] % (Auto) 16.3 H Eos % (Auto) 0.8 Baso % (Auto) 0.5 Absolute Neuts (auto) 4.3 Absolute Lymphs (auto) 0.67 L Nucleated RBC % 0 PT 13.7 INR 1.1 APTT 25.6 Sodium 126 L Potassium 3.9 Chloride 93 L Carbon Dioxide 25.0 Anion Gap 7 BUN 8 Creatinine 0.97 Estim Creat Clear Calc 69.19 Est GFR (MDRD) Af Amer 96 Est GFR (MDRD) Non-Af 80 BUN/Creatinine Ratio 8.2 L Glucose 143 H Calcium 9.1 Magnesium 1.6 Troponin I High Sens 84 H Radiography Diagnostic Testing: Clinical Impression(s) from Imaging Studies Brain CT 02/12/24 08:35 IMPRESSION: Chronic involutional changes of the brain. N.B. : The above Results were Read Back by Júnior Harrison MD to Rod Vargas and understanding confirmed on 02/12/2024 08:46:50 (ET). Electronically Signed: Júnior Harrison MD at 8:48 EST , ADDENDUM: 02/12/24 0854 IMPRESSION: Chronic involutional changes of the brain. N.B. : The above Results were Read Back by Júnior Harrison MD to Rod Vargas and understanding confirmed on 02/12/2024 08:46:50 (ET). Electronically Signed: Júnior Harrison MD at 8:48 EST , Head/Neck CTA 02/12/24 08:38 IMPRESSION: Calcific plaque at the origin of the right and left internal carotid arteries causing greater than 70% stenosis. Electronically Signed: Júnior Harrison MD at 9:04 EST , Chest X-Ray 02/12/24 09:25 IMPRESSION: No acute abnormality is seen. Electronically Signed: Júnior Harrison MD at 9:33 EST , EKG Initial EKG: Attestation: I personally reviewed and interpreted this EKG as follows: Comments: Normal sinus rhythm with premature atrial complexes ventricular rate of 77 bpm Management Discussion w/another healthcare provider: Hospitalist (Dr Rivers), Radiator Cleaner ([facility]), Radiologist (Dr Harrison) and bull wheel worker/Case management Discharge Plan Dx/Rx/DC Orders Clinical Impression: Acute stroke due to ischemia, Hypertension Disposition Disposition: Acute Care Hospital [facility]
--- NOTE | 2024-02-12 08:45 | ED.RN ---
pt back in room. second call back to [facility] called @[phone]
--- NOTE | 2024-02-12 08:54 | ED.RN ---
called [facility] @[phone] for a third time. Neurologist to be beaming in
--- NOTE | 2024-02-12 08:57 | ED.RN ---
calling technical support for [facility] robot, due to neurologist unable to beam in. Neurologist on the phone with Dr. Vargas
[2024-02-12 08:59] LABS: Absolute Lymphocyte Count 0.67 X10^3/uL (0.83-4.51); Absolute Neutrophil Count 4.3 X10^3/uL (2.0-7.7); Basophil# 0.03 X10^3/uL; Basophil% 0.5 % (0-1); Eosinophil# 0.05 X10^3/uL; Eosinophils% 0.8 % (0-5); Hematocrit 43.6 % (40-54); Hemoglobin 14.9 g/dL (13.0-16.5); Lymphocyte # 0.67 X10^3/ul (0.83-4.51); Lymphocyte % 11.1 % (19-41); Mean Corp Hgb Conc 34.2 g/dL (32-36); Mean Corpuscular Volume 90.6 fL (80-94); Mean Platelet Vol. 9.1 fl (6.2-12.0); Monocyte# 0.98 X10^3/uL; Monocyte% 16.3 % (0-10); NRBC Flagged by Analyzer 0 % (0-5); Neutrophil # 4.25 X10^3/uL (2.7-7.7); Neutrophil % 70.8 % (47-70); Platelet Count 252 K/mm3 (150-450); RBC Distribution Width CV 12.2 % (11.6-14.6); RBC Distribution Width SD 40.2 fl (35.1-43.9); Red Blood Count 4.81 M/mm3 (4.6-6.2)
[2024-02-12] MEDS: TENECTEPLASE 2721.6 MG IV (09:08)
[2024-02-12] MEDS: 0.9% Saline Lock 10 ML Syringe IV ×2 (09:09→09:10)
[2024-02-12 09:10] LABS: International Normalized Ratio 1.1; Prothrombin Time (Protime)PT. 13.7 SECONDS (11.7-14.9)
[2024-02-12 09:11] LABS: Partial Thromboplast Time 25.6 Seconds (24.1-36.2)
--- NOTE | 2024-02-12 09:16 | CM.ED ---
Social work Reason for referral: stroke alert This SW responded to stroke alert and no family was present for patient. Nursing was attempting to contact family members listed: , Manjinder, and sons Jered and Toy. All 3 phone numbers reportedly went to voicemail. Numbers were passed off to this SW to continue trying to reach patient's family. This SW called and left a voicemail for patient's , Manjinder ([phone]), asking for a return phone call. Called patient's son, Jered ([phone]) and left a voicemail asking for a return phone call. Called patient's son, Toy ([phone]) and Toy answered. This SW identified self and role at [facility]. Expressed patient's presentation to the [facility] ED and explained attempt at reaching patient's . Toy stated he was 30 minutes away, but Toy stated he would try to reach patient's and Toy would be on his way to the ED soon. Nursing updated. SW to follow as needed. Macie Jones, CIGARETTE MAKING EXAMINER, [place]
[2024-02-12 09:24] LABS: Anion Gap 7 (5-15); BUN 8 mg/dL (7-18); BUN/Creat Ratio 8.2 RATIO (10-20); Calcium,Total 9.1 mg/dL (8.5-10.1); Chloride 93 mmol/L (98-107); Creatinine, Serum 0.97 mg/dL (0.70-1.30); EST Glomerular Filtration Rate 80 mL/min (>60); Est Glom Filt Rate - Afr Amer 96 mL/min (>60); Estimated Creatinine Clearance 69.19 ml/min; Glucose 143 mg/dL (74-106); Potassium 3.9 mmol/L (3.5-5.1); Sodium Level 126 mmol/L (136-145); Troponin-I HS 84 pg/mL (3.0-78.0)
--- NOTE | 2024-02-12 09:25 | RAD_ITS ---
STUDY: X-RAY CHEST REASON FOR EXAM: Male, 78 years old. Neuro deficit, acute, stroke suspected TECHNIQUE: Single AP portable view of the chest. COMPARISON: Comparison is made with prior study dated November 14, 2019. FINDINGS: EKG electrodes are seen. Mild elevation of the right hemidiaphragm. There is no demonstrated pleural abnormality. Normal size heart. Normal mediastinum and kennedi. Normal visualized pulmonary arteries. There is atherosclerotic tortuosity of the aortic arch and descending thoracic aorta. There are diffuse degenerative changes of the visualized thoracic spine. Normal visualized ribs, clavicles, and shoulders. There is no demonstrated abnormality of the visualized soft tissue structures of the upper abdomen. RAD/Chest 1 View IMPRESSION: No acute abnormality is seen. Electronically Signed: Júnior Harrison MD at 9:33 EST ,
[2024-02-12] MEDS: 0.9% Normal Saline (1000mL) 1,000 ML 100 ML IV (09:30)
[2024-02-12 10:05] LABS: Magnesium 1.6 mg/dL (1.6-2.6)
[2024-02-12 10:08] LABS: Alcohol, Blood (Medical)-Serum < 3.0 mg/dL
--- NOTE | 2024-02-12 10:12 | ECHOD_ITS ---
Reason For Study: CVA Procedure This was a 2D Doppler, Color Flow transthoracic echocardiogram. The study was technically difficult. The patient was scanned supine. Exam performed portable in ICU/CCU. Left Ventricle Normal LV size. Left ventricular systolic function is normal. The left ventricular ejection fraction is 70 %. Stage 1 diastolic dysfunction. No regional wall motion abnormalities noted. Right Ventricle Normal RV size. Normal systolic function. Atria Normal left atrium. Normal right atrium. Mitral Valve Normal mitral valve. Tricuspid Valve Normal tricuspid valve. Aortic Valve Trisinus/trileaflet aortic valve. Pulmonic Valve The pulmonic valve is not well visualized. Great Vessels Normal aortic root. The pulmonary artery is normal size. Inferior vena cava collapse with respiration. Pericardium/Pleural No pericardial effusion. MMode/2D Measurements & Calculations LVIDd: 4.2 cm IVSd: 1.1 cm LVOT diam: 2.0 cm LVIDs: 2.1 cm LVPWd: 1.2 cm LVOT area: 3.1 cm2 RVDd: 3.5 cm FS: 49.2 % asc Aorta Diam: 3.4 cm LAV(MOD-bp): 38.0 ml LVAd ap4: 18.2 cm2 LAV(MOD-bp) Indexed: 19.3 ml/m2 LVLd ap4: 6.6 cm LAV(MOD-sp2): 52.6 ml EDV(MOD-sp4): 40.9 ml LAV(MOD-sp4): 25.6 ml EDV(sp4-el): 42.3 ml LVAs ap4: 9.1 cm2 LVLs ap4: 5.7 cm ESV(MOD-sp4): 12.4 ml ESV(sp4-el): 12.2 ml EF(MOD-sp4): 69.6 % EF(sp4-el): 71.2 % LVAd ap2: 18.3 cm2 SV(MOD-sp4): 28.4 ml SV(MOD-sp2): 28.3 ml LVLd ap2: 6.6 cm SI(MOD-sp4): 14.4 ml/m2 SI(MOD-sp2): 14.4 ml/m2 EDV(MOD-sp2): 41.8 ml EDV(sp2-el): 42.7 ml LVAs ap2: 9.2 cm2 LVLs ap2: 5.5 cm ESV(MOD-sp2): 13.5 ml ESV(sp2-el): 13.1 ml EF(MOD-sp2): 67.6 % SV(sp4-el): 30.2 ml Ao sinus diam: 3.8 cm LA A4 area: 12.4 cm2 LA dimension(2D): 3.3 cm RA A4 area: 12.3 cm2 TAPSE: 1.7 cm Time Measurements MV dec time: 0.26 sec Doppler Measurements & Calculations MV E max paco: 51.8 cm/sec Lat Peak E' Paco: 7.1 cm/sec Med Peak E' Paco: 6.7 cm/sec MV A max paco: 89.3 cm/sec E/E' lat: 7.3 E/E' med: 7.8 MV E/A: 0.58 Ao V2 max: 121.0 cm/sec LV V1 max: 102.1 cm/sec MV dec slope: 200.3 cm/sec2 Ao max P.9 mmHg LV V1 max P.2 mmHg Ao V2 mean: 68.7 cm/sec LV V1 mean P.2 mmHg Ao mean P.3 mmHg LV V1 mean: 71.2 cm/sec Ao V2 VTI: 22.4 cm LV V1 VTI: 20.3 cm AV (velocity ratio): 0.91 APURVA(I,D): 2.8 cm2 APURVA(V,D): 2.6 cm2 SV(LVOT): 62.9 ml PA V2 max: 89.7 cm/sec ECHO/Echo Complete Interpretation Summary Normal LV size. Left ventricular systolic function is normal. The left ventricular ejection fraction is 70 %. Stage 1 diastolic dysfunction. Ordering Physician: Deric Rivers Performed By: Ela Nguyen RDCS
--- NOTE | 2024-02-12 10:25 | ED.RN ---
REPORT GIVEN TO CARVING MACHINE OPERATOR
--- NOTE | 2024-02-12 11:25 | PCM.HP.STD ---
HPI - General General Date of Admission: 02/12/24 Date of Service: 02/12/24 Chief Complaint: stroke HPI Narrative BRANDEE CLIFTON, is a 78 M who presents from work. Noted by colleagues that he is going to pass out at 0758. Notified EMS that he does have left-sided weakness and was brought to the hospital. Once at the hospital he was aphasic. Stroke team was called and patient underwent head CT and CTA of the head and neck. CTA of the head and neck showed bilateral carotid stenosis. Patient was deemed a candidate for tenecteplase and received it while he was in the emergency room. Patient has a known contrast allergy and so he was premedicated prior to his CT angiogram. [facility] Medical History Dehydration Carotid stenosis Cognitive dysfunction Vertigo Physical debility Left carotid stenosis Biatrial enlargement Diastolic dysfunction Hypokalemia Hypomagnesemia Hyponatremia History of prostate cancer Venous insufficiency Alcohol consumption heavy Vitamin B12 deficiency BPH (benign prostatic hyperplasia) Hypertension CVA (cerebral vascular accident) Home Medications ?Medication ?Instructions ?Recorded ?Last Taken ?Type amlodipine 5 mg tablet 5 mg PO DAILY blood pressure 11/14/19 Unknown History cyanocobalamin (vitamin B-12) 1,000 mcg PO DAILY Vitamin 11/14/19 Unknown History 1,000 mcg capsule supplement aspirin 81 mg chewable tablet 81 mg PO DAILY@0800 heart 11/17/19 Unknown History acetaminophen 325 mg tablet 650 mg (2 x 325 mg) PO Q6H PRN PRN 12/05/19 Unknown Rx Pain Score 1-10/10 atorvastatin 40 mg tablet 40 mg PO QHS #30 tabs 12/05/19 Unknown Rx clopidogrel 75 mg tablet 75 mg PO DAILY blood thinner #30 12/05/19 Unknown Rx tabs folic acid 1 mg tablet 1 mg PO BID #60 tabs 12/05/19 Unknown Rx losartan 100 mg tablet 100 mg PO DAILY blood pressure #30 12/05/19 Unknown Rx tabs magnesium chloride 64 mg 64 mg PO BID ##60 12/05/19 Unknown Rx (magnesium chloride) tablet,delayed release magnesium citrate 125 mg capsule 125 mg PO BID #60 caps 12/05/19 Unknown Rx metoprolol succinate 100 mg 100 mg PO DAILY blood pressure #30 12/05/19 Unknown Rx tablet,extended release 24 hr tabs trazodone 50 mg tablet 50 mg PO QHS PRN .INSOMNIA #15 tabs 12/05/19 Unknown Rx multivitamin 1 tab PO DAILY 01/29/20 Unknown History potassium chloride 10 mEq 10 meq PO DAILY 01/29/20 Unknown History capsule,extended release tamsulosin 0.4 mg capsule 0.4 mg PO DAILY 01/29/20 Unknown History cholecalciferol (vitamin D3) 1,250 1,250 mcg PO 02/12/24 Unknown History mcg (50,000 unit) capsule Allergy/AdvReac Type Severity Reaction Status Date / Time Iodinated Contrast Media Allergy PT UNABLE Verified 01/29/20 14:21 (CONTRASTS) TO RESPOND-NEEDS F/U Family History Father Heart disease Cancer Surgical History History of vein stripping History of appendectomy History of tonsillectomy History of bilateral cataract extraction Social History Smoking Status: Former smoker alcohol intake: current details: 10+ beers daily ROS ROS Narrative Aphasia. Left-sided weakness. Limited review of systems given his profound aphasia. Vital Signs Vital Signs Vital Signs: 02/12/24 08:32 02/12/24 08:35 02/12/24 08:40 Temperature 36.8 C Temperature Source Oral Pulse Rate 70 90 Respiratory Rate 14 16 Blood Pressure 133/61 H 133/61 H Blood Pressure Mean 85 85 Blood Pressure Source Blood Pressure Position Blood Pressure Location Pulse Ox 98 98 Oxygen Delivery Method Room Air Room Air Room Air Oxygen Flow Rate (L/min) 02/12/24 08:58 02/12/24 09:08 02/12/24 09:13 Temperature 36.8 C 36.7 C Temperature Source Oral Oral Pulse Rate 74 75 Respiratory Rate 18 22 H Blood Pressure 170/98 H 170/92 H 172/84 H Blood Pressure Mean 122 113 Blood Pressure Source Blood Pressure Position Blood Pressure Location Pulse Ox 97 97 Oxygen Delivery Method Nasal Cannula Nasal Cannula Oxygen Flow Rate (L/min) 2 2 02/12/24 09:28 02/12/24 09:43 02/12/24 09:58 Temperature 36.8 C 36.7 C 36.7 C Temperature Source Oral Oral Oral Pulse Rate 71 69 81 Respiratory Rate 19 H 19 H 18 Blood Pressure 163/85 H 157/80 H 171/89 H Blood Pressure Mean 111 105 116 Blood Pressure Source Monitor Blood Pressure Position Blood Pressure Location Pulse Ox 100 99 99 Oxygen Delivery Method Nasal Cannula Nasal Cannula Nasal Cannula Oxygen Flow Rate (L/min) 2 02/12/24 10:12 02/12/24 10:20 02/12/24 10:27 Temperature 36.8 C 36.8 C 36.8 C Temperature Source Oral Oral Pulse Rate 81 68 70 Respiratory Rate 19 H 19 H 24 H Blood Pressure 163/81 H 169/84 H 174/97 H Blood Pressure Mean 108 112 122 Blood Pressure Source Monitor Blood Pressure Position Blood Pressure Location Pulse Ox 99 99 100 Oxygen Delivery Method Nasal Cannula Room Air Oxygen Flow Rate (L/min) 2 02/12/24 10:42 02/12/24 10:57 02/12/24 11:00 Temperature 36.8 C Temperature Source Oral Pulse Rate 71 72 72 Respiratory Rate 22 H 24 H 20 H Blood Pressure 177/88 H 176/93 H 166/90 H Blood Pressure Mean 117 120 115 Blood Pressure Source Monitor Monitor Monitor Blood Pressure Position Semi-Fowlers Semi-Fowlers Blood Pressure Location Left Arm Left Arm Pulse Ox 100 100 100 Oxygen Delivery Method Room Air Room Air Room Air Oxygen Flow Rate (L/min) 02/12/24 11:15 Temperature 36.3 C L Temperature Source Temporal Pulse Rate 70 Respiratory Rate 17 Blood Pressure 144/87 H Blood Pressure Mean 106 Blood Pressure Source Monitor Blood Pressure Position Semi-Fowlers Blood Pressure Location Left Arm Pulse Ox 100 Oxygen Delivery Method Room Air Oxygen Flow Rate (L/min) Weight Weight: 75.5 kg Body Mass Index (BMI) 22.6 Physical Exam Const alert and no apparent distress HEENT normocephalic, head/scalp atraumatic, hearing grossly normal bilaterally and moist oral mucous membranes Mouth: moist mucous membranes abnormal Eyes PERRL Eyes Narrative: Limited gaze laterally. Resp normal respiratory effort, no retractions, no use of accessory muscles and clear to auscultation bilaterally Cardio regular rate, regular rhythm, S1 normal heart sound and S2 normal heart sound GI normal to inspection, nondistended, normoactive bowel sounds, soft to palpation, non-tender and non-distended Extremity normal to inspection Neuro Neuro Narrative: Aphasic. Muscle strength 4 out of 5 in the right upper and right lower extremity and 3 out of 5 in the left upper and left lower extremity. No clonus. Sensorium / Orientation: awake Results Lab / Micro Data Attestation: I reviewed the patient's lab results. 02/12/24 08:46 02/12/24 08:46 Labs: Laboratory Results - last 24 hr 02/12/24 08:46: WBC 6.0, RBC 4.81, Hgb 14.9, Hct 43.6, MCV 90.6, MCH 31.0, MCHC 34.2, RDW Std Deviation 40.2, RDW Coeff of Denae 12.2, Plt Count 252, MPV 9.1, Immature Gran % (Auto) 0.500, Neut % (Auto) 70.8 H, Lymph % (Auto) 11.1 L, [place] % (Auto) 16.3 H, Eos % (Auto) 0.8, Baso % (Auto) 0.5, Absolute Neuts (auto) 4.3, Absolute Lymphs (auto) 0.67 L, Nucleated RBC % 0, PT 13.7, INR 1.1, APTT 25.6, Sodium 126 L, Potassium 3.9, Chloride 93 L, Carbon Dioxide 25.0, Anion Gap 7, BUN 8, Creatinine 0.97, Estim Creat Clear Calc 69.19, Est GFR (MDRD) Af Amer 96, Est GFR (MDRD) Non-Af 80, BUN/Creatinine Ratio 8.2 L, Glucose 143 H, Calcium 9.1, Magnesium 1.6, Troponin I High Sens 84 H, Ethyl Alcohol < 3.0 Imaging Radiology Impression Brain CT 02/12/24 08:35 IMPRESSION: Chronic involutional changes of the brain. N.B. : The above Results were Read Back by Júnior Harrison MD to Rod Vargas and understanding confirmed on 02/12/2024 08:46:50 (ET). Electronically Signed: Júnior Harrison MD at 8:48 EST , ADDENDUM: 02/12/24 0854 IMPRESSION: Chronic involutional changes of the brain. N.B. : The above Results were Read Back by Júnior Harrison MD to Rodcarolina Vargas and understanding confirmed on 02/12/2024 08:46:50 (ET). Electronically Signed: Júnior Harrison MD at 8:48 EST , Head/Neck CTA 02/12/24 08:38 IMPRESSION: Calcific plaque at the origin of the right and left internal carotid arteries causing greater than 70% stenosis. Electronically Signed: Júnior Harrison MD at 9:04 EST , Chest X-Ray 02/12/24 09:25 IMPRESSION: No acute abnormality is seen. Electronically Signed: Júnior Harrison MD at 9:33 EST , Assessment & Plan Assessment/Plan (1) Acute stroke due to ischemia: PLAN: Onset was 1217 at 0758. Patient received tenecteplase Check echo and MRI. Patient will need imaging 24 hours after the tenecteplase whether that the be an MRI repeat CT imaging. To make sure that there is no further hemorrhagic transformation of the stroke. Start high intensity statin Neurology consult This patient is the intensive care unit, critical care medicine consultation as well. Nicardipine protocol. (2) Carotid stenosis: QUALIFIERS: Laterality: bilateral Qualified Code(s): I65.23 - Occlusion and stenosis of bilateral carotid arteries PLAN: Noted bilaterally showing 70% stenosis bilaterally. Follow-up with vascular surgery as outpatient. PLAN: Plan Chronic condition Hypertension: Amlodipine on hold for now. VTE prophylaxis with SCDs for now. Charges/Coding Visit Charges Inpatient E&M: 89849 Init Hosp L3
--- NOTE | 2024-02-12 12:38 | CASEMGMT ---
SANDRA TORRES Assessment Face to Face with patient for initial transition planning/care coordination assessment. SANDRA TORRES introduced self and role at [facility], pt voices understanding. Pt is A&Ox4 and is resting comfortably in bed and is calm. Pt and son (Toy) at bedside. Care providers, pharmacy, and demographics verified. Admitting dx: CVA LACE Strata: (Not computed yet as the pt is a recent admission) PCP: Gabi Alexis Specialists: denies Preferred Pharmacy: [facility] Insurance: [facility] A/B, AARP Prescription Benefit: Yes LNOK: Manjinder Ayala (W), Jered Ayala (Son), Toy Ayala (Son) Living Arrangements: Pt lives with his in a 2 story home with 4 steps to enter with handrails throughout ADLs/IADLs: Reports ind at baseline Transportation: Self, . Denies concerns DME: Pt has access to the following DME at home: W/C, FWW, BSC, Raised TS, Grab bars, BP Monitor, and pulse ox. HHC/SNF: Denies HH Hx. Pt has been to the [facility] in the past Pt?s goal: Return to PLOF Plan: TBD. Dr. Rivers states that the pt will likely qualify for a rehab stay and that he plans to order a CVA workup. Pt and pt state that they are agreeable to this and state that they received exceptional care last time the pt was there. PT/OT/ST are ordered and pending. SW is aware. Care management to continue to follow. Madelin Ruiz RN, CM
--- NOTE | 2024-02-12 13:07 | EX.PCM.CONCC ---
Assessment & Plan Assessment/Plan (1) Acute stroke due to ischemia: PLAN: Plan RECOMMENDATIONS: 1. Continue routine monitoring per protocol. 2. Follow-up head imaging in 24 hours. 3. Neurology follow-up. 4. Maintain blood pressure less than 180/105 mmHg. 5. PT/OT evaluations tomorrow. 6. Echocardiogram is ordered. IMPRESSIONS: 1. Acute CVA status post TNK The patient presented to the hospital with left-sided weakness and concern for an acute ischemic CVA, for which he was administered tenecteplase. The patient will be monitored in the ICU setting per protocol. Repeat imaging will be obtained in 24 hours. Echocardiogram has already been ordered. PT/OT evaluations will be completed tomorrow. The patient does have evidence of carotid artery stenosis noted on CTA head and neck, for which outpatient vascular surgery follow-up can be arranged. 2. History of hypertension/hyperlipidemia/history of prior CVA/BPH Complicates care, management, recovery and prognosis. Continue home medications as indicated. This note was generated with [employer] dictation software. It may contain incorrect words, spelling, and punctuation that were not noted in checking the note before signing. HPI Consult Data Date of Consult: 02/12/24 HPI Narrative Reason for Consultation: CVA status post TNK HPI Narrative: The patient is a 78-year-old male, with a history as outlined below, who presented to the emergency department on February 11 with generalized malaise and left-sided weakness. The patient reported that he developed the symptoms shortly after arriving to work this morning. According to documentation, the patient was aphasic on arrival to the emergency department. The patient does have a remote smoking history as stated that he was diagnosed with a CVA 4 years ago. He is currently being treated for hypertension. On presentation to the emergency department, the patient was documented to be afebrile and hemodynamically stable. He was maintaining appropriate oxygen saturations on room air. Laboratory evaluation revealed a normal CBC. Chemistry profile was notable for a sodium of 126, chloride of 93 and creatinine of 0.97. CT head revealed chronic involutional changes of the brain. CTA head and neck demonstrated evidence of bilateral carotid stenosis. The patient was seen in consultation by neurology and the decision was made to administer tenecteplase. The patient was subsequently admitted to the medical intensive care unit per protocol. [facility] Medical History Dehydration Carotid stenosis Cognitive dysfunction Vertigo Physical debility Left carotid stenosis Biatrial enlargement Diastolic dysfunction Hypokalemia Hypomagnesemia Hyponatremia History of prostate cancer Venous insufficiency Alcohol consumption heavy Vitamin B12 deficiency BPH (benign prostatic hyperplasia) Hypertension CVA (cerebral vascular accident) Home Medications ?Medication ?Instructions ?Recorded ?Last Taken ?Type amlodipine 5 mg tablet 5 mg PO DAILY blood pressure 11/14/19 Unknown History cyanocobalamin (vitamin B-12) 1,000 mcg PO DAILY Vitamin 11/14/19 Unknown History 1,000 mcg capsule supplement aspirin 81 mg chewable tablet 81 mg PO DAILY@0800 heart 11/17/19 Unknown History acetaminophen 325 mg tablet 650 mg (2 x 325 mg) PO Q6H PRN PRN 12/05/19 Unknown Rx Pain Score 1-12/05 atorvastatin 40 mg tablet 40 mg PO QHS #30 tabs 12/05/19 Unknown Rx clopidogrel 75 mg tablet 75 mg PO DAILY blood thinner #30 12/05/19 Unknown Rx tabs folic acid 1 mg tablet 1 mg PO BID #60 tabs 12/05/19 Unknown Rx losartan 100 mg tablet 100 mg PO DAILY blood pressure #30 12/05/19 Unknown Rx tabs magnesium chloride 64 mg 64 mg PO BID ##60 12/05/19 Unknown Rx (magnesium chloride) tablet,delayed release magnesium citrate 125 mg capsule 125 mg PO BID #60 caps 12/05/19 Unknown Rx metoprolol succinate 100 mg 100 mg PO DAILY blood pressure #30 12/05/19 Unknown Rx tablet,extended release 24 hr tabs trazodone 50 mg tablet 50 mg PO QHS PRN .INSOMNIA #15 tabs 12/05/19 Unknown Rx multivitamin 1 tab PO DAILY 01/29/20 Unknown History potassium chloride 10 mEq 10 meq PO DAILY 01/29/20 Unknown History capsule,extended release tamsulosin 0.4 mg capsule 0.4 mg PO DAILY 01/29/20 Unknown History cholecalciferol (vitamin D3) 1,250 1,250 mcg PO 02/12/24 Unknown History mcg (50,000 unit) capsule Allergy/AdvReac Type Severity Reaction Status Date / Time Iodinated Contrast Media Allergy PT UNABLE Verified 01/29/20 14:21 (CONTRASTS) TO RESPOND-NEEDS F/U Family History Father Heart disease Cancer Surgical History History of vein stripping History of appendectomy History of tonsillectomy History of bilateral cataract extraction Social History Smoking Status: Former smoker alcohol intake: current details: 10+ beers daily ROS ROS Narrative 10 systems were reviewed with pertinent positives as noted in the HPI above. Physical Exam Const alert, oriented x3 and no apparent distress Constitutional Narrative: Family is present at the bedside. General Appearance: cooperative HEENT normocephalic and head/scalp atraumatic Eyes PERRL, EOMs intact bilaterally and conjunctivae normal Neck supple General: trachea midline Chest inspection of chest normal Resp normal respiratory effort Auscultation: Negative for rales, rhonchi or wheezes Cardio regular rate and regular rhythm GI normal to inspection, nondistended, normoactive bowel sounds Extremity no clubbing, cyanosis or edema Skin no rashes or lesions noted Neuro CN's II-XII intact bilaterally and moves all extremities Psych cooperative and affect normal Lab / Micro Data 02/12/24 08:46 02/12/24 08:46 Labs: Laboratory Results - last 24 hr 02/12/24 08:46: WBC 6.0, RBC 4.81, Hgb 14.9, Hct 43.6, MCV 90.6, MCH 31.0, MCHC 34.2, RDW Std Deviation 40.2, RDW Coeff of Denae 12.2, Plt Count 252, MPV 9.1, Immature Gran % (Auto) 0.500, Neut % (Auto) 70.8 H, Lymph % (Auto) 11.1 L, [place] % (Auto) 16.3 H, Eos % (Auto) 0.8, Baso % (Auto) 0.5, Absolute Neuts (auto) 4.3, Absolute Lymphs (auto) 0.67 L, Nucleated RBC % 0, PT 13.7, INR 1.1, APTT 25.6, Sodium 126 L, Potassium 3.9, Chloride 93 L, Carbon Dioxide 25.0, Anion Gap 7, BUN 8, Creatinine 0.97, Estim Creat Clear Calc 69.19, Est GFR (MDRD) Af Amer 96, Est GFR (MDRD) Non-Af 80, BUN/Creatinine Ratio 8.2 L, Glucose 143 H, Calcium 9.1, Magnesium 1.6, Troponin I High Sens 84 H, Ethyl Alcohol < 3.0 Imaging Radiology Impression Brain CT 02/12/24 08:35 IMPRESSION: Chronic involutional changes of the brain. N.B. : The above Results were Read Back by Júnior Harrison MD to Rod Vargas and understanding confirmed on 02/12/2024 08:46:50 (ET). Electronically Signed: Júnior Harrison MD at 8:48 EST , ADDENDUM: 02/12/24 0854 IMPRESSION: Chronic involutional changes of the brain. N.B. : The above Results were Read Back by Júnior Harrison MD to Rod Vargas and understanding confirmed on 02/12/2024 08:46:50 (ET). Electronically Signed: Júnior Harrison MD at 8:48 EST , Head/Neck CTA 02/12/24 08:38 IMPRESSION: Calcific plaque at the origin of the right and left internal carotid arteries causing greater than 70% stenosis. Electronically Signed: Júnior Harrison MD at 9:04 EST , Chest X-Ray 02/12/24 09:25 IMPRESSION: No acute abnormality is seen. Electronically Signed: Júnior Harrison MD at 9:33 EST , Charges/Coding Visit Charges Inpatient E&M: 44105 Init Hosp L3
--- NOTE | 2024-02-12 13:24 | CASEMGMT ---
Social Work SW created in [facility] a list of acute rehab facilities in 's insurance network, preferred geographic area, and complete w/quality and resource use data. HENOK Jimenez
[2024-02-13] VITALS (17 sets, daily range): BP systolic 98–200; BP diastolic 75–97; PULSE 59–88; RESP 15–19; TEMP 36.2–37; O2SAT 94–99; BMI 22.6
[2024-02-13 03:45] LABS: Absolute Lymphocyte Count 0.83 X10^3/uL (0.83-4.51); Absolute Neutrophil Count 3.3 X10^3/uL (2.0-7.7); Basophil# 0.04 X10^3/uL; Basophil% 0.8 % (0-1); Eosinophil# 0.07 X10^3/uL; Eosinophils% 1.4 % (0-5); Hematocrit 45.1 % (40-54); Hemoglobin 15.5 g/dL (13.0-16.5); Lymphocyte # 0.83 X10^3/ul (0.83-4.51); Lymphocyte % 16.1 % (19-41); Mean Corp Hgb Conc 34.4 g/dL (32-36); Mean Corpuscular Hgb 31.4 pg (27.0-32.0); Mean Corpuscular Volume 91.5 fL (80-94); Mean Platelet Vol. 9.3 fl (6.2-12.0); Monocyte# 0.88 X10^3/uL; NRBC Flagged by Analyzer 0 % (0-5); Neutrophil # 3.33 X10^3/uL (2.7-7.7); Neutrophil % 64.3 % (47-70); Platelet Count 246 K/mm3 (150-450); RBC Distribution Width CV 12.4 % (11.6-14.6); RBC Distribution Width SD 41.6 fl (35.1-43.9); Red Blood Count 4.93 M/mm3 (4.6-6.2); White Blood Count 5.2 K/mm3 (4.4-11.0)
[2024-02-13 04:01] LABS: Anion Gap 5 (5-15); BUN 6 mg/dL (7-18); BUN/Creat Ratio 7.7 RATIO (10-20); Calcium,Total 9.2 mg/dL (8.5-10.1); Chloride 101 mmol/L (98-107); Cholesterol 160 mg/dL (200); Creatinine, Serum 0.78 mg/dL (0.70-1.30); EST Glomerular Filtration Rate 103 mL/min (>60); Est Glom Filt Rate - Afr Amer 125 mL/min (>60); Estimated Creatinine Clearance 83.33 ml/min; Glucose 111 mg/dL (74-106); High Density Lipoprotein 91 mg/dL; Potassium 3.7 mmol/L (3.5-5.1); Sodium Level 133 mmol/L (136-145); Triglycerides 51 mg/dL; Very Low Density Lipoprotein 10 mg/dL (5-40)
--- NOTE | 2024-02-13 07:21 | PN.HOSP_ITS ---
Reason for Visit Reason for Visit: Diagnoses Cerebral infarction, unspecified (02/12/24) Occlusion and stenosis of bilateral carotid arteries (02/12/24) Subjective Subjective Speaking now. Moving his left side better. Objective Data Objective Data Vital Signs: Vital Signs Temp Pulse Resp BP Pulse Ox O2 Del Method O2 Flow Rate 36.6 C 67 16 137/85 H 98 Room Air 2 02/13/24 04:00 02/13/24 06:00 02/13/24 06:00 02/13/24 06:00 02/13/24 06:00 02/13/24 06:00 02/12/24 10:12 Oxygen Flow Rate (L/min) 2 Oxygen Delivery Method Room Air Weight: 75.5 kg Body Mass Index (BMI) 22.6 Intake & Output: Intake and Output for Last 24 Hours 02/11/24 02/12/24 02/13/24 23:59 23:59 23:59 Intake Total 1000 / 1000 Output Total 1725 / 1725 300 / 300 Balance -725 / -725 -300 / -300 Medical Nutrition Assessment Dietitian: Malnutrition Criteria Met Start: 02/12/24 14:54 Freq: Status: Active Protocol: Document 02/12/24 14:54 RMA (Rec: 02/12/24 14:54 RMA [id number]) Nutrition Malnutrition Evidence of Malnutrition Exists Yes Malnutrition (severe): Chronic Evidenced By Suboptimal Energy Intake ( Severe),Weight Loss (Severe) Intake Problem Inadequate Oral Intake Etiology related to neurologic deficit/ stroke and swallowing difficulty Signs/Symptoms as evidenced by NPO Status Active Problem Clinical Problem Chronic Disease or Condition Related Malnutrition Etiology severe protein-calorie malnutrition in the context of chronic disease related to inadequate oral intake and ETOH use Signs/Symptoms as evidenced by ~13% unintentional weight loss x less than 6 months, BMI 22.4, currently NPO and PO meeting less than 75% estimated nutrition needs x 6 months Status Active Problem Recommendation Dietitian Recommendations/Changes Recommend advance PO as tolerated to Cardiac diet with consistency/texture as per SPECIALTY SALES CONSULTANT. ONS Ensure plus HP as able to advance PO diet. If PO remains contraindicated, start TF to prevent further unintentional weight loss and energy/pro depletion. Lab / Micro Data 02/13/24 03:30 02/13/24 03:30 Labs: Laboratory Results - last 24 hr 02/12/24 08:46: WBC 6.0, RBC 4.81, Hgb 14.9, Hct 43.6, MCV 90.6, MCH 31.0, MCHC 34.2, RDW Std Deviation 40.2, RDW Coeff of Denae 12.2, Plt Count 252, MPV 9.1, Immature Gran % (Auto) 0.500, Neut % (Auto) 70.8 H, Lymph % (Auto) 11.1 L, [place] % (Auto) 16.3 H, Eos % (Auto) 0.8, Baso % (Auto) 0.5, Absolute Neuts (auto) 4.3, Absolute Lymphs (auto) 0.67 L, Nucleated RBC % 0, PT 13.7, INR 1.1, APTT 25.6, S odium 126 L, Potassium 3.9, Chloride 93 L, Carbon Dioxide 25.0, Anion Gap 7, BUN 8, Creatinine 0.97, Estim Creat Clear Calc 69.19, Est GFR (MDRD) Af Amer 96, Est GFR (MDRD) Non-Af 80, BUN/Creatinine Ratio 8.2 L, Glucose 143 H, Calcium 9.1, Magnesium 1.6, Troponin I High Sens 84 H, Ethyl Alcohol < 3.0 02/13/24 03:30: WBC 5.2, RBC 4.93, Hgb 15.5, Hct 45.1, MCV 91.5, MCH 31.4, MCHC 34.4, RDW Std Deviation 41.6, RDW Coeff of Denae 12.4, Plt Count 246, MPV 9.3, Immature Gran % (Auto) 0.400, Neut % (Auto) 64.3, Lymph % (Auto) 16.1 L, [place] % (Auto) 17.0 H, Eos % (Auto) 1.4, Baso % (Auto) 0.8, Absolute Neuts (auto) 3.3, Absolute Lymphs (auto) 0.83, Nucleated RBC % 0, Sodium 133 L, Potassium 3.7, Chloride 101, Carbon Dioxide 27.0, Anion Gap 5, BUN 6 L, Creatinine 0.78, Estim Creat Clear Calc 83.33, Est GFR (MDRD) Af Amer 125, Est GFR (MDRD) Non-Af 103, B UN/Creatinine Ratio 7.7 L, Glucose 111 H, Calcium 9.2, Triglycerides 51, Cholesterol 160, LDL Cholesterol 59, VLDL Cholesterol 10, HDL Cholesterol 91 Radiography Diagnostic Testing: Radiology Impression Brain CT 02/12/24 08:35 IMPRESSION: Chronic involutional changes of the brain. N.B. : The above Results were Read Back by Júnior Harrison MD to Rod Vargas and understanding confirmed on 02/12/2024 08:46:50 (ET). Electronically Signed: Júnior Harrison MD at 8:48 EST , ADDENDUM: 02/12/24 0854 IMPRESSION: Chronic involutional changes of the brain. N.B. : The above Results were Read Back by Júnior Harrison MD to Rod Vargas and understanding confirmed on 02/12/2024 08:46:50 (ET). Electronically Signed: Júnior Harrison MD at 8:48 EST , Head/Neck CTA 02/12/24 08:38 IMPRESSION: Calcific plaque at the origin of the right and left internal carotid arteries causing greater than 70% stenosis. Electronically Signed: Júnior Harrison MD at 9:04 EST , Chest X-Ray 02/12/24 09:25 IMPRESSION: No acute abnormality is seen. Electronically Signed: Júnior Harrison MD at 9:33 EST , Echocardiogram 02/12/24 10:12 Interpretation Summary Normal LV size. Left ventricular systolic function is normal. The left ventricular ejection fraction is 70 %. Stage 1 diastolic dysfunction. Ordering Physician: Deric Rivers Performed By: Ela Nguyen RDCS Physical Exam Const alert and no apparent distress HEENT head/scalp atraumatic, moist oral mucous membranes, oropharynx normal and dentition normal HEENT Narrative: Left facial droop Eyes PERRL and EOMs intact bilaterally Eyes Narrative: No icterus Neck no lymphadenopathy Neck Narrative: No thyromegaly Resp normal respiratory effort, no retractions and no use of accessory muscles Cardio regular rate, regular rhythm, S1 normal heart sound and S2 normal heart sound GI normal to inspection, nondistended, normoactive bowel sounds, soft to palpation, non-tender and non-distended Extremity normal to inspection and full ROM Neuro Neuro Narrative: Understandable speech but that certainly slurred. Left facial droop. Muscle strength 5-5 in the right upper extremity 4 out of 5 in the right lower extremity, 3 out of 5 in the left lower extremity and 4 out of 5 in the left upper extremity. Sensorium / Orientation: awake and alert Assessment & Plan Assessment/Plan (1) Acute stroke due to ischemia: PLAN: Onset was 1217 at 0758. Patient received tenecteplase Check MRI. To be done this afternoon. Head CT this AM showed no hemorrhagic transformation. Neurology requested a urinalysis. Thus far preliminary UA results are unremarkable. Echo shows an EF 70%. Start high intensity statin Neurology consult This patient is the intensive care unit, critical care medicine consultation as well. Nicardipine protocol. (2) Carotid stenosis: QUALIFIERS: Laterality: bilateral Qualified Code(s): I65.23 - Occlusion and stenosis of bilateral carotid arteries PLAN: Noted bilaterally showing 70% stenosis bilaterally. Follow-up with vascular surgery as outpatient. (3) Dysphagia: PLAN: 2/2 CVA NPO speech therapy to see. Speech is certainly improving and anticipate a swallowing proving as well. PLAN: Plan Alcohol abuse * family reporting excessive alcohol consumption (20 beers/d). Has IV lorazepam ordered PRN (yet to receive) Chronic condition * Hypertension: Amlodipine on hold for now. VTE prophylaxis with SCDs for now. Transfer to PCU. Discussed with the patient's at bedside. Charges/Coding Visit Charges Inpatient E&M: 93336 Subs Hosp L3
--- NOTE | 2024-02-13 08:00 | MRI_ITS ---
We are attempting to reach an attending provider to discuss findings. An addendum with communication details will be sent when the communication is complete. EXAM: MR HEAD WITHOUT INTRAVENOUS CONTRAST CLINICAL INDICATION: CVA -- MRI 24 hours after IV thrombolytic administration TECHNIQUE: Multiplanar and multisequence MR images of the brain were obtained without intravenous contrast. COMPARISON: CT brain dated 02/13/2024, MR Head dated 11/14/2021 FINDINGS: BRAIN AND EXTRA-AXIAL SPACES: Subcentimeter foci of restricted diffusion noted along the superior portion of the right external capsule indicative of acute ischemia. No hemorrhage or mass effect. Increased T2 signal intensity along the periventricular white matter suggestive of gliosis. Prominence of the cortical sulci and ventricles related to volume loss change.. Basilar cisterns are patent. SELLA: Normal. Normal sella turcica, pituitary gland, infundibular stalk, optic chiasm and hypothalamus. AUDITORY SYSTEM: Normal. The internal auditory canals are patent. BONES/JOINTS: Intact calvarium. SINUSES: Unremarkable as visualized. Clear. MASTOID AIR CELLS: Clear. ORBITS: Unremarkable as visualized. Both globes, extraocular muscles, optic nerves and retrobulbar fat appear unremarkable. VASCULATURE: Unremarkable as visualized. Normal flow voids in the major intracranial circulation. MRI/Brain without Contrast IMPRESSION: 1. 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 2. Chronic senescent changes. Electronically Signed: Leo Willis MD at 16:03 EST ,
--- NOTE | 2024-02-13 09:04 | STROKE.CONS ---
Assessment and Plan: Stroke Assessment/Plan BRANDEE CLIFTON is a 78 M with a history of prior stroke affecting the L side, who presents for evaluation of L sided weakness, concern for stroke and was given TNK. Currently exam with slightly L sided weakness but patient does not seem to have any new deficits and seems diffusely weak and shaky as well. - Anti-platelet medication: continue Plavix 75mg - TTE wnl - cardiac monitoring while in the hospital - SBP < 180/90 while in hospital, already 24 hrs post TNK - MRI Brain pending to eval for new stroke - UA to eval for potential causes of stroke recrudescence. - Occupational/ Physical therapy consults - NPO until swallow evaluation. IVF until able to take po - DVT prophylaxis with SCDs and heparin SQ - Vascular risk factor modification. 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 Weight Management: Goal for BMI is 18.5 -24.9 kg/m2 Alcohol: No more than 2 drinks/day for men or 1 drink/day for non- women - Promote lifestyle modification: weight control, physical activity, moderation of alcohol intake, moderate sodium intake. Followup with PCP in 1-2 weeks, and in Neurology clinic in 6-12 weeksf HPI Consult Data Date of Consult: 02/13/24 HPI Narrative HPI Narrative: 78-year-old male presenting to the emergency room as a prehospital stroke alert. EMS states they were called to the patient's. They state the initial call was for stroke. Bystanders at work reported to EMS that it looked like he was going to pass out at 0758 hrs. He told EMS that he had left-sided weakness. EMS notes that he was able to respond with yes or no answers and did seem weak on the left side. They states he has had a prior stroke but did not know his medications. Patient noted to be drooling out of the left side of his mouth by EMS. Neurologic History: Patient states currently feeling better, still has weakness on the L side. Patient was at work and and the lights went out for the pt, he felt really weak right before and weak afterward as well. Has had a prior stroke before, last stroke was in 2019. Was weak on the L side with that stroke and had some difficulty swallowing. He states there was some recovery and was able to walk and work on his own. Symptoms did not go away completely though - still had difficulty walking long distances. Currently the weakness if worse than normal. Patient states he is not sure if he takes BP medications. He does not take all his medications at home either all the time as prescribed, and does not measure his BP at home. Does not take his cholesterol medication at home. [facility] Medical History (Updated 02/13/24 @ 07:[address] Deric Rivers DO) Dehydration Carotid stenosis Cognitive dysfunction Vertigo Physical debility Left carotid stenosis Biatrial enlargement Diastolic dysfunction Hypokalemia Hypomagnesemia Hyponatremia History of prostate cancer Venous insufficiency Alcohol consumption heavy Vitamin B12 deficiency BPH (benign prostatic hyperplasia) Hypertension CVA (cerebral vascular accident) Home Medications ?Medication ?Instructions ?Recorded ?Last Taken ?Type clopidogrel 75 mg tablet 75 mg PO DAILY blood thinner #30 12/05/19 Unknown Rx tabs losartan 100 mg tablet 100 mg PO DAILY blood pressure #30 12/05/19 Unknown Rx tabs metoprolol succinate 100 mg 100 mg PO DAILY blood pressure #30 12/05/19 Unknown Rx tablet,extended release 24 hr tabs potassium chloride 10 mEq 10 meq PO DAILY supplement 01/29/20 Unknown History capsule,extended release tamsulosin 0.4 mg capsule 0.4 mg PO DAILY prostate 01/29/20 Unknown History cholecalciferol (vitamin D3) 1,250 1,250 mcg PO .Q2w supplement 02/12/24 Unknown History mcg (50,000 unit) capsule Allergy/AdvReac Type Severity Reaction Status Date / Time Iodinated Contrast Media Allergy Hives Verified 02/13/24 11:20 (CONTRASTS) Family History Father Heart disease Cancer Surgical History History of vein stripping History of appendectomy History of tonsillectomy History of bilateral cataract extraction Social History Smoking Status: Former smoker alcohol intake: current details: 10+ beers daily Vital Signs Vital Signs Vital Signs: 02/12/24 09:08 02/12/24 09:13 02/12/24 09:28 Temperature 98.1 F 98.2 F Temperature Source Oral Oral Pulse Rate 75 71 Pulse Strength Respiratory Rate 22 H 19 H Respiratory Effort Respiratory Depth Respiratory Pattern Blood Pressure 170/92 H 172/84 H 163/85 H Blood Pressure Mean 113 111 Blood Pressure Source Blood Pressure Position Blood Pressure Location Pulse Ox 97 100 Oxygen Delivery Method Nasal Cannula Nasal Cannula Oxygen Flow Rate (L/min) 2 02/12/24 09:43 02/12/24 09:58 02/12/24 10:12 Temperature 98.1 F 98.1 F 98.2 F Temperature Source Oral Oral Oral Pulse Rate 69 81 81 Pulse Strength Respiratory Rate 19 H 18 19 H Respiratory Effort Respiratory Depth Respiratory Pattern Blood Pressure 157/80 H 171/89 H 163/81 H Blood Pressure Mean 105 116 108 Blood Pressure Source Monitor Monitor Blood Pressure Position Blood Pressure Location Pulse Ox 99 99 99 Oxygen Delivery Method Nasal Cannula Nasal Cannula Nasal Cannula Oxygen Flow Rate (L/min) 2 2 02/12/24 10:20 02/12/24 10:27 02/12/24 10:42 Temperature 98.3 F 98.2 F 98.2 F Temperature Source Oral Oral Pulse Rate 68 70 71 Pulse Strength Respiratory Rate 19 H 24 H 22 H Respiratory Effort Respiratory Depth Respiratory Pattern Blood Pressure 169/84 H 174/97 H 177/88 H Blood Pressure Mean 112 122 117 Blood Pressure Source Monitor Blood Pressure Position Blood Pressure Location Pulse Ox 99 100 100 Oxygen Delivery Method Room Air Room Air Oxygen Flow Rate (L/min) 02/12/24 10:57 02/12/24 11:00 02/12/24 11:15 Temperature 97.4 F L Temperature Source Temporal Pulse Rate 72 72 70 Pulse Strength Respiratory Rate 24 H 20 H 17 Respiratory Effort Respiratory Depth Respiratory Pattern Blood Pressure 176/93 H 166/90 H 144/87 H Blood Pressure Mean 120 115 106 Blood Pressure Source Monitor Monitor Monitor Blood Pressure Position Semi-Fowlers Semi-Fowlers Semi-Fowlers Blood Pressure Location Left Arm Left Arm Left Arm Pulse Ox 100 100 100 Oxygen Delivery Method Room Air Room Air Room Air Oxygen Flow Rate (L/min) 02/12/24 11:34 02/12/24 11:45 02/12/24 12:15 Temperature Temperature Source Pulse Rate 73 71 Pulse Strength Respiratory Rate 18 13 Respiratory Effort Respiratory Depth Respiratory Pattern Blood Pressure 131/78 H 123/92 H Blood Pressure Mean 95 102 Blood Pressure Source Monitor Monitor Blood Pressure Position Semi-Fowlers Semi-Fowlers Blood Pressure Location Left Arm Left Arm Pulse Ox 100 100 100 Oxygen Delivery Method Room Air Room Air Room Air Oxygen Flow Rate (L/min) 02/12/24 12:30 02/12/24 13:00 02/12/24 13:30 Temperature Temperature Source Pulse Rate 69 73 69 Pulse Strength Respiratory Rate 13 20 H 18 Respiratory Effort Respiratory Depth Respiratory Pattern Blood Pressure 136/78 H 145/88 H 143/74 H Blood Pressure Mean 97 107 97 Blood Pressure Source Monitor Monitor Monitor Blood Pressure Position Semi-Fowlers Semi-Fowlers Semi-Fowlers Blood Pressure Location Left Arm Left Arm Left Arm Pulse Ox 100 100 100 Oxygen Delivery Method Room Air Room Air Room Air Oxygen Flow Rate (L/min) 02/12/24 14:00 02/12/24 14:30 02/12/24 15:00 Temperature Temperature Source Pulse Rate 69 69 70 Pulse Strength Respiratory Rate 18 17 12 Respiratory Effort Respiratory Depth Respiratory Pattern Blood Pressure 150/83 H 142/75 H 163/85 H Blood Pressure Mean 105 97 111 Blood Pressure Source Monitor Monitor Monitor Blood Pressure Position Semi-Fowlers Semi-Fowlers Semi-Fowlers Blood Pressure Location Left Arm Left Arm Left Arm Pulse Ox 100 100 99 Oxygen Delivery Method Room Air Room Air Room Air Oxygen Flow Rate (L/min) 02/12/24 15:07 02/12/24 15:30 02/12/24 16:00 Temperature 97.6 F L Temperature Source Temporal Pulse Rate 75 71 69 Pulse Strength Respiratory Rate 15 18 Respiratory Effort Respiratory Depth Respiratory Pattern Blood Pressure 148/86 H 132/87 H Blood Pressure Mean 106 102 Blood Pressure Source Monitor Monitor Blood Pressure Position Semi-Fowlers Semi-Fowlers Blood Pressure Location Left Arm Left Arm Pulse Ox 99 100 Oxygen Delivery Method Room Air Room Air Oxygen Flow Rate (L/min) 02/12/24 16:00 02/12/24 17:00 02/12/24 18:00 Temperature Temperature Source Pulse Rate 69 65 Pulse Strength Respiratory Rate 14 15 Respiratory Effort Normal Non-Labored Respiratory Depth Normal Respiratory Pattern Normal Blood Pressure 157/88 H 145/81 H Blood Pressure Mean 111 102 Blood Pressure Source Monitor Monitor Blood Pressure Position Semi-Fowlers Semi-Fowlers Blood Pressure Location Left Arm Left Arm Pulse Ox 100 100 Oxygen Delivery Method Room Air Room Air Room Air Oxygen Flow Rate (L/min) 02/12/24 19:00 02/12/24 19:00 02/12/24 20:00 Temperature Temperature Source Pulse Rate 60 61 Pulse Strength Respiratory Rate 14 Respiratory Effort Normal Non-Labored Respiratory Depth Normal Respiratory Pattern Normal Blood Pressure 133/80 H Blood Pressure Mean 97 Blood Pressure Source Monitor Blood Pressure Position Semi-Fowlers Blood Pressure Location Left Arm Pulse Ox 100 Oxygen Delivery Method Room Air Room Air Oxygen Flow Rate (L/min) 02/12/24 20:00 02/12/24 21:00 02/12/24 22:00 Temperature 97.2 F L Temperature Source Temporal Pulse Rate 64 58 L 59 L Pulse Strength Respiratory Rate 16 13 14 Respiratory Effort Respiratory Depth Respiratory Pattern Blood Pressure 133/71 H 120/71 121/67 H Blood Pressure Mean 91 87 85 Blood Pressure Source Monitor Monitor Monitor Blood Pressure Position Semi-Fowlers Semi-Fowlers Semi-Fowlers Blood Pressure Location Left Arm Left Arm Left Arm Pulse Ox 100 99 98 Oxygen Delivery Method Room Air Room Air Room Air Oxygen Flow Rate (L/min) 02/12/24 23:00 02/12/24 23:00 02/13/24 00:00 Temperature 97.5 F L Temperature Source Temporal Pulse Rate 57 L 59 L 59 L Pulse Strength Respiratory Rate 14 16 Respiratory Effort Respiratory Depth Respiratory Pattern Blood Pressure 135/75 H 127/85 H Blood Pressure Mean 95 99 Blood Pressure Source Monitor Monitor Blood Pressure Position Semi-Fowlers Semi-Fowlers Blood Pressure Location Left Arm Left Arm Pulse Ox 98 97 Oxygen Delivery Method Room Air Room Air Oxygen Flow Rate (L/min) 02/13/24 00:00 02/13/24 00:00 02/13/24 01:00 Temperature 97.5 F L Temperature Source Temporal Pulse Rate 59 L 64 Pulse Strength Respiratory Rate 16 15 Respiratory Effort Normal Non-Labored Respiratory Depth Normal Respiratory Pattern Normal Blood Pressure 127/85 H 136/75 H Blood Pressure Mean 99 95 Blood Pressure Source Monitor Monitor Blood Pressure Position Semi-Fowlers Semi-Fowlers Blood Pressure Location Left Arm Left Arm Pulse Ox 97 99 Oxygen Delivery Method Room Air Room Air Room Air Oxygen Flow Rate (L/min) 02/13/24 02:00 02/13/24 03:00 02/13/24 03:00 Temperature Temperature Source Pulse Rate 64 67 68 Pulse Strength Respiratory Rate 15 15 Respiratory Effort Respiratory Depth Respiratory Pattern Blood Pressure 162/83 H 142/78 H Blood Pressure Mean 109 99 Blood Pressure Source Monitor Monitor Blood Pressure Position Semi-Fowlers Semi-Fowlers Blood Pressure Location Left Arm Left Arm Pulse Ox 97 97 Oxygen Delivery Method Room Air Room Air Oxygen Flow Rate (L/min) 02/13/24 04:00 02/13/24 04:00 02/13/24 05:00 Temperature 97.9 F Temperature Source Oral Pulse Rate 69 67 Pulse Strength Respiratory Rate 15 16 Respiratory Effort Normal Non-Labored Respiratory Depth Normal Respiratory Pattern Normal Blood Pressure 162/82 H 161/81 H Blood Pressure Mean 108 107 Blood Pressure Source Monitor Monitor Blood Pressure Position Semi-Fowlers Semi-Fowlers Blood Pressure Location Left Arm Left Arm Pulse Ox 98 97 Oxygen Delivery Method Room Air Room Air Room Air Oxygen Flow Rate (L/min) 02/13/24 06:00 02/13/24 07:00 02/13/24 07:59 Temperature Temperature Source Pulse Rate 67 64 Pulse Strength Weak (1+) Respiratory Rate 16 15 Respiratory Effort Respiratory Depth Respiratory Pattern Blood Pressure 137/85 H 163/82 H Blood Pressure Mean 102 109 Blood Pressure Source Monitor Monitor Blood Pressure Position Semi-Fowlers Semi-Fowlers Blood Pressure Location Left Arm Left Arm Pulse Ox 98 97 Oxygen Delivery Method Room Air Room Air Oxygen Flow Rate (L/min) 02/13/24 08:00 02/13/24 08:00 02/13/24 08:00 Temperature Temperature Source Pulse Rate 70 Pulse Strength Respiratory Rate 15 Respiratory Effort Normal Non-Labored Respiratory Depth Normal Respiratory Pattern Normal Blood Pressure 167/91 H Blood Pressure Mean 116 Blood Pressure Source Monitor Blood Pressure Position Semi-Fowlers Blood Pressure Location Left Arm Pulse Ox 97 99 Oxygen Delivery Method Room Air Room Air Room Air Oxygen Flow Rate (L/min) Weight Weight: 75.5 kg Body Mass Index (BMI) 22.6 EEG Results Procedure Details EEG Procedure Details: BRANDEE CLIFTON is a 78 year old M with a past medical history of , who presents for evaluation of Electroencephalogram on DATE at TIME NIHSS NIHSS Nursing Documentation NIHSS Nursing Documentation: Thrombolytic: Vital Signs & NIHSS Start: 02/12/24 08:58 Text: Assess and document vital signs and NIHSS Status: Complete within 15 minutes of tenecteplase bolus administration Freq: [id number],Q2H Protocol: Activity Type Activity Date Activity User E-sign Co-sign Detail Recorded Client Recorded Date Recorded By Document 02/12/24 10:42 [id number] 02/12/24 11:15 02/12/24 10:42 Vital Signs [Temperature Protocol: VS] -Temperature (97.8 F-99.1 F) 98.2 F -Temperature Source Oral [Pulse] -Pulse Rate (60-100) 71 -Pulse Location Monitor [Respirations] -Respiratory Rate (12-18) 22 H -Pulse Oximetry 100 -Oxygen Delivery Method Room Air [Blood Pressure] -Blood Pressure (90/60-120/80) 177/88 H -Blood Pressure Mean 117 -Source Monitor -Is the SBP > or = 180 No -Is the DBP > or = 105 No NIH Stroke Scale [NIHSS] A score of 0 is normal or asymptomatic . Total possible score is 42. Inpatient: RN or Physician to activate a stroke alert for onset of new stroke symptoms or with NIHSS increase >/= 3 points. Following change in neurological status, NIHSS will be performed per physician order or more frequently PRN. -1a. Level of Consciousness Alert; keenly responsive -1b. LOC Questions Answers BOTH questions correctly. -1c. LOC Commands Performs one task correctly. -2. Best Gaze Partial gaze palsy; -3. Visual No visual loss -4. Facial Palsy Partial paralysis ( total or near- total paralysis of lower face) -5a. Left Arm Some effort against gravity ; -5b. Right Arm Some effort against gravity ; -6a. Left Leg No effort against gravity ; leg falls to bed immediately -6b. Right Leg No effort against gravity ; leg falls to bed immediately -7. Limb Ataxia UN=Amputation or joint fusion , explain -'UN' explanation ARNOLDO -8. Sensory Mild-to- moderate sensory loss; -9. Best Language Severe aphasia; -10. Dysarthria Severe dysarthria; -11. Extinction and Inattention Profound partha- inattention or extinction to more than one modality; -Total 21 Query Text:A score of 0 is normal or asymptomatic. Total possible score is 42 . ED: Notify Physician for NIHSS increase by > / = 3 points. Inpatient: RN or Physician to activate a stroke alert for NIHSS increase of > / = 3 points. Thrombolytic: Vital Signs & NIHSS Start: 02/12/24 10:48 Text: Assess and document vital signs and NIHSS Status: Active within 15 minutes prior to Tenecteplase administration Freq: [id number],Q2H Protocol: Activity Type Activity Date Activity User E-sign Co-sign Detail Recorded Client Recorded Date Recorded By Document 02/13/24 08:00 AMG [id number] 02/13/24 08:05 AMG 02/13/24 08:00 Vital Signs [Pulse] -Pulse Rate (60-100) 70 -Pulse Location Monitor [Respirations] -Respiratory Rate (12-18) 15 -Respiratory rate source Monitor -Pulse Oximetry 97 -Oxygen Delivery Method Room Air [Blood Pressure] -Blood Pressure (90/60-120/80) 167/91 H -Blood Pressure Mean 116 -Source Monitor -Position Semi-Fowlers -Blood Pressure Location Left Arm -Is the SBP > or = 180 No -Is the DBP > or = 105 No NIH Stroke Scale [NIHSS] A score of 0 is normal or asymptomatic . Total possible score is 42. Inpatient: RN or Physician to activate a stroke alert for onset of new stroke symptoms or with NIHSS increase >/= 3 points. Following change in neurological status, NIHSS will be performed per physician order or more frequently PRN. -1a. Level of Consciousness Alert; keenly responsive -1b. LOC Questions Answers BOTH questions correctly. -1c. LOC Commands Performs both tasks correctly . -2. Best Gaze Normal -3. Visual Partial hemianopia -4. Facial Palsy Minor paralysis (flattened nasolabial fold , asymmetry on smiling) -5a. Left Arm Some effort against gravity ; -5b. Right Arm Drift; arm drifts downward but doesn?t hit the bed -6a. Left Leg Some effort against gravity ; -6b. Right Leg Drift; leg falls by the end of 5- seconds, but does not hit bed -7. Limb Ataxia UN=Amputation or joint fusion , explain -'UN' explanation ARNOLDO -8. Sensory Mild-to- moderate sensory loss; -9. Best Language Mild-to- moderate aphasia; -10. Dysarthria Mild-to- moderate dysarthria; -11. Extinction and Inattention No abnormality -Total 11 Query Text:A score of 0 is normal or asymptomatic. Total possible score is 42 . ED: Notify Physician for NIHSS increase by > / = 3 points. Inpatient: RN or Physician to activate a stroke alert for NIHSS increase of > / = 3 points. NIHSS 1a. Level of Consciousness: Alert; keenly responsive 1b. LOC Questions: Answers BOTH questions correctly. 1c. LOC Commands: Performs both tasks correctly. 2. Best Gaze: Normal 3. Visual: No visual loss 4. Facial Palsy: Minor paralysis (flattened nasolabial fold, asymmetry on smiling) 5a. Left Arm: Drift; arm drifts downward but doesn?t hit the bed 5b. Right Arm: No drift; arm holds 90 (or 45) degrees for full 10 seconds 6a. Left Leg: Some effort against gravity; 6b. Right Leg: No drift; leg holds 30-degree position for full 5 seconds 7. Limb Ataxia: Absent 8. Sensory: Severe to total sensory loss; 9. Best Language: No aphasia; normal 10. Dysarthria: Normal 11. Extinction and Inattention: No abnormality Total: 6 Medical Records Data Medical Nutrition Assessment Dietitian: Malnutrition Criteria Met Start: 02/12/24 14:54 Freq: Status: Active Protocol: Document 02/12/24 14:54 RMA (Rec: 02/12/24 14:54 RMA [id number]) Nutrition Malnutrition Evidence of Malnutrition Exists Yes Malnutrition (severe): Chronic Evidenced By Suboptimal Energy Intake ( Severe),Weight Loss (Severe) Intake Problem Inadequate Oral Intake Etiology related to neurologic deficit/ stroke and swallowing difficulty Signs/Symptoms as evidenced by NPO Status Active Problem Clinical Problem Chronic Disease or Condition Related Malnutrition Etiology severe protein-calorie malnutrition in the context of chronic disease related to inadequate oral intake and ETOH use Signs/Symptoms as evidenced by ~13% unintentional weight loss x less than 6 months, BMI 22.4, currently NPO and PO meeting less than 75% estimated nutrition needs x 6 months Status Active Problem Recommendation Dietitian Recommendations/Changes Recommend advance PO as tolerated to Cardiac diet with consistency/texture as per PROCUREMENT MANAGER. ONS Ensure plus HP as able to advance PO diet. If PO remains contraindicated, start TF to prevent further unintentional weight loss and energy/pro depletion. Lab / Micro Data 02/13/24 03:30 02/13/24 03:30 Labs: Laboratory Results - last 24 hr 02/12/24 08:46: PT 13.7, INR 1.1, APTT 25.6, Sodium 126 L, Potassium 3.9, Chloride 93 L, Carbon Dioxide 25.0, Anion Gap 7, BUN 8, Creatinine 0.97, Estim Creat Clear Calc 69.19, Est GFR (MDRD) Af Amer 96, Est GFR (MDRD) Non-Af 80, BUN/Creatinine Ratio 8.2 L, Glucose 143 H, Calcium 9.1, Magnesium 1.6, Troponin I High Sens 84 H, Ethyl Alcohol < 3.0 02/13/24 03:30: WBC 5.2, RBC 4.93, Hgb 15.5, Hct 45.1, MCV 91.5, MCH 31.4, MCHC 34.4, RDW Std Deviation 41.6, RDW Coeff of Denae 12.4, Plt Count 246, MPV 9.3, Immature Gran % (Auto) 0.400, Neut % (Auto) 64.3, Lymph % (Auto) 16.1 L, [place] % (Auto) 17.0 H, Eos % (Auto) 1.4, Baso % (Auto) 0.8, Absolute Neuts (auto) 3.3, Absolute Lymphs (auto) 0.83, Nucleated RBC % 0, Sodium 133 L, Potassium 3.7, Chloride 101, Carbon Dioxide 27.0, Anion Gap 5, BUN 6 L, Creatinine 0.78, Estim Creat Clear Calc 83.33, Est GFR (MDRD) Af Amer 125, Est GFR (MDRD) Non-Af 103, BUN/Creatinine Ratio 7.7 L, Glucose 111 H, Calcium 9.2, Triglycerides 51, Cholesterol 160, LDL Cholesterol 59, VLDL Cholesterol 10, HDL Cholesterol 91 Imaging Radiology Impression Head/Neck CTA 02/12/24 08:38 IMPRESSION: Calcific plaque at the origin of the right and left internal carotid arteries causing greater than 70% stenosis. Electronically Signed: Júnior Harrison MD at 9:04 EST , Chest X-Ray 02/12/24 09:25 IMPRESSION: No acute abnormality is seen. Electronically Signed: Júnior Harrison MD at 9:33 EST , Echocardiogram 02/12/24 10:12 Interpretation Summary Normal LV size. Left ventricular systolic function is normal. The left ventricular ejection fraction is 70 %. Stage 1 diastolic dysfunction. Ordering Physician: Deric Rivers Performed By: Ela Nguyen RDCS Active Medications Active Medications Active Medications: Current Medications Generic Name Dose Route Start Last Admin Trade Name Freq PRN Reason Stop Dose Admin Acetaminophen 650 mg 02/12/24 08:58 Acetaminophen 325 Mg Tablet PO X1 PRN Temp > 99.6 F Atorvastatin Calcium 80 mg 02/12/24 22:00 02/12/24 19:33 Atorvastatin Calcium 80 Mg Tablet PO Not Given QHS JESUS Dicyclomine HCl 20 mg 02/12/24 15:37 Dicyclomine 10 Mg Capsule PO Q6H PRN PRN abdominal discomfort Folic Acid 1 mg 02/13/24 08:00 Folic Acid 1 Mg Tablet PO BREAKFAST JESUS Gabapentin 300 mg 02/12/24 15:37 Gabapentin 300 Mg Capsule PO Q8H PRN PRN moderate to severe anxiety Hydroxyzine Pamoate 50 mg 02/12/24 15:37 Hydroxyzine Nayeli 25 Mg Capsule PO Q4H PRN PRN mild anxiety Sodium Chloride 100 mls @ 15 mls/hr 02/12/24 11:40 IV .Q6H40M PRN Saline Flush Sodium Chloride 100 mls @ 15 mls/hr 02/12/24 11:40 IV .Q6H40M PRN Additional IVPB Infusion Influenza Virus Vaccine 180 mcg 02/14/24 10:00 Flu Vaccine High Dose Tv 24-25 180 Mcg/0.5 Ml Syringe IM 02/14/24 10:01 .ONCE ONE Loperamide HCl 2 mg 02/12/24 15:37 Loperamide 2 Mg Capsule PO Q4H PRN PRN Loose Stools Lorazepam 1 mg 02/12/24 15:45 Lorazepam 2 Mg/Ml Syringe IV Q4H PRN PRN ANXIETY/AGITATION Ondansetron HCl 4 mg 02/12/24 10:48 Ondansetron 4 Mg/2 Ml Vial IV Q8H PRN PRN NAUSEA/VOMITING Ondansetron HCl 8 mg 02/12/24 15:37 Ondansetron 8 Mg Tablet PO Q8H PRN PRN NAUSEA Sodium Chloride 10 ml 02/12/24 10:48 0.9% Saline Lock 10 Ml Syringe IV UD PRN Before/After Tenecteplase Administration Sodium Chloride 10 - 40 ml 02/12/24 11:40 0.9% Saline Lock 10 Ml Syringe IV UD PRN SALINE FLUSH Thiamine HCl 100 mg 02/13/24 08:00 Thiamine Hydrochloride 100 Mg Tablet PO DAILYCM JESUS Trazodone HCl 100 mg 02/12/24 15:37 Trazodone 100 Mg Tablet PO QHS PRN PRN INSOMNIA
--- NOTE | 2024-02-13 09:29 | CT_ITS ---
STUDY: CT BRAIN WITHOUT CONTRAST REASON FOR EXAM: Male, 78 years old. CVA s/p TNK RADIATION DOSAGE (If Supplied By Facility): CTDIvol = ( 44.99 ) mGy, DLP = ( 863.60 ) mGycm TECHNIQUE: Transaxial CT imaging of the brain was performed without administration of intravenous contrast material. Individualized dose optimization techniques were used for this CT. COMPARISON: Comparison is made with prior study dated February 12, 2024. FINDINGS: Normal soft tissue structures. Normal calvarium. There is moderate cerebral atrophy with widening of the extra-axial spaces and ventricular dilatation. There are areas of decreased attenuation within the white matter tracts of the supratentorial brain, consistent with microvascular disease changes. Normal basal ganglia and thalami. Normal brainstem. There is mild cerebellar atrophy. There is no intracranial hemorrhage. There are no findings of an acute ischemic infarction. Atherosclerotic plaque formation of the vertebral arteries and cavernous portions of the internal carotid arteries bilaterally. Normal visualized paranasal sinuses. CT/Brain/Head without Contrast IMPRESSION: Chronic involutional changes of the brain. Stable examination. Electronically Signed: Júnior Harrison MD at 10:31 EST ,
[2024-02-13 10:45] LABS: Bacteria 0 SEEN /hpf (None Seen); Mucous, Urine 0 SEEN /hpf (<or=2+); Squamous Epithelial Cells - UA 0 SEEN /hpf (0-5)
[2024-02-13 10:48] LABS: Color, Urine Yellow (Yellow); Glucose, Dipstick Normal (Normal); Ketone-Dipstick 15 mg/dl (Negative); Leukocyte Esterase-Dipstick 25 /ul (Negative); Nitrite-Dipstick Negative (Negative); Occult Blood-Urine 250 /ul (Negative); Protein-Dipstick 100 mg/dl (Negative); Urine Bilirubin Dipstick Negative (Negative); Urine Clarity Cloudy (Clear); Urine Urobilinogen Normal (Normal)
[2024-02-13 11:04] LABS: Red Blood Cells-Urine 50-100 SEEN /hpf (0-5); White Blood Cells 0-5 SEEN /hpf (0-5)
--- NOTE | 2024-02-13 12:48 | SP.MBSS_ITS ---
Modified Barium Swallow Patient Information Study Date: 02/13/24 Study Time: 12:15 Direct Billable Minutes: 93 Total Minutes procedure & reportin Diagnosis: Dypshagia R13.10; Ischemic CVA I63.9 Referring Physician: Deric Rivers Reason for Referral: Objectively assess swallow function, assess risk for aspiration, and determine recommendations for least restrictive diet textures and compensatory strategies to improve safety of swallow. Medical History: A 78-year-old male presented to [facility] ED 02/12/2024 after colleagues at work observed him nearly passing out at 07:58. EMS was notified due to left-sided weakness, and he was transported to the hospital where he was found to be aphasic. The stroke team was activated, and the patient underwent a head CT and CTA of the head and neck, which revealed bilateral carotid stenosis. He was deemed a candidate for tenecteplase and received it in the emergency room. He is currently in the intensive care unit. Speech therapy consulted per CVA protocol. BSE recommended NPO w/ plans to re-evaluate 02/13/24. ST session 02/13/24 recommended instrumental assessment of swallow function prior to diet advancement. Pt is well known to [facility] speech therapy department from prior CVA/inpatient rehab stay in 2019. Prior MBSS completed 12/02/2019, revealing mild oropharyngeal dy sphagia w/ recommendation for a mechanically altered moist/minced diet texture and thin liquid diet w/ the following aspiration precautions in place: small bites, small sips, one sip at a time, reduce distractions during PO intake, medications to be taken whole/one at a time, seated upright at 90 degrees for PO intake, remain upright for 30-60 minutes after PO intake. Patient and both report sensation of pharyngoesophageal retention when eating w/ stating he's been having trouble swallowing for a while now. The patient?s past medical history includes dehydration, carotid stenosis (left- sided), cognitive dysfunction, vertigo, physical debility, biatrial enlargement, diastolic dysfunction, hypokalemia, hypomagnesemia, hyponatremia, a history of prostate cancer, venous insufficiency, heavy alcohol consumption, vitamin B12 deficiency, benign prostatic hyperplasia, hypertension, and CVA (2019). Current Diet Ordered: NPO Dentition: Natural Teeth and Decay Mental Status: Impaired (Hx of cognitive dysfunction) Respiratory Status: Oxygenating on Room Air Penetration-Aspiration Scale Penetration-Aspiration Scale: OBJECTIVE ASSESSMENT OF SWALLOW FUNCTION (QUANTITATIVE ? PER TRIAL): PENETRATION / ASPIRATION SCALE (ZHAO): 1 = does not enter airway 2 = enters airway/above vocal folds/ejected 3 = enters airway/above vocal folds/not ejected 4 = enters airway/contacts vocal folds/ejected 5 = enters airway/contacts vocal folds/not ejected 6 = enters airway/below vocal folds/ejected 7 = enters airway/below vocal folds/not ejected despite effort 8 = enters airway/below vocal folds/no effort VIDEOFLOROSCOPIC SCALE SCORE (ZHAO): Grade I = aspiration of material that has penetrated into the laryngeal vestibule, intact cough reflex Grade II = aspiration < 10 % of the bolus, intact cough reflex Grade III = aspiration of < 10 % of the bolus, reduced cough reflex or aspiration of > 10 % of the bolus, intact cough reflex Grade IV = aspiration of > 10 % of the bolus, reduced cough reflex Penetration-Aspiration Scale Score Thin Liquid via teaspoon: Result: 1= does not enter airway Thin Liquid via teaspoon Trial 2: Result: 1= does not enter airway Thin Liquid via large single sip: cup: Result: 2= enter airway/above vocal folds/ejected [place] Thick Liquid via large single sip: cup: Result: 2= enter airway/above vocal folds/ejected Pudding via teaspoon: Result: 1= does not enter airway Comment: Esophageal screen - Complete clearance. 1/2 Cookie: Result: 1= does not enter airway Comment: Esophageal screen - Complete clearance. Thin Liquid via sequential sips:straw: Result: 7= enters airways/below vocal folds/not ejected despite effort Thin Liquid via single sip: straw: Result: 2= enter airway/above vocal folds/ejected Thin Liquid via small single sip: cup: Result: 2= enter airway/above vocal folds/ejected Comment: FENCE MAKING MACHINE OPERATOR cued small sip, swallow fast. Swallow still moderately delayed. Oral Phase Labial Seal: No Labial Escape Tongue Control During Bolus Hold: Posterior escape of greater than half of bolus Bolus Preparation/Mastication: Slow prolonged chewing/mashing with complete recollection Bolus Transport/Lingual Motion: Slowed tongue motion Oral Residue: Trace residue lining oral structures Pharyngeal Phase Initiation of Pharyngeal Swallow: Bolus head in pyriforms Soft Palate Elevation: Trace column of contrast/air between soft palate and pharyngeal wall Laryngeal Elevation: Partial superior movement thyroid cart/partial apprx aryt- epig petiole Anterior Hyoid Excursion: Partial anterior movement Epiglottic Movement: Complete inversion Laryngeal Vestibule Closure at Height of Swallow: Incomplete; narrow column of air/contrast in laryngeal vestibule Pharyngeal Stripping Wave: Present - complete Pharyngoesophageal Segment Opening: Parital distension and partial duration; parital obstruction of flow (trace retention of barium in UES) Tongue Base Retraction: Trace column of contrast between tongue base & post. pharyngeal wall Pharyngeal Residue: Trace residue within or on pharyngeal structures Esophageal Phase Esophageal Clearance: Complete clearance Diagnosis/Impression Diagnosis: Moderate oropharyngeal dysphagia R13.12 Impression: Bony anterior protrusions on C4-C5, which FENCE MAKING MACHINE OPERATOR reviewed w/ radiologist, Dr. Harrison, who confirmed the patient to have anterior cervical osteophytes. They do not appear to be obstructing bolus clearance. FENCE MAKING MACHINE OPERATOR also reviewed images of what appears to be spasms of the UES, very notable prior to swallowing the pudding trial. Per discussion w/ Dr. Harrison, these spasms are possibly secondary to CVA. FENCE MAKING MACHINE OPERATOR called dictaphone typist, Dr. Chan, to review, as well. Likely, no immediate GI consult will be recommended as pt is very early in his recovery from current CVA. The oral phase is primarily marked by... -Decreased bolus control w/ posterior loss of >1/2 of thin liquid boluses to the pyriforms prior to swallow onset, increasing risk for aspiration before the swallow due to delayed swallow onset. -Delayed and slowed tongue motion for A-P transport. -Slowed, but complete mastication of cookie. The pharyngeal phase is primarily marked by... -Moderately delayed swallow onset. -Decreased anterior hyoid excursion and laryngeal elevation w/ aspiration of thin liquids via large, sequential sips. Reflexive cough did clear aspirated barium from trachea/vocal folds, but residues remained in laryngeal vestibule. Cued cough and re-swallow cleared residues from the laryngeal vestibule. Decreased bolus size was effective in decreasing risk for aspiration. Recommendations Diet: Regular Textures (Easy to Chew - IDDSI Level 7) and Thin Liquids Compensatory Strategies: Small Bites, Small Sips, Slow Rate, Sitting upright and Remain sitting upright for 30 minutes after PO intake Supervision: 1:1 Close Supervision Recommend Repeat Modified Barium Swallow: TBD Need for Skilled Speech Therapy Services: Yes Comment: Dysphagia treatment recommended 3-5X/week during acute stay. POC to include the following: -Train pt in strategies to decrease risk for aspiration (SMALL SIPS, SLOW RATE OF INTAKE). -Ongoing assessment of diet tolerance. -Implement oral motor and oropharyngeal exercise program for improving bolus control, swallow onset, and to promote relaxation of UES (lingual resistance/coordination, Sally, Yawn stretch) Education Completed: 1. Described result of evaluation., 2. Pt understands ev aluation & agrees with goals and treatment plan. and 7. Pt requires further education on strategies & risks. Status Active ST Patient: Active Contact Information [facility] Speech Therapy:: Susie Owen M.A. [facility]-FENCE MAKING MACHINE OPERATOR Speech-Language Pathologist [facility] [address] [place] [address] [email or web address] [phone]
[2024-02-13] MEDS: Metoprolol(XL)Succ 100 MG Tablet PO (13:30)
[2024-02-13] MEDS: Clopidogrel Bisulfate 75 MG Tablet PO (13:31)
[2024-02-13] MEDS: Thiamine Hydrochloride 100 MG Tablet PO (13:31)
[2024-02-13] MEDS: Folic Acid 1 MG Tablet PO (13:31)
--- NOTE | 2024-02-13 16:15 | CASEMGMT ---
Social Work SW completed PHQ-9 w/pt, pt scored a 2, not indicating depression. Pt is attributing his symptoms of poor appetite and having little energy to his recent health issues. SW spoke w/pt about discharge plan, provided to pt a list from [facility] of acute rehab facilites in network w/pt's insurance, in pt's preferred geographic area and complete w/quality and resource use data. Pt would like to go to inpt rehab here at [facility]. Referral made, SW will follow up regarding referral. HENOK Jimenez
[2024-02-13] MEDS: Tamsulosin HCl 0.4 MG Capsule PO (17:28)
[2024-02-13] MEDS: Atorvastatin Calcium 80 MG Tablet PO (20:58)
[2024-02-13] MEDS: Losartan Potassium 100 MG Tablet PO (20:58)
[2024-02-14 00:02] VITALS: BMI 22.6
[2024-02-14 03:00] VITALS: BP 123/78; PULSE 58; PULSE 62; RESP 14; TEMP 36.6; O2SAT 97
[2024-02-14 05:40] VITALS: BMI 23.0
[2024-02-14 07:34] VITALS: O2SAT 95
--- NOTE | 2024-02-14 07:35 | PN.HOSP_ITS ---
Reason for Visit Reason for Visit: Diagnoses Cerebral infarction, unspecified (02/12/24) Occlusion and stenosis of bilateral carotid arteries (02/12/24) Dysphagia, unspecified (02/12/24) Objective Data Objective Data Vital Signs: Vital Signs Temp Pulse Resp BP Pulse Ox O2 Del Method O2 Flow Rate 98 F 62 14 123/78 H 95 Room Air 2 02/14/24 03:00 02/14/24 03:00 02/14/24 03:00 02/14/24 03:00 02/14/24 07:34 02/14/24 07:34 02/12/24 10:12 Oxygen Flow Rate (L/min) 2 Oxygen Delivery Method Room Air Weight: 77 kg Body Mass Index (BMI) 23.0 Intake & Output: Intake and Output for Last 24 Hours 02/12/24 02/13/24 02/14/24 23:59 23:59 23:59 Intake Total 1000 / 1000 220 / 220 Output Total 1725 / 1725 730 / 730 200 / 200 Balance -725 / -725 -510 / -510 -200 / -200 Medical Nutrition Assessment Dietitian: Malnutrition Criteria Met Start: 02/12/24 14:54 Freq: Status: Active Protocol: Document 02/12/24 14:54 RMA (Rec: 02/12/24 14:54 RMA [id number]) Nutrition Malnutrition Evidence of Malnutrition Exists Yes Malnutrition (severe): Chronic Evidenced By Suboptimal Energy Intake ( Severe),Weight Loss (Severe) Intake Problem Inadequate Oral Intake Etiology related to neurologic deficit/ stroke and swallowing difficulty Signs/Symptoms as evidenced by NPO Status Active Problem Clinical Problem Chronic Disease or Condition Related Malnutrition Etiology severe protein-calorie malnutrition in the context of chronic disease related to inadequate oral intake and ETOH use Signs/Symptoms as evidenced by ~13% unintentional weight loss x less than 6 months, BMI 22.4, currently NPO and PO meeting less than 75% estimated nutrition needs x 6 months Status Active Problem Recommendation Dietitian Recommendations/Changes Recommend advance PO as tolerated to Cardiac diet with consistency/texture as per DENTAL PATIENT COORDINATOR. ONS Ensure plus HP as able to advance PO diet. If PO remains contraindicated, start TF to prevent further unintentional weight loss and energy/pro depletion. Lab / Micro Data 02/13/24 03:30 02/13/24 03:30 Labs: Laboratory Results - last 24 hr 02/13/24 10:35: Urine Color Yellow, Urine Clarity Cloudy, Urine pH 7.0, Ur Specific [place] 1.010, Urine Protein 100 H, Urine Glucose (UA) Normal, Urine Ketones 15 H, Urine Occult Blood 250 H, Urine Nitrite Negative, Urine Bilirubin Negative, Urine Urobilinogen Normal, Ur Leukocyte Esterase 25 H, Urine RBC 50- 100 SEEN, Urine WBC 0-5 SEEN, Ur Squamous Epith Cells 0 SEEN, Urine Bacteria 0 SEEN, Urine Mucus 0 SEEN Radiography Diagnostic Testing: Radiology Impression Brain MRI 02/13/24 08:00 IMPRESSION: 1. 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 2. Chronic senescent changes. Electronically Signed: Leo Willis MD at 16:03 EST Reading Location ID and State: [facility] / ID Tel , Service support , ADDENDUM: 02/13/24 [id number] IMPRESSION: 1. 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 2. Chronic senescent changes. N.B. : The above Results were Read Back by Leo Willis MD to Mikayla Doss RN, and understanding confirmed on 02/13/2024 17:24:26 (ET). Electronically Signed: Leo Willis MD at 16:03 EST , Brain CT 02/13/24 09:29 IMPRESSION: Chronic involutional changes of the brain. Stable examination. Electronically Signed: Júnior Harrison MD at 10:31 EST ,
[2024-02-14] MEDS: Thiamine Hydrochloride 100 MG Tablet PO (08:02)
[2024-02-14] MEDS: Folic Acid 1 MG Tablet PO (08:02)
[2024-02-14] MEDS: Aspirin 81 MG TAB.CHEW PO (08:04)
[2024-02-14 08:11] LABS: Absolute Lymphocyte Count 1.01 X10^3/uL (0.83-4.51); Absolute Neutrophil Count 5.5 X10^3/uL (2.0-7.7); Basophil# 0.03 X10^3/uL; Basophil% 0.4 % (0-1); Eosinophil# 0.08 X10^3/uL; Eosinophils% 1.1 % (0-5); Hematocrit 47.5 % (40-54); Hemoglobin 15.8 g/dL (13.0-16.5); Lymphocyte # 1.01 X10^3/ul (0.83-4.51); Lymphocyte % 13.3 % (19-41); Mean Corp Hgb Conc 33.3 g/dL (32-36); Mean Corpuscular Volume 93.1 fL (80-94); Mean Platelet Vol. 9.1 fl (6.2-12.0); Monocyte# 0.95 X10^3/uL; Monocyte% 12.5 % (0-10); NRBC Flagged by Analyzer 0 % (0-5); Neutrophil # 5.52 X10^3/uL (2.7-7.7); Neutrophil % 72.4 % (47-70); Platelet Count 269 K/mm3 (150-450); RBC Distribution Width CV 12.5 % (11.6-14.6); RBC Distribution Width SD 42.9 fl (35.1-43.9); White Blood Count 7.6 K/mm3 (4.4-11.0)
[2024-02-14 08:38] LABS: Anion Gap 3 (5-15); BUN 11 mg/dL (7-18); BUN/Creat Ratio 12.2 RATIO (10-20); Calcium,Total 9.9 mg/dL (8.5-10.1); Chloride 103 mmol/L (98-107); EST Glomerular Filtration Rate 87 mL/min (>60); Est Glom Filt Rate - Afr Amer 106 mL/min (>60); Estimated Creatinine Clearance 76.05 ml/min; Glucose 126 mg/dL (74-106); Potassium 3.8 mmol/L (3.5-5.1); Sodium Level 135 mmol/L (136-145)
[2024-02-14 10:00] VITALS: BP 107/85; PULSE 71; RESP 14; TEMP 36.3; O2SAT 96
--- NOTE | 2024-02-14 10:00 | CASEMGMT ---
Social Work SW spoke with [facility] [place] and they are able to accept pt today. Physician notified. ЕЛЕНА White
[2024-02-14] MEDS: Clopidogrel Bisulfate 75 MG Tablet PO (10:20)
--- NOTE | 2024-02-14 10:27 | PCM.DC.SUM ---
Providers Date of Admission: 02/12/24 Date of Discharge: 02/14/24 Primary Care Physician: Dr. Gabi Alexis MD Consultations 02/12/24 10:48 Consult: Digital Printer Operator / Pulmonary Medicine Routine Consulting Provider: Pulmonary Medicine demetris [place] Reason for Consult: Acute Ischemic Stroke/TIA EMERGENT Consult: No Notified: Yes Date Notified: 02/12/24 Time Notified: 10:07 Method of Notification: Text Consult: Tele-Neurology Routine Consulting Provider: [facility] Reason for Consult: Acute Ischemic Stroke/TIA EMERGENT Consult: No Notified: Yes Date Notified: 02/12/24 Time Notified: 10:07 Method of Notification: Answering Service Nursing Unit Staff Notify [facility] of Tele-Neurology Consult: Yes Reason For Visit: CVA Diagnosis Discharge Diagnosis (1) Acute stroke due to ischemia: Status: Acute Code(s): I63.9 - Cerebral infarction, unspecified (2) Carotid stenosis: Status: Chronic Code(s): I65.29 - Occlusion and stenosis of unspecified carotid artery Qualifiers: Laterality: bilateral Qualified Code(s): I65.23 - Occlusion and stenosis of bilateral carotid arteries (3) Dysphagia: Status: Acute Code(s): R13.10 - Dysphagia, unspecified Medications at Discharge Home Medications clopidogrel 75 mg tablet 75 mg PO DAILY blood thinner #30 tabs 12/05/19 potassium chloride 10 mEq capsule,extended release 10 meq PO DAILY supplement 01/29/20 tamsulosin 0.4 mg capsule 0.4 mg PO DAILY prostate 01/29/20 cholecalciferol (vitamin D3) 1,250 mcg (50,000 unit) capsule 1,250 mcg PO .Q2w supplement 02/12/24 acetaminophen 325 mg tablet 650 mg (2 x 325 mg) PO X1 PRN Temp > 99.6 F #0 tabs 02/14/24 aspirin 81 mg chewable tablet 81 mg PO BREAKFAST #0 tabs 02/14/24 atorvastatin 80 mg tablet 80 mg PO QHS #0 tabs 02/14/24 enoxaparin 40 mg/0.4 mL subcutaneous syringe (Lovenox) 40 mg (0.4 mL) subcut DAILY #4 mL 02/14/24 metoprolol tartrate 50 mg tablet 50 mg PO BID #14 tabs 02/14/24 Hospital Course Operations None Procedures 2-D Echocardiogram and EKG Summary of Care Provided Minutes Spent on Discharge: 39 Hospital Course: Mr. Ayala is a 78-year-old who presented to the emergency department hospital on 02/12/2020 for from work secondary to left-sided weakness and speech difficulties. Evidently, at about 7:58 AM on the day of presentation he noted to colleagues that he felt like he was going to pass out and then had acute onset left-sided weakness and speech difficulties. Upon arrival to the emergency department he was noted to be aphasic. Stroke team was called and he underwent a CTA of the brain which was unremarkable and a CTA of the head and neck which showed greater than 70% stenosis in bilateral carotid arteries. He was evaluated by the stroke neurologist at [facility] and deemed a candidate for TNK which she received in the emergency department. It was documented that he is not consistently taking his blood pressure medication or his Plavix. He is not on aspirin at baseline. Vital signs on presentation showed a temperature of 36.8, heart rate 70, blood pressure 133/61, respiratory 14 and pulse ox was 98% on room air. His CBC was unremarkable. Coags were normal. Chemistry panel showed hyponatremia at 126 which since has improved to 135 and mild hyperglycemia with a blood sugar of 143. Initial troponin was 84. Lipids were obtained and found to be total cholesterol 160/LDL 59/HDL 91/and triglycerides 51. Patient is reportedly a fairly heavy drinker and drinks about 10 beers a day, fortunately he has had no withdrawal issues since admission. He was admitted to the intensive care unit post tenecteplase. Antiplatelet therapy was held on admission due to tenecteplase dosing. Echocardiogram was done on 02/12/2024 and showed an EF of 70% with stage I diastolic dysfunction and no documented PFO or ASD. Valves all appear to be normal. 24 hours after tenecteplase dosing he was started on Plavix and we also initiated aspirin. MRI was performed on 02/13/2024 and showed an acute lacunar type infarct involving the superior portion of the right external capsule and chronic senescent changes. He is evaluated by neurology and they recommended ongoing dual antiplatelet therapy, continued therapy services, goal LDL less than 70 and long-term blood pressure goal less than 130/80. His blood pressure was well-controlled while he was hospitalized and we did change his metoprolol to 50 twice daily and discontinued his valsartan. He was seen by speech therapy and diagnosed with moderate oropharyngeal dysphagia related to his stroke. Regular textures that are easy to chew and thin liquids were recommended with compensatory strategies to include small bites, small sips, slow rate, sitting upright and remaining upright for 30 minutes after p.o. intake as well as one-on-one close supervision while eating. He will likely need a follow-up modified barium swallow in the future after therapy services. He was evaluated by physical and Occupational Therapy as well and all 3 disciplines felt he would benefit from ongoing rehab at discharge. We were able to get him transitioned over the rehab unit on 02/14/2024 and he was discharged in stable condition. He will remain on prophylactic Lovenox for DVT prevention at the time of discharge until deemed no longer requiring such therapy by the rehab physician. With his bilateral carotid artery stenosis he will need to follow-up with Dr. Cortes. I discussed the case with him and he felt 1 week after discharge from rehab would be appropriate. He will also need to follow-up with neurology in 6 to 12 weeks and with his primary care physician within 1 to 2 weeks after discharge from rehab. Would recommend follow-up CBC and BMP in 1 week. Discharge diagnoses: Acute lacunar stroke of the superior portion of the right external capsule with deficits to include left-sided weakness, facial droop, facial weakness, and speech deficits Bilateral carotid artery stenosis Diastolic dysfunction stage I Hyponatremia-resolving Hyperlipidemia History of stroke BPH with obstruction Heavy alcohol consumption History of electrolyte disturbances History of prostate cancer Essential hypertension History of tobacco abuse Severe malnutrition Physical Exam Const alert, oriented x3, no apparent distress, average body habitus and no limitations; Negative for well nourished Constitutional Narrative: Older, white male, sitting up in a chair at the bedside, eating breakfast and watching television, speech is somewhat garbled but understandable, very pleasant, appears comfortable, nontoxic General Appearance: cooperative, comfortable, well kempt and well developed Orientation / Consciousness: awake, oriented to person, oriented to place and oriented to time Exam Limitations: no limitations Nutritional Appearance: thin HEENT normocephalic, head/scalp atraumatic and moist oral mucous membranes HEENT Narrative: Mallampati 2, no thrush Eyes PERRL and EOMs intact bilaterally Eyes Narrative: No scleral icterus Neck no lymphadenopathy and supple Neck Narrative: Trachea midline Resp normal respiratory effort, no retractions, no use of accessory muscles and clear to auscultation bilaterally Resp Narrative: Diminished but clear Cardio regular rate, regular rhythm, S1 normal heart sound, S2 normal heart sound, no murmurs, no rub, no gallops and no clicks GI normal to inspection, nondistended, normoactive bowel sounds, soft to palpation and non-tender Extremity no clubbing, cyanosis or edema Extremity Narrative: Radial and pedal pulses are 2+ Skin skin turgor normal, no jaundice, no petechiae and no mottling Neuro oriented x3, No CN's II-XII intact bilaterally, moves all extremities, No no focal motor deficits and No no sensory deficits noted Neuro Narrative: Speech is garbled but understandable, weakness noted on the left side upper extremity greater than lower extremity, sensory deficits present, left-sided facial droop with some sensory deficits present in V1, 2, and 3 distribution of the trigeminal nerve Speech: Negative for speech normal Psych affect normal Psych Narrative: Extremely pleasant, interacts appropriately Medical Records Data Medical Nutrition Assessment Dietitian: Malnutrition Criteria Met Start: 02/12/24 14:54 Freq: Status: Active Protocol: Document 02/12/24 14:54 RMA (Rec: 02/12/24 14:54 RMA [id number]) Nutrition Malnutrition Evidence of Malnutrition Exists Yes Malnutrition (severe): Chronic Evidenced By Suboptimal Energy Intake ( Severe),Weight Loss (Severe) Intake Problem Inadequate Oral Intake Etiology related to neurologic deficit/ stroke and swallowing difficulty Signs/Symptoms as evidenced by NPO Status Active Problem Clinical Problem Chronic Disease or Condition Related Malnutrition Etiology severe protein-calorie malnutrition in the context of chronic disease related to inadequate oral intake and ETOH use Signs/Symptoms as evidenced by ~13% unintentional weight loss x less than 6 months, BMI 22.4, currently NPO and PO meeting less than 75% estimated nutrition needs x 6 months Status Active Problem Recommendation Dietitian Recommendations/Changes Recommend advance PO as tolerated to Cardiac diet with consistency/texture as per ORCHESTRA MUSICIAN. ONS Ensure plus HP as able to advance PO diet. If PO remains contraindicated, start TF to prevent further unintentional weight loss and energy/pro depletion. Weight / BMI Weight Weight: 77 kg Body Mass Index (BMI) 23.0 ABG / Lab / Microbiology Data 02/14/24 07:54 02/14/24 07:54 Laboratory: Laboratory Results - last 24 hr 02/14/24 07:54: WBC 7.6, RBC 5.10, Hgb 15.8, Hct 47.5, MCV 93.1, MCH 31.0, MCHC 33.3, RDW Std Deviation 42.9, RDW Coeff of Denae 12.5, Plt Count 269, MPV 9.1, Immature Gran % (Auto) 0.300, Neut % (Auto) 72.4 H, Lymph % (Auto) 13.3 L, Wolfe % (Auto) 12.5 H, Eos % (Auto) 1.1, Baso % (Auto) 0.4, Absolute Neuts (auto) 5.5, Absolute Lymphs (auto) 1.01, Nucleated RBC % 0, Sodium 135 L, Potassium 3.8, Chloride 103, Carbon Dioxide 30.0, Anion Gap 3 L, BUN 11, Creatinine 0.90, Estim Creat Clear Calc 76.05, Est GFR (MDRD) Af Amer 106, Est GFR (MDRD) Non-Af 87, BUN/Creatinine Ratio 12.2, Glucose 126 H, Calcium 9.9 Radiography Diagnostic Testing: Radiology Impression Brain MRI 02/13/24 08:00 IMPRESSION: 1. 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 2. Chronic senescent changes. Electronically Signed: Leo Willis MD at 16:03 EST Reading Location ID and State: [facility] / [place] Tel , Service support , ADDENDUM: 02/13/24 1731 IMPRESSION: 1. 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 2. Chronic senescent changes. N.B. : The above Results were Read Back by Leo Willis MD to Mikayla Doss RN, and understanding confirmed on 02/13/2024 17:24:26 (ET). Electronically Signed: Leo Willis MD at 16:03 EST , D/C Instructions Discharge Diet: Low fat / Low cholesterol (easy to chew with regular thin liquids and direct supervision with meals and small sips) DC O2, CPAP, BIPAP Needs Home O2 Discharge instructions: No Meaningful Use Info Meaningful Use Meaningful Use Diagnoses (Choose all that apply): Ischemic CVA CVA Therapy Assessed for PT,OT and/or ST?: Yes Ischemic Stroke Antithrombotic order at d/c?: Yes Dx of Atrial fib/flutter?: No Anticoagulant at discharge?: No Reason anticoagulant not ordered: Treatment not Indicated Statin Dosing Therapy Reference: STATIN DOSE THERAPY REFERENCE: * Patients > 75 years receive moderate or high dose statin therapy. * Patients 75 years or YOUNGER should receive HIGH intensity statin dose unless contraindicated. You will be required to document reason for non-treatment if statin daily dose does not meet guidelines. HIGH DOSE STATIN THERAPY DAILY Atorvastatin > than or = to 40 mg Rosuvastatin > than or = to 20 mg Amlodipine + Atorvastatin > than or = to 2.5/40 mg Ezetimibe + Simvastatin 10/80 mg Simvastatin 80mg Statins at discharge?: Yes Primary Dx Acute Ischemic CVA?: Yes IV thrombolytic ordered during stay?: Yes Discharge Plan Admission Admit Date/Time: 02/12/24 10:04 Primary Reason for Your Visit: Acute Stroke Attending Provider: Preeti Frias Primary Care Provider: Gabi Alexis Consulting Providers: Adin Sosa; Ranjana Jovel; Annette Lewis; Lakshmi Carter; Mirtha Mohan; David Hess; Marisel Fox; Brian Philip; Erfen Leslie; Brad Casas; Mamta Rock; Venkat Mello; Cher Patel; Sana Santa; Natali Ortiz Amadou; Narayan Rivera; Axel Epps; Ac Floyd; Josie Frias; Gia Montes; Deric Rivers Discharge Orders/Prescriptions Prescriptions: New atorvastatin 80 mg Tablet 80 mg PO QHS Qty: 0 0RF aspirin 81 mg Tablet,Chewable 81 mg PO BREAKFAST Qty: 0 0RF metoprolol tartrate 50 mg tablet 50 mg PO BID Qty: 14 0RF enoxaparin [Lovenox] 40 mg/0.4 mL syringe 40 mg subcut DAILY Qty: 4 0RF acetaminophen 325 mg Tablet 650 mg PO X1 PRN (Reason: Temp > 99.6 F) Qty: 0 0RF Continued tamsulosin 0.4 mg capsule 0.4 mg PO DAILY Patient Comments: Patient does not take regularly potassium chloride 10 mEq capsule, extended release 10 meq PO DAILY Patient Comments: Patient does not take regularly clopidogrel 75 MG tablet 75 mg PO DAILY Qty: 30 0RF Patient Comments: Patient does not take regularly cholecalciferol (vitamin D3) 1,250 mcg (50,000 unit) capsule 1,250 mcg PO .Q2w Patient Comments: Patient does not take regularly Discontinued metoprolol succinate 100 MG tablet 100 mg PO DAILY Qty: 30 0RF Patient Comments: Patient does not take regularly losartan 100 MG tablet 100 mg PO DAILY Qty: 30 0RF Patient Comments: Patient does not take regularly Rx Instructions: Take this med at bedtime and the Amlodipine in the AM. Other Ambulatory Orders: 30 Day Event Recorder Preventi (Urgent) Timeframe: 1 Day Facility: [facility] - Location: Cardiovascular Services Ordered By: Dr. Preeti Frias Referrals / Follow Up: Deric Cortes MD [Med Staff - Active Staff] - Within 1 Week (or after d/c from rehab) Juan Norwood MD [Non-Staff -Ordering Privileges] - See Referral Note (6-12 weeks) Gabi Alexis MD [Primary Care Provider] - Within 2 Weeks (after RU discharge) Disposition Disposition (needs filled in before D/C Order can be placed): Inpatient Rehab Unit/Facility Charges/Coding Visit Charges Inpatient E&M: 27341 Disch Hosp >30min
--- NOTE | 2024-02-14 10:52 | CASEMGMT ---
Patient has an order for discharge placed. This repair department manager collaborated with the social insurance adviser. Social work states that the rehab unit has accepted the patient and that the rehab unit is ready for the patient. This repair department manager to patient room at this time and updated the patient on this status. Patient states understanding that he will be going to the rehab unit today and denies any further questions or concerns. Patient RN updated.
--- NOTE | 2024-02-14 11:46 | NURSING ---
Report given to IR RN, all questions and concerns answered.
[2024-02-14 12:12] VITALS: PULSE 71
[2024-02-14 13:17] LABS: Hemoglobin A1c 5.2 % (3.8-5.6)
== END 2024-02-14 13:50 | DRG 61 ==
LOC: ED 10:24 → ICU 10:27
PROVIDERS: Emergency Provider Emergency Medicine; PCP Family Medicine; Visit Provider Internal Medicine
DX: I63.233 Cerebral infarction due to unspecified occlusion or stenosis of bilateral carotid arteries (principal); E43 Unspecified severe protein-calorie malnutrition; G81.92 Hemiplegia, unspecified affecting left dominant side; E87.1 Hypo-osmolality and hyponatremia; E83.39 Other disorders of phosphorus metabolism; R13.10 Dysphagia, unspecified; I50.9 Heart failure, unspecified; E86.0 Dehydration; F10.10 Alcohol abuse, uncomplicated; E78.5 Hyperlipidemia, unspecified; F10.90 Alcohol use, unspecified, uncomplicated; E87.6 Hypokalemia; I87.2 Venous insufficiency (chronic) (peripheral); E53.8 Deficiency of other specified B group vitamins; E87.8 Other disorders of electrolyte and fluid balance, not elsewhere classified; G50.9 Disorder of trigeminal nerve, unspecified; R29.810 Facial weakness; Z87.891 Personal history of nicotine dependence; Z86.73 Personal history of transient ischemic attack (TIA), and cerebral infarction without residual deficits; Z79.82 Long term (current) use of aspirin; Z79.02 Long term (current) use of antithrombotics/antiplatelets; N40.0 Benign prostatic hyperplasia without lower urinary tract symptoms; Z85.46 Personal history of malignant neoplasm of prostate; Z68.22 Body mass index [BMI] 22.0-22.9, adult; Z79.899 Other long term (current) drug therapy; I51.7 Cardiomegaly; Z91.148 Patient's other noncompliance with medication regimen for other reason
CPT/HCPCS: 70450; 70496; 70498; 70551; 71045; 74230; 80048; 80061; 81001; 82077; 83036; 83735; 84484; 85025; 85610; 85730; 90662; 92526; 92610; 92611; 93005; 93306; 94762; 97163; 97166; 97802; 99285; J3101; Q9967; A4216

== ENCOUNTER 2024-02-14 13:51 | Inpatient (IN) | payer MEDICARE, OTHER, SELFPAY ==
--- NOTE | 2024-02-14 13:57 | EX.PCM.HP.RE ---
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 He was aphasic at presentation to the hospital. Stat noncontrast CT brain showed chronic involutional changes with no acute findings. CTA of the head and neck showed calcific plaque at the origin of the right and left internal carotid arteries causing greater than 70% stenosis. Teleneurology was consulted and TNK was recommended and given in the emergency department. Brain MRI on 02/13/2024 showed an acute lacunar type infarct involving the superior portion of the right external capsule. Echocardiogram showed a left ventricular ejection fraction of 70% with stage I diastolic dysfunction. The atria were reported of normal size....... in 2019 the echocardiogram was reported as moderately enlarged left atrium and mildly enlarged right atrium with a negative bubble study. A modified barium swallow showed moderate oropharyngeal dysphagia and he was placed on a regular texture diet with thin liquids, small bites, small sips, slow rate and sitting upright during meals and for 30 minutes after p.o. intake. One-to-one close supervision was recommended. He was seen by PT/OT/ST and acute inpatient rehab was recommended at discharge. He was transferred to the acute inpatient rehab unit at [facility] on 02/14/2024 for 3 hours of therapy daily to restore function/independence at or near his level prior to the most recent CVA. All imaging, lab, consults and progress notes were reviewed. At presentation to the ER the sodium was low at 126 and the chloride was low at 93. He is back to drinking 20-30 beers daily. Potassium was 3.9. Serum bicarb was normal and the BUN was 8 with a creatinine of 0.97. Random blood sugar was 143. Hemoglobin A1c today was 5.2. Calcium was within normal limits and magnesium is low normal at 1.6. LDL is 59 with an HDL of 91. Triglycerides are normal at 51. [facility] Medical History (Updated 02/15/24 @ 14:[address] Allison Mcbride DO) Alcohol abuse Dehydration Carotid stenosis Cognitive dysfunction Vertigo Left carotid stenosis Biatrial enlargement Diastolic dysfunction Hypokalemia Hyponatremia History of prostate cancer Venous insufficiency Vitamin B12 deficiency BPH (benign prostatic hyperplasia) Hypertension Home Medications ?Medication ?Instructions ?Recorded ?Last Taken ?Type clopidogrel 75 mg tablet 75 mg PO DAILY blood thinner #30 12/05/19 02/14/24 Rx tabs potassium chloride 10 mEq 10 meq PO DAILY supplement 01/29/20 Unknown History capsule,extended release tamsulosin 0.4 mg capsule 0.4 mg PO DAILY prostate 01/29/20 02/13/24 History cholecalciferol (vitamin D3) 1,250 1,250 mcg PO .q2week supplement 02/12/24 Unknown History mcg (50,000 unit) capsule acetaminophen 325 mg tablet 650 mg (2 x 325 mg) PO X1 PRN Temp 02/14/24 Unknown Rx > 99.6 F #0 tabs aspirin 81 mg chewable tablet 81 mg PO BREAKFAST Heart health #0 02/14/24 02/14/24 Rx tabs atorvastatin 80 mg tablet 80 mg PO QHS Cholestrol #0 tabs 02/14/24 Unknown Rx enoxaparin 40 mg/0.4 mL 40 mg (0.4 mL) subcut DAILY Blood 02/14/24 Unknown Rx subcutaneous syringe (Lovenox) thinner #4 mL metoprolol tartrate 50 mg tablet 50 mg PO BID BP #14 tabs 02/14/24 Unknown Rx Allergy/AdvReac Type Severity Reaction Status Date / Time Iodinated Contrast Media Allergy Hives Verified 02/13/24 11:20 (CONTRASTS) Family History Father Heart disease Cancer Surgical History History of vein stripping History of appendectomy History of tonsillectomy History of bilateral cataract extraction Social History Smoking Status: Former smoker alcohol intake: current details: 10+ beers daily ROS ROS Narrative Denies pain, SOB, dysuria, abd pain, N/V. Review of Systems ROS Unobtainable: due to mental status and other Details: Very limited due to CVA, altered mental status and severe dysarthria. Can not recall what I said to him even 1 minute later. Repeatedly asking the same questions. Indicators for Scoring Admitted with or Primary Diagnosis of CVA/Stroke: Yes Hx of CVA/Stroke: Yes Modified Margoth Score MRS Score at time of Evaluation: 4-Moderate/severe disability NIHSS NIHSS 1a. Level of Consciousness: Alert; keenly responsive 1b. LOC Questions: Answers BOTH questions correctly. 1c. LOC Commands: Performs both tasks correctly. 2. Best Gaze: Normal 3. Visual: No visual loss 4. Facial Palsy: Partial paralysis (total or near-total paralysis of lower face) 5a. Left Arm: Drift; arm drifts downward but doesn?t hit the bed 5b. Right Arm: No drift; arm holds 90 (or 45) degrees for full 10 seconds 6a. Left Leg: Drift; leg falls by the end of 5-seconds, but does not hit bed 6b. Right Leg: Drift; leg falls by the end of 5-seconds, but does not hit bed 7. Limb Ataxia: Absent 8. Sensory: Kaal-gv-lkeuehho sensory loss; 9. Best Language: No aphasia; normal 10. Dysarthria: Severe dysarthria; 11. Extinction and Inattention: No abnormality Total: 8 Stroke Questions Stroke Team Activated: No Physical Exam Const alert and no apparent distress Constitutional Narrative: Severe dysarthria General Appearance: cooperative and well kempt HEENT normocephalic and head/scalp atraumatic Mouth: dry mucous membranes and tongue abnormal white, coated (Denies pain in his mouth or tongue.) Eyes PERRL, EOMs intact bilaterally, conjunctivae normal and no scleral icterus Eyes Narrative: No discharge from the eyes and no mattering of the eyelashes. Neck supple, thyroid normal, No nodes and no carotid bruits Neck Narrative: Having some neck discomfort with rotation Chest Chest: symmetrical chest wall rise Resp Resp Narrative: Diminished in the bases. No wheezes, no crackles. No cough with deep breathing. Not tachypneic, no labored respirations. Cardio regular rate, regular rhythm, S1 normal heart sound, S2 normal heart sound, no murmurs, no rub and no gallops Cardio Narrative: No ectopy Bruits: Negative for carotid bruit GI normal to inspection, nondistended, normoactive bowel sounds, soft to palpation and non-tender GI Narrative: No guarding with palpation no CVA tenderness Extremity no calf tenderness and no pedal edema Skin no jaundice Skin Narrative: Dry skin, especially over the lower extremities. Rashes: no rashes Neuro oriented x3 Neuro Narrative: No visual field cuts. Left facial droop. Decreased sensation left face, left arm and left leg. No ataxia. No extinction. No aphasia. Severe dysarthria. No trouble naming objects and no trouble repeating words or reading sentences. Weakness in both lower extremities, left greater than right. 4+ strength in the right upper extremity but weak in the left upper extremity. He has drift with the left upper extremity but it does not hit the bed. He has drift with the left lower extremity and it almost hit the bed but did not. He is appropriate and recognize me from his admission for stroke to the rehab unit in 2020. 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 Results Lab / Micro Data 02/15/24 04:12 02/15/24 04:12 Assessment & Plan Assessment/Plan (1) Debility: (2) Acute stroke due to ischemia: (3) Cognitive dysfunction: PLAN: This may be chronic, due to chronic alcohol abuse (4) Left-sided weakness: (5) Dysarthria: PLAN: severe (6) Dysphagia: QUALIFIERS: Dysphagia type: unspecified Qualified Code(s): R13.10 - Dysphagia, unspecified PLAN: Severe. Await eval by ST tomorrow. 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 Has been known to drink 20-30 beers a day (16) Vitamin B12 deficiency: PLAN: Plan PLAN PT for gait stability OT for ADL's ST for evaluation Analgesics as needed Bowel protocol Fall precautions Assess for Anxiety/Depression GI prophylaxis -not currently on GI prophylaxis. Denies epigastric pain, heart and nausea. DVT prophylaxis with Lovenox 40 mg subcu daily Follow up with PCP, neurology following DC from [facility] AM lab including CMP, CBC, Mag and Phos ordered May need a PEG.......will discuss with ST after she sees him tomorrow. If able to swallow will order thiamine and folic acid. will need a better evaluation of the carotids. Will get a carotid Us and depending on the results consult Dr. Cortes. Alcohol cessation counseling given. Obtained history from his Ray Charges/Coding Visit Charges Inpatient E&M: 71321 Init Hosp L3
[2024-02-14 14:43] VITALS: BMI 23.6
[2024-02-14 15:00] VITALS: BP 92/61; PULSE 70; RESP 20; TEMP 36.6; O2SAT 97
[2024-02-14 17:45] VITALS: BP 143/47; PULSE 68; RESP 18; TEMP 37.1; O2SAT 95
[2024-02-14] MEDS: Senna/Docusate Sodium 1 Tablet 2 TABLET PO (21:26)
[2024-02-14 21:45] LABS: Mucous, Urine 0 SEEN /hpf (<or=2+); Squamous Epithelial Cells - UA 0 SEEN /hpf (0-5)
[2024-02-14 21:47] LABS: Color, Urine Straw (Yellow); Glucose, Dipstick Normal (Normal); Ketone-Dipstick Negative (Negative); Leukocyte Esterase-Dipstick 500 /ul (Negative); Nitrite-Dipstick Negative (Negative); Occult Blood-Urine 250 /ul (Negative); Protein-Dipstick 100 mg/dl (Negative); Specific Gravity, Urine 1.015 (1.002-1.030); Urine Clarity Sl. Cloudy (Clear); Urine Urobilinogen 1 mg/dl (Normal)
[2024-02-14 21:50] LABS: Urine Bilirubin Dipstick 1 mg/dL (Negative)
[2024-02-14 22:06] LABS: Red Blood Cells-Urine > 100 SEEN /hpf (0-5)
[2024-02-14 22:07] LABS: Bacteria 1+ /hpf (None Seen); Hyaline Cast 0-5 SEEN /lpf (0-5); White Blood Cells 25-50 SEEN /hpf (0-5)
--- NOTE | 2024-02-14 23:50 | NURSING ---
[address] Mcbride to verify home medications. Waiting for response
[2024-02-15] VITALS (13 sets, daily range): BP systolic 92–161; BP diastolic 61–94; PULSE 70–77; RESP 16–19; TEMP 36.1–37.1; O2SAT 94–98; BMI 23.6
[2024-02-15 05:21] LABS: Absolute Lymphocyte Count 1.12 X10^3/uL (0.83-4.51); Basophil# 0.03 X10^3/uL; Basophil% 0.4 % (0-1); Eosinophil# 0.12 X10^3/uL; Eosinophils% 1.7 % (0-5); Hematocrit 42.7 % (40-54); Hemoglobin 14.5 g/dL (13.0-16.5); Lymphocyte # 1.12 X10^3/ul (0.83-4.51); Lymphocyte % 15.5 % (19-41); Mean Corpuscular Volume 91.4 fL (80-94); Mean Platelet Vol. 9.8 fl (6.2-12.0); Monocyte# 0.92 X10^3/uL; Monocyte% 12.7 % (0-10); NRBC Flagged by Analyzer 0 % (0-5); Neutrophil # 5.01 X10^3/uL (2.7-7.7); Neutrophil % 69.3 % (47-70); Platelet Count 257 K/mm3 (150-450); RBC Distribution Width CV 12.4 % (11.6-14.6); RBC Distribution Width SD 41.3 fl (35.1-43.9); Red Blood Count 4.67 M/mm3 (4.6-6.2); White Blood Count 7.2 K/mm3 (4.4-11.0)
[2024-02-15] MEDS: Menthol/Lanolin/Calamine/Znox 113 GM Tube 1 APPLIC TOPICAL ×3 (05:40→22:15)
[2024-02-15] MEDS: 0.9% Saline Lock 10 ML Syringe IV (05:40)
[2024-02-15 05:51] LABS: ALB/GLOB Ratio 0.8 RATIO (0.9-2.4); AST(SGOT) 13 U/L (15-37); Alanine Aminotransfer ALT/SGPT 18 U/L (16-61); Albumin, Serum 2.9 g/dL (3.2-5.0); Alkaline Phosphatase 78 U/L (45-117); Anion Gap 7 (5-15); BUN 13 mg/dL (7-18); BUN/Creat Ratio 14.5 RATIO (10-20); Calcium,Total 9.4 mg/dL (8.5-10.1); Chloride 100 mmol/L (98-107); Creatinine, Serum 0.89 mg/dL (0.70-1.30); EST Glomerular Filtration Rate 88 mL/min (>60); Est Glom Filt Rate - Afr Amer 106 mL/min (>60); Estimated Creatinine Clearance 72.91 ml/min; Globulin 3.7 g/dL (2.2-4.2); Glucose 115 mg/dL (74-106); Magnesium 1.5 mg/dL (1.6-2.6); Phosphorus 3.3 mg/dL (2.5-4.9); Potassium 3.1 mmol/L (3.5-5.1); Protein, Total 6.6 g/dL (6.4-8.2); Sodium Level 132 mmol/L (136-145)
--- NOTE | 2024-02-15 07:28 | NURSING ---
Patient noted with increased coughing this am when drinking water. Clears throat on own. Dayshift RN aware to notify ST.
--- NOTE | 2024-02-15 07:35 | NURSING ---
Dr. Mcbride phones and is updated on positive UA results with culture pending and right hip being bruised and edematous. New order for imaging received.
[2024-02-15] MEDS: Clopidogrel Bisulfate 75 MG Tablet PO (08:17)
[2024-02-15] MEDS: Aspirin 81 MG TAB.CHEW PO (08:17)
[2024-02-15] MEDS: Enoxaparin 40 MG/0.4 ML Syringe SC (08:17)
[2024-02-15] MEDS: Metoprolol Tartrate 50 MG Tablet PO (08:17)
[2024-02-15] MEDS: Potassium Chloride Oral Tablet 10 MEQ PO (08:17)
[2024-02-15] MEDS: Senna/Docusate Sodium 1 Tablet 2 TABLET PO (08:18)
--- NOTE | 2024-02-15 08:38 | RAD_ITS ---
INDICATION: bruising and swelling of right hip EXAMINATION/TECHNIQUE: X-RAY - XR Hip Unilateral with Pelvis when performed; 2-3 Views COMPARISON: No relevant prior comparison study available FINDINGS: PELVIC BONES: No displaced fracture, destructive or sclerotic lesions. Significant amount of contrast in the colon including diverticulitis somewhat obscuring the bony structures of the pelvis and symphysis pubis. Radiation seeds in the region of the prostate. No widening of the pubic symphysis. HIPS: Mild narrowing of the hip joints. No displaced fracture seen in this frontal view. SOFT TISSUES: Vascular calcifications. RAD/HIP, UNI W/ Pelvis 2-3 Views IMPRESSION: No evidence of displaced pelvic or hip fracture. Electronically Signed: Trey Cage MD at 16:27 EST ,
--- NOTE | 2024-02-15 09:29 | PN_ITS ---
Subjective Subjective Afebrile VSS - Maintaining appropriate oxygen saturation on RA Oral intake - FOOD poor FLUIDS poor.......... swallowing dysfunction is severe. Discussed with speech therapy today after he was seen and she is recommending n.p.o. and PEG tube placement. Discussed with nursing -nursing mentioned that his right hip is bruised and appears to be swollen and he has had no imaging. He did fall prior to presentation to the emergency department. X-rays have been ordered. Reviewed the THERAPY notes Medication list reviewed. All lab drawn this morning was personally reviewed. CBC is within normal limits. The sodium is low at 132 and potassium is low at 3.1. BUN is 13 with a creatinine of 0.89. Magnesium is low at 1.5. Total bilirubin is increased at 1.3 but the remainder of the LFTs are within normal limits. Urine had greater than 100 RBCs per high-power field and 25-50 WBCs. It was nitrite negative. There was 1+ bacteria and 0-5 hyaline casts. A urine culture was sent. He had a cardiology evaluation with stress test in 2019 following discharge from rehab for a stroke and stress test was negative for ischemia. A 30-day event monitor was negative for atrial fibrillation. I spoke with Jakub's again today. He has been declining at home. Poor food intake and poor water intake, mostly just survives on beer. Memory has been declining......she has not noticed a rapid decline but, her son visited and had not seen Jakub in a while and he noticed a big decline in memory and thought processing. Jakub has been getting agitated at times at home as well and this has never been a problem until recently. His exercise tolerance and strength have been waning. Gets SOB with walking up an incline. Objective Data Objective Data Vital Signs: Vital Signs Temp Pulse Resp BP Pulse Ox O2 Del Method 97.4 F L 77 16 126/72 H 94 Room Air 02/15/24 06:00 02/15/24 08:17 02/15/24 06:00 02/15/24 06:00 02/15/24 07:36 02/15/24 07:36 Oxygen Delivery Method Room Air Weight: 164 lb 8 oz Body Mass Index (BMI) 23.6 Intake & Output: Intake and Output for Last 24 Hours 02/13/24 02/14/24 02/15/24 23:59 23:59 23:59 Intake Total 600 / 600 315 / 315 Output Total 500 / 500 300 / 300 Balance 100 / 100 Lab / Micro Data 02/15/24 04:12 02/15/24 04:12 Labs: Laboratory Results - last 24 hr 02/14/24 21:15: Urine Color Straw, Urine Clarity Sl. Cloudy, Urine pH 6.0, Ur Specific [place] 1.015, Urine Protein 100 H, Urine Glucose (UA) Normal, Urine Ketones Negative, Urine Occult Blood 250 H, Urine Nitrite Negative, Urine Bilirubin 1 H, Urine Urobilinogen 1 H, Ur Leukocyte Esterase 500 H, Urine RBC > 100 SEEN, Urine WBC 25-50 SEEN, Ur Squamous Epith Cells 0 SEEN, Urine Bacteria 1+, Hyaline Casts 0-5 SEEN, Urine Mucus 0 SEEN 02/15/24 04:12: WBC 7.2, RBC 4.67, Hgb 14.5, Hct 42.7, MCV 91.4, MCH 31.0, MCHC 34.0, RDW Std Deviation 41.3, RDW Coeff of Denae 12.4, Plt Count 257, MPV 9.8, Immature Gran % (Auto) 0.400, Neut % (Auto) 69.3, Lymph % (Auto) 15.5 L, Hitchcock % (Auto) 12.7 H, Eos % (Auto) 1.7, Baso % (Auto) 0.4, Absolute Neuts (auto) 5.0, Absolute Lymphs (auto) 1.12, Nucleated RBC % 0, Sodium 132 L, Potassium 3.1 L, Chloride 100, Carbon Dioxide 25.0, Anion Gap 7, BUN 13, Creatinine 0.89, Estim Creat Clear Calc 72.91, Est GFR (MDRD) Af Amer 106, Est GFR (MDRD) Non-Af 88, BUN/Creatinine Ratio 14.5, Glucose 115 H, Calcium 9.4, Phosphorus 3.3, Magnesium 1.5 L, Total Bilirubin 1.30 H, AST 13 L, ALT 18, Alkaline Phosphatase 78, Total Protein 6.6, Albumin 2.9 L, Globulin 3.7, Albumin/Globulin Ratio 0.8 L Physical Exam Const alert Constitutional Narrative: severe dysarthria persists. Can not retain information and keeps asking me the same questions over and over, can not remember what I have told him. No agitation. General Appearance: cooperative HEENT Mouth: dry mucous membranes Resp normal respiratory effort and clear to auscultation bilaterally Effort and Inspection: Negative for tachypneic or labored Cardio regular rate, regular rhythm and no gallops Cardio Narrative: No ectopy GI normal to inspection, nondistended, normoactive bowel sounds, soft to palpation and non-tender GI Narrative: No guarding with palpation Extremity no calf tenderness Extremity Narrative: Varicosities of both lower extremities. General Extremity: Negative for edema Skin Rashes: no rashes Psych Psych Narrative: Pleasant tells me he is not motivated to do much except drink beer. Attitude: No agitated Assessment & Plan Assessment/Plan (1) Debility: (2) Acute stroke due to ischemia: (3) Cognitive dysfunction: (4) Left-sided weakness: (5) Dysarthria: (6) Dysphagia: QUALIFIERS: Dysphagia type: unspecified Qualified Code(s): R13.10 - Dysphagia, unspecified (7) Hypomagnesemia: (8) Hypokalemia: (9) Hyponatremia: (10) Dehydration: (11) Hypertension: QUALIFIERS: Hypertension type: essential hypertension Qualified Code(s): I10 - Essential (primary) hypertension (12) Carotid stenosis: QUALIFIERS: Laterality: bilateral Qualified Code(s): I65.23 - Occlusion and stenosis of bilateral carotid arteries (13) Diastolic dysfunction: (14) Biatrial enlargement: (15) Alcohol abuse: (16) Vitamin B12 deficiency: PLAN: Plan 1. Continue therapy 2. Magnesium chloride 128 mg twice daily 3. 40 mEq of potassium chloride now and then 20 mEq twice daily x 3 doses. 4. Recheck lab Sunday 5. He is afebrile with a normal white blood cell count. Will await the results of the urine culture prior to starting any antibiotic. 6. Order a carotid ultrasound to better evaluate the degree of stenosis in the bilateral carotid arteries. If indeed stenosis is greater than 70% will need to consult Dr. Cortes. 7. Obtain records from Dr. Lukas Solis for a consult done in 2019 following his first stroke. 8. consult GI for a PEG. NPO for now. Recheck lab after PEG and may need to order IV MAG and KCL. 9. Start LR. It seems as though he has been declining even prior to this stroke. I am suspicious he may have an element of Wernicke's encephalopathy. Will order IV thiamine for now and start Per PEG when it is ready to use. Pt is not competent to give permission for PEG. I D/W his and she is agreeable to PEG. Charges/Coding Visit Charges Inpatient E&M: 06071 Subs Hosp L2
--- NOTE | 2024-02-15 09:29 | REHABEVAL_ITS ---
Admission Information Primary Diagnosis:: Post stroke debility Risk of Complications DVT: LMWH and JOHN Hose Bleeding: Monitor Lab Values, Nursing to Teach Precautions for anti-coagulation therapy., Wound, if applicable, to be assessed every shift. and Stroke patients assessed for lethargy or change in status. Infection: Clinical Staff to Monitor for S/S of infection: and S/S of infection include fever, redness, warmth, etc. Urinary Tract Infection: Monitor for frequency, burning, discomfort, or incontinence. and Nursing will obtain urine sample for urinalysis and C&S when ordered. Aspiration: Clinical staff will monitor for coughing, drooling, congestion., Speech will evaluate swallowing and dsyphasia. and Nursing will monitor patient swallowing during meals. Falls: Patient will be evaluated for Fall Precautions and Patient will be placed on Fall Precautions as indicated per protocol. Skin Breakdown: Nursing will assess skin daily using assessment tool. and Nursing will place on Skin Breakdown Precautions as indicated. Pain: Clinical staff will assess patient's pain level per protocol., Medications will be given, if needed, and the pain level reassessed. and Other methods: Massage, distraction, decrease stimulus, etc. used PRN. Plan of Care Patient requires physician specializing in physical medicine and rehab oversight to provide close medical supervision of rehab issues including: Pain Management, Sleep Problems, Bowel and Bladder, Medical and co-morbidity Management, DVT prophylaxis, Rehabilitation Leadership and Coordination of treatment team Patient needs Physical Therapy: For a minimum of 1 hour and At least 5 out of 7 days Patient needs Physical Therapy to improve:: Mobility, Strengthening, Transfers, Stretching, ROM, Endurance, Stairs, Gait and Balance Patient needs Occupational Therapy: For a minimum of 1 hour and At least 5 out of 7 days Patient needs Occupational Therapy to improve ADL's incl.: Eating, Grooming, Bathing, Dressing, Toileting, Toilet transfers, Community Reintegration, Higher functioning activities, Household tasks, Adaptive Equipment, Splinting and Other activities as determined Patient requires speech therapy: For a minimum of 1 hour and At least 5 out of 7 days Patient requires speech therapy for: Swallowing, Cognition, Language Skills and Compensatory Strategies Patient requires 24/7 Rehabilitation Nursing for: Pain Issues, Identifying and preventing risk factors, Monitoring and reporting current medical conditions, Assisting with ambulation, transfer, and all ADL's, Teaching patients about disease process and medications, Family teaching, Providing safe environment, Bowel and Bladder Issues, Skin integrity and Medication Management Patient needs Testing And Regulating Technician/ Case Management for: Discharge Planning, Arranging Home Equipment or Services and Family Interventions Patient needs Dietary and Nutrition Services for: Adequate Nutrition, Nutritional Supplements and Nutritional Education Goals Goals Patient will remain: free from falls Patient will perform eating at: MOD I level of assist. Patient will perform bed mobility at: MOD I level of assist. Patient will complete transfers from bed to chair at: - (Supervision) Patient will ambulate: - (350 feet with least restrictive device and standby assist on various surfaces) Patient will complete upper body dressing at: - (Set up) Patient will complete lower body dressing at: - (Supervision with adaptive equipment as needed.) Patient will complete toilet transfer at: - (Supervision) Patient will complete toileting at: - (Supervision) Patient will perform bathing at: - (Upper body bathing at set up and lower body bathing at standby assist with adaptive equipment as needed.) Patient will perform Tub/Shower transfer at: - (Supervision) Patient will complete grooming at: Standby Assist. Patient will achieve: - (4 steps with 2 handrails at standby assist) Patient will have pain level of: of 3 or less Patient's skin will: remain intact Patient will receive: adequate nutrition. Discharge Planning Pt Prognosis for Sig. Practical Improv. w/in Reasonable Time: Fair Estimated Length of stay (days): 21 Anticipated D/C Destination: TBD Was Preadmission Assessment Accurate?: Yes
[2024-02-15 10:06] LABS: Urine Sodium 11 mmol/L (Not Establ.)
[2024-02-15 10:07] LABS: Osmolality, Urine 536 mOsm/KG
[2024-02-15 10:07] LABS: Osmolality, Serum 273 mOsm/KG (280-301)
[2024-02-15] MEDS: Potassium Chloride Oral Tablet 20 MEQ 40 MEQ PO (10:12)
[2024-02-15] MEDS: Ergocalciferol 1.25 MG (50, 000 UNIT) Capsule PO (10:12)
[2024-02-15] MEDS: Magnesium Chloride 64 MG Delay Rel.Tablet 128 MG PO (10:12)
--- NOTE | 2024-02-15 10:24 | CDU_ITS ---
Reason For Study: Carotid Stenosis, CVA Rt. Velocities/BP Lt. Velocities/BP Prox CCA 63/9 cm/sec. Prox CCA 133/23 cm/sec. Mid CCA 69/13 cm/sec. Mid CCA 138/18 cm/sec. Dist CCA 65/11 cm/sec. Dist CCA 106/13 cm/sec. Prox ICA 80/8 cm/sec. Prox ICA 147/23 cm/sec. Mid ICA 63/13 cm/sec. Mid ICA 70/16 cm/sec. Dist ICA 70/17 cm/sec. Dist ICA 76/22 cm/sec. Rt. ICA/CCA = 1.2. Lt. ICA/CCA = 1.1. Prox ECA 96/12 cm/sec. Prox ECA 124/14 cm/sec. Rt. Vert. 52/8 cm/sec. Lt. Vert. 56/12 cm/sec. Right Extracranial There is heterogeneous, irregular atherosclerotic plaque noted in the right common carotid artery. There is heterogeneous, irregular atherosclerotic plaque noted in the right internal carotid artery. There is heterogeneous, irregular atherosclerotic plaque noted in the right external carotid artery. Antegrade flow is noted in the right vertebral artery. Left Extracranial There is heterogeneous, irregular atherosclerotic plaque noted in the left common carotid artery. There is heterogeneous, irregular atherosclerotic plaque noted in the left internal carotid artery. The atherosclerotic plaque causes acoustic shadowing. There is heterogeneous, irregular atherosclerotic plaque noted in the left external carotid artery. Antegrade flow is noted in the left vertebral artery. Procedure Carotid Duplex [id number]. This is a Carotid Duplex examination using B-mode, color flow and specral Doppler. Exam performed portable in patient room. VL/Carotid Duplex Ultrasound Interpretation Summary Mild (<50%) stenosis right extracranial internal carotid. Moderate (50-69%) stenosis left extracranial internal carotid. Patent and antegrade vertebrals bilaterally. Ordering Physician: Allison Mcbride Referring Physician: Gabi Alexis Performed By: Roof, Celestina, RDCS, RVT
--- NOTE | 2024-02-15 10:45 | CASEMGMT ---
SW requested pt to have provide copies of advanced directives. Carla Kurtz, BRIG[employer]ECTIVE [employer]
[2024-02-15] MEDS: Lactated Ringers 1,000 ML 75 ML IV (14:43)
[2024-02-15] MEDS: Thiamine Hydrochloride 100 MG in 0.9% Normal Saline (50mL Bag) 50 ML 200 MG IV (15:35)
--- NOTE | 2024-02-15 17:25 | PCM.PRE.AN2 ---
ASA Classification* ASA Classification ASA Classification: 3 Assessment & Plan Anesthesia* Anesthesia Assessment Anesthesia Assessment: Discussed sedation and/or anesthesia options, risks, benefits, and alternatives with patient/parents/legal guardian/POA. Questions invited. The patient/parents/legal guardian/POA seems to understand and agrees to proceed with anesthesia plan. Reviewed the physical assessment, medical history, allergy history and patient home medications list prior to surgery/procedure/anesthetic and documented any changes. Performed airway and anesthesia risk assessments. Anesthesia Type Anesthesia Type: MAC History Source History Obtained from:: Patient and Chart Anesthesia Focused Assessment* Temperature: 97.3 F Pulse Rate: 70 Blood Pressure: 161/85 Respiratory Rate: 16 Pulse Ox: 96 Oxygen Delivery Method: Room Air Airway Assessment Mouth opens: >3 cm Mallampati Score: II Teeth Condition: Dentures (Patient has a permanent bridge on the left upper jaw.) Neck Range of motion (ROM): Limited ROM (somewhat decreased extension) Focused Labs Anesthesia Preop lab: CBC WBC 7.2 K/mm3 (4.4-11.0) 02/15/24 04:12 RBC 4.67 M/mm3 (4.6-6.2) 02/15/24 04:12 Hgb 14.5 g/dL (13.0-16.5) 02/15/24 04:12 Hct 42.7 % (40-54) 02/15/24 04:12 Plt Count 257 K/mm3 (150-450) 02/15/24 04:12 CHEMISTRY Potassium 3.1 mmol/L (3.5-5.1) L 02/15/24 04:12 Sodium 132 mmol/L (136-145) L 02/15/24 04:12 Magnesium 1.5 mg/dL (1.6-2.6) L 02/15/24 04:12 Phosphorus 3.3 mg/dL (2.5-4.9) 02/15/24 04:12 BUN 13 mg/dL (7-18) 02/15/24 04:12 Creatinine 0.89 mg/dL (0.70-1.30) 02/15/24 04:12 Glucose 115 mg/dL (74-106) H 02/15/24 04:12 TSH 2.35 uIU/mL (0.358-3.74) 12/02/19 05:40 COAG PT 13.7 SECONDS (11.7-14.9) 02/12/24 08:46 Pre-Assessment Diagnosis/Proposed Procedure Planned Operative Procedure(s): Esophagogastroduodenoscopy. PEG tube placement. 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 When Was Last Pacemaker Check QUESTION #4 FULL TEXT: You/Your Family Experience fever (hyperthermia) with Anesthesia Last Oral Intake Last Oral intake: Last Oral Intake NPO since Meds taken in AM with sips of water? Meds patient instructed to take am of surgery Any additional information?: Yes NPO since: 12:00 (Patient had part of his lunch at 12:00 noon.) PONV PONV - territory account manager: PONV - territory account manager Female HX of Motion Sickness HX of N/V After Surgery Non-Smoker Duration of Surgery greater than 60 minutes Number of Risk Factors PONV Score Height & Weight Height & Weight: Anesthesia: Height & Weight Height 5 ft 10 in 02/15/24 11:01 Weight: 74.616 kg 02/15/24 11:01 Body Mass Index (BMI) 23.6 02/15/24 11:15 Respiratory Assessment Respiratory Assessment - territory account manager: Respiratory Tract Infection Hx - territory account manager Hx Respiratory Tract Infection Any additional information?: Yes Hx Respiratory Tract Infection: No STOP Sleep Apnea STOP Sleep Apnea - territory account manager: STOP Sleep Apnea - territory account manager Hx Hypertension Yes 02/15/24 11:15 Hx Sleep Apnea No 02/14/24 14:43 CPAP BIPAP Do you snore loudly (louder No 02/14/24 14:43 than talking or can be heard Do you often feel tired/ No 02/14/24 14:43 fatigued/ sleepy during daytime? Has anyone observed you stop No 02/14/24 14:43 breathing during sleep? STOP Results Negative 02/14/24 14:43 QUESTION #5 FULL TEXT : Do you snore loudly (louder than talking or can be heard through closed doors)? 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 Specify any problems Hx of Preganancy in last 3 N/A 02/14/24 14:43 Months Nurse Filling Out Transfusion [id number] 02/14/24 14:43 & Questions: Date: 02/14/24 02/14/24 14:43 Time: 14:48 02/14/24 14:43 Patient unable to answer at this time (ie. confused, unrespo /Reproduction History /Reproductive History - territory account manager: /Reproductive Hx- territory account manager Hx Now Gestational Age (in weeks): EDC: Hx Hx Para Hx Section SAB Active Medications Active Medications: Current Medications Generic Name Dose Route Start Last Admin Trade Name Freq PRN Reason Stop Dose Admin Acetaminophen 650 mg 02/15/24 07:19 Acetaminophen 325 Mg Tablet PO X1 PRN Temp > 99.6 F Aspirin 81 mg 02/15/24 08:00 02/15/24 08:17 Aspirin 81 Mg Tab.Chew PO 81 mg BREAKFAST JESUS Administration Atorvastatin Calcium 80 mg 02/15/24 22:00 Atorvastatin Calcium 80 Mg Tablet PO QHS JESUS Bisacodyl 10 mg 02/14/24 14:35 Bisacodyl 10 Mg Suppository RC X1 PRN Constipation Calamine/Phenol 1 applic 02/15/24 06:00 02/15/24 14:44 Menthol/Lanolin/Calamine/Znox 113 Gm Tube TOPICAL 1 applic TID JESUS Administration Protocol Clopidogrel Bisulfate 75 mg 02/15/24 10:00 02/15/24 08:17 Clopidogrel Bisulfate 75 Mg Tablet PO 75 mg DAILY JESUS Administration Enoxaparin Sodium 40 mg 02/15/24 10:00 02/15/24 08:17 Enoxaparin 40 Mg/0.4 Ml Syringe SC 40 mg DAILY JESUS Administration Ergocalciferol 1.25 mg 02/15/24 10:00 02/15/24 10:12 Ergocalciferol 1.25 Mg (50, 000 Unit) Capsule PO 1.25 mg Q14D JESUS Administration Lactated Ringer's 1,000 mls @ 75 mls/hr 02/15/24 13:30 02/15/24 14:43 IV 02/17/24 05:29 75 mls/hr .[id number] JESUS Administration Protocol Thiamine HCl 100 mg/ Sodium 51 mls @ 200 mls/hr 02/15/24 15:10 02/15/24 15:51 Chloride IV Infused DAILY JESUS Infusion Magnesium Chloride 128 mg 02/15/24 10:00 02/15/24 10:12 Magnesium Chloride 64 Mg Delay Rel.Tablet PO 128 mg BID JESUS Administration Magnesium Hydroxide 30 ml 02/14/24 14:35 Magnesium Hydroxide 30 Ml Udc PO X1 PRN Constipation Metoprolol Tartrate 50 mg 02/15/24 10:00 02/15/24 08:17 Metoprolol Tartrate 50 Mg Tablet PO 50 mg BID JESUS Administration Protocol Potassium Chloride 20 meq 02/15/24 17:00 02/15/24 16:35 Potassium Chloride Oral Tablet 20 Meq PO 02/16/24 17:01 Not Given BIDCM JESUS Senna/Docusate Sodium 2 tablet 02/14/24 22:00 02/15/24 08:18 Senna/Docusate Sodium 1 Tablet PO 2 tablet BID JESUS Administration Sodium Chloride 10 - 40 ml 02/14/24 23:54 02/15/24 05:40 0.9% Saline Lock 10 Ml Syringe IV 20 ml UD PRN Administration SALINE FLUSH Tamsulosin HCl 0.4 mg 02/15/24 17:30 02/15/24 16:35 Tamsulosin Hcl 0.4 Mg Capsule PO Not Given DAILY@1730 [facility] Medical History Alcohol abuse Dehydration Carotid stenosis Cognitive dysfunction Vertigo Left carotid stenosis Biatrial enlargement Diastolic dysfunction Hypokalemia Hyponatremia History of prostate cancer Venous insufficiency Vitamin B12 deficiency BPH (benign prostatic hyperplasia) Hypertension Home Medications ?Medication ?Instructions ?Recorded ?Last Taken ?Type clopidogrel 75 mg tablet 75 mg PO DAILY blood thinner #30 12/05/19 02/14/24 Rx tabs potassium chloride 10 mEq 10 meq PO DAILY supplement 01/29/20 Unknown History capsule,extended release tamsulosin 0.4 mg capsule 0.4 mg PO DAILY prostate 01/29/20 02/13/24 History cholecalciferol (vitamin D3) 1,250 1,250 mcg PO .q2week supplement 02/12/24 Unknown History mcg (50,000 unit) capsule acetaminophen 325 mg tablet 650 mg (2 x 325 mg) PO X1 PRN Temp 02/14/24 Unknown Rx > 99.6 F #0 tabs aspirin 81 mg chewable tablet 81 mg PO BREAKFAST Heart health #0 02/14/24 02/14/24 Rx tabs atorvastatin 80 mg tablet 80 mg PO QHS Cholestrol #0 tabs 02/14/24 Unknown Rx enoxaparin 40 mg/0.4 mL 40 mg (0.4 mL) subcut DAILY Blood 02/14/24 Unknown Rx subcutaneous syringe (Lovenox) thinner #4 mL metoprolol tartrate 50 mg tablet 50 mg PO BID BP #14 tabs 02/14/24 Unknown Rx Allergy/AdvReac Type Severity Reaction Status Date / Time Iodinated Contrast Media Allergy Hives Verified 02/13/24 11:20 (CONTRASTS) Family History Father Heart disease Cancer Surgical History History of vein stripping History of appendectomy History of tonsillectomy History of bilateral cataract extraction Social History Smoking Status: Former smoker alcohol intake: current details: 10+ beers daily Review of Systems (Anesthesia) ROS Narrative System reviewed and no additional complaints, except as documented.
--- NOTE | 2024-02-15 17:40 | CON.PCM.GI_ITS ---
HPI Consult Data Date of Consult: 02/15/24 HPI Narrative Reason for Consultation: Dysphagia HPI Narrative: BRANDEE CLIFTON, is a 78-year-old who presented to the emergency department hospital on 02/12/2024 ffrom work secondary to left-sided weakness and speech difficulties. Evidently, at about 7:58 AM on the day of presentation he noted to colleagues that he felt like he was going to pass out and then had acute onset left-sided weakness and speech difficulties. Upon arrival to the emergency department he was noted to be aphasic. Stroke team was called and he underwent a CTA of the brain which was unremarkable and a CTA of the head and neck which showed greater than 70% stenosis in bilateral carotid arteries. He was evaluated by the stroke neurologist at [facility] and deemed a candidate for TNK which she received in the emergency department. It was documented that he is not consistently taking his blood pressure medication or his Plavix. He was not on aspirin at baseline. Vital signs on presentation showed a temperature of 36.8, heart rate 70, blood pressure 133/61, respiratory 14 and pulse ox was 98% on room air. His CBC was unremarkable. Coags were normal. Chemistry panel showed hyponatremia at 126 which since has improved to 135 and mild hyperglycemia with a blood sugar of 143. Initial troponin was 84. Lipids were obtained and found to be total cholesterol 160/LDL 59/HDL 91/and triglycerides 51. Patient is reportedly a fairly heavy drinker and drinks about 10 beers a day, fortunately he has had no withdrawal issues since admission. He was admitted to the intensive care unit post tenecteplase. Antiplatelet therapy was held on admission due to tenecteplase dosing. Echocardiogram was done on 02/12/2024 and showed an EF of 70% with stage I diastolic dysfunction and no documented PFO or ASD. Valves all appear to be normal. 24 hours after tenecteplase dosing he was started on Plavix and we also initiated aspirin. MRI was performed on 02/13/2024 and showed an acute lacunar type infarct involving the superior portion of the right external capsule and chronic senescent changes. He is evaluated by neurology and they recommended ongoing dual antiplatelet therapy, continued therapy services, goal LDL less than 70 and long-term blood pressure goal less than 130/80. His blood pressure was well-controlled while he was hospitalized and we did change his metoprolol to 50 twice daily and discontinued his valsartan. He was seen by speech therapy and diagnosed with moderate oropharyngeal dysphagia related to his stroke. Regular textures that are easy to chew and thin liquids were recommended with compensatory strategies to include small bites, small sips, slow rate, sitting upright and remaining upright for 30 minutes after p.o. intake as well as one-on-one close supervision while eating. I was asked to see him the day because his swallowing became progressively worse to the point where he was choking on solid foods and aspirating liquids .. [facility] Medical History (Updated 02/15/24 @ 17:[address] Jo Friend, DO) Dysphagia Alcohol abuse Dehydration Carotid stenosis Cognitive dysfunction Vertigo Left carotid stenosis Biatrial enlargement Diastolic dysfunction Hypokalemia Hyponatremia History of prostate cancer Venous insufficiency Vitamin B12 deficiency BPH (benign prostatic hyperplasia) Hypertension Home Medications ?Medication ?Instructions ?Recorded ?Last Taken ?Type clopidogrel 75 mg tablet 75 mg PO DAILY blood thinner #30 12/05/19 02/14/24 Rx tabs potassium chloride 10 mEq 10 meq PO DAILY supplement 01/29/20 Unknown History capsule,extended release tamsulosin 0.4 mg capsule 0.4 mg PO DAILY prostate 01/29/20 02/13/24 History cholecalciferol (vitamin D3) 1,250 1,250 mcg PO .q2week supplement 02/12/24 Unknown History mcg (50,000 unit) capsule acetaminophen 325 mg tablet 650 mg (2 x 325 mg) PO X1 PRN Temp 02/14/24 Unknown Rx > 99.6 F #0 tabs aspirin 81 mg chewable tablet 81 mg PO BREAKFAST Heart health #0 02/14/24 02/14/24 Rx tabs atorvastatin 80 mg tablet 80 mg PO QHS Cholestrol #0 tabs 02/14/24 Unknown Rx enoxaparin 40 mg/0.4 mL 40 mg (0.4 mL) subcut DAILY Blood 02/14/24 Unknown Rx subcutaneous syringe (Lovenox) thinner #4 mL metoprolol tartrate 50 mg tablet 50 mg PO BID BP #14 tabs 02/14/24 Unknown Rx Allergy/AdvReac Type Severity Reaction Status Date / Time Iodinated Contrast Media Allergy Hives Verified 02/13/24 11:20 (CONTRASTS) Family History Father Heart disease Cancer Surgical History History of vein stripping History of appendectomy History of tonsillectomy History of bilateral cataract extraction Social History Smoking Status: Former smoker alcohol intake: current details: 10+ beers daily ROS ROS Narrative Denies pain, SOB, dysuria, abd pain, N/V. Review of Systems ROS Unobtainable: due to mental status and other Details: Very limited due to CVA, altered mental status and severe dysarthria. Can not recall what I said to him even 1 minute later. Repeatedly asking the same questions. Physical Exam Const alert Constitutional Narrative: General Appearance: cooperative HEENT Mouth: dry mucous membranes Resp normal respiratory effort and clear to auscultation bilaterally Effort and Inspection: Negative for tachypneic or labored Cardio regular rate, regular rhythm and no gallops Cardio Narrative: No ectopy GI normal to inspection, nondistended, normoactive bowel sounds, soft to palpation and non-tender GI Narrative: No guarding with palpation Extremity no calf tenderness Extremity Narrative: Varicosities of both lower extremities. General Extremity: Negative for edema Skin Rashes: no rashes Psych Psych Narrative: Pleasant tells me he is not motivated to do much except drink beer. Attitude: No agitated Medical Records Data Medical Nutrition Assessment Dietitian: Malnutrition Criteria Met Start: 02/15/24 14:57 Freq: Status: Active Protocol: Document 02/15/24 14:58 SB (Rec: 02/15/24 14:58 SB [id number]) Nutrition Malnutrition Evidence of Malnutrition Exists Yes Evidenced By Suboptimal Energy Intake ( Severe),Weight Loss (Severe) Clinical Problem Swallowing Difficulty Etiology related to dysphagia and stroke Signs/Symptoms as evidenced by need for modified diet, report of pharyngeal residue sensation and delayed cough per SENIOR BIOSTATISTICIAN progress note. Status Active Problem Chronic Disease or Condition Related Malnutrition Etiology severe protein-calorie malnutrition related to inadequate oral intake, ETOH use, and swallowing difficulties Signs/Symptoms as evidenced by 13% unintentional weight loss x less than 6 months and PO meeting less than 75% of estimated nutrition needs x 6 months. Status Active Problem Recommendation Dietitian Recommendations/Changes Adjust to liberal regular diet d/t signs and symptoms of malnutrition per SENIOR BIOSTATISTICIAN consistency/texture recommendations. Will order 120ml vanilla ensure TID with meals. Will monitor weight, as available. Reviewed and approved by Teresa Rosa RD, LD. Lab / Micro Data 02/15/24 04:12 02/15/24 04:12 Labs: Laboratory Results - last 24 hr 02/14/24 21:15: Urine Color Straw, Urine Clarity Sl. Cloudy, Urine pH 6.0, Ur Specific [place] 1.015, Urine Protein 100 H, Urine Glucose (UA) Normal, Urine Ketones Negative, Urine Occult Blood 250 H, Urine Nitrite Negative, Urine Bilirubin 1 H, Urine Urobilinogen 1 H, Ur Leukocyte Esterase 500 H, Urine RBC > 100 SEEN, Urine WBC 25-50 SEEN, Ur Squamous Epith Cells 0 SEEN, Urine Bacteria 1+, Hyaline Casts 0-5 SEEN, Urine Mucus 0 SEEN, Urine Osmolality 536, Ur Random Sodium 11 02/15/24 04:12: WBC 7.2, RBC 4.67, Hgb 14.5, Hct 42.7, MCV 91.4, MCH 31.0, MCHC 34.0, RDW Std Deviation 41.3, RDW Coeff of Denae 12.4, Plt Count 257, MPV 9.8, Immature Gran % (Auto) 0.400, Neut % (Auto) 69.3, Lymph % (Auto) 15.5 L, [place] % (Auto) 12.7 H, Eos % (Auto) 1.7, Baso % (Auto) 0.4, Absolute Neuts (auto) 5.0, Absolute Lymphs (auto) 1.12, Nucleated RBC % 0, Sodium 132 L, Potassium 3.1 L, Chloride 100, Carbon Dioxide 25.0, Anion Gap 7, BUN 13, Creatinine 0.89, Estim Creat Clear Calc 72.91, Est GFR (MDRD) Af Amer 106, Est GFR (MDRD) Non-Af 88, BUN/Creatinine Ratio 14.5, Glucose 115 H, Serum Osmolality 273 L, Calcium 9.4, Phosphorus 3.3, Magnesium 1.5 L, Total Bilirubin 1.30 H, AST 13 L, ALT 18, Alkaline Phosphatase 78, Total Protein 6.6, Albumin 2.9 L, Globulin 3.7, A lbumin/Globulin Ratio 0.8 L Assessment & Plan Assessment/Plan (1) Dysphagia: QUALIFIERS: Dysphagia type: unspecified Qualified Code(s): R13.10 - Dysphagia, unspecified PLAN: 78-year-old gentleman with recent CVA and worsening esophageal dysphagia. Him and his agreed to undergo PEG tube placement. And also possible esophageal dilation. He was explained alternatives, risk and benefits include not withstanding bleeding, infection, sepsis, perforation, need for charge and . He will have an ASA of 3. Charges/Coding Visit Charges Inpatient E&M: 35865 Init Hosp L3
[2024-02-15] MEDS: Cefazolin 2 GM in Syringe IV (17:50)
--- NOTE | 2024-02-15 18:37 | OP.CCLET_ITS ---
02/15/2024 Gabi Alexis Md Re : Upper GI endoscopy procedure for Jered Riveravictor m Alexis This procedure was performed on Thursday, February 15, 2024. 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 - Acute gastritis with hemorrhage. Treated with argon plasma coagulation (APC). - No gross lesions in the first portion of the duodenum. - An endoscopically removable PEG placement was successfully completed. - No specimens collected. Recommendations : - Return patient to [facility] care. - Resume previous diet. - Continue present medications. My findings are described in the full procedure note, which is enclosed. If I can be of further assistance, please feel free to contact me at . Sincerely, Sandro Friend, 02/15/2024 6:37:15 PM This report has been signed electronically.
--- NOTE | 2024-02-15 18:37 | OP.EGD_ITS ---
Patient Name: Jered Ayala Procedure Date: 02/15/2024 5:40 PM Date of : 1945 Age: 78 Procedure: Upper GI endoscopy Indications: Dysphagia Providers: Sandro Chan DO Referring MD: Jeffrey Mcbride Medicines: Monitored Anesthesia Care Patient Profile: This is a 78 year old male. Refer to note in patient chart for documentation of history and physical. Patient has symptoms of dysphagia with both liquids and solids. Complications: No immediate complications. Procedure: Pre-Anesthesia Assessment: - Prior to the procedure, a History and Physical was performed, and patient medications and allergies were reviewed. The patient is competent. The risks and benefits of the procedure and the sedation options and risks were discussed with the patient. All questions were answered and informed consent was obtained. Patient identification and proposed procedure were verified by the physician in the pre-procedure area. Mental Status Examination: alert and oriented. Airway Examination: normal oropharyngeal airway and neck mobility. Respiratory Examination: clear to auscultation. CV Examination: normal. Prophylactic Antibiotics: The patient does not require prophylactic antibiotics. Prior Anticoagulants: The patient has taken no anticoagulant or antiplatelet agents except for NSAID medication. ASA Grade Assessment: II - A patient with mild systemic disease. After reviewing the risks and benefits, the patient was deemed in satisfactory condition to undergo the procedure. The anesthesia plan was to use monitored anesthesia care (MAC). Immediately prior to administration of medications, the patient was re-assessed for adequacy to receive sedatives. The heart rate, respiratory rate, oxygen saturations, blood pressure, adequacy of pulmonary ventilation, and response to care were monitored throughout the procedure. The physical status of the patient was re-assessed after the procedure. After obtaining informed consent, the endoscope was passed under direct vision. Throughout the procedure, the patient's blood pressure, pulse, and oxygen saturations were monitored continuously. The Endoscope was introduced through the mouth, and advanced to the second part of duodenum. The upper GI endoscopy was accomplished without difficulty. The patient tolerated the procedure well. 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 The maximum longitudinal extent of these mucosal changes was 7 cm in length. Localized moderate inflammation with hemorrhage characterized by deep ulcerations was found in the gastric body. Coagulation for hemostasis using argon plasma at 0.3 liters/minute and 30 johnson was successful. The patient was placed in the supine position for PEG placement. The stomach was insufflated to appose gastric and abdominal barreto. A site was located in the body of the stomach with excellent transillumination for placement. The abdominal wall was marked and prepped in a sterile manner. The area was anesthetized with 1 mL of 0.5% lidocaine. The trocar needle was introduced through the abdominal wall and into the stomach under direct endoscopic view. A snare was introduced through the endoscope and opened in the gastric lumen. The guide wire was passed through the trocar and into the open snare. The snare was closed around the guide wire. The endoscope and snare were removed, pulling the wire out through the mouth. A skin incision was made at the site of needle insertion. The endoscopically removable 20 Fr Bard gastrostomy tube was lubricated. The G-tube was tied to the guide wire and pulled through the mouth and into the stomach. The trocar needle was removed, and the gastrostomy tube was pulled out from the stomach through the skin. The external bumper was attached to the gastrostomy tube, and the tube was cut to remove the guide wire. The final position of the gastrostomy tube was confirmed by relook endoscopy, and skin marking noted to be 4 cm at the external bumper. The final tension and compression of the abdominal wall by the PEG tube and external bumper were checked and revealed that the bumper was moderately tight and mildly deforming the skin. The feeding tube was capped, and the tube site cleaned and dressed. Estimated blood loss was minimal. No gross lesions were noted in the first portion of the duodenum. 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 - Acute gastritis with hemorrhage. Treated with argon plasma coagulation (APC). - No gross lesions in the first portion of the duodenum. - An endoscopically removable PEG placement was successfully completed. - No specimens collected. Recommendation: - Return patient to [facility] for ongoing care. - Resume previous diet. - Continue present medications. Procedure Code(s): --- Professional --- 99907, Esophagogastroduodenoscopy, flexible, transoral; with directed placement of percutaneous gastrostomy tube 01477, 59,51, Esophagogastroduodenoscopy, flexible, transoral; with control of bleeding, any method CPT copyright 2021 [employer]. All rights reserved. The codes documented in this report are preliminary and upon press assistant review may be revised to meet current compliance requirements. Sandro Chan DO 02/15/2024 6:37:15 PM This report has been signed electronically. Number of Addenda: 0 Note Initiated On: 02/15/2024 5:40 PM
--- NOTE | 2024-02-15 18:39 | PCM.POST.ANE ---
Anesthesia: Postop Eval I Current Vital Signs Temperature: 97 F Pulse Rate: 75 Blood Pressure: 126/76 Respiratory Rate: 19 Pulse Ox: 95 Assessment Airway patent: Yes Spontaneous unlabored respirations: Yes nausea: No Vomiting: No Anesthesia Complication: No Fluid Hydration Crystalloid volume administer (ml): 300 Total IV fluid infused: 300 Progress Note Anesthesia document: Postop Eval 1 completed: Yes
--- NOTE | 2024-02-15 18:41 | POSTOPAN2_ITS ---
Anesthesia Postop Eval I Sum Postop Eval Completion status Anesthesia document: Postop Eval 1 completed: Yes Anesthesia Postop Eval I Summary Anesthesia Postop Eval I Summary: Anesthesia Postop Eval I: Assessment Summary Airway patent Yes 02/15/24 18:40 [email or web address] Spontaneous unlabored Yes 02/15/24 18:40 [email or web address] respirations Mental status nausea No 02/15/24 18:40 [email or web address] Vomiting No 02/15/24 18:40 [email or web address] Anesthesia Postop Eval I: Fluid Summary Crystalloid volume administer 300 02/15/24 18:40 [email or web address] (ml) Colloids volume administered ( ml) Blood Product volume administered (ml) Total IV fluid infused 300 02/15/24 18:40 [email or web address] Anesthesia Postop Eval I: Summary Notes Anesthesia Complication No 02/15/24 18:40 [email or web address] Anesthesia Complication Comment: Post-operative progress note Anesthesia: Postop Eval II Evaluation Mental status: Awake Pain Level: 0 nausea: No Vomiting: No
--- NOTE | 2024-02-15 18:41 | PCM.POSTANE2 ---
Anesthesia Postop Eval I Sum Postop Eval Completion status Anesthesia document: Postop Eval 1 completed: Yes Anesthesia Postop Eval I Summary Anesthesia Postop Eval I Summary: Anesthesia Postop Eval I: Assessment Summary Airway patent Yes 02/15/24 18:40 HAND [email or web address] Spontaneous unlabored Yes 02/15/24 18:40 HAND [email or web address] respirations Mental status nausea No 02/15/24 18:40 HAND [email or web address] Vomiting No 02/15/24 18:40 HAND [email or web address] Anesthesia Postop Eval I: Fluid Summary Crystalloid volume administer 300 02/15/24 18:40 HAND [email or web address] (ml) Colloids volume administered ( ml) Blood Product volume administered (ml) Total IV fluid infused 300 02/15/24 18:40 HAND [email or web address] Anesthesia Postop Eval I: Summary Notes Anesthesia Complication No 02/15/24 18:40 HAND [email or web address] Anesthesia Complication Comment: Post-operative progress note Anesthesia: Postop Eval II Evaluation Mental status: Awake Pain Level: 0 nausea: No Vomiting: No
--- NOTE | 2024-02-15 18:42 | PCM.POST.ANE ---
Anesthesia: Postop Eval I Current Vital Signs Temperature: 97.9 F Pulse Rate: 77 Blood Pressure: 103/73 Respiratory Rate: 18 Pulse Ox: 94 Assessment Airway patent: Yes Spontaneous unlabored respirations: Yes Mental status: Asleep nausea: No Vomiting: No Anesthesia Complication: No Fluid Hydration Crystalloid volume administer (ml): 400 Total IV fluid infused: 400 Progress Note Anesthesia document: Postop Eval 1 completed: Yes
--- NOTE | 2024-02-15 18:44 | PCM.POSTANE2 ---
Anesthesia Postop Eval I Sum Postop Eval Completion status Anesthesia document: Postop Eval 1 completed: Yes Anesthesia Postop Eval I Summary Anesthesia Postop Eval I Summary: Anesthesia Postop Eval I: Assessment Summary Airway patent Yes 02/15/24 18:43 Spontaneous unlabored Yes 02/15/24 18:43 respirations Mental status Asleep 02/15/24 18:43 nausea No 02/15/24 18:43 Vomiting No 02/15/24 18:43 Anesthesia Postop Eval I: Fluid Summary Crystalloid volume administer 400 02/15/24 18:43 (ml) Colloids volume administered ( ml) Blood Product volume administered (ml) Total IV fluid infused 400 02/15/24 18:43 Anesthesia Postop Eval I: Summary Notes Anesthesia Complication No 02/15/24 18:43 Anesthesia Complication Comment: Post-operative progress note Anesthesia: Postop Eval II Evaluation Mental status: Asleep Pain Level: 1 nausea: No Vomiting: No Complications Anesthesia Complication: No
--- NOTE | 2024-02-15 19:18 | NURSING ---
PT HAD A MAC LOCAL FOR PEG PLACEMENT. UP TO FLOOR HE IS ALERT AND AWAKE. SCANT AMOUNT OF BLEEDING FROM SITE. PT HAS HYPO BOWEL SOUNDS. IVF CONTINUES.
--- NOTE | 2024-02-15 22:43 | NURSING ---
Per previous shift, patient to be NPO until tomorrow. Had PEG tube placed following EGD. No Medications administered per order. Site dressing in place, no further bleeding noted.
[2024-02-16 05:50] LABS: Absolute Lymphocyte Count 0.88 X10^3/uL (0.83-4.51); Absolute Neutrophil Count 14.2 X10^3/uL (2.0-7.7); Basophil# 0.04 X10^3/uL; Basophil% 0.2 % (0-1); Hematocrit 38.1 % (40-54); Hemoglobin 12.3 g/dL (13.0-16.5); Lymphocyte # 0.88 X10^3/ul (0.83-4.51); Lymphocyte % 5.3 % (19-41); Mean Corp Hgb Conc 32.3 g/dL (32-36); Monocyte# 1.33 X10^3/uL; NRBC Flagged by Analyzer 0 % (0-5); Neutrophil # 14.24 X10^3/uL (2.7-7.7); Platelet Count 268 K/mm3 (150-450); RBC Distribution Width CV 12.3 % (11.6-14.6); RBC Distribution Width SD 43.7 fl (35.1-43.9); Red Blood Count 3.97 M/mm3 (4.6-6.2); White Blood Count 16.6 K/mm3 (4.4-11.0)
[2024-02-16 06:00] VITALS: BP 117/75; PULSE 88; RESP 20; TEMP 36.6; O2SAT 96
[2024-02-16] MEDS: Menthol/Lanolin/Calamine/Znox 113 GM Tube 1 APPLIC TOPICAL ×3 (06:34→20:38)
[2024-02-16 07:15] LABS: Anion Gap 8 (5-15); BUN 18 mg/dL (7-18); BUN/Creat Ratio 13.1 RATIO (10-20); Calcium,Total 9.5 mg/dL (8.5-10.1); Chloride 103 mmol/L (98-107); Creatinine, Serum 1.37 mg/dL (0.70-1.30); EST Glomerular Filtration Rate 54 mL/min (>60); Est Glom Filt Rate - Afr Amer 65 mL/min (>60); Estimated Creatinine Clearance 47.36 ml/min; Glucose 113 mg/dL (74-106); Magnesium 1.8 mg/dL (1.6-2.6); Potassium 4.3 mmol/L (3.5-5.1); Sodium Level 134 mmol/L (136-145)
[2024-02-16] MEDS: Lactated Ringers 1,000 ML 75 ML IV (07:43)
--- NOTE | 2024-02-16 10:10 | PCM.PROGNOTE ---
Subjective Subjective Postoperative day #1-status post PEG insertion Afebrile VSS - Maintaining appropriate oxygen saturation on RA Oral intake - FOOD n.p.o. FLUIDS currently receiving intravenous fluids Postvoid residuals have all been less than 100. Discussed with nursing - nursing reports they witnessed an apneic episode. Reviewed the THERAPY notes Medication list reviewed. I reviewed the EGD report. Patient had long segment Cisneros's esophagus in the lower one third of the esophagus. There was moderate inflammation with hemorrhage and deep ulcerations found in the gastric body. Coagulation was achieved with argon plasma coagulation. WBC is elevated at 16.6 today with a left shift. Hemoglobin is 12.3, down from 14.5 yesterday. Platelets are within normal limits. Sodium is 134 today, up from 132 yesterday. Potassium is 4.3 following supplementation. The BUN is 18 and the creatinine has increased from 0.89 yesterday to 1.37 today. Magnesium is normal at 1.8 today following supplementation. Urine culture is pending Severe dysarthria. Objective Data Objective Data Vital Signs: Vital Signs Temp Pulse Resp BP Pulse Ox O2 Del Method 97.9 F 88 20 H 117/75 96 Room Air 02/16/24 06:00 02/16/24 06:00 02/16/24 06:00 02/16/24 06:00 02/16/24 06:00 02/16/24 08:37 Oxygen Delivery Method Room Air Weight: 164 lb 8.002 oz Body Mass Index (BMI) 23.6 Intake & Output: Intake and Output for Last 24 Hours 02/14/24 02/15/24 02/16/24 23:59 23:59 23:59 Intake Total 600 / 600 446 / 446 1000 / 1000 Output Total 500 / 500 650 / 650 Balance 100 / 100 -204 / -204 1000 / 1000 Medical Nutrition Assessment Dietitian: Malnutrition Criteria Met Start: 02/15/24 14:57 Freq: Status: Active Protocol: Document 02/15/24 14:58 SB (Rec: 02/15/24 14:58 SB [id number]) Nutrition Malnutrition Evidence of Malnutrition Exists Yes Evidenced By Suboptimal Energy Intake ( Severe),Weight Loss (Severe) Clinical Problem Swallowing Difficulty Etiology related to dysphagia and stroke Signs/Symptoms as evidenced by need for modified diet, report of pharyngeal residue sensation and delayed cough per V/STOL LANDING SIGNAL OFFICER progress note. Status Active Problem Chronic Disease or Condition Related Malnutrition Etiology severe protein-calorie malnutrition related to inadequate oral intake, ETOH use, and swallowing difficulties Signs/Symptoms as evidenced by 13% unintentional weight loss x less than 6 months and PO meeting less than 75% of estimated nutrition needs x 6 months. Status Active Problem Recommendation Dietitian Recommendations/Changes Adjust to liberal regular diet d/t signs and symptoms of malnutrition per V/[employer] SIGNAL OFFICER consistency/texture recommendations. Will order 120ml vanilla ensure TID with meals. Will monitor weight, as available. Reviewed and approved by Teresa Rosa RD, LD. Lab / Micro Data 02/16/24 05:20 02/16/24 05:20 Labs: Laboratory Results - last 24 hr 02/16/24 05:20: WBC 16.6 H, RBC 3.97 L, Hgb 12.3 L, Hct 38.1 L, MCV 96.0 H D, MCH 31.0, MCHC 32.3, RDW Std Deviation 43.7, RDW Coeff of Denae 12.3, Plt Count 268, MPV 10.0, Immature Gran % (Auto) 0.500, Neut % (Auto) 86.0 H, Lymph % (Auto) 5.3 L, [place] % (Auto) 8.0, Eos % (Auto) 0.0, Baso % (Auto) 0.2, Absolute Neuts (auto) 14.2 H, Absolute Lymphs (auto) 0.88, Nucleated RBC % 0, Sodium 134 L, Potassium 4.3, Chloride 103, Carbon Dioxide 22.0, Anion Gap 8, BUN 18, Creatinine 1.37 H, Estim Creat Clear Calc 47.36, Est GFR (MDRD) Af Amer 65, Est GFR (MDRD) Non-Af 54 L, BUN/Creatinine Ratio 13.1, Glucose 113 H, Calcium 9.5, Magnesium 1.8 Physical Exam Const alert Resp Resp Narrative: Very poor inspiratory effort. Very poor air exchange. Despite poor air exchange he is maintaining an appropriate pulse ox on RA. Effort and Inspection: Negative for tachypneic or labored Cardio regular rate and regular rhythm GI GI Narrative: The abd is distended and tympanic. He has tenderness in all quadrants but, torey tender in the LUQ. the area around the PEG is not erythematous and there is no DC. Hypoactive BS's. Extremity no calf tenderness General Extremity: Negative for edema Neuro Neuro Narrative: No change Assessment & Plan Assessment/Plan (1) Debility: (2) Acute stroke due to ischemia: (3) Cognitive dysfunction: (4) Left-sided weakness: (5) Dysarthria: (6) Dysphagia: QUALIFIERS: Dysphagia type: unspecified Qualified Code(s): R13.10 - Dysphagia, unspecified (7) Hypomagnesemia: (8) Hypokalemia: (9) Hyponatremia: (10) Dehydration: (11) Cystitis: (12) Abdominal pain: QUALIFIERS: Abdominal location: generalized Qualified Code(s): R10.84 - Generalized abdominal pain (13) Apneic episode: (14) Barretts esophagus: (15) Peptic ulcer disease with hemorrhage: (16) Acute renal failure: QUALIFIERS: Acute renal failure type: unspecified Qualified Code(s): N17.9 - Acute kidney failure, unspecified PLAN: Plan 1. Continue therapy 2. Start Jevity 1.5 at 40 cc/h and consult the pump erector for recommendations for tube feed. 150 cc water flush every 4 hours. Check residuals every 4 hours and hold if the residual is greater than 100. 3. Start lansoprazole 30 mg twice daily 4. Check a lipase 5. KUB and chest x-ray portable today 6. Incentive spirometry 7. Tylenol and oxycodone 2.5 mg ordered as needed for pain 8. He is afebrile. I suspect the elevated white blood cell count is secondary to stress........ he was very anxious about the PEG tube yesterday and is having pain today. UA had 25-50 WBCs but had greater than 100 RBCs. Urine culture is pending. 9. Overnight trending pulse ox because of the apneic episode. 10. Alcohol cessation counseling was given again today 11. Start Augmentin empirically for possible urinary tract infection Charges/Coding Visit Charges Inpatient E&M: 01996 Subs Hosp L2
[2024-02-16] MEDS: Thiamine Hydrochloride 100 MG in 0.9% Normal Saline (50mL Bag) 50 ML 200 MG IV (10:53)
[2024-02-16 10:57] LABS: Lipase 29 U/L (13-75)
--- NOTE | 2024-02-16 11:10 | RAD_ITS ---
EXAM: XR CHEST, 1 VIEW CLINICAL INDICATION: SOB TECHNIQUE: Frontal view of the chest. COMPARISON: No relevant prior studies available. FINDINGS: LUNGS AND PLEURAL SPACES: Unremarkable. No consolidation or edema. No pneumothorax. No effusion. HEART: Unremarkable. Cardiac silhouette not enlarged. MEDIASTINUM: Central airways and mediastinal contour are unremarkable. BONES/JOINTS: Unremarkable. No acute fracture. SOFT TISSUES: Unremarkable. RAD/Chest 1 View (Portable) IMPRESSION: No radiographic evidence of acute cardiopulmonary disease. Electronically Signed: Thomas Palma MD at 17:32 EST ,
--- NOTE | 2024-02-16 11:10 | RAD_ITS ---
EXAM: XR ABDOMEN, 1 VIEW CLINICAL INDICATION: abd pain TECHNIQUE: Frontal supine view of the abdomen/pelvis. COMPARISON: No relevant prior studies available. FINDINGS: LOWER THORAX: No acute pathology. GASTROINTESTINAL TRACT: There is residual contrast seen throughout the colon. Non-obstructive. No bowel or stomach distention. ORGANS: Unremarkable as visualized. No organomegaly. No abnormal calcifications. BONES/JOINTS: No acute pathology. SOFT TISSUES: There are multiple seeds within the prostate gland. RAD/Abdomen Single View (Portable) IMPRESSION: No acute findings. Electronically Signed: Thomas Palma MD at 16:28 EST ,
[2024-02-16] MEDS: Senna/Docusate Sodium 1 Tablet 2 TABLET PO ×2 (11:31→20:55)
[2024-02-16 11:32] VITALS: BP 114/72; PULSE 98
[2024-02-16] MEDS: Metoprolol Tartrate 50 MG Tablet PO ×2 (11:32→20:54)
[2024-02-16] MEDS: Aspirin 81 MG TAB.CHEW PO (11:32)
[2024-02-16] MEDS: Magnesium Chloride 64 MG Delay Rel.Tablet 128 MG PO ×2 (11:32→20:55)
[2024-02-16] MEDS: Clopidogrel Bisulfate 75 MG Tablet PO (11:32)
[2024-02-16] MEDS: Potassium Chloride Oral Tablet 20 MEQ PO ×2 (11:32→17:18)
[2024-02-16] MEDS: Lansoprazole 15 MG Capsule.DR 30 MG GT ×2 (11:41→20:54)
[2024-02-16] MEDS: Magnesium Hydroxide 30 ML UDC GT (11:41)
[2024-02-16] MEDS: Amox/Clav 400mg/5ml Susp 875 MG GT ×2 (11:50→17:17)
[2024-02-16] MEDS: Jevity 1.5 1,000 ML 40 ML GT (13:34)
--- NOTE | 2024-02-16 14:26 | NURSING ---
Tube feed initiated per orders. Pt sitting up in chair.
[2024-02-16 15:27] VITALS: BMI 23.6
[2024-02-16] MEDS: Tamsulosin HCl 0.4 MG Capsule PO (17:18)
[2024-02-16 18:00] VITALS: BP 94/55; PULSE 80; RESP 16; TEMP 36.6; O2SAT 92
[2024-02-16 19:18] VITALS: PULSE 77; O2SAT 93
[2024-02-16 20:54] VITALS: BP 112/60; PULSE 60
[2024-02-16] MEDS: Atorvastatin Calcium 80 MG Tablet PO (20:54)
[2024-02-17] MEDS: oxyCODONE 5 MG Tablet 2.5 MG PO ×3 (03:41→20:56)
[2024-02-17 04:11] VITALS: BMI 23.6
--- NOTE | 2024-02-17 04:15 | NURSING ---
0115 This RN assessed for residual in peg tube per order. No residual noted. Jevity 1.5 infusing at 40ml/hr.
[2024-02-17] MEDS: Menthol/Lanolin/Calamine/Znox 113 GM Tube 1 APPLIC TOPICAL ×3 (05:40→20:54)
--- NOTE | 2024-02-17 05:41 | NURSING ---
0542 Continues to tolerate tube feed well. No residual noted. Jevity 1.5 infusing at 40ml/hr.
[2024-02-17 05:53] VITALS: BP 104/64; PULSE 72; RESP 17; TEMP 36.6; O2SAT 94; BMI 24.1
[2024-02-17 06:44] LABS: Absolute Lymphocyte Count 0.94 X10^3/uL (0.83-4.51); Absolute Neutrophil Count 6.9 X10^3/uL (2.0-7.7); Basophil# 0.03 X10^3/uL; Basophil% 0.3 % (0-1); Eosinophil# 0.14 X10^3/uL; Eosinophils% 1.5 % (0-5); Hematocrit 29.1 % (40-54); Hemoglobin 9.5 g/dL (13.0-16.5); Lymphocyte # 0.94 X10^3/ul (0.83-4.51); Lymphocyte % 10.3 % (19-41); Mean Corp Hgb Conc 32.6 g/dL (32-36); Mean Corpuscular Hgb 31.3 pg (27.0-32.0); Mean Corpuscular Volume 95.7 fL (80-94); Monocyte# 1.08 X10^3/uL; Monocyte% 11.8 % (0-10); NRBC Flagged by Analyzer 0 % (0-5); Neutrophil % 75.8 % (47-70); Platelet Count 234 K/mm3 (150-450); RBC Distribution Width CV 12.4 % (11.6-14.6); RBC Distribution Width SD 43.1 fl (35.1-43.9); Red Blood Count 3.04 M/mm3 (4.6-6.2); White Blood Count 9.1 K/mm3 (4.4-11.0)
[2024-02-17 07:04] LABS: Anion Gap 3 (5-15); BUN 32 mg/dL (7-18); BUN/Creat Ratio 23.7 RATIO (10-20); Calcium,Total 9.2 mg/dL (8.5-10.1); Chloride 108 mmol/L (98-107); Creatinine, Serum 1.35 mg/dL (0.70-1.30); EST Glomerular Filtration Rate 55 mL/min (>60); Est Glom Filt Rate - Afr Amer 66 mL/min (>60); Estimated Creatinine Clearance 48.07 ml/min; Glucose 117 mg/dL (74-106); Potassium 4.7 mmol/L (3.5-5.1); Sodium Level 136 mmol/L (136-145)
[2024-02-17 07:34] VITALS: O2SAT 94
[2024-02-17] MEDS: Aspirin 81 MG TAB.CHEW PO (08:22)
[2024-02-17] MEDS: Amox/Clav 400mg/5ml Susp 875 MG GT ×2 (08:22→17:41)
[2024-02-17] MEDS: Lansoprazole 15 MG Capsule.DR 30 MG GT ×2 (08:25→20:54)
[2024-02-17 08:26] VITALS: BP 104/64; PULSE 72
[2024-02-17] MEDS: Clopidogrel Bisulfate 75 MG Tablet PO (08:27)
[2024-02-17] MEDS: Magnesium Chloride 64 MG Delay Rel.Tablet 128 MG PO ×2 (08:27→20:55)
[2024-02-17] MEDS: Thiamine Hydrochloride 100 MG in 0.9% Normal Saline (50mL Bag) 50 ML 200 MG IV (09:45)
[2024-02-17] MEDS: 0.9% Saline Lock 10 ML Syringe IV ×2 (09:46→20:55)
[2024-02-17] MEDS: Senna/Docusate Sodium 1 Tablet 2 TABLET PO ×2 (11:19→20:55)
[2024-02-17] MEDS: Jevity 1.5 1,000 ML 40 ML GT (11:31)
--- NOTE | 2024-02-17 14:49 | PN_ITS ---
Subjective Subjective Afebrile VSS - Maintaining appropriate oxygen saturation on RA Oral intake - FOOD n.p.o. FLUIDS fluid balance yesterday was +1960. Weight today is 168 pounds and 6 ounces which is up from 164 pounds and 8 ounces on 02/15/2024, more likely than not secondary to better hydration. Discussed with nursing - no problems that need addressed. Tolerating tube feed with no residuals. Reviewed the THERAPY notes Medication list reviewed. All lab drawn this morning was personally reviewed. The white blood cell count today is down to 9.1 from 16.6 yesterday. The increased white blood cell count yesterday was likely due to stress. Hemoglobin today is 9.5 which is down from 14.5 at admission. Part of this is due to better hydration but I also suspect he had GI bleeding related to severe gastritis with hemorrhage requiring argon plasma coagulation at the time of endoscopy. Platelets are normal. Sodium is 136 today and within normal limits. Potassium is 4.7 and serum bicarb is 26. Creatinine is 1.35, down from 1.37 yesterday but up from 0.89 on 02/15/2024. Urine culture is positive for 80,000-100,000 colonies of Aerococcus urinae Jakub tells me he is feeling better today. The abdominal pain is much less. He denies chest pain, cough, lightheadedness, nausea, dysuria and calf pain. He is much more alert today than he was yesterday or the day before. The overnight trending pulse ox was reviewed. The pulse ox was 89% or less 0.35% of the time he was monitored (he a total of 2 minutes and 26 seconds). No significant bradycardia. No significant tachycardia. There was 1 desaturation event lasting 3 minutes and 8 seconds and the lowest oxygen saturation was 79%. Objective Data Objective Data Vital Signs: Vital Signs Temp Pulse Resp BP Pulse Ox O2 Del Method FiO2 97.9 F 72 17 104/64 94 Room Air 02/17/24 05:53 02/17/24 08:26 02/17/24 05:53 02/17/24 08:26 02/17/24 07:34 02/17/24 07:34 02/17/24 07:37 Oxygen Delivery Method Room Air Weight: 168 lb 6.4 oz Body Mass Index (BMI) 24.1 Intake & Output: Intake and Output for Last 24 Hours 02/15/24 02/16/24 02/17/24 23:59 23:59 23:59 Intake Total 446 / 446 2161 / 2161 1479 / 1479 Output Total 650 / 650 200 / 200 650 / 650 Balance -204 / -204 1960 829 / 829 Medical Nutrition Assessment Dietitian: Malnutrition Criteria Met Start: 02/15/24 14:57 Freq: Status: Active Protocol: Document 02/15/24 14:58 SB (Rec: 02/15/24 14:58 SB [id number]) Nutrition Malnutrition Evidence of Malnutrition Exists Yes Evidenced By Suboptimal Energy Intake ( Severe),Weight Loss (Severe) Clinical Problem Swallowing Difficulty Etiology related to dysphagia and stroke Signs/Symptoms as evidenced by need for modified diet, report of pharyngeal residue sensation and delayed cough per CHIPPING MACHINE OPERATOR progress note. Status Active Problem Chronic Disease or Condition Related Malnutrition Etiology severe protein-calorie malnutrition related to inadequate oral intake, ETOH use, and swallowing difficulties Signs/Symptoms as evidenced by 13% unintentional weight loss x less than 6 months and PO meeting less than 75% of estimated nutrition needs x 6 months. Status Active Problem Recommendation Dietitian Recommendations/Changes Adjust to liberal regular diet d/t signs and symptoms of malnutrition per CHIPPING MACHINE OPERATOR consistency/texture recommendations. Will order 120ml vanilla ensure TID with meals. Will monitor weight, as available. Reviewed and approved by Teresa Rosa RD, LD. Lab / Micro Data 02/17/24 06:27 02/17/24 06:27 Labs: Laboratory Results - last 24 hr 02/17/24 06:27: WBC 9.1, RBC 3.04 L, Hgb 9.5 L, Hct 29.1 L, MCV 95.7 H, MCH 31.3, MCHC 32.6, RDW Std Deviation 43.1, RDW Coeff of Denae 12.4, Plt Count 234, MPV 10.0, Immature Gran % (Auto) 0.300, Neut % (Auto) 75.8 H, Lymph % (Auto) 10.3 L, Geary % (Auto) 11.8 H, Eos % (Auto) 1.5, Baso % (Auto) 0.3, Absolute Neuts (auto) 6.9, Absolute Lymphs (auto) 0.94, Nucleated RBC % 0, Sodium 136, Potassium 4.7, Chloride 108 H, Carbon Dioxide 26.0, Anion Gap 3 L, BUN 32 H, C reatinine 1.35 H, Estim Creat Clear Calc 48.07, Est GFR (MDRD) Af Amer 66, Est GFR (MDRD) Non-Af 55 L, BUN/Creatinine Ratio 23.7 H, Glucose 117 H, Calcium 9.2 Micro: Microbiology 02/14/24 21:15 Urine, Catheterized Urine Culture - Final Aerococcus urinae Radiography Diagnostic Testing: Radiology Impression Chest X-Ray 02/16/24 11:10 IMPRESSION: No radiographic evidence of acute cardiopulmonary disease. Electronically Signed: Thomas Palma MD at 17:32 EST , KUB X-Ray 02/16/24 11:10 IMPRESSION: No acute findings. Electronically Signed: Thomas Palma MD at 16:28 EST , Physical Exam Const alert and no apparent distress Constitutional Narrative: Able to ask for the urinal when he needs it. General Appearance: cooperative HEENT moist oral mucous membranes Resp Resp Narrative: Better able to take a deep breath today. Not tachypneic. Still diminished in the bases. Cardio regular rate and regular rhythm GI normal to inspection, nondistended, normoactive bowel sounds and soft to palpation GI Narrative: No guarding with palpation today. The abdomen is less distended and less tympanic today. The area around the PEG site is free of erythema or discharge. Extremity no calf tenderness General Extremity: Negative for edema Skin Rashes: no rashes Assessment & Plan Assessment/Plan (1) Debility: (2) Acute stroke due to ischemia: (3) Cognitive dysfunction: (4) Left-sided weakness: (5) Dysarthria: (6) Dysphagia: QUALIFIERS: Dysphagia type: unspecified Qualified Code(s): R13.10 - Dysphagia, unspecified (7) Hypomagnesemia: (8) Hypokalemia: (9) Hyponatremia: (10) Dehydration: (11) Cystitis: (12) Abdominal pain: QUALIFIERS: Abdominal location: generalized Qualified Code(s): R 10.84 - Generalized abdominal pain (13) Apneic episode: (14) Barretts esophagus: (15) Peptic ulcer disease with hemorrhage: (16) Acute renal failure: QUALIFIERS: Acute renal failure type: unspecified Qualified Code(s): N17.9 - Acute kidney failure, unspecified PLAN: Plan 1. Continue therapy 2. Check a urine creatinine and urine sodium to calculate fractional excretion of sodium in light of acute renal failure. 3. Consult the dietitian to recommend bolus tube feedings. 4. Urine culture grew Aerococcus urinae and he was started on Augmentin empirically yesterday. Augmentin should cover this. Will continue for a total of 7 days. 5. Continue PPI twice daily 6. Recheck a H&H in the a.m. 7. Continue thiamine. 8. Still no radiologic report on the hip x-ray which was done 02/15/2024. Per my review there is no evidence of fracture but he does have osteoarthritis. Charges/Coding Visit Charges Inpatient E&M: 02527 Subs Hosp L1
[2024-02-17 16:36] LABS: Urine Sodium 38 mmol/L (Not Establ.)
[2024-02-17] MEDS: Tamsulosin HCl 0.4 MG Capsule PO (17:43)
[2024-02-17 18:00] VITALS: BP 138/77; PULSE 79; RESP 18; TEMP 36.7; O2SAT 94
--- NOTE | 2024-02-17 18:12 | NURSING ---
pt had residual of 10 ml.
[2024-02-17] MEDS: Atorvastatin Calcium 80 MG Tablet PO (20:54)
[2024-02-17 20:55] VITALS: BP 123/70; PULSE 74
[2024-02-17] MEDS: Metoprolol Tartrate 50 MG Tablet PO (20:55)
[2024-02-18 02:22] VITALS: BMI 24.1
[2024-02-18 03:30] VITALS: BP 114/71; PULSE 78; RESP 16; TEMP 36.6; O2SAT 94
[2024-02-18] MEDS: Magnesium Hydroxide 30 ML UDC PO (03:40)
--- NOTE | 2024-02-18 04:05 | NURSING ---
[address] Welsh that patient is experiencing shortness of breath with exertion and orthopnea. Patient with crackles in bilateral posterior bases. Urine output is poor and is now tea-colored. Recent labs reviewed. Vitals stable. Waiting for response.
--- NOTE | 2024-02-18 04:09 | NURSING ---
0355 Dr. Welsh phones and patient condition is reviewed. New order received for Lasix 20mg IV x 1 dose and BMP now.
[2024-02-18] MEDS: Furosemide 20 MG/2 ML VIAL IV (04:23)
[2024-02-18] MEDS: 0.9% Saline Lock 10 ML Syringe IV ×3 (04:23→13:57)
[2024-02-18 04:31] LABS: Anion Gap 3 (5-15); BUN 20 mg/dL (7-18); BUN/Creat Ratio 24.2 RATIO (10-20); Calcium,Total 9.2 mg/dL (8.5-10.1); Chloride 104 mmol/L (98-107); Creatinine, Serum 0.83 mg/dL (0.70-1.30); EST Glomerular Filtration Rate 96 mL/min (>60); Est Glom Filt Rate - Afr Amer 116 mL/min (>60); Estimated Creatinine Clearance 78.18 ml/min; Glucose 114 mg/dL (74-106); Potassium 3.9 mmol/L (3.5-5.1); Sodium Level 136 mmol/L (136-145)
[2024-02-18] MEDS: Menthol/Lanolin/Calamine/Znox 113 GM Tube 1 APPLIC TOPICAL ×3 (04:46→20:41)
[2024-02-18 05:53] VITALS: BP 109/64; PULSE 92; RESP 17; TEMP 36.6; O2SAT 96; BMI 24.2
[2024-02-18 07:34] VITALS: O2SAT 96
[2024-02-18] MEDS: Lansoprazole 15 MG Capsule.DR 30 MG GT ×2 (09:15→20:27)
[2024-02-18] MEDS: Aspirin 81 MG TAB.CHEW PO (09:15)
[2024-02-18] MEDS: Magnesium Chloride 64 MG Delay Rel.Tablet 128 MG PO ×2 (09:15→20:27)
[2024-02-18 09:16] VITALS: BP 109/64; PULSE 92
[2024-02-18] MEDS: Senna/Docusate Sodium 1 Tablet 2 TABLET PO ×2 (09:16→20:26)
[2024-02-18] MEDS: Metoprolol Tartrate 50 MG Tablet PO ×2 (09:16→20:26)
[2024-02-18] MEDS: Clopidogrel Bisulfate 75 MG Tablet PO (09:16)
[2024-02-18] MEDS: Amox/Clav 400mg/5ml Susp 875 MG GT ×2 (09:19→17:43)
[2024-02-18] MEDS: Thiamine Hydrochloride 100 MG in 0.9% Normal Saline (50mL Bag) 50 ML 200 MG IV (10:58)
--- NOTE | 2024-02-18 11:17 | PCM.PROGNOTE ---
Subjective Subjective Jakub was seen on team rounds today. Afebrile VSS - Maintaining appropriate oxygen saturation on RA Oral intake - FOOD n.p.o. on tube feed FLUIDS fluid balance yesterday was +939 he was given 20 mg of intravenous Lasix last night by the hospitalist for increased shortness of breath. Discussed with nursing - no problems that need addressed. Tolerating tube feed without residuals. Reviewed the THERAPY notes Medication list reviewed. Left ventricular ejection fraction is 70% but he has stage I diastolic dysfunction. Chest x-ray on 02/16/2024 showed no pulmonary vascular congestion and no pleural effusions. Has not been tachypneic and he is maintaining a room air pulse ox of 94 to 96%. He denies shortness of breath at rest to me. He tells me he does get short of breath with walking however it is requiring a lot more exertion since the most recent stroke. Lungs are clear to auscultation today throughout, anterior, posterior and lateral. He is not tachypneic and respiration is not labored. Lab today shows a sodium of 136 and a potassium of 3.9. The BUN is 20, down from 32 on 02/17/2024. Creatinine is back down to 0.83 which is within his baseline. Objective Data Objective Data Vital Signs: Vital Signs Temp Pulse Resp BP Pulse Ox O2 Del Method FiO2 97.9 F 92 17 109/64 96 Room Air 21 02/18/24 05:53 02/18/24 09:16 02/18/24 05:53 02/18/24 09:16 02/18/24 07:34 02/18/24 07:34 02/17/24 07:37 Oxygen Delivery Method Room Air Weight: 168 lb 12.8 oz Body Mass Index (BMI) 24.2 Intake & Output: Intake and Output for Last 24 Hours 02/16/24 02/17/24 02/18/24 23:59 23:59 23:59 Intake Total 2161 / 2161 1889 / 2823 1505 / 1505 Output Total 200 / 200 950 / 950 800 / 800 Balance 1960 939 / 1873 705 / 705 Medical Nutrition Assessment Dietitian: Malnutrition Criteria Met Start: 02/15/24 14:57 Freq: Status: Active Protocol: Document 02/15/24 14:58 SB (Rec: 02/15/24 14:58 SB [id number]) Nutrition Malnutrition Evidence of Malnutrition Exists Yes Evidenced By Suboptimal Energy Intake ( Severe),Weight Loss (Severe) Clinical Problem Swallowing Difficulty Etiology related to dysphagia and stroke Signs/Symptoms as evidenced by need for modified diet, report of pharyngeal residue sensation and delayed cough per CREDIT RISK ANALYST progress note. Status Active Problem Chronic Disease or Condition Related Malnutrition Etiology severe protein-calorie malnutrition related to inadequate oral intake, ETOH use, and swallowing difficulties Signs/Symptoms as evidenced by 13% unintentional weight loss x less than 6 months and PO meeting less than 75% of estimated nutrition needs x 6 months. Status Active Problem Recommendation Dietitian Recommendations/Changes Adjust to liberal regular diet d/t signs and symptoms of malnutrition per CREDIT RISK ANALYST consistency/texture recommendations. Will order 120ml vanilla ensure TID with meals. Will monitor weight, as available. Reviewed and approved by Teresa Rosa RD, LD. Lab / Micro Data 02/17/24 06:27 02/18/24 03:40 Labs: Laboratory Results - last 24 hr 02/17/24 16:10: Ur Random Sodium 38, Urine Creatinine 83.00 02/18/24 03:40: Sodium 136, Potassium 3.9, Chloride 104, Carbon Dioxide 29.0, Anion Gap 3 L, BUN 20 H, Creatinine 0.83, Estim Creat Clear Calc 78.18, Est GFR (MDRD) Af Amer 116, Est GFR (MDRD) Non-Af 96, BUN/Creatinine Ratio 24.2 H, Glucose 114 H, Calcium 9.2 Micro: Microbiology 02/14/24 21:15 Urine, Catheterized Urine Culture - Final Aerococcus urinae Radiography Diagnostic Testing: Radiology Impression Hip/Pelvis X-Ray 02/15/24 08:38 IMPRESSION: No evidence of displaced pelvic or hip fracture. Electronically Signed: Trey Cage MD at 16:27 EST , Physical Exam Const alert and no apparent distress General Appearance: cooperative HEENT Mouth: dry mucous membranes Neck no JVD Resp normal respiratory effort Resp Narrative: Diminished, respiratory effort is less than expected. CTA, no wheezes and no crackles. Not tachypneic, respirations are not labored. No cough with deep breath. Cardio regular rate, regular rhythm and no gallops GI GI Narrative: He complains of abdominal pain however the abdomen is soft today and he does not guard with palpation. He has had a bowel movement. No significant tympany. No rebound tenderness. PEG site is free of erythema or discharge. Extremity no calf tenderness General Extremity: Negative for edema Skin Rashes: no rashes Neuro Neuro Narrative: Doing ice chips and Rodriguez water with the speech therapist. Assessment & Plan Assessment/Plan (1) Debility: (2) Acute stroke due to ischemia: (3) Cognitive dysfunction: (4) Left-sided weakness: (5) Dysarthria: (6) Dysphagia: QUALIFIERS: Dysphagia type: unspecified Qualified Code(s): R13.10 - Dysphagia, unspecified (7) Hypomagnesemia: (8) Hypokalemia: (9) Hyponatremia: (10) Dehydration: (11) Cystitis: (12) Abdominal pain: QUALIFIERS: Abdominal location: generalized Qualified Code(s): R10.84 - Generalized abdominal pain (13) Apneic episode: (14) Barretts esophagus: (15) Peptic ulcer disease with hemorrhage: (16) Acute renal failure: QUALIFIERS: Acute renal failure type: unspecified Qualified Code(s): N17.9 - Acute kidney failure, unspecified (17) Dyspnea: PLAN: Plan 1. Continue therapy 2. Check a D-dimer and a BNP. If the D-dimer is elevated we will need to do a CTA of the chest to rule out pulmonary embolus. He is on enoxaparin for DVT prophylaxis but does have a history of prostate cancer. 3. Continue Augmentin for 10 days total to treat UTI secondary to Aerococcus urinae 4. Dietitian has been consulted to transition him to bolus tube feeds 5. Start sertraline 50 mg daily for depression 6. Change the thiamine to 100 mg per PEG tube daily 7. I find no evidence on physical exam of congestive heart failure. Possibly crackles are due to atelectasis from poor inspiratory effort. Will check a D-dimer to rule out pulmonary embolus since he has been immobile and has a history of cancer. Charges/Coding Visit Charges Inpatient E&M: 28791 Subs Hosp L2
[2024-02-18 11:58] LABS: BNP,B-Type NATRIURETIC PEPTIDE 66.2 pg/mL (0-100)
--- NOTE | 2024-02-18 13:12 | CASEMGMT ---
Social Work IDT met with patient, and two sons for Team meeting. Discussed patient's progress in PT/OT/ST/SN. Educated to Medicare approval of 23 days with EDC 03/08. Pt had peg placed and has handheld suction machine, as pt cannot manage his own secretions. Pt has slightly declined since admission. Pt is tearful d/t decline. Dr started pt on antidepressant. SW offered supportive visits. IDT broached pt may need a SNF vs home at time of DC. SW will continue to follow and discuss options closer to DC. Will ReTeam weekly. Carla Kurtz, MIXOLOGIST LOG HANDLING EQUIPMENT OPERATOR
[2024-02-18 13:15] VITALS: BMI 24.2
[2024-02-18 13:25] LABS: D-Dimer Quantitative (DVT/PE) 7.85 FEU/ug/m (0.27-0.49)
--- NOTE | 2024-02-18 13:43 | CT_ITS ---
STUDY: CTA CHEST REASON FOR EXAM: Male, 78 years old. Elevated D-Dimer RADIATION DOSAGE (If Supplied By Facility): CTDIvol = ( 14.34 ) mGy, DLP = ( 423.85 ) mGycm TECHNIQUE: The examination was performed with the intravenous administration of 100mL Isovue-370. Post-processing of the angiographic images was performed, with multiplanar reformation and 3D reconstruction. Individualized dose optimization techniques were used for this CT. COMPARISON: None. FINDINGS: Despite mild breathing motion artifact, no definite filling defects identified in the pulmonary arteries. No thoracic aortic aneurysm. There is no demonstrated aortic dissection. Normal heart and pericardium. Normal mediastinum. Normal hilar regions. Bibasilar dependent or fibrotic changes without infiltrate or consolidation. No pleural effusions. No acute or aggressive osseous abnormality. No acute findings in the upper abdomen. CT/CTA Chest W/WO Contrast IMPRESSION: Normal CTA chest examination, without a demonstrated pulmonary embolism or arterial dissection. Electronically Signed: Cristiano Girard MD at 16:36 EST ,
[2024-02-18] MEDS: DiphenhydrAMINE 25 MG Capsule 50 MG PO (13:57)
[2024-02-18] MEDS: Sertraline 50 MG Tablet PO (13:57)
[2024-02-18] MEDS: Jevity 1.5. 1,000 ML Bottle 240 ML GT ×3 (15:34→20:38)
[2024-02-18] MEDS: oxyCODONE 5 MG Tablet 2.5 MG PO (17:49)
[2024-02-18 18:00] VITALS: BP 122/71; PULSE 77; RESP 20; TEMP 37; O2SAT 94
[2024-02-18 20:26] VITALS: BP 122/71; PULSE 77
[2024-02-18] MEDS: Atorvastatin Calcium 80 MG Tablet PO (20:37)
[2024-02-18] MEDS: Acetaminophen 650 MG/20 ML UDC GT (20:52)
[2024-02-18 23:04] VITALS: BMI 24.2
[2024-02-19] MEDS: Jevity 1.5. 1,000 ML Bottle 240 ML GT ×5 (05:21→20:43)
[2024-02-19] MEDS: Menthol/Lanolin/Calamine/Znox 113 GM Tube 1 APPLIC TOPICAL ×3 (05:21→20:42)
[2024-02-19 06:00] VITALS: BP 142/79; PULSE 73; RESP 16; TEMP 36.8; O2SAT 97; BMI 24.1
[2024-02-19] MEDS: Sertraline 50 MG Tablet PO (07:59)
[2024-02-19] MEDS: Thiamine Hydrochloride 100 MG Tablet GT (07:59)
[2024-02-19] MEDS: Magnesium Chloride 64 MG Delay Rel.Tablet 128 MG PO ×2 (07:59→20:41)
[2024-02-19] MEDS: Finasteride 5 MG Tablet GT (08:00)
[2024-02-19] MEDS: Acetaminophen 650 MG/20 ML UDC GT (08:00)
[2024-02-19] MEDS: Aspirin 81 MG TAB.CHEW PO (08:00)
[2024-02-19] MEDS: Amox/Clav 400mg/5ml Susp 875 MG GT ×2 (08:00→18:12)
[2024-02-19] MEDS: Clopidogrel Bisulfate 75 MG Tablet PO (08:10)
[2024-02-19] MEDS: Lansoprazole 15 MG Capsule.DR 30 MG GT ×2 (10:37→20:42)
[2024-02-19 10:38] VITALS: BP 136/69; PULSE 70
[2024-02-19] MEDS: Metoprolol Tartrate 50 MG Tablet PO ×2 (10:38→20:41)
[2024-02-19 11:03] VITALS: BMI 24.1
[2024-02-19 17:57] VITALS: BP 114/63; PULSE 73; RESP 16; TEMP 36; O2SAT 92
[2024-02-19 20:38] VITALS: BP 140/79; PULSE 75
[2024-02-19 20:41] VITALS: PULSE 75
[2024-02-19] MEDS: 0.9% Saline Lock 10 ML Syringe IV (20:41)
[2024-02-19] MEDS: Atorvastatin Calcium 80 MG Tablet PO (20:42)
[2024-02-19 22:31] VITALS: BMI 24.1
[2024-02-20 05:00] VITALS: BP 135/75; PULSE 73; RESP 20; TEMP 36.7; O2SAT 97
[2024-02-20] MEDS: Acetaminophen 650 MG/20 ML UDC GT ×2 (05:30→20:59)
[2024-02-20] MEDS: Jevity 1.5. 1,000 ML Bottle 240 ML GT ×5 (05:30→20:55)
[2024-02-20] MEDS: Menthol/Lanolin/Calamine/Znox 113 GM Tube 1 APPLIC TOPICAL ×3 (05:31→20:54)
[2024-02-20] MEDS: oxyCODONE 5 MG Tablet 2.5 MG PO ×2 (05:35→13:31)
[2024-02-20 06:00] VITALS: BMI 24.5
[2024-02-20] MEDS: Thiamine Hydrochloride 100 MG Tablet GT (10:03)
[2024-02-20] MEDS: Amox/Clav 400mg/5ml Susp 875 MG GT ×2 (10:08→17:52)
[2024-02-20 10:09] VITALS: PULSE 65
[2024-02-20] MEDS: Sertraline 50 MG Tablet PO (10:09)
[2024-02-20] MEDS: Lansoprazole 15 MG Capsule.DR 30 MG GT ×2 (10:09→20:56)
[2024-02-20] MEDS: Metoprolol Tartrate 50 MG Tablet PO ×2 (10:09→20:58)
[2024-02-20] MEDS: Magnesium Chloride 64 MG Delay Rel.Tablet 128 MG PO ×2 (10:09→20:58)
[2024-02-20] MEDS: Finasteride 5 MG Tablet GT (10:09)
[2024-02-20] MEDS: Clopidogrel Bisulfate 75 MG Tablet PO (10:09)
[2024-02-20] MEDS: 0.9% Saline Lock 10 ML Syringe IV (10:10)
[2024-02-20] MEDS: Aspirin 81 MG TAB.CHEW PO (10:10)
--- NOTE | 2024-02-20 11:38 | PN_ITS ---
Subjective Subjective Afebrile VSS -blood pressure over the past 24 hours has ranged from 135/75 to 142/79. Heart rate is within normal limits. Maintaining appropriate oxygen saturation on RA-92 to 97%. Oral intake - FOOD NPO. Tolerating bolus tube feeds with no residuals. FLUIDS fluid balance yesterday was +330. 2 bowel movements were recorded yesterday and the consistency was liquid/diarrhea. He had a bowel movement today it was medium size and soft. Has been voiding in the urinal. Discussed with nursing - no problems that need addressed. Nursing tells me the urine is no longer bloody. Reviewed the THERAPY notes Medication list reviewed. Not complaining of shortness of breath today. Denies cough. Tells me the abdominal pain is much better. He is practicing his swallowing and speech exercises in his room by himself. Enunciation is much better and I am clearly able to understand him. He is now able to do Rodriguez water and ice chips by himself. He denies chest pain, palpitations, lightheadedness, dysuria and calf pain. Objective Data Objective Data Vital Signs: Vital Signs Temp Pulse Resp BP Pulse Ox O2 Del Method O2 Flow Rate 98.0 F 65 20 H 135/75 H 97 Room Air 2 02/20/24 05:00 02/20/24 10:09 02/20/24 05:00 02/20/24 05:00 02/20/24 05:00 02/20/24 05:00 02/18/24 18:00 FiO2 21 02/17/24 07:37 Oxygen Flow Rate (L/min) 2 Oxygen Delivery Method Room Air Weight: 170 lb 13.732 oz Body Mass Index (BMI) 24.5 Intake & Output: Intake and Output for Last 24 Hours 02/18/24 02/19/24 02/20/24 23:59 23:59 23:59 Intake Total 3173 / 3173 1180 / 1180 160 / 160 Output Total 1650 / 1650 850 / 850 600 / 600 Balance 1523 / 1523 330 / 330 -440 / -440 Medical Nutrition Assessment Dietitian: Malnutrition Criteria Met Start: 02/15/24 14:57 Freq: Status: Active Protocol: Document 02/15/24 14:58 SB (Rec: 02/15/24 14:58 SB [id number]) Nutrition Malnutrition Evidence of Malnutrition Exists Yes Evidenced By Suboptimal Energy Intake ( Severe),Weight Loss (Severe) Clinical Problem Swallowing Difficulty Etiology related to dysphagia and stroke Signs/Symptoms as evidenced by need for modified diet, report of pharyngeal residue sensation and delayed cough per ELECTRICAL TIMING DEVICE CALIBRATOR progress note. Status Active Problem Chronic Disease or Condition Related Malnutrition Etiology severe protein-calorie malnutrition related to inadequate oral intake, ETOH use, and swallowing difficulties Signs/Symptoms as evidenced by 13% unintentional weight loss x less than 6 months and PO meeting less than 75% of estimated nutrition needs x 6 months. Status Active Problem Recommendation Dietitian Recommendations/Changes Adjust to liberal regular diet d/t signs and symptoms of malnutrition per ELECTRICAL TIMING DEVICE CALIBRATOR consistency/texture recommendations. Will order 120ml vanilla ensure TID with meals. Will monitor weight, as available. Reviewed and approved by Teresa Rosa RD, LD. Lab / Micro Data 02/17/24 06:27 02/18/24 03:40 Micro: Microbiology 02/14/24 21:15 Urine, Catheterized Urine Culture - Final Aerococcus urinae Physical Exam Const alert and no apparent distress Constitutional Narrative: Much more alert than he was at admission. More talkative and I am better able to understand him. General Appearance: cooperative HEENT moist oral mucous membranes HEENT Narrative: No evidence of thrush. Resp normal respiratory effort Resp Narrative: Better air exchange than a few days ago. Able to take a deeper breath. CTA, no wheezes and no crackles. Not tachypneic, respirations are not labored. No cough with deep breath. Cardio regular rate, regular rhythm, no rub and no gallops Cardio Narrative: No ectopy Rate: Negative for bradycardia or tachycardic GI GI Narrative: The abdomen is soft and nondistended. He had no grimacing or guarding with palpation around the PEG site. There is no erythema and no discharge around the PEG site. Normal bowel sounds. Extremity no calf tenderness General Extremity: Negative for edema Skin Rashes: no rashes Neuro Neuro Narrative: Doing ice chips and Rodriguez water by himself in his room. Psych cooperative Psych Narrative: Pleasant and making good eye contact with me. He is very engaged in what we are saying. We discussed how he was doing prior to this stroke and he was having problems with memory and getting agitated at times. We also discussed the effects of chronic alcohol excess on the cerebrum and Wernicke's encephalopathy. Appearance: appropriate Assessment & Plan Assessment/Plan (1) Debility: (2) Acute stroke due to ischemia: (3) Cognitive dysfunction: (4) Left-sided weakness: (5) Dysarthria: (6) Dysphagia: QUALIFIERS: Dysphagia type: unspecified Qualified Code(s): R13.10 - Dysphagia, unspecified (7) Cystitis: (8) Barretts esophagus: (9) Peptic ulcer disease with hemorrhage: (10) Acute renal failure: QUALIFIERS: Acute renal failure type: unspecified Qualified Code(s): N17.9 - Acute kidney failure, unspecified (11) Dyspnea: PLAN: D-dimer was elevated but the CTA of the chest was negative for pulmonary emboli. He does have scarring in the bases and this might be the etiology of his shortness of breath with lying down. He may also have reflux when lying flat that contributes. He has Cisneros's esophagus so he does reflux. PLAN: Plan 1. Continue therapy 2. Check a BMP, magnesium, phosphorus and H&H in a.m. 3. Continue Augmentin for total of 7 days to treat Aerococcus urinae 4. Systolic blood pressures are mildly elevated. Diastolics are always within normal limits. Will add lisinopril 2.5 mg daily to the current drug regimen. 5. Continue PPI Charges/Coding Visit Charges Inpatient E&M: 51266 [facility] Hosp L1
[2024-02-20] MEDS: Lisinopril 2.5 MG Tablet PO (13:29)
[2024-02-20 17:00] VITALS: BMI 24.5
[2024-02-20 17:58] VITALS: BP 124/70; PULSE 65; RESP 16; TEMP 36; O2SAT 96
[2024-02-20] MEDS: Atorvastatin Calcium 80 MG Tablet PO (20:56)
[2024-02-20 20:58] VITALS: BP 143/77; PULSE 75
[2024-02-21 00:41] VITALS: BMI 24.5
[2024-02-21 05:36] LABS: Hematocrit 27.9 % (40-54); Hemoglobin 9.6 g/dL (13.0-16.5)
[2024-02-21 06:00] VITALS: BP 136/79; PULSE 74; RESP 15; TEMP 36.6; O2SAT 94; BMI 24.3
[2024-02-21 06:00] LABS: Anion Gap 3 (5-15); BUN 17 mg/dL (7-18); BUN/Creat Ratio 24.7 RATIO (10-20); Calcium,Total 9.4 mg/dL (8.5-10.1); Chloride 100 mmol/L (98-107); Creatinine, Serum 0.69 mg/dL (0.70-1.30); EST Glomerular Filtration Rate 119 mL/min (>60); Est Glom Filt Rate - Afr Amer 143 mL/min (>60); Estimated Creatinine Clearance 81.11 ml/min; Glucose 113 mg/dL (74-106); Magnesium 1.6 mg/dL (1.6-2.6); Phosphorus 2.7 mg/dL (2.5-4.9); Sodium Level 133 mmol/L (136-145)
[2024-02-21] MEDS: 0.9% Saline Lock 10 ML Syringe IV ×2 (06:35→20:53)
[2024-02-21] MEDS: Jevity 1.5. 1,000 ML Bottle 240 ML GT ×5 (06:35→20:29)
--- NOTE | 2024-02-21 08:13 | PCM.PROGNOTE ---
Subjective Subjective Afebrile VSS -systolics are sometimes mildly elevated. Amlodipine 2.5 mg daily was started yesterday to get the systolic consistently under 130. Diastolics are within goal. Heart rate is within normal limits. Maintaining appropriate oxygen saturation on RA Oral intake - FOOD remains n.p.o. except for Rodriguez water and ice FLUIDS fluid balance yesterday was 180 and he was +310 overnight however he did have 5-6 liquid stools yesterday. Discussed with nursing -stool softeners were placed on hold due to liquid stools. Reviewed the THERAPY notes Medication list reviewed. All lab done today was personally reviewed. Hemoglobin is stable at 9.6. Sodium is 133, down from 136 on 02/18/2024. Potassium is 4 and stable. The BUN is 17 with a creatinine of 0.69 which is very good for him. Magnesium is low normal at 1.6. Calcium and phosphorus are within normal limits. Denies cephalgia, lightheadedness, nausea/abdominal pain, dysuria and calf tenderness. He is very motivated to get better and he is doing his swallowing/speech exercises in his room when therapy is not with him. He was able to eat applesauce with the St today....about 6 oz. Objective Data Objective Data Vital Signs: Vital Signs Temp Pulse Resp BP Pulse Ox O2 Del Method O2 Flow Rate 97.8 F 74 15 136/79 H 94 Room Air 2 02/21/24 06:00 02/21/24 06:00 02/21/24 06:00 02/21/24 06:00 02/21/24 06:00 02/21/24 06:00 02/18/24 18:00 FiO2 21 02/17/24 07:37 Oxygen Flow Rate (L/min) 2 Oxygen Delivery Method Room Air Weight: 169 lb 12.8 oz Body Mass Index (BMI) 24.3 Intake & Output: Intake and Output for Last 24 Hours 02/19/24 02/20/24 02/21/24 23:59 23:59 23:59 Intake Total 1180 / 1180 1630 / 1630 560 / 560 Output Total 850 / 850 1450 / 1450 250 / 250 Balance 330 / 330 180 / 180 310 / 310 Medical Nutrition Assessment Dietitian: Malnutrition Criteria Met Start: 02/15/24 14:57 Freq: Status: Active Protocol: Document 02/15/24 14:58 SB (Rec: 02/15/24 14:58 SB [id number]) Nutrition Malnutrition Evidence of Malnutrition Exists Yes Evidenced By Suboptimal Energy Intake ( Severe),Weight Loss (Severe) Clinical Problem Swallowing Difficulty Etiology related to dysphagia and stroke Signs/Symptoms as evidenced by need for modified diet, report of pharyngeal residue sensation and delayed cough per WOOL HAT SANDING MACHINE OPERATOR progress note. Status Active Problem Chronic Disease or Condition Related Malnutrition Etiology severe protein-calorie malnutrition related to inadequate oral intake, ETOH use, and swallowing difficulties Signs/Symptoms as evidenced by 13% unintentional weight loss x less than 6 months and PO meeting less than 75% of estimated nutrition needs x 6 months. Status Active Problem Recommendation Dietitian Recommendations/Changes Adjust to liberal regular diet d/t signs and symptoms of malnutrition per WOOL HAT SANDING MACHINE OPERATOR consistency/texture recommendations. Will order 120ml vanilla ensure TID with meals. Will monitor weight, as available. Reviewed and approved by Teresa Rosa RD, LD. Lab / Micro Data 02/21/24 05:20 02/21/24 05:20 Labs: Laboratory Results - last 24 hr 02/21/24 05:20: Hgb 9.6 L, Hct 27.9 L, Sodium 133 L, Potassium 4.0, Chloride 100, Carbon Dioxide 30.0, Anion Gap 3 L, BUN 17, Creatinine 0.69 L, Estim Creat Clear Calc 81.11, Est GFR (MDRD) Af Amer 143, Est GFR (MDRD) Non-Af 119, BUN/Creatinine Ratio 24.7 H, Glucose 113 H, Calcium 9.4, Phosphorus 2.7, Magnesium 1.6 Micro: Microbiology 02/14/24 21:15 Urine, Catheterized Urine Culture - Final Aerococcus urinae Physical Exam Const alert and no apparent distress Constitutional Narrative: Much more alert than he was at admission. More talkative and I am better able to understand him. General Appearance: cooperative HEENT moist oral mucous membranes HEENT Narrative: No evidence of thrush. Resp normal respiratory effort and clear to auscultation bilaterally Resp Narrative: Much better air exchange Cardio regular rate, regular rhythm, no rub and no gallops Cardio Narrative: No ectopy Rate: Negative for bradycardia or tachycardic GI GI Narrative: The abdomen is soft and nondistended. He had no grimacing or guarding with palpation around the PEG site. There is no erythema and no discharge around the PEG site. Normal bowel sounds. Extremity no calf tenderness General Extremity: Negative for edema Skin Rashes: no rashes Psych cooperative Psych Narrative: Pleasant and making good eye contact with me. He is very engaged in what we are saying. We discussed how he was doing prior to this stroke and he was having problems with memory and getting agitated at times. We also discussed the effects of chronic alcohol excess on the cerebrum and Wernicke's encephalopathy. Appearance: appropriate Assessment & Plan Assessment/Plan (1) Debility: (2) Acute stroke due to ischemia: (3) Cognitive dysfunction: (4) Left-sided weakness: (5) Dysarthria: (6) Dysphagia: QUALIFIERS: Dysphagia type: unspecified Qualified Code(s): R13.10 - Dysphagia, unspecified (7) Cystitis: (8) Barretts esophagus: (9) Peptic ulcer disease with hemorrhage: (10) Acute renal failure: QUALIFIERS: Acute renal failure type: unspecified Qualified Code(s): N17.9 - Acute kidney failure, unspecified (11) Dyspnea: PLAN: Plan 1. Continue therapy 2. Change senna to as needed constipation 3. Change the water flushes to 60 cc after each tube feed. This will bring the total fluid intake to 1500 cc daily. 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 4. Imodium 2 mg every 4 hours as needed greater than 2 loose stools a day. 5. No adjustment needed to the antihypertensive regimen today. Lisinopril was just started on 02/20/2024. 6. Magnesium chloride does not crush well and I do not think he is able to absorb this and that is why the magnesium is still low on twice daily mag chloride. Magnesium oxide can be crushed more easily but is no longer on formulary. I spoke with the pharmacist and she is going to check with the retail pharmacy to see if they have Mag-Ox. Charges/Coding Visit Charges Inpatient E&M: 22052 Subs Hosp L1
[2024-02-21] MEDS: Finasteride 5 MG Tablet GT (09:39)
[2024-02-21] MEDS: Lansoprazole 15 MG Capsule.DR 30 MG GT ×2 (09:39→20:30)
[2024-02-21] MEDS: Thiamine Hydrochloride 100 MG Tablet GT (09:40)
[2024-02-21] MEDS: Aspirin 81 MG TAB.CHEW PO (09:40)
[2024-02-21 09:41] VITALS: PULSE 74
[2024-02-21] MEDS: Menthol/Lanolin/Calamine/Znox 113 GM Tube 1 APPLIC TOPICAL ×2 (09:41→20:26)
[2024-02-21] MEDS: Petrolatum,White 5 GM PACKET 1 APPLIC TOPICAL (09:41)
[2024-02-21] MEDS: Metoprolol Tartrate 50 MG Tablet PO ×2 (09:41→20:30)
[2024-02-21] MEDS: Amox/Clav 400mg/5ml Susp 875 MG GT ×2 (09:50→17:07)
[2024-02-21] MEDS: Sertraline 50 MG Tablet PO (10:01)
[2024-02-21] MEDS: Clopidogrel Bisulfate 75 MG Tablet PO (10:01)
[2024-02-21] MEDS: MAGNESIUM OXIDE 400 MG TABLET GT ×2 (12:02→20:30)
[2024-02-21] MEDS: Lisinopril 2.5 MG Tablet PO (12:02)
[2024-02-21] MEDS: Loperamide (Oral Liquid) 1 MG/7.5 ML ML 2 MG PO (14:34)
[2024-02-21 14:53] VITALS: BMI 24.3
[2024-02-21 18:00] VITALS: BP 115/61; PULSE 64; RESP 16; TEMP 36.6; O2SAT 95
[2024-02-21] MEDS: Acetaminophen 650 MG/20 ML UDC GT (20:29)
[2024-02-21 20:30] VITALS: BP 124/72; PULSE 74
[2024-02-21] MEDS: Atorvastatin Calcium 80 MG Tablet PO (20:30)
[2024-02-22 05:37] VITALS: BP 138/76; PULSE 68; RESP 18; TEMP 36.4; O2SAT 95; BMI 24.6
[2024-02-22] MEDS: Jevity 1.5. 1,000 ML Bottle 240 ML GT ×5 (05:48→22:30)
[2024-02-22 09:48] VITALS: BP 127/77; PULSE 92
[2024-02-22] MEDS: Lisinopril 2.5 MG Tablet PO (09:48)
[2024-02-22] MEDS: Finasteride 5 MG Tablet GT (09:48)
[2024-02-22] MEDS: Metoprolol Tartrate 50 MG Tablet PO ×2 (09:48→22:29)
[2024-02-22] MEDS: Clopidogrel Bisulfate 75 MG Tablet PO (09:48)
[2024-02-22] MEDS: Lansoprazole 15 MG Capsule.DR 30 MG GT ×2 (09:48→22:29)
[2024-02-22] MEDS: Aspirin 81 MG TAB.CHEW PO (09:48)
[2024-02-22] MEDS: Thiamine Hydrochloride 100 MG Tablet GT (09:48)
[2024-02-22] MEDS: MAGNESIUM OXIDE 400 MG TABLET GT ×2 (09:48→22:29)
[2024-02-22] MEDS: Sertraline 50 MG Tablet PO (09:48)
[2024-02-22] MEDS: Menthol/Lanolin/Calamine/Znox 113 GM Tube 1 APPLIC TOPICAL ×2 (09:51→22:30)
[2024-02-22] MEDS: Amox/Clav 400mg/5ml Susp 875 MG GT ×2 (09:53→17:39)
[2024-02-22] MEDS: Petrolatum,White 5 GM PACKET 1 APPLIC TOPICAL (10:09)
[2024-02-22 11:55] VITALS: BMI 24.6
[2024-02-22] MEDS: 0.9% Saline Lock 10 ML Syringe IV ×2 (14:40→23:36)
--- NOTE | 2024-02-22 16:36 | NURSING ---
Educated pt on PEG tube administration. pt assisted with administering feeding via PEG
[2024-02-22 18:00] VITALS: BP 125/67; PULSE 69; RESP 16; TEMP 36.5; O2SAT 98
[2024-02-22 22:29] VITALS: BP 137/78; PULSE 71
[2024-02-22] MEDS: Atorvastatin Calcium 80 MG Tablet PO (22:29)
[2024-02-23 00:45] VITALS: BMI 24.6
[2024-02-23 06:00] VITALS: BP 123/65; PULSE 66; RESP 18; TEMP 36.6; O2SAT 95; BMI 24.4
[2024-02-23] MEDS: Jevity 1.5. 1,000 ML Bottle 240 ML GT ×5 (06:20→22:33)
[2024-02-23 10:58] VITALS: BP 122/72; PULSE 75
[2024-02-23] MEDS: Metoprolol Tartrate 50 MG Tablet PO ×2 (10:58→22:30)
[2024-02-23] MEDS: Aspirin 81 MG TAB.CHEW PO (10:59)
[2024-02-23] MEDS: Sertraline 50 MG Tablet PO (10:59)
[2024-02-23] MEDS: Lisinopril 2.5 MG Tablet PO (10:59)
[2024-02-23] MEDS: Clopidogrel Bisulfate 75 MG Tablet PO (10:59)
[2024-02-23] MEDS: Finasteride 5 MG Tablet GT (10:59)
[2024-02-23] MEDS: Thiamine Hydrochloride 100 MG Tablet GT (10:59)
[2024-02-23] MEDS: MAGNESIUM OXIDE 400 MG TABLET GT ×2 (10:59→22:28)
[2024-02-23] MEDS: Lansoprazole 15 MG Capsule.DR 30 MG GT ×2 (10:59→22:28)
[2024-02-23] MEDS: Menthol/Lanolin/Calamine/Znox 113 GM Tube 1 APPLIC TOPICAL ×2 (11:14→22:32)
[2024-02-23] MEDS: Petrolatum,White 5 GM PACKET 1 APPLIC TOPICAL (11:16)
[2024-02-23 13:51] VITALS: BMI 24.4
--- NOTE | 2024-02-23 15:00 | NURSING ---
Spouse educated on PEG tube administration. Completed PEG tube feeding and water flush.
[2024-02-23 17:30] VITALS: BP 107/59; PULSE 70; RESP 17; TEMP 36.7; O2SAT 96
[2024-02-23] MEDS: Acetaminophen 650 MG/20 ML UDC GT ×2 (18:09→22:30)
[2024-02-23] MEDS: Atorvastatin Calcium 80 MG Tablet PO (22:28)
[2024-02-23 22:30] VITALS: BP 133/69; PULSE 75
[2024-02-23] MEDS: 0.9% Saline Lock 10 ML Syringe IV (22:58)
[2024-02-24] MEDS: Acetaminophen 650 MG/20 ML UDC GT ×2 (05:43→20:40)
[2024-02-24] MEDS: Jevity 1.5. 1,000 ML Bottle 240 ML GT ×5 (05:43→20:43)
[2024-02-24 05:50] VITALS: BMI 24.5
[2024-02-24 06:00] VITALS: BP 123/69; PULSE 73; RESP 18; TEMP 36.3; O2SAT 98
[2024-02-24 08:31] VITALS: BMI 24.5
[2024-02-24] MEDS: Lisinopril 2.5 MG Tablet PO (08:47)
[2024-02-24] MEDS: Clopidogrel Bisulfate 75 MG Tablet PO (08:47)
[2024-02-24] MEDS: Sertraline 50 MG Tablet PO (08:47)
[2024-02-24 08:48] VITALS: BP 126/74; PULSE 66
[2024-02-24] MEDS: Thiamine Hydrochloride 100 MG Tablet GT (08:48)
[2024-02-24] MEDS: Aspirin 81 MG TAB.CHEW PO (08:48)
[2024-02-24] MEDS: MAGNESIUM OXIDE 400 MG TABLET GT ×2 (08:48→20:43)
[2024-02-24] MEDS: Metoprolol Tartrate 50 MG Tablet PO ×2 (08:48→20:43)
[2024-02-24] MEDS: Lansoprazole 15 MG Capsule.DR 30 MG GT ×2 (08:48→20:42)
[2024-02-24] MEDS: Finasteride 5 MG Tablet GT (08:48)
[2024-02-24] MEDS: Menthol/Lanolin/Calamine/Znox 113 GM Tube 1 APPLIC TOPICAL ×2 (08:48→20:41)
[2024-02-24] MEDS: Loperamide (Oral Liquid) 1 MG/7.5 ML ML 2 MG PO (15:13)
[2024-02-24 18:00] VITALS: BP 116/59; PULSE 66; RESP 17; TEMP 36.1; O2SAT 97
[2024-02-24] MEDS: 0.9% Saline Lock 10 ML Syringe IV (20:40)
[2024-02-24 20:43] VITALS: BP 140/65; PULSE 73
[2024-02-24] MEDS: Atorvastatin Calcium 80 MG Tablet PO (20:43)
[2024-02-25 02:38] VITALS: BMI 24.5
[2024-02-25 05:04] VITALS: BMI 24.7
[2024-02-25] MEDS: Jevity 1.5. 1,000 ML Bottle 240 ML GT ×5 (05:15→23:24)
[2024-02-25 05:30] VITALS: BP 122/69; PULSE 70; RESP 16; TEMP 36.5; O2SAT 98
[2024-02-25] MEDS: Finasteride 5 MG Tablet GT (09:09)
[2024-02-25] MEDS: Aspirin 81 MG TAB.CHEW PO (09:09)
[2024-02-25] MEDS: Thiamine Hydrochloride 100 MG Tablet GT (09:09)
[2024-02-25] MEDS: Sertraline 50 MG Tablet PO ×2 (09:09→11:43)
[2024-02-25] MEDS: MAGNESIUM OXIDE 400 MG TABLET GT ×2 (09:09→23:24)
[2024-02-25] MEDS: Clopidogrel Bisulfate 75 MG Tablet PO (09:09)
[2024-02-25] MEDS: Lansoprazole 15 MG Capsule.DR 30 MG GT ×2 (09:09→23:23)
[2024-02-25 09:10] VITALS: BP 131/71; PULSE 77
[2024-02-25] MEDS: Metoprolol Tartrate 50 MG Tablet PO (09:10)
[2024-02-25] MEDS: Lisinopril 2.5 MG Tablet PO (09:10)
[2024-02-25] MEDS: Menthol/Lanolin/Calamine/Znox 113 GM Tube 1 APPLIC TOPICAL ×2 (09:13→23:29)
[2024-02-25] MEDS: Petrolatum,White 5 GM PACKET 1 APPLIC TOPICAL (09:14)
--- NOTE | 2024-02-25 09:15 | PCM.PROGNOTE ---
Subjective Subjective Jakub was seen on team rounds today. Afebrile VSS -blood pressure is well-controlled and heart rate is within normal limits. Weight is up approximately 4 pounds since 02/12/2024 Maintaining appropriate oxygen saturation on RA-96 to 98%. Oral intake - FOOD remains n.p.o. on Rodriguez water and applesauce/pudding. FLUIDS intake and output are not accurate. It says he had 1040 in yesterday but with tube feed alone he gets 1200 cc daily. He is also receiving water flushes. Discussed with nursing -nursing informs me and that the PEG site is reddened with purulent discharge. Reviewed the THERAPY notes Medication list reviewed. Denies lightheadedness, cephalgia, chest pain, shortness of breath, cough, palpitations, nausea, dysuria and calf tenderness. He does have some tenderness around the site of PEG insertion. All lab from today was personally reviewed. Sodium is 134 and stable. Potassium is 3.7. The BUN is 15 with a creatinine of 0.83 which is within his baseline. Fasting glucose is 112 and the calcium is within normal limits. Objective Data Objective Data Vital Signs: Vital Signs Temp Pulse Resp BP Pulse Ox O2 Del Method O2 Flow Rate 97.7 F L 77 16 131/71 H 98 Room Air 2 02/25/24 05:30 02/25/24 09:10 02/25/24 05:30 02/25/24 09:10 02/25/24 05:30 02/25/24 05:30 02/18/24 18:00 FiO2 21 02/17/24 07:37 Oxygen Flow Rate (L/min) 2 Oxygen Delivery Method Room Air Weight: 172 lb 1.6 oz Body Mass Index (BMI) 24.7 Intake & Output: Intake and Output for Last 24 Hours 02/23/24 02/24/24 02/25/24 23:59 23:59 23:59 Intake Total 1100 / 1190 1040 / 1210 530 / 530 Output Total 975 / 1200 1425 / 1725 400 / 400 Balance 125 / -10 -385 / -515 130 / 130 Medical Nutrition Assessment Dietitian: Malnutrition Criteria Met Start: 02/15/24 14:57 Freq: Status: Active Protocol: Document 02/15/24 14:58 SB (Rec: 12/20/24 14:58 SB [id number]) Nutrition Malnutrition Evidence of Malnutrition Exists Yes Evidenced By Suboptimal Energy Intake ( Severe),Weight Loss (Severe) Clinical Problem Swallowing Difficulty Etiology related to dysphagia and stroke Signs/Symptoms as evidenced by need for modified diet, report of pharyngeal residue sensation and delayed cough per DIRECTOR OF CAREER SERVICES progress note. Status Active Problem Chronic Disease or Condition Related Malnutrition Etiology severe protein-calorie malnutrition related to inadequate oral intake, ETOH use, and swallowing difficulties Signs/Symptoms as evidenced by 13% unintentional weight loss x less than 6 months and PO meeting less than 75% of estimated nutrition needs x 6 months. Status Active Problem Recommendation Dietitian Recommendations/Changes Adjust to liberal regular diet d/t signs and symptoms of malnutrition per DIRECTOR OF CAREER SERVICES consistency/texture recommendations. Will order 120ml vanilla ensure TID with meals. Will monitor weight, as available. Reviewed and approved by Teresa Rosa RD, LD. Lab / Micro Data 02/21/24 05:20 03/04/24 05:30 Micro: Microbiology 02/14/24 21:15 Urine, Catheterized Urine Culture - Final Aerococcus urinae Physical Exam Const alert, oriented x3 and no apparent distress General Appearance: cooperative HEENT moist oral mucous membranes HEENT Narrative: No thrush Resp normal respiratory effort Resp Narrative: Diminished in the bases with some coarse crackles, essentially unchanged. Overall air exchange is better than it was at admission to rehab and he is able to take a deeper breath. Effort and Inspection: Negative for tachypneic Cardio regular rate, regular rhythm and no gallops Cardio Narrative: No ectopy GI GI Narrative: Soft, no significant distention, normal bowel sounds. There is some superficial necrosis around the PEG site and purulent drainage. Mild suleiman-peg erythema.......primarily superficial necrosis. No guarding with palpation around the PEG site. He did complain of some mild tenderness in the immediate area around the PEG. Extremity no calf tenderness General Extremity: Negative for edema Skin Rashes: no rashes Neuro Neuro Narrative: Left facial droop is much less than it was at admission and his speech is improved significantly. Over the weekend he was able to eat some pudding. Psych Psych Narrative: Tolerating sertraline with no adverse effects. It was started on 02/18/2024. He is upbeat today and working hard in therapy. Always cooperative. No agitation. Calm and making good eye contact. Appearance: appropriate Assessment & Plan Assessment/Plan (1) Debility: (2) Acute stroke due to ischemia: (3) Cognitive dysfunction: (4) Left-sided weakness: (5) Dysarthria: (6) Dysphagia: QUALIFIERS: Dysphagia type: unspecified Qualified Code(s): R13.10 - Dysphagia, unspecified (7) Cystitis: (8) Barretts esophagus: (9) Peptic ulcer disease with hemorrhage: (10) Acute renal failure: QUALIFIERS: Acute renal failure type: unspecified Qualified Code(s): N17.9 - Acute kidney failure, unspecified (11) Dyspnea: PLAN: Plan 1. Continue therapy 2. Check a magnesium 3. Continue 1500 cc/day fluid restriction 4. Increase sertraline to 100 mg daily 5. Obtain a culture of the purulent discharge from around the PEG. Get a PCR for MRSA on the drainage 6. Start Keflex and await the results of the culture 7. Bacitracin twice daily around the PEG tube Today he is eating mashed potatoes with gravy. The speech therapist plans on holding tube feed in the a.m. and having a full breakfast with him. Charges/Coding Visit Charges Inpatient E&M: 14055 Subs Hosp L1
[2024-02-25 09:32] LABS: Anion Gap 6 (5-15); BUN 15 mg/dL (7-18); BUN/Creat Ratio 18.2 RATIO (10-20); Calcium,Total 9.4 mg/dL (8.5-10.1); Chloride 100 mmol/L (98-107); Creatinine, Serum 0.83 mg/dL (0.70-1.30); EST Glomerular Filtration Rate 96 mL/min (>60); Est Glom Filt Rate - Afr Amer 116 mL/min (>60); Estimated Creatinine Clearance 78.18 ml/min; Glucose 112 mg/dL (74-106); Potassium 3.7 mmol/L (3.5-5.1); Sodium Level 134 mmol/L (136-145)
[2024-02-25 10:06] LABS: Magnesium 2.1 mg/dL (1.6-2.6)
[2024-02-25] MEDS: 0.9% Saline Lock 10 ML Syringe IV (11:13)
[2024-02-25] MEDS: BACITRACIN 15 GM Tube 1 APPLIC TOPICAL ×2 (11:13→23:22)
[2024-02-25 12:32] VITALS: BMI 24.7
[2024-02-25 13:02] LABS: M R Staph aureus DNA By PCR Negative (Negative); Probe Check PASS; Specimen Processing Control PASS; Staph aureus DNA By PCR NEGATIVE (Negative)
--- NOTE | 2024-02-25 13:22 | CASEMGMT ---
Social Work IDT met with patient, , two sons for Team meeting. Discussed patient's progress in PT/OT/ST/SN. Educated to Medicare benefit, EDC 03/08. Pt has made progress from last week. DC plan is home vs SNF. Will ReTeam next week to make final DC recommendations. is open to caring for pt at home, though she just had back surgery and cannot lift more than 10 lbs. Offered therapy training with and scheduled for 03/03 after Team meeting. SW to provide list of [facility] SNFs, per geographical request, if SNF is elected. Briefly explained Medicare benefit for skilled care at SNF. SW to assist with plans. SW provided printed lists of SNF providers including quality and resource data via [employer] Guide to all 3 family members. Will continue to follow. NIK ArboledaW
[2024-02-25] MEDS: Cephalexin Suspension 250 MG/5 ML PO.SYRINGE 500 MG GT ×2 (14:35→23:26)
[2024-02-25] MEDS: Loperamide (Oral Liquid) 1 MG/7.5 ML ML 2 MG PO (15:33)
[2024-02-25 17:58] VITALS: BP 108/60; PULSE 73; RESP 17; TEMP 36.7; O2SAT 95
[2024-02-25] MEDS: Atorvastatin Calcium 80 MG Tablet GT (23:24)
[2024-02-25 23:28] VITALS: BP 124/70; PULSE 76
[2024-02-25] MEDS: Metoprolol Tartrate 50 MG Tablet GT (23:28)
[2024-02-25 23:30] VITALS: O2SAT 99
[2024-02-26 05:22] VITALS: BMI 25.2
[2024-02-26 06:00] VITALS: BP 126/67; PULSE 74; RESP 16; TEMP 36.9; O2SAT 96
[2024-02-26] MEDS: Cephalexin Suspension 250 MG/5 ML PO.SYRINGE 500 MG GT ×3 (06:45→21:31)
--- NOTE | 2024-02-26 08:18 | NURSING ---
Dr. Mcbride calls unit this am. Updated on emesis post tube feed. Residual prior to tube feed was 0 ml. No additional emesis this shift. Lungs clear, diminished b/l during med pass this am. No cough noted. Skin pink, warm, and dry. Resp even and unlabored. Will continue to monitor.
--- NOTE | 2024-02-26 09:09 | PN.REHAB_ITS ---
Subjective Subjective Patient seen, examined. PEG placed 02/15/2024, patient has no new complaints. He is progressing with therapy, continues to have expressive aphasia. Objective Data Objective Data Vital Signs: Vital Signs Temp Pulse Resp BP Pulse Ox O2 Del Method O2 Flow Rate 98.5 F 74 16 126/67 H 96 Room Air 2 02/26/24 06:00 02/26/24 06:00 02/26/24 06:00 02/26/24 06:00 02/26/24 06:00 02/26/24 06:00 02/18/24 18:00 FiO2 21 02/17/24 07:37 Oxygen Flow Rate (L/min) 2 Oxygen Delivery Method Room Air Weight: 79.8 kg Body Mass Index (BMI) 25.2 Intake & Output: Intake and Output for Last 24 Hours 02/24/24 02/25/24 02/26/24 23:59 23:59 23:59 Intake Total 1040 / 1210 1010 / 1170 200 / 200 Output Total 1425 / 1725 1150 / 1350 200 / 200 Balance -385 / -515 -140 / -180 0 / 0 Medical Nutrition Assessment Dietitian: Malnutrition Criteria Met Start: 02/15/24 14:57 Freq: Status: Active Protocol: Document 02/15/24 14:58 SB (Rec: 02/15/24 14:58 SB [id number]) Nutrition Malnutrition Evidence of Malnutrition Exists Yes Evidenced By Suboptimal Energy Intake ( Severe),Weight Loss (Severe) Clinical Problem Swallowing Difficulty Etiology related to dysphagia and stroke Signs/Symptoms as evidenced by need for modified diet, report of pharyngeal residue sensation and delayed cough per COMMUNICATIONS CONTROLLER progress note. Status Active Problem Chronic Disease or Condition Related Malnutrition Etiology severe protein-calorie malnutrition related to inadequate oral intake, ETOH use, and swallowing difficulties Signs/Symptoms as evidenced by 13% unintentional weight loss x less than 6 months and PO meeting less than 75% of estimated nutrition needs x 6 months. Status Active Problem Recommendation Dietitian Recommendations/Changes Adjust to liberal regular diet d/t signs and symptoms of malnutrition per COMMUNICATIONS CONTROLLER consistency/texture recommendations. Will order 120ml vanilla ensure TID with meals. Will monitor weight, as available. Reviewed and approved by Teresa Rosa RD, LD. Lab / Micro Data 02/21/24 05:20 02/25/24 08:40 Labs: Laboratory Results - last 24 hr 02/25/24 08:40: Sodium 134 L, Potassium 3.7, Chloride 100, Carbon Dioxide 28.0, Anion Gap 6, BUN 15, Creatinine 0.83, Estim Creat Clear Calc 78.18, Est GFR (MDRD) Af Amer 116, Est GFR (MDRD) Non-Af 96, BUN/Creatinine Ratio 18.2, Glucose 112 H, Calcium 9.4, Magnesium 2.1 02/25/24 09:36: S.aureus Protein A PCR NEGATIVE, MRSA (PCR) Negative Micro: Microbiology 02/14/24 21:15 Urine, Catheterized Urine Culture - Final Aerococcus urinae Indicators for Scoring Admitted with or Primary Diagnosis of CVA/Stroke: Yes Hx of CVA/Stroke: Yes Modified [place] Score MRS Score at time of Evaluation: 4-Moderate/severe disability Physical Exam Const alert General Appearance: cooperative HEENT normocephalic Eyes PERRL and EOMs intact bilaterally Neck supple, no JVD and no carotid bruits Resp normal respiratory effort, normal air movement and clear to auscultation bilaterally Cardio regular rate and regular rhythm GI normal to inspection, nondistended, normoactive bowel sounds, non-tender and non-distended GI Narrative: PEG present. Extremity normal capillary refill General Extremity: Negative for edema Skin no rashes or lesions noted General Skin Exam: no breakdown Neuro moves all extremities Neuro Narrative: Mild left upper extremity hemiparesis, moderate left lower extremity hemiparesis. Speech: expressive aphasia Psych affect normal Appearance: appropriate Assessment & Plan Assessment/Plan (1) Debility: (2) Expressive aphasia: (3) BPH (benign prostatic hyperplasia): QUALIFIERS: Lower urinary tract symptom presence: symptoms absent Qualified Code(s): N40.0 - Benign prostatic hyperplasia without lower urinary tract symptoms (4) Hypertension: QUALIFIERS: Hypertension type: essential hypertension Qualified Code(s): I10 - Essential (primary) hypertension (5) Hyperlipidemia: (6) GERD (gastroesophageal reflux disease): (7) Dysphagia: QUALIFIERS: Dysphagia type: unspecified Qualified Code(s): R13.10 - Dysphagia, unspecified (8) Depression: (9) Alcohol abuse: PLAN: Plan 78 year old male with below past medical history hospitalized for stroke, s/p PEG 02/15/2024, admitted to for 3 hours daily rehabilitation, strengthening, prior to disposition determination. * Debility - PT/OT/ST. * Pain - Tylenol 650mg q4 prn, 650mg po x 1 prn, Oxycodone 2.5mg q6 prn. * Bowel - senna/colace 2 tablets bid, Dulcolax 10mg pr x 1 prn, Loperamide 2mg q6 prn, MOM 30mL po x 1 prn. * DVT prophylaxis - Loevenox 40mg sc daily. * Stroke - Aspirin 81mg daily, Plavix 75mg daily. * Hyperlipidemia - Atorvastatin 80mg qhs. * Skin irritation - Calmoseptine topical bid, Eucerin topical daily. * PEG site infection - culture pending, Bacitracin ointment topical bid, Keflex 500mg po tid. * BPH - Finasteride 5mg daily. * Nutrition - Jevity 1.5 240mL 5x/day. * GERD - Lansoprazole 30mg bid. * Hypertension - Metoprolol 50mg bid, Lisinopril 2.5mg daily. * Hypomagnesemia - Magnesium oxide 400mg bid. * Depression - Sertraline 100mg daily. * Alcohol abuse - Thiamine 100mg daily.
[2024-02-26] MEDS: MAGNESIUM OXIDE 400 MG TABLET GT ×2 (09:24→21:33)
[2024-02-26] MEDS: Lansoprazole 15 MG Capsule.DR 30 MG GT ×2 (09:24→21:33)
[2024-02-26 09:25] VITALS: BP 132/70; PULSE 72
[2024-02-26] MEDS: Clopidogrel Bisulfate 75 MG Tablet GT (09:25)
[2024-02-26] MEDS: Metoprolol Tartrate 50 MG Tablet GT ×2 (09:25→21:32)
[2024-02-26] MEDS: Sertraline 100 MG Tablet GT (09:25)
[2024-02-26] MEDS: Aspirin 81 MG TAB.CHEW GT (09:25)
[2024-02-26] MEDS: Thiamine Hydrochloride 100 MG Tablet GT (09:25)
[2024-02-26] MEDS: Finasteride 5 MG Tablet GT (09:25)
[2024-02-26] MEDS: Lisinopril 2.5 MG Tablet GT (09:26)
[2024-02-26] MEDS: Menthol/Lanolin/Calamine/Znox 113 GM Tube 1 APPLIC TOPICAL ×2 (09:38→21:32)
[2024-02-26] MEDS: BACITRACIN 15 GM Tube 1 APPLIC TOPICAL ×2 (15:14→21:31)
[2024-02-26] MEDS: Jevity 1.5. 1,000 ML Bottle 240 ML GT ×3 (15:14→21:34)
[2024-02-26] MEDS: Acetaminophen 650 MG/20 ML UDC GT ×2 (15:19→21:32)
[2024-02-26 15:53] VITALS: BMI 25.2
[2024-02-26 17:31] VITALS: BP 104/60; PULSE 73; RESP 16; TEMP 36.5; O2SAT 97
[2024-02-26 21:32] VITALS: BP 121/68; PULSE 78
[2024-02-26] MEDS: Atorvastatin Calcium 80 MG Tablet GT (21:33)
[2024-02-27 04:31] VITALS: BMI 25.2
[2024-02-27] MEDS: Acetaminophen 650 MG/20 ML UDC GT ×3 (05:54→20:48)
[2024-02-27] MEDS: Cephalexin Suspension 250 MG/5 ML PO.SYRINGE 500 MG GT ×3 (05:55→20:33)
[2024-02-27 06:00] VITALS: BP 135/72; PULSE 80; RESP 18; TEMP 36.7; O2SAT 99; BMI 24.3
[2024-02-27] MEDS: Thiamine Hydrochloride 100 MG Tablet GT (10:18)
[2024-02-27] MEDS: Finasteride 5 MG Tablet GT (10:18)
[2024-02-27] MEDS: Lisinopril 2.5 MG Tablet GT (10:18)
[2024-02-27] MEDS: Lansoprazole 15 MG Capsule.DR 30 MG GT ×2 (10:18→20:26)
[2024-02-27] MEDS: Aspirin 81 MG TAB.CHEW GT (10:18)
[2024-02-27] MEDS: Clopidogrel Bisulfate 75 MG Tablet GT (10:18)
[2024-02-27 10:19] VITALS: PULSE 72
[2024-02-27] MEDS: Sertraline 100 MG Tablet GT (10:19)
[2024-02-27] MEDS: BACITRACIN 15 GM Tube 1 APPLIC TOPICAL ×2 (10:19→20:25)
[2024-02-27] MEDS: MAGNESIUM OXIDE 400 MG TABLET GT ×2 (10:19→20:27)
[2024-02-27] MEDS: Metoprolol Tartrate 50 MG Tablet GT ×2 (10:19→20:28)
[2024-02-27] MEDS: Menthol/Lanolin/Calamine/Znox 113 GM Tube 1 APPLIC TOPICAL ×2 (10:20→20:35)
[2024-02-27 12:00] VITALS: BMI 24.3
[2024-02-27 18:00] VITALS: BP 111/66; PULSE 67; RESP 17; TEMP 36.6; O2SAT 95
[2024-02-27] MEDS: Atorvastatin Calcium 80 MG Tablet GT (20:26)
[2024-02-27] MEDS: Clotrimazole 1 APPLIC Tube TOPICAL (20:27)
[2024-02-27 20:28] VITALS: PULSE 67
[2024-02-27] MEDS: Jevity 1.5. 1,000 ML Bottle 240 ML GT (20:35)
[2024-02-27 22:12] VITALS: BMI 24.3
[2024-02-28] MEDS: Clotrimazole 1 APPLIC Tube TOPICAL ×2 (04:04→21:54)
[2024-02-28] MEDS: Cephalexin Suspension 250 MG/5 ML PO.SYRINGE 500 MG GT ×3 (04:04→21:52)
[2024-02-28 04:33] VITALS: BP 131/71; PULSE 70; RESP 16; TEMP 36.6; O2SAT 96
[2024-02-28] MEDS: Acetaminophen 650 MG/20 ML UDC GT ×2 (06:22→14:27)
[2024-02-28 06:31] VITALS: BMI 23.1
--- NOTE | 2024-02-28 08:38 | PN.REHAB_ITS ---
Subjective Subjective Patient seen, examined. He has no new problems, complaints. He is eating modified diet, progressing with therapy. s/p PEG. Objective Data Objective Data Vital Signs: Vital Signs Temp Pulse Resp BP Pulse Ox O2 Del Method O2 Flow Rate 97.8 F 70 16 131/71 H 96 Room Air 2 02/28/24 04:33 02/28/24 04:33 02/28/24 04:33 02/28/24 04:33 02/28/24 04:33 02/28/24 04:33 02/18/24 18:00 FiO2 21 02/17/24 07:37 Oxygen Flow Rate (L/min) 2 Oxygen Delivery Method Room Air Weight: 73.482 kg Body Mass Index (BMI) 23.1 Intake & Output: Intake and Output for Last 24 Hours 02/26/24 02/27/24 02/28/24 23:59 23:59 23:59 Intake Total 1090 / 1130 980 / 980 40 / 40 Output Total 550 / 550 1150 / 1150 150 / 150 Balance 540 / 580 -170 / -170 -110 / -110 Medical Nutrition Assessment Dietitian: Malnutrition Criteria Met Start: 02/15/24 14:57 Freq: Status: Active Protocol: Document 02/27/24 10:17 SLA (Rec: 02/27/24 10:17 SLA [id number]) Nutrition Malnutrition Evidence of Malnutrition Exists Yes Malnutrition (severe): Acute Illness/Injury Evidenced By Suboptimal Energy Intake ( Severe),Weight Loss (Severe) Clinical Problem Swallowing Difficulty Etiology related to dysphagia and stroke Signs/Symptoms as evidenced by need for mechanically altered diet and PEG feeds to supplement po intake prn Status Active Problem Chronic Disease or Condition Related Malnutrition Etiology severe protein-calorie malnutrition related to inadequate oral intake, ETOH use, and swallowing difficulties Signs/Symptoms as evidenced by 11% unintentional weight loss x less than 6 months and PO meeting less than 75% of estimated nutrition needs x 6 months. Status Active Problem Recommendation Dietitian Recommendations/Changes Jevity 1.5 Tone with 240ml w/ 90 ml water flush before and after each bolus feed IF intake < 50% at meals. Continue HS feeding (240 ml). Each bolus feed provides 360 tone/ 15 gm pro/ 182 ml free water. Will liberalize diet to Regular puree/thin liquids and give magic cup tid w/ meals for increased nutrition if consumed. FR per MD. Rec liberalize fluid restriction as able. Will monitor weight, as available. Lab / Micro Data 02/21/24 05:20 02/25/24 08:40 Micro: Microbiology 02/25/24 09:36 Wound - Abdominal Gram Stain - Final 02/25/24 09:36 Wound - Abdominal Wound Culture - Final Presumptive C albicans Escherichia coli 02/14/24 21:15 Urine, Catheterized Urine Culture - Final Aerococcus urinae Indicators for Scoring Admitted with or Primary Diagnosis of CVA/Stroke: Yes Hx of CVA/Stroke: Yes Modified [place] Score MRS Score at time of Evaluation: 4-Moderate/severe disability Physical Exam Const alert General Appearance: cooperative HEENT normocephalic Eyes PERRL and EOMs intact bilaterally Neck supple, no JVD and no carotid bruits Resp normal respiratory effort, normal air movement and clear to auscultation bilaterally Cardio regular rate and regular rhythm GI normal to inspection, nondistended, normoactive bowel sounds, non-tender and non-distended GI Narrative: PEG present. Extremity normal capillary refill General Extremity: Negative for edema Skin no rashes or lesions noted General Skin Exam: no breakdown Neuro moves all extremities Neuro Narrative: Mild left upper extremity hemiparesis, moderate left lower extremity hemiparesis. Speech: expressive aphasia Psych affect normal Appearance: appropriate Assessment & Plan Assessment/Plan (1) Debility: (2) Expressive aphasia: (3) BPH (benign prostatic hyperplasia): QUALIFIERS: Lower urinary tract symptom presence: symptoms absent Qualified Code(s): N40.0 - Benign prostatic hyperplasia without lower urinary tract symptoms (4) Hypertension: QUALIFIERS: Hypertension type: essential hypertension Qualified Code(s): I10 - Essential (primary) hypertension (5) Hyperlipidemia: (6) GERD (gastroesophageal reflux disease): (7) Dysphagia: QUALIFIERS: Dysphagia type: unspecified Qualified Code(s): R13.10 - Dysphagia, unspecified (8) Depression: (9) Alcohol abuse: PLAN: Plan 78 year old male with below past medical history hospitalized for stroke, s/p PEG 02/15/2024, admitted to for 3 hours daily rehabilitation, strengthening, prior to disposition determination. * Debility - PT/OT/ST. * Pain - Tylenol 650mg q4 prn, 650mg po x 1 prn, Oxycodone 2.5mg q6 prn. * Bowel - senna/colace 2 tablets bid, Dulcolax 10mg pr x 1 prn, Loperamide 2mg q6 prn, MOM 30mL po x 1 prn. * DVT prophylaxis - Loevenox 40mg sc daily. * Stroke - Aspirin 81mg daily, Plavix 75mg daily. * Hyperlipidemia - Atorvastatin 80mg qhs. * Skin irritation - Calmoseptine topical bid, Eucerin topical daily. * PEG site infection - culture pending, Bacitracin ointment topical bid, Keflex 500mg po tid, culture grew yeast, Clotrimazole topical cream added. * BPH - Finasteride 5mg daily. * Nutrition - Jevity 1.5 240mL 5x/day, he is now eating modified diet. * GERD - Lansoprazole 30mg bid. * Hypertension - Metoprolol 50mg bid, Lisinopril 2.5mg daily. * Hypomagnesemia - Magnesium oxide 400mg bid. * Depression - Sertraline 100mg daily. * Alcohol abuse - Thiamine 100mg daily.
[2024-02-28] MEDS: Sertraline 100 MG Tablet GT (09:08)
[2024-02-28] MEDS: Clopidogrel Bisulfate 75 MG Tablet GT (09:08)
[2024-02-28] MEDS: MAGNESIUM OXIDE 400 MG TABLET GT ×2 (09:08→21:54)
[2024-02-28] MEDS: Lisinopril 2.5 MG Tablet GT (09:08)
[2024-02-28] MEDS: Lansoprazole 15 MG Capsule.DR 30 MG GT ×2 (09:09→21:52)
[2024-02-28] MEDS: Thiamine Hydrochloride 100 MG Tablet GT (09:09)
[2024-02-28] MEDS: Aspirin 81 MG TAB.CHEW GT (09:09)
[2024-02-28] MEDS: BACITRACIN 15 GM Tube 1 APPLIC TOPICAL ×2 (09:09→21:50)
[2024-02-28] MEDS: Finasteride 5 MG Tablet GT (09:10)
[2024-02-28 09:12] VITALS: BP 131/71; PULSE 70
[2024-02-28] MEDS: Metoprolol Tartrate 50 MG Tablet GT ×2 (09:12→21:53)
[2024-02-28] MEDS: Menthol/Lanolin/Calamine/Znox 113 GM Tube 1 APPLIC TOPICAL ×2 (09:26→21:51)
[2024-02-28 14:36] VITALS: BMI 23.1
[2024-02-28 18:00] VITALS: BP 118/62; PULSE 57; RESP 16; TEMP 36.6; O2SAT 97
[2024-02-28] MEDS: Jevity 1.5. 1,000 ML Bottle 240 ML GT (21:51)
[2024-02-28 21:53] VITALS: BP 128/69; PULSE 65
[2024-02-28] MEDS: Atorvastatin Calcium 80 MG Tablet GT (21:53)
[2024-02-28 23:10] VITALS: BMI 23.1
[2024-02-29 05:58] VITALS: BP 124/70; PULSE 70; RESP 16; TEMP 36.7; O2SAT 96; BMI 23.5
[2024-02-29] MEDS: Cephalexin Suspension 250 MG/5 ML PO.SYRINGE 500 MG GT ×3 (06:17→23:02)
[2024-02-29] MEDS: Clotrimazole 1 APPLIC Tube TOPICAL ×2 (06:17→23:01)
[2024-02-29] MEDS: Aspirin 81 MG TAB.CHEW GT (10:09)
[2024-02-29] MEDS: Finasteride 5 MG Tablet GT (10:09)
[2024-02-29] MEDS: Sertraline 100 MG Tablet GT (10:09)
[2024-02-29] MEDS: Thiamine Hydrochloride 100 MG Tablet GT (10:09)
[2024-02-29] MEDS: BACITRACIN 15 GM Tube 1 APPLIC TOPICAL ×2 (10:09→23:04)
[2024-02-29] MEDS: MAGNESIUM OXIDE 400 MG TABLET GT ×2 (10:09→23:02)
[2024-02-29] MEDS: Lansoprazole 15 MG Capsule.DR 30 MG GT ×2 (10:09→23:02)
[2024-02-29] MEDS: Clopidogrel Bisulfate 75 MG Tablet GT (10:09)
[2024-02-29] MEDS: Lisinopril 2.5 MG Tablet GT (10:10)
[2024-02-29] MEDS: Acetaminophen 650 MG/20 ML UDC GT ×2 (10:11→23:08)
[2024-02-29 10:12] VITALS: BP 124/0; PULSE 70
[2024-02-29] MEDS: Metoprolol Tartrate 50 MG Tablet GT ×2 (10:12→23:02)
[2024-02-29] MEDS: Menthol/Lanolin/Calamine/Znox 113 GM Tube 1 APPLIC TOPICAL ×2 (10:13→23:03)
[2024-02-29 15:22] VITALS: BMI 23.5
[2024-02-29 17:32] VITALS: BP 105/65; PULSE 60; RESP 16; TEMP 36.6; O2SAT 96
[2024-02-29 23:02] VITALS: BP 126/70; PULSE 67
[2024-02-29] MEDS: Jevity 1.5. 1,000 ML Bottle 240 ML GT (23:03)
[2024-02-29] MEDS: Atorvastatin Calcium 80 MG Tablet GT (23:04)
[2024-02-29] MEDS: oxyCODONE 5 MG Tablet 2.5 MG GT (23:38)
[2024-03-01 06:00] VITALS: BP 121/68; PULSE 65; RESP 17; TEMP 36.7; O2SAT 97; BMI 24.3
[2024-03-01] MEDS: Cephalexin Suspension 250 MG/5 ML PO.SYRINGE 500 MG GT ×3 (06:54→22:30)
[2024-03-01] MEDS: Clotrimazole 1 APPLIC Tube TOPICAL ×2 (06:55→22:26)
[2024-03-01 08:57] VITALS: BP 99/50; PULSE 65
[2024-03-01] MEDS: MAGNESIUM OXIDE 400 MG TABLET GT ×2 (08:57→22:26)
[2024-03-01] MEDS: Finasteride 5 MG Tablet GT (08:57)
[2024-03-01] MEDS: Sertraline 100 MG Tablet GT (08:57)
[2024-03-01] MEDS: Lansoprazole 15 MG Capsule.DR 30 MG GT ×2 (08:57→22:26)
[2024-03-01] MEDS: Acetaminophen 650 MG/20 ML UDC GT ×2 (08:57→22:30)
[2024-03-01] MEDS: Clopidogrel Bisulfate 75 MG Tablet GT (08:57)
[2024-03-01] MEDS: Thiamine Hydrochloride 100 MG Tablet GT (08:57)
[2024-03-01] MEDS: Aspirin 81 MG TAB.CHEW GT (08:57)
[2024-03-01] MEDS: Metoprolol Tartrate 50 MG Tablet GT ×2 (08:57→22:27)
[2024-03-01] MEDS: BACITRACIN 15 GM Tube 1 APPLIC TOPICAL ×2 (08:58→22:25)
[2024-03-01] MEDS: Menthol/Lanolin/Calamine/Znox 113 GM Tube 1 APPLIC TOPICAL ×2 (08:58→22:31)
[2024-03-01] MEDS: Lisinopril 2.5 MG Tablet GT (08:58)
[2024-03-01 12:41] VITALS: BMI 24.3
[2024-03-01 17:29] VITALS: BP 113/65; PULSE 62; RESP 17; TEMP 36.4; O2SAT 96
[2024-03-01] MEDS: Atorvastatin Calcium 80 MG Tablet GT (22:26)
[2024-03-01 22:27] VITALS: BP 116/65; PULSE 68
[2024-03-01] MEDS: oxyCODONE 5 MG Tablet 2.5 MG GT (22:30)
[2024-03-01] MEDS: Jevity 1.5. 1,000 ML Bottle 240 ML GT (22:31)
[2024-03-02 06:00] VITALS: BP 118/68; PULSE 66; RESP 18; TEMP 36.7; O2SAT 97; BMI 24.4
[2024-03-02] MEDS: Cephalexin Suspension 250 MG/5 ML PO.SYRINGE 500 MG GT ×3 (06:17→22:52)
[2024-03-02] MEDS: Clotrimazole 1 APPLIC Tube TOPICAL ×2 (06:17→23:08)
[2024-03-02] MEDS: Lansoprazole 15 MG Capsule.DR 30 MG GT ×2 (09:12→22:52)
[2024-03-02] MEDS: Lisinopril 2.5 MG Tablet GT (09:12)
[2024-03-02 09:13] VITALS: BP 99/59; PULSE 72
[2024-03-02] MEDS: Aspirin 81 MG TAB.CHEW GT (09:13)
[2024-03-02] MEDS: MAGNESIUM OXIDE 400 MG TABLET GT ×2 (09:13→22:52)
[2024-03-02] MEDS: Sertraline 100 MG Tablet GT (09:13)
[2024-03-02] MEDS: Finasteride 5 MG Tablet GT (09:13)
[2024-03-02] MEDS: Thiamine Hydrochloride 100 MG Tablet GT (09:13)
[2024-03-02] MEDS: Clopidogrel Bisulfate 75 MG Tablet GT (09:13)
[2024-03-02] MEDS: Metoprolol Tartrate 50 MG Tablet GT ×2 (09:13→22:52)
[2024-03-02] MEDS: Menthol/Lanolin/Calamine/Znox 113 GM Tube 1 APPLIC TOPICAL ×2 (09:14→23:09)
[2024-03-02] MEDS: BACITRACIN 15 GM Tube 1 APPLIC TOPICAL ×2 (09:14→23:09)
[2024-03-02 10:49] VITALS: BMI 24.4
[2024-03-02] MEDS: Acetaminophen 650 MG/20 ML UDC GT (13:45)
[2024-03-02 18:00] VITALS: BP 110/63; PULSE 61; RESP 16; TEMP 36.8; O2SAT 95
[2024-03-02 22:52] VITALS: BP 121/63; PULSE 67
[2024-03-02] MEDS: Atorvastatin Calcium 80 MG Tablet GT (22:52)
[2024-03-02] MEDS: oxyCODONE 5 MG Tablet 2.5 MG GT (22:53)
[2024-03-02] MEDS: Jevity 1.5. 1,000 ML Bottle 240 ML GT (22:58)
[2024-03-03 06:00] VITALS: BMI 24.4
[2024-03-03 06:57] VITALS: BP 120/57; PULSE 70; RESP 17; TEMP 37; O2SAT 97
[2024-03-03] MEDS: Cephalexin Suspension 250 MG/5 ML PO.SYRINGE 500 MG GT ×3 (06:58→20:31)
--- NOTE | 2024-03-03 08:31 | CASEMGMT ---
Addendum entered by Carla Kurtz 03/03/24 12:59: SW phoned sonToy, to update on outcomes of the referrals. Left VM and requested return call. Addendum entered by Carla Kurtz 03/03/24 11:05: [facility] can clinically accept, but currently do not have beds available for 03/08, though that status may change. SW to contact son to update and request additional SNF options. Original Note: Social Work IDT met with patient and sonToy, for Team meeting. Discussed patient's progress in PT/OT/ST/SN. Confirmed pt's DC on 03/08. did not attend meeting or will be able to attend therapy training d/t weather conditions. SW inquired about DC plan: home vs SNF. Pt is CGA but may have a loss of balance and IDT concerned about being able to assist. Pt has upgraded diet, but still taking pills through peg. Son stated he does not feel his can care for him currently given her strict lifting restrictions recovering from her back surgery. Family has chosen SNF: [facility] and inquired about [facility]. SW offered to refer to both SNFs and will assist with finalizing DC plans. Will update son. SW sent referrals to [facility] via [facility]. NIK Arboleda
[2024-03-03] MEDS: Clotrimazole 1 APPLIC Tube TOPICAL ×2 (09:30→20:36)
[2024-03-03 10:09] VITALS: PULSE 70
[2024-03-03] MEDS: Metoprolol Tartrate 50 MG Tablet GT (10:09)
[2024-03-03] MEDS: Lansoprazole 15 MG Capsule.DR 30 MG GT ×2 (10:09→20:32)
[2024-03-03] MEDS: Finasteride 5 MG Tablet GT (10:09)
[2024-03-03] MEDS: Aspirin 81 MG TAB.CHEW GT (10:09)
[2024-03-03] MEDS: MAGNESIUM OXIDE 400 MG TABLET GT ×2 (10:09→20:37)
[2024-03-03] MEDS: Sertraline 100 MG Tablet GT (10:09)
[2024-03-03] MEDS: Clopidogrel Bisulfate 75 MG Tablet GT (10:09)
[2024-03-03] MEDS: Lisinopril 2.5 MG Tablet GT (10:09)
[2024-03-03] MEDS: Thiamine Hydrochloride 100 MG Tablet GT (10:10)
[2024-03-03] MEDS: Acetaminophen 650 MG/20 ML UDC GT (10:10)
[2024-03-03] MEDS: BACITRACIN 15 GM Tube 1 APPLIC TOPICAL ×2 (10:18→20:30)
[2024-03-03] MEDS: Menthol/Lanolin/Calamine/Znox 113 GM Tube 1 APPLIC TOPICAL ×2 (10:18→20:31)
[2024-03-03] MEDS: Nystatin Powder 15gm Bottle 1 APPLIC TOPICAL ×2 (11:17→20:37)
--- NOTE | 2024-03-03 11:22 | EX.PCM.PN.RE ---
Subjective Subjective Patient seen, examined on Team Rounds today, son Toy present. 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 He has some irritation surrounding PEG site, but does not appear infected. He is open to discharge to SNF, prior to going home because his had recent back surgery and is unable to lift any weight whatsoever. Objective Data Objective Data Vital Signs: Vital Signs Temp Pulse Resp BP Pulse Ox O2 Del Method O2 Flow Rate 98.6 F 70 17 120/57 L 97 Room Air 2 03/03/24 06:57 03/03/24 10:09 03/03/24 06:57 03/03/24 06:57 03/03/24 06:57 03/03/24 06:57 02/18/24 18:00 FiO2 21 02/17/24 07:37 Oxygen Flow Rate (L/min) 2 Oxygen Delivery Method Room Air Weight: 77.337 kg Body Mass Index (BMI) 24.4 Intake & Output: Intake and Output for Last 24 Hours 03/01/24 03/02/24 03/03/24 23:59 23:59 23:59 Intake Total 710 / 800 1210 / 1290 240 / 240 Output Total 705 / 855 1050 / 1050 300 / 300 Balance 5 / -55 160 / 240 -60 / -60 Medical Nutrition Assessment Dietitian: Malnutrition Criteria Met Start: 02/15/24 14:57 Freq: Status: Active Protocol: Document 02/27/24 10:17 SLA (Rec: 02/27/24 10:17 SLA [id number]) Nutrition Malnutrition Evidence of Malnutrition Exists Yes Malnutrition (severe): Acute Illness/Injury Evidenced By Suboptimal Energy Intake ( Severe),Weight Loss (Severe) Clinical Problem Swallowing Difficulty Etiology related to dysphagia and stroke Signs/Symptoms as evidenced by need for mechanically altered diet and PEG feeds to supplement po intake prn Status Active Problem Chronic Disease or Condition Related Malnutrition Etiology severe protein-calorie malnutrition related to inadequate oral intake, ETOH use, and swallowing difficulties Signs/Symptoms as evidenced by 11% unintentional weight loss x less than 6 months and PO meeting less than 75% of estimated nutrition needs x 6 months. Status Active Problem Recommendation Dietitian Recommendations/Changes Jevity 1.5 Tone with 240ml w/ 90 ml water flush before and after each bolus feed IF intake < 50% at meals. Continue HS feeding (240 ml). Each bolus feed provides 360 tone/ 15 gm pro/ 182 ml free water. Will liberalize diet to Regular puree/thin liquids and give magic cup tid w/ meals for increased nutrition if consumed. FR per MD. Rec liberalize fluid restriction as able. Will monitor weight, as available. Lab / Micro Data 02/21/24 05:20 02/25/24 08:40 Micro: Microbiology 02/25/24 09:36 Wound - Abdominal Gram Stain - Final 02/25/24 09:36 Wound - Abdominal Wound Culture - Final Presumptive C albicans Escherichia coli 02/14/24 21:15 Urine, Catheterized Urine Culture - Final Aerococcus urinae Indicators for Scoring Admitted with or Primary Diagnosis of CVA/Stroke: Yes Hx of CVA/Stroke: Yes Modified Morrow Score MRS Score at time of Evaluation: 4-Moderate/severe disability Physical Exam Const alert General Appearance: cooperative HEENT normocephalic Eyes PERRL and EOMs intact bilaterally Neck supple, no JVD and no carotid bruits Resp normal respiratory effort, normal air movement and clear to auscultation bilaterally Cardio regular rate and regular rhythm GI normal to inspection, nondistended, normoactive bowel sounds, non-tender and non-distended GI Narrative: PEG present. Extremity normal capillary refill General Extremity: Negative for edema Skin no rashes or lesions noted General Skin Exam: no breakdown Neuro moves all extremities Neuro Narrative: Mild left upper extremity hemiparesis, moderate left lower extremity hemiparesis. Speech: expressive aphasia Psych affect normal Appearance: appropriate Assessment & Plan Assessment/Plan (1) Debility: (2) Expressive aphasia: (3) BPH (benign prostatic hyperplasia): QUALIFIERS: Lower urinary tract symptom presence: symptoms absent Qualified Code(s): N40.0 - Benign prostatic hyperplasia without lower urinary tract symptoms (4) Hypertension: QUALIFIERS: Hypertension type: essential hypertension Qualified Code(s): I10 - Essential (primary) hypertension (5) Hyperlipidemia: (6) GERD (gastroesophageal reflux disease): (7) Dysphagia: QUALIFIERS: Dysphagia type: unspecified Qualified Code(s): R13.10 - Dysphagia, unspecified (8) Depression: (9) Alcohol abuse: PLAN: Plan 78 year old male with below past medical history hospitalized for stroke, s/p PEG 02/15/2024, admitted to for 3 hours daily rehabilitation, strengthening, prior to disposition determination. Debility - PT/OT/ST. Pain - Tylenol 650mg q4 prn, 650mg po x 1 prn, Oxycodone 2.5mg q6 prn. Bowel - senna/colace 2 tablets bid, Dulcolax 10mg pr x 1 prn, Loperamide 2mg q6 prn, MOM 30mL po x 1 prn. DVT prophylaxis - Lovenox 40mg sc daily. Stroke - Aspirin 81mg daily, Plavix 75mg daily. Hyperlipidemia - Atorvastatin 80mg qhs. Skin irritation - Calmoseptine topical bid, Eucerin topical daily. PEG site infection - culture pending, Bacitracin ointment topical bid, Keflex 500mg po tid, culture grew yeast, Clotrimazole topical cream added, improving. BPH - Finasteride 5mg daily. Nutrition - Jevity 1.5 240mL 5x/day, eating diet, trying to take a pill today under SOFTWARE ENGINEERING PROJECT MANAGER supervision. GERD - Lansoprazole 30mg bid. Hypertension - Metoprolol 50mg bid, Lisinopril 2.5mg daily. Hypomagnesemia - Magnesium oxide 400mg bid. Depression - Sertraline 100mg daily. Alcohol abuse - Thiamine 100mg daily.
[2024-03-03 14:22] VITALS: BMI 24.4
[2024-03-03] MEDS: Fluconazole Suspension 40 MG/ML 35 ML Bottle 150 MG GT (15:34)
[2024-03-03 17:23] VITALS: BP 130/63; PULSE 68; RESP 16; TEMP 36.6; O2SAT 98
[2024-03-03] MEDS: Jevity 1.5. 1,000 ML Bottle 240 ML GT (20:31)
[2024-03-03] MEDS: Atorvastatin Calcium 80 MG Tablet GT (20:35)
[2024-03-03 20:36] VITALS: BP 104/64
[2024-03-03] MEDS: oxyCODONE 5 MG Tablet 2.5 MG GT (21:05)
[2024-03-04 01:17] VITALS: BMI 24.4
[2024-03-04] MEDS: Cephalexin Suspension 250 MG/5 ML PO.SYRINGE 500 MG GT (05:35)
[2024-03-04] MEDS: Clotrimazole 1 APPLIC Tube TOPICAL ×2 (05:35→22:06)
[2024-03-04 06:00] VITALS: BP 121/68; PULSE 71; RESP 17; TEMP 36.7; O2SAT 95; BMI 24.3
[2024-03-04 06:14] LABS: Anion Gap 2 (5-15); BUN 12 mg/dL (7-18); BUN/Creat Ratio 17.3 RATIO (10-20); Calcium,Total 9.1 mg/dL (8.5-10.1); Chloride 100 mmol/L (98-107); Creatinine, Serum 0.69 mg/dL (0.70-1.30); EST Glomerular Filtration Rate 118 mL/min (>60); Est Glom Filt Rate - Afr Amer 143 mL/min (>60); Estimated Creatinine Clearance 81.11 ml/min; Glucose 119 mg/dL (74-106); Sodium Level 131 mmol/L (136-145)
[2024-03-04] MEDS: Finasteride 5 MG Tablet GT (09:52)
[2024-03-04 09:53] VITALS: BP 121/68; PULSE 71
[2024-03-04] MEDS: Lansoprazole 15 MG Capsule.DR 30 MG GT ×2 (09:53→21:54)
[2024-03-04] MEDS: Metoprolol Tartrate 50 MG Tablet GT ×2 (09:53→21:54)
[2024-03-04] MEDS: Sertraline 100 MG Tablet GT (09:53)
[2024-03-04] MEDS: MAGNESIUM OXIDE 400 MG TABLET GT ×2 (09:53→21:54)
[2024-03-04] MEDS: Aspirin 81 MG TAB.CHEW GT (09:53)
[2024-03-04] MEDS: Thiamine Hydrochloride 100 MG Tablet GT (09:53)
[2024-03-04] MEDS: Clopidogrel Bisulfate 75 MG Tablet GT (09:53)
[2024-03-04] MEDS: Fluconazole Suspension 40 MG/ML 35 ML Bottle 150 MG GT (09:54)
[2024-03-04] MEDS: Nystatin Powder 15gm Bottle 1 APPLIC TOPICAL (09:54)
[2024-03-04] MEDS: Lisinopril 2.5 MG Tablet GT (09:54)
[2024-03-04] MEDS: BACITRACIN 15 GM Tube 1 APPLIC TOPICAL ×2 (09:54→22:05)
[2024-03-04] MEDS: Menthol/Lanolin/Calamine/Znox 113 GM Tube 1 APPLIC TOPICAL ×2 (09:55→22:54)
--- NOTE | 2024-03-04 10:39 | CASEMGMT ---
Addendum entered by Carla Kurtz 03/05/24 14:08: SW spoke with pt to notify of TCU transfer. Pt appreciative. Addendum entered by Carla Kurtz 03/05/24 12:58: SW received return VM from son, stating and sons agreed to not file a Medicare appeal, and for pt to transfer to TCU. IDT updated. Plan: DC 03/08 to TCU, skilled Original Note: Social Work SW left VM with son, Toy, to update that [facility] denied, but U now has a bed available. SW also mentioned appeal rights. Requested return call. NIK ArboledaW
[2024-03-04 17:00] VITALS: BMI 24.3
[2024-03-04 17:54] VITALS: BP 121/69; PULSE 65; RESP 16; TEMP 36.8; O2SAT 96
[2024-03-04 21:54] VITALS: BP 133/67; PULSE 65
[2024-03-04] MEDS: Atorvastatin Calcium 80 MG Tablet GT (22:05)
[2024-03-04] MEDS: Jevity 1.5. 1,000 ML Bottle 240 ML GT (22:09)
[2024-03-04] MEDS: Acetaminophen 325 MG Tablet 650 MG PO (22:30)
[2024-03-04] MEDS: oxyCODONE 5 MG Tablet 2.5 MG GT (22:30)
[2024-03-05] MEDS: Clotrimazole 1 APPLIC Tube TOPICAL ×2 (04:42→21:48)
[2024-03-05 05:00] VITALS: BMI 24.2
[2024-03-05 05:06] VITALS: BP 115/65; PULSE 58; RESP 16; TEMP 36.7; O2SAT 95
[2024-03-05 05:07] VITALS: BMI 24.2
[2024-03-05] MEDS: BACITRACIN 15 GM Tube 1 APPLIC TOPICAL ×2 (08:14→21:44)
[2024-03-05 08:15] VITALS: BP 115/65; PULSE 58
[2024-03-05] MEDS: Clopidogrel Bisulfate 75 MG Tablet GT (08:15)
[2024-03-05] MEDS: Lisinopril 2.5 MG Tablet GT (08:15)
[2024-03-05] MEDS: Sertraline 100 MG Tablet GT (08:15)
[2024-03-05] MEDS: Metoprolol Tartrate 50 MG Tablet GT ×2 (08:15→21:52)
--- NOTE | 2024-03-05 08:15 | PCM.PROGNOTE ---
Subjective Subjective Afebrile VSS -blood pressures are within goal. Heart rate is ranging from 58-71. Maintaining appropriate oxygen saturation on RA Oral intake - FOOD good FLUIDS fair Having regular bowel movements. Discussed with nursing - no problems that need addressed. Sleeping well at night. Reviewed the THERAPY notes Medication list reviewed. Taking Oxy IR 2.5 mg usually once a day at bedtime. All lab was personally reviewed. Sodium yesterday was 131. The BUN is 12 and creatinine is 0.69 which is good for him. Potassium is normal at 4. Jakub is complaining of some left posterior lower rib pain when he takes a deep breath or moves. He denies cough. He denies shortness of breath. He also complains of some lightheadedness when he is sitting up or standing up. He denies cephalgia, vertigo, nausea/vomiting, abdominal pain, dysuria and calf tenderness. Objective Data Objective Data Vital Signs: Vital Signs Temp Pulse Resp BP Pulse Ox O2 Del Method O2 Flow Rate 98.0 F 58 L 16 115/65 95 Room Air 2 03/05/24 05:06 03/05/24 05:06 03/05/24 05:06 03/05/24 05:06 03/05/24 05:06 03/05/24 05:06 02/18/24 18:00 FiO2 21 02/17/24 07:37 Oxygen Flow Rate (L/min) 2 Oxygen Delivery Method Room Air Weight: 168 lb 9 oz Body Mass Index (BMI) 24.2 Intake & Output: Intake and Output for Last 24 Hours 03/03/24 03/04/24 03/05/24 23:59 23:59 23:59 Intake Total 1120 / 1120 940 / 940 Output Total 700 / 700 1850 / 1850 Balance 420 / 420 -910 / -910 Medical Nutrition Assessment Dietitian: Malnutrition Criteria Met Start: 02/15/24 14:57 Freq: Status: Active Protocol: Document 02/27/24 10:17 SLA (Rec: 02/27/24 10:17 SLA 25.7) Nutrition Malnutrition Evidence of Malnutrition Exists Yes Malnutrition (severe): Acute Illness/Injury Evidenced By Suboptimal Energy Intake ( Severe),Weight Loss (Severe) Clinical Problem Swallowing Difficulty Etiology related to dysphagia and stroke Signs/Symptoms as evidenced by need for mechanically altered diet and PEG feeds to supplement po intake prn Status Active Problem Chronic Disease or Condition Related Malnutrition Etiology severe protein-calorie malnutrition related to inadequate oral intake, ETOH use, and swallowing difficulties Signs/Symptoms as evidenced by 11% unintentional weight loss x less than 6 months and PO meeting less than 75% of estimated nutrition needs x 6 months. Status Active Problem Recommendation Dietitian Recommendations/Changes Jevity 1.5 Tone with 240ml w/ 90 ml water flush before and after each bolus feed IF intake < 50% at meals. Continue HS feeding (240 ml). Each bolus feed provides 360 tone/ 15 gm pro/ 182 ml free water. Will liberalize diet to Regular puree/thin liquids and give magic cup tid w/ meals for increased nutrition if consumed. FR per MD. Rec liberalize fluid restriction as able. Will monitor weight, as available. Lab / Micro Data 02/21/24 05:20 03/04/24 05:30 Micro: Microbiology 02/25/24 09:36 Wound - Abdominal Gram Stain - Final 02/25/24 09:36 Wound - Abdominal Wound Culture - Final Presumptive C albicans Escherichia coli 02/14/24 21:15 Urine, Catheterized Urine Culture - Final Aerococcus urinae Physical Exam Const alert and no apparent distress General Appearance: cooperative HEENT normocephalic Eyes PERRL and EOMs intact bilaterally Neck supple Resp normal respiratory effort, normal air movement and clear to auscultation bilaterally Resp Narrative: Mildly diminished throughout. Cardio regular rate, regular rhythm and no gallops Cardio Narrative: No ectopy GI normal to inspection, nondistended, normoactive bowel sounds, non-tender and non-distended GI Narrative: PEG present. There is no purulent discharge from around the PEG tube and no erythema. The superficial necrosis has resolved and the area immediately around the tube is healing. He had no pain with palpation around the tube. Narrative: The glans is not reddened and there is no DC from the penis. Nursing tells me that the redness of the scrotum and groin is much improved. He denies any dysuria. Bladder / Kidney Exam: no CVA tenderness Back/Spine Back/Spine Narrative: He has pain in the lower left ribs posteriorly when taking a deep breath. There is rib dysfunction present. An osteopathic rib correction was performed and after the adjustment he denied pain with deep breath. Extremity no calf tenderness General Extremity: Negative for edema Skin General Skin Exam: no breakdown Rashes: no rashes Neuro Neuro Narrative: Dysarthria is much improved. Facial droop is less. He is ambulating with a front wheel walker at contact-guard assist. He has a forward flexed posture. He is contact-guard assist with grooming and bathing at supervision/set up with eating. He is supervision/set up with upper body dressing and contact-guard assist for lower body dressing. He is standby assist for toilet transfer and contact-guard assist for toileting. Making good progress. Speech: expressive aphasia Psych affect normal Appearance: appropriate Assessment & Plan Assessment/Plan (1) Debility: (2) Acute stroke due to ischemia: (3) Cognitive dysfunction: (4) Left-sided weakness: (5) Dysarthria: (6) Dysphagia: QUALIFIERS: Dysphagia type: unspecified Qualified Code(s): R13.10 - Dysphagia, unspecified (7) Somatic dysfunction of rib: PLAN: Pain resolved with osteopathic manipulation of the left lower ribs. PLAN: Plan 1. Continue therapy 2. Recommending halfway at discharge and he is hopeful to go to the transitional care unit prior to returning home 3. Start sodium chloride tablets 1 g p.o. twice daily and recheck a BMP and a CBC on Sunday. 4. Continue Diflucan ordered by Dr. Watt. 5. Continue sertraline for depression. Charges/Coding Visit Charges Inpatient E&M: 43110 Subs Hosp L1
[2024-03-05] MEDS: Aspirin 81 MG TAB.CHEW GT (08:16)
[2024-03-05] MEDS: Finasteride 5 MG Tablet GT (08:16)
[2024-03-05] MEDS: Lansoprazole 15 MG Capsule.DR 30 MG GT ×2 (08:16→21:47)
[2024-03-05] MEDS: Fluconazole Suspension 40 MG/ML 35 ML Bottle 150 MG GT (08:16)
[2024-03-05] MEDS: Thiamine Hydrochloride 100 MG Tablet GT (08:16)
[2024-03-05] MEDS: MAGNESIUM OXIDE 400 MG TABLET GT ×2 (08:16→21:49)
[2024-03-05] MEDS: Nystatin Powder 15gm Bottle 1 APPLIC TOPICAL ×2 (08:17→21:49)
[2024-03-05] MEDS: Menthol/Lanolin/Calamine/Znox 113 GM Tube 1 APPLIC TOPICAL ×2 (08:17→21:45)
[2024-03-05] MEDS: Acetaminophen 650 MG/20 ML UDC GT (08:19)
[2024-03-05] MEDS: Sodium Chloride 1 GM Tablet PO ×2 (10:12→21:49)
[2024-03-05 14:26] VITALS: BMI 24.2
[2024-03-05 17:28] VITALS: BP 122/67; PULSE 61; RESP 18; TEMP 36.3; O2SAT 96
[2024-03-05] MEDS: Jevity 1.5. 1,000 ML Bottle 240 ML GT (21:46)
[2024-03-05] MEDS: Atorvastatin Calcium 80 MG Tablet GT (21:47)
[2024-03-05] MEDS: Acetaminophen 325 MG Tablet 650 MG PO (21:49)
[2024-03-05 21:52] VITALS: BP 122/67; PULSE 61
[2024-03-05 23:11] VITALS: BMI 24.2
[2024-03-06 05:56] VITALS: BP 122/74; PULSE 65; RESP 17; TEMP 36.9; O2SAT 96
[2024-03-06 05:57] VITALS: BMI 24.2
[2024-03-06] MEDS: Clotrimazole 1 APPLIC Tube TOPICAL ×2 (06:00→22:52)
[2024-03-06 07:53] VITALS: PULSE 65
[2024-03-06] MEDS: Finasteride 5 MG Tablet GT (07:53)
[2024-03-06] MEDS: Metoprolol Tartrate 50 MG Tablet GT ×2 (07:53→22:51)
[2024-03-06] MEDS: Clopidogrel Bisulfate 75 MG Tablet GT (07:53)
[2024-03-06] MEDS: Lansoprazole 15 MG Capsule.DR 30 MG GT ×2 (07:53→22:51)
[2024-03-06] MEDS: Lisinopril 2.5 MG Tablet GT (07:53)
[2024-03-06] MEDS: Sertraline 100 MG Tablet GT (07:53)
[2024-03-06] MEDS: Sodium Chloride 1 GM Tablet PO ×2 (07:53→22:51)
[2024-03-06] MEDS: Thiamine Hydrochloride 100 MG Tablet GT (07:53)
[2024-03-06] MEDS: MAGNESIUM OXIDE 400 MG TABLET GT ×2 (07:53→22:51)
[2024-03-06] MEDS: Aspirin 81 MG TAB.CHEW GT (07:53)
[2024-03-06] MEDS: BACITRACIN 15 GM Tube 1 APPLIC TOPICAL ×2 (07:53→22:52)
[2024-03-06] MEDS: Menthol/Lanolin/Calamine/Znox 113 GM Tube 1 APPLIC TOPICAL ×2 (07:54→22:53)
[2024-03-06] MEDS: Nystatin Powder 15gm Bottle 1 APPLIC TOPICAL ×2 (07:55→22:53)
[2024-03-06] MEDS: Fluconazole Suspension 40 MG/ML 35 ML Bottle 150 MG GT (07:55)
--- NOTE | 2024-03-06 10:24 | PCM.PROGNOTE ---
Subjective Subjective Afebrile VSS -blood pressure is well-controlled. Heart rate is ranging from 58-65 in the past 24 hours. Maintaining appropriate oxygen saturation on RA-95 to 98% Oral intake - FOOD good FLUIDS variable. somehow the fluid restriction got discontinued and now the sodium dropped again to 131. Will reinstitute fluid restriction at 1200 cc/day. Fluid intake is not correct. Staff offer water but, fail to write the volume down. BUN has decreased from 20 on 1223 24-12 on 03/04/2024. The creatinine is decreased from 0.83-0.69 and his sodium decreased from 136-131. 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 Discussed with nursing - Jakub has been c/o neck pain. Reviewed the THERAPY notes Medication list reviewed. Denies nausea, vomiting, abdominal pain, dysuria, lightheadedness, cephalgia, chest pain, shortness of breath and cough. Sleeping well at night. Good appetite. Objective Data Objective Data Vital Signs: Vital Signs Temp Pulse Resp BP Pulse Ox O2 Del Method O2 Flow Rate 98.5 F 65 17 122/74 H 96 Room Air 2 03/06/24 05:56 03/06/24 07:53 03/06/24 05:56 03/06/24 05:56 03/06/24 05:56 03/06/24 05:56 02/18/24 18:00 FiO2 21 02/17/24 07:37 Oxygen Flow Rate (L/min) 2 Oxygen Delivery Method Room Air Weight: 169 lb 1.513 oz Body Mass Index (BMI) 24.2 Intake & Output: Intake and Output for Last 24 Hours 03/04/24 03/05/24 03/06/24 23:59 23:59 23:59 Intake Total 700 / 700 1490 / 1490 360 / 360 Output Total 1850 / 1850 1025 / 1025 500 / 500 Balance -1150 / -1150 465 / 465 -140 / -140 Medical Nutrition Assessment Dietitian: Malnutrition Criteria Met Start: 02/15/24 14:57 Freq: Status: Active Protocol: Document 02/27/24 10:17 SLA (Rec: 02/27/24 10:17 SLA 10..25.7) Nutrition Malnutrition Evidence of Malnutrition Exists Yes Malnutrition (severe): Acute Illness/Injury Evidenced By Suboptimal Energy Intake ( Severe),Weight Loss (Severe) Clinical Problem Swallowing Difficulty Etiology related to dysphagia and stroke Signs/Symptoms as evidenced by need for mechanically altered diet and PEG feeds to supplement po intake prn Status Active Problem Chronic Disease or Condition Related Malnutrition Etiology severe protein-calorie malnutrition related to inadequate oral intake, ETOH use, and swallowing difficulties Signs/Symptoms as evidenced by 11% unintentional weight loss x less than 6 months and PO meeting less than 75% of estimated nutrition needs x 6 months. Status Active Problem Recommendation Dietitian Recommendations/Changes Jevity 1.5 Tone with 240ml w/ 90 ml water flush before and after each bolus feed IF intake < 50% at meals. Continue HS feeding (240 ml). Each bolus feed provides 360 tone/ 15 gm pro/ 182 ml free water. Will liberalize diet to Regular puree/thin liquids and give magic cup tid w/ meals for increased nutrition if consumed. FR per MD. Rec liberalize fluid restriction as able. Will monitor weight, as available. Lab / Micro Data 02/21/24 05:20 03/04/24 05:30 Micro: Microbiology 02/25/24 09:36 Wound - Abdominal Gram Stain - Final 02/25/24 09:36 Wound - Abdominal Wound Culture - Final Presumptive C albicans Escherichia coli 02/14/24 21:15 Urine, Catheterized Urine Culture - Final Aerococcus urinae Physical Exam Const alert, oriented x3 and no apparent distress Constitutional Narrative: Pleasant, appropriate, engaged, making good eye contact. General Appearance: cooperative Neck Neck Narrative: He has some trapezius muscle spasm in the area of the trapezius ridge bilaterally. Decreased rotation of the neck and decreased side bending. pain at th site of attachment of the Trapezius to the occiput. Pain over the 7th cervical vertebrae posteriorly with palpation. No openings in the skin. No redness, no increased warmth to touch. Resp normal respiratory effort and clear to auscultation bilaterally Resp Narrative: Diminished throughout, especially in the bases. Effort and Inspection: Negative for tachypneic or respiratory distress Cardio regular rate, regular rhythm and no gallops Cardio Narrative: No ectopy GI normal to inspection, nondistended, normoactive bowel sounds and soft to palpation GI Narrative: PEG site has no purulent drainage and no erythema. It is continuing to heal. Extremity no calf tenderness General Extremity: Negative for edema Psych affect normal Assessment & Plan Assessment/Plan (1) Debility: (2) Acute stroke due to ischemia: (3) Cognitive dysfunction: (4) Left-sided weakness: (5) Dysarthria: (6) Dysphagia: QUALIFIERS: Dysphagia type: unspecified Qualified Code(s): R13.10 - Dysphagia, unspecified (7) Somatic dysfunction of rib: (8) Neck pain: PLAN: Plan 1. Continue therapy 2. Reinstitute 1200 cc fluid restriction daily. Continue salt tablets twice daily ordered yesterday. Repeat lab ordered for tomorrow. Reinforced with staff the importance of always recording any fluid intake. Will discuss with the dietitian also. Charges/Coding Visit Charges Inpatient E&M: 48472 Subs Hosp L1
[2024-03-06] MEDS: Arthritis Pain Compound 60 CLICK TUBE TOPICAL ×2 (13:17→22:52)
[2024-03-06 14:34] VITALS: BMI 24.2
[2024-03-06 17:38] VITALS: BP 123/64; PULSE 63; RESP 15; TEMP 36.4; O2SAT 98
[2024-03-06 22:51] VITALS: BP 133/73; PULSE 65
[2024-03-06] MEDS: Atorvastatin Calcium 80 MG Tablet GT (22:51)
[2024-03-06] MEDS: Jevity 1.5. 1,000 ML Bottle 240 ML GT (22:53)
[2024-03-07 00:30] VITALS: BMI 24.2
[2024-03-07 05:02] VITALS: BP 130/70; PULSE 63; RESP 16; TEMP 36.4; O2SAT 96
[2024-03-07 06:00] VITALS: BMI 23.6
[2024-03-07 08:23] LABS: Hematocrit 34.4 % (40-54); Hemoglobin 11.2 g/dL (13.0-16.5); Mean Corp Hgb Conc 32.6 g/dL (32-36); Mean Corpuscular Hgb 29.5 pg (27.0-32.0); Mean Corpuscular Volume 90.5 fL (80-94); Platelet Count 573 K/mm3 (150-450); RBC Distribution Width CV 12.6 % (11.6-14.6); RBC Distribution Width SD 41.9 fl (35.1-43.9); White Blood Count 10.3 K/mm3 (4.4-11.0)
[2024-03-07 08:40] LABS: Anion Gap 4 (5-15); BUN 14 mg/dL (7-18); BUN/Creat Ratio 17.9 RATIO (10-20); Calcium,Total 9.9 mg/dL (8.5-10.1); Chloride 100 mmol/L (98-107); Creatinine, Serum 0.78 mg/dL (0.70-1.30); EST Glomerular Filtration Rate 103 mL/min (>60); Est Glom Filt Rate - Afr Amer 124 mL/min (>60); Estimated Creatinine Clearance 81.11 ml/min; Glucose 119 mg/dL (74-106); Magnesium 1.8 mg/dL (1.6-2.6); Phosphorus 3.3 mg/dL (2.5-4.9); Potassium 4.1 mmol/L (3.5-5.1); Sodium Level 132 mmol/L (136-145)
[2024-03-07] MEDS: Aspirin 81 MG TAB.CHEW GT (09:18)
[2024-03-07] MEDS: Thiamine Hydrochloride 100 MG Tablet GT (09:19)
[2024-03-07] MEDS: BACITRACIN 15 GM Tube 1 APPLIC TOPICAL ×2 (09:20→22:52)
[2024-03-07] MEDS: Lansoprazole 15 MG Capsule.DR 30 MG GT ×2 (09:21→22:52)
[2024-03-07] MEDS: MAGNESIUM OXIDE 400 MG TABLET GT ×2 (09:21→23:00)
[2024-03-07 09:22] VITALS: BP 130/70; PULSE 63
[2024-03-07] MEDS: Metoprolol Tartrate 50 MG Tablet GT ×2 (09:22→22:52)
[2024-03-07] MEDS: Finasteride 5 MG Tablet GT (09:22)
[2024-03-07] MEDS: Lisinopril 2.5 MG Tablet GT (09:22)
[2024-03-07] MEDS: Clopidogrel Bisulfate 75 MG Tablet GT (09:22)
[2024-03-07] MEDS: Sodium Chloride 1 GM Tablet PO ×2 (09:22→22:52)
[2024-03-07] MEDS: Sertraline 100 MG Tablet GT (09:22)
[2024-03-07] MEDS: Fluconazole Suspension 40 MG/ML 35 ML Bottle 150 MG GT (09:23)
[2024-03-07] MEDS: Arthritis Pain Compound 60 CLICK TUBE TOPICAL ×2 (09:36→22:51)
[2024-03-07] MEDS: Nystatin Powder 15gm Bottle 1 APPLIC TOPICAL ×2 (09:44→23:00)
[2024-03-07] MEDS: Menthol/Lanolin/Calamine/Znox 113 GM Tube 1 APPLIC TOPICAL ×2 (09:44→22:54)
--- NOTE | 2024-03-07 11:49 | NURSING ---
Eye doctor appt made for vision changes post CVA at [facility] on 03/10/24 at 1530. Appt placed in discharge and made aware.
--- NOTE | 2024-03-07 17:09 | PCM.TXEXTCAR ---
Diet Diet Order/Speech Therapy: 02/27/24 10:07 Diet: Regular - General Food consistency:: Pureed Liquid Consistency:: Regular/Thin Type of Dietary Supplement:: MAGIC CUP TID Fluid restriction:: 1500 mL Diet Comments: Dietary to give only 100ml of fluid with each meal tray He needs to be on low fat. THE FLUID RESTRICTION IS 1200 CC AND NOT 1500 CC/DAY. Routine Orders/Code Status Enema Type: Fleetz Enema Frequency: Daily PRN Suppository Type: Dulcolax 10mg Suppository Frequency: Daily PRN Code Status: Full Code DC O2, CPAP, BIPAP needs Home O2 Discharge instructions: No Wound(s) ABD: Wound Type: Surgical Incision PEG tube site: Wound Type: Open Surgical Wound (necrosis around the PEG has resolved and the site is healing well. ) Therapies Weight Bearing: Full weight bearing Extremity Affected:: Left Lower and Left Upper Physical Therapy: Eval and Treat Occupational Therapy: Eval and Treat Speech Therapy: Eval and Treat Problem/Diagnosis (1) Debility: Status: Acute Code(s): R53.81 - Other malaise (2) Acute stroke due to ischemia: Status: Inactive Code(s): I63.9 - Cerebral infarction, unspecified Plan: 02/12/2024. Received TNK in the emergency department. Brain MRI on 02/13/2024 showed an acute lacunar type infarct involving the superior portion of the right external capsule. (3) Cognitive dysfunction: Status: Acute Code(s): F09 - Unspecified mental disorder due to known physiological condition (4) Left-sided weakness: Status: Chronic Code(s): R53.1 - Weakness (5) Dysarthria: Status: Acute Code(s): R47.1 - Dysarthria and anarthria Plan: Much improved since admission to rehab. (6) Dysphagia: Status: Acute Code(s): R13.10 - Dysphagia, unspecified Plan: Now able to eat pur?ed foods. Only using the PEG tube for a feeding at at bedtime of 240 cc. (7) Somatic dysfunction of rib: Status: Resolved Code(s): M99.08 - Segmental and somatic dysfunction of rib cage (8) Neck pain: Status: Acute Code(s): M54.2 - Cervicalgia Plan: Due to hunched posture with trapezius muscle strain. Improved with the application of the arthritis cream. (9) Depression: Status: Chronic Code(s): F32.A - Depression, unspecified Plan: Tolerating sertraline 100 mg daily with no adverse side effects. 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 Will continue 1200 cc a day fluid restriction and sodium chloride tablets 1 g p.o. twice daily (13) Alcohol abuse: Status: Chronic Code(s): F10.10 - Alcohol abuse, uncomplicated Plan: Alcohol cessation counseling was given. He was drinking 20-30 beers a day with very little food intake. This has been long standing. (14) Cystitis: Status: Resolved Code(s): N30.90 - Cystitis, unspecified without hematuria (15) Carotid stenosis: Status: Chronic Code(s): I65.29 - Occlusion and stenosis of unspecified carotid artery Plan: CTA of the neck at admission showed greater than 70% stenosis of both internal carotid arteries. A carotid ultrasound was obtained and showed less than 50% stenosis of the right internal carotid and 50 to 69% stenosis of the left internal carotid. Recommend follow-up with Dr. Deric Cortes going forward. 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 Comment: moderate on the Left and mild on the right (17) Diastolic dysfunction: Status: Chronic Code(s): I51.89 - Other ill-defined heart diseases Comment: Stage I Plan 1. Discontinue to the transitional [facility] unit at [facility] on 03/08/2024 for additional therapy prior to returning home. Allergies/Procedures Done in Hospital Allergies Iodinated Contrast Media (CONTRASTS) Allergy (Verified 02/13/24 11:20) Hives Procedures: 2-D Echocardiogram (EF is 70% with no wall motion abnormalities. Stage I diastolic dysfunction. Will need to follow up with [facility]. ECHO reports are very different over the past couple years. Most recent ECHO sayd no atrial enlargement) and Peg tube placement (02/15/[address] Chan.) Type of Care/Length of Stay Estimated LOS: Convalescent Care Less Than 30 days Type of Care Needed: Skilled Rehab Potential: Good Prognosis: Good Additional Orders/Day of Discharge H&P will serve as current which was dated: 02/14/24 Day of Discharge: 03/08/24 Dietary and Speech Recommendations Dietitian Recommendations/Changes: Continued regular diet with puree/thin liquids with 1200 ml fluid restriction per MD. - recommend liberalize fluid restriction. Do NOT change the fluid restriction. 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 Continue magic cup TID with meals. Continue 240 ml bolus feeding at 22:00 with 40ml flush after feeding. Jevity 1.5 Tone with 240ml w/ 40 ml water flush after each bolus feed IF intake < 50% at meals. Consult RD if changes occur in nutritional status. Reviewed and approved by Louise James, HASEEB, LD. Follow Up Care Please follow up with your Primary Care Physician in: PCP post DC from TCU Please Follow Up With: Neurology Please Follow Up With: Ophthalmology Please Follow Up With: Sandro Chan DO When: in 6 weeks Discharge Plan Admission Admit Date/Time: 02/14/24 13:51 Primary Reason for Your Visit: Poststroke debility Attending Provider: Allison Mcbride Primary Care Provider: Gabi Alexis Consulting Providers: Sandro Chan Instructions Additional Instructions / Restrictions: He has SIADH and hyponatremia. Do Not DC the fluid restriction. Discharge Orders/Prescriptions Prescriptions: New (DME) Arthritis Pain Compound See Rx Instructions .ROUTE .MEDSUPPLY Qty: 1 0RF Rx Instructions: As directed acetaminophen 650 mg/20.3 mL Solution 650 mg G-tube Q4H PRN PRN (Reason: pain/fever) Qty: 1 0RF bacitracin zinc 500 unit/gram Ointment 1 applic topical BID Qty: 1 0RF Protocol: *Topical Application Instructions APPLICATION INSTRUCTIONS: Apply to the area around the PEG tube Rx Instructions: Apply around the PEG tube magnesium hydroxide 400 mg/5 mL Suspension 30 ml PO X1 PRN (Reason: Constipation) Qty: 30 0RF bisacodyl 10 mg Suppository 10 mg MT X1 PRN (Reason: Constipation) Qty: 1 0RF metoprolol tartrate 50 mg Tablet 50 mg G-tube BID Qty: 1 0RF lansoprazole 15 mg Capsule,Delayed Release(Dr/Ec) 30 mg G-tube BID Qty: 1 0RF nystatin [Nyamyc] 100,000 unit/gram Powder 1 applic topical BID Qty: 1 0RF Protocol: *Topical Application Instructions APPLICATION INSTRUCTIONS: groin fluconazole 40 mg/mL Suspension For Reconstitution 150 mg G-tube DAILY Qty: 3 0RF Rx Instructions: Discontinue after 3 doses lisinopril 2.5 mg Tablet 2.5 mg G-tube DAILY Qty: 1 0RF finasteride 5 mg Tablet 5 mg G-tube DAILY Qty: 1 0RF oxycodone 5 mg Tablet 2.5 mg G-tube Q6H PRN PRN (Reason: abd pain) 1 Days Qty: 1 0RF loperamide 1 mg/7.5 mL Liquid 2 mg PO Q4H PRN (Reason: Diarrhea/Loose Stools) Qty: 1 0RF menthol-zinc oxide [Calmoseptine] 0.44-20.6 % Ointment 1 applic topical BID Qty: 1 0RF Protocol: *Topical Application Instructions APPLICATION INSTRUCTIONS: Apply to buttocks Jevity 1.5 Tone 0.06 gram-1.5 kcal/mL Liquid 240 ml G-tube 2200 Qty: 240 0RF Magnesium Oxide 400 mg tablet 400 mg G-tube BID Qty: 1 0RF sennosides-docusate sodium [Stimulant Laxative Plus] 8.6-50 mg Tablet 2 tab PO BID PRN (Reason: Constipation) Qty: 1 0RF sertraline 100 mg Tablet 100 mg G-tube DAILY Qty: 1 0RF thiamine HCl (vitamin B1) 100 mg Tablet 100 mg G-tube BREAKFAST Qty: 1 0RF sodium chloride 1,000 mg Tablet,Soluble 1,000 mg PO BID Qty: 1 0RF white petrolatum Ointment In Packet 1 applic topical DAILY Qty: 1 0RF Protocol: *Topical Application Instructions APPLICATION INSTRUCTIONS: Applied to both lower extremities from the base of the toes to the tibial plateau. Continued clopidogrel 75 MG tablet 75 mg PO DAILY Qty: 30 0RF Patient Comments: Patient does not take regularly cholecalciferol (vitamin D3) 1,250 mcg (50,000 unit) capsule 1,250 mcg PO .q2week Patient Comments: Patient does not take regularly atorvastatin 80 mg Tablet 80 mg PO QHS Qty: 0 0RF aspirin 81 mg Tablet,Chewable 81 mg PO BREAKFAST Qty: 0 0RF enoxaparin [Lovenox] 40 mg/0.4 mL syringe 40 mg subcut DAILY Qty: 4 0RF Discontinued potassium chloride 10 mEq capsule, extended release 10 meq PO DAILY Patient Comments: Patient does not take regularly metoprolol tartrate 50 mg tablet 50 mg PO BID Qty: 14 0RF acetaminophen 325 mg Tablet 650 mg PO X1 PRN (Reason: Temp > 99.6 F) Qty: 0 0RF No Action tamsulosin 0.4 mg capsule 0.4 mg PO DAILY Patient Comments: Patient does not take regularly Referrals / Follow Up: Ken Martinez [Other] (03/10/24 1530. Arrive at 1520 and bring insurance information. Eyes will be dilated at appt. ) Deric Cortes MD [Med Staff - Active Staff] - 03/21/24 3:00 pm Juan Norwood MD [Non-Staff -Ordering Privileges] - 04/14/24 11:00 am () Gabi Alexis MD [Primary Care Provider] - 03/11/24 1:00 pm Disposition Disposition (needs filled in before D/C Order can be placed): Nursing Home Facility (6) Dysphagia Qualifiers: Dysphagia type: unspecified Qualified Code(s): R13.10 - Dysphagia, unspecified (9) Depression Qualifiers: Depression Type: unspecified Qualified Code(s): F32.A - Depression, unspecified (10) Hypertension Qualifiers: Hypertension type: essential hypertension Qualified Code(s): I10 - Essential (primary) hypertension (11) Hyperlipidemia Qualifiers: Hyperlipidemia type: unspecified Qualified Code(s): E78.5 - Hyperlipidemia, unspecified (15) Carotid stenosis Qualifiers: Laterality: bilateral Qualified Code(s): I65.23 - Occlusion and stenosis of bilateral carotid arteries
--- NOTE | 2024-03-07 17:51 | EX.DISCHREH ---
Providers Date of Admission: 02/14/24 Date of Discharge: 03/08/24 Primary Care Physician: Dr. Gabi Alexis MD Consultations 02/15/24 13:28 Consult: Gastroenterology Routine Consulting Provider: [facility] Reason for Consult: PEG EMERGENT Consult: No MD Notified: Yes Date Notified: 02/15/24 Time Notified: 13:29 Method of Notification: Text Reason For Visit: CVA Diagnosis Discharge Diagnosis (1) Debility: Status: Acute Code(s): R53.81 - Other malaise (2) Acute stroke due to ischemia: Status: Inactive Code(s): I63.9 - Cerebral infarction, unspecified Plan: 02/12/2024. Received TNK in the emergency department. Brain MRI on 02/13/2024 showed an acute lacunar type infarct involving the superior portion of the right external capsule. (3) Cognitive dysfunction: Status: Acute Code(s): F09 - Unspecified mental disorder due to known physiological condition (4) Left-sided weakness: Status: Chronic Code(s): R53.1 - Weakness (5) Dysarthria: Status: Acute Code(s): R47.1 - Dysarthria and anarthria Plan: Much improved since admission to rehab. (6) Dysphagia: Status: Acute Code(s): R13.10 - Dysphagia, unspecified Qualifiers: Dysphagia type: unspecified Qualified Code(s): R13.10 - Dysphagia, unspecified Plan: Now able to eat pur?ed foods. Only using the PEG tube for a feeding at at bedtime of 240 cc. (7) Somatic dysfunction of rib: Status: Resolved Code(s): M99.08 - Segmental and somatic dysfunction of rib cage (8) Neck pain: Status: Acute Code(s): M54.2 - Cervicalgia Plan: Due to hunched posture with trapezius muscle strain. Improved with the application of the arthritis cream. (9) Depression: Status: Chronic Code(s): F32.A - Depression, unspecified Qualifiers: Depression Type: unspecified Qualified Code(s): F32.A - Depression, unspecified Plan: Tolerating sertraline 100 mg daily with no adverse side effects. 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 Will continue 1200 cc a day fluid restriction and sodium chloride tablets 1 g p.o. twice daily (13) Alcohol abuse: Status: Chronic Code(s): F10.10 - Alcohol abuse, uncomplicated Plan: Alcohol cessation counseling was given. He was drinking 20-30 beers a day with very little food intake. This has been long standing. (14) Cystitis: Status: Resolved Code(s): N30.90 - Cystitis, unspecified without hematuria (15) Carotid stenosis: Status: Chronic Code(s): I65.29 - Occlusion and stenosis of unspecified carotid artery Qualifiers: Laterality: bilateral Qualified Code(s): I65.23 - Occlusion and stenosis of bilateral carotid arteries Plan: CTA of the neck at admission showed greater than 70% stenosis of both internal carotid arteries. A carotid ultrasound was obtained and showed less than 50% stenosis of the right internal carotid and 50 to 69% stenosis of the left internal carotid. Recommend follow-up with Dr. Deric Cortes going forward. 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 (17) Diastolic dysfunction: Status: Chronic Code(s): I51.89 - Other ill-defined heart diseases Plan 1. Transfer to the transitional care unit at [facility] on 03/08/2024 for additional therapy prior to returning home. 2. Continue 1200 cc/day fluid restriction and sodium chloride tablets 1 g twice daily. 3. Alcohol cessation counseling was once again given. Medications at Discharge Home Medications clopidogrel 75 mg tablet 75 mg PO DAILY blood thinner #30 tabs 12/05/19 tamsulosin 0.4 mg capsule 0.4 mg PO DAILY prostate 01/29/20 cholecalciferol (vitamin D3) 1,250 mcg (50,000 unit) capsule 1,250 mcg PO .q2week supplement 12/17/24 aspirin 81 mg chewable tablet 81 mg PO BREAKFAST Heart health #0 tabs 02/14/24 atorvastatin 80 mg tablet 80 mg PO QHS Cholestrol #0 tabs 02/14/24 enoxaparin 40 mg/0.4 mL subcutaneous syringe (Lovenox) 40 mg (0.4 mL) subcut DAILY Blood thinner #4 mL 02/14/24 Magnesium Oxide 400 mg G-tube BID magnesium supplement #1 TAB 03/07/24 acetaminophen 650 mg/20.3 mL oral solution 650 mg (20.3 mL) G-tube Q4H PRN PRN pain/fever #1 mL 03/07/24 bacitracin zinc 500 unit/gram topical ointment 1 applic topical BID inflammation #1 g 03/07/24 finasteride 5 mg tablet 5 mg G-tube DAILY cholesterol #1 TAB 03/07/24 fluconazole 40 mg/mL oral suspension 150 mg (3.75 mL) G-tube DAILY fungal #3 mL 03/07/24 lactose-reduced food with fiber 0.06 gram-1.5 kcal/mL oral liquid (Jevity 1.5 Tone) 240 ml G-tube 2200 nourishment #240 mL 03/07/24 lansoprazole 15 mg capsule,delayed release 30 mg (2 x 15 mg) G-tube BID stomach/reflux #1 cap 03/07/24 lisinopril 2.5 mg tablet 2.5 mg G-tube DAILY BP #1 TAB 03/07/24 loperamide 1 mg/7.5 mL oral liquid 2 mg (15 mL) PO Q4H PRN Diarrhea/Loose Stools #1 mL 03/07/24 magnesium hydroxide 400 mg/5 mL oral suspension 30 ml PO X1 PRN Constipation #30 mL 03/07/24 menthol 0.44 %-zinc oxide 20.6 % topical ointment (Calmoseptine) 1 applic topical BID skin #1 g 03/07/24 metoprolol tartrate 50 mg tablet 50 mg G-tube BID BP #1 TAB 03/07/24 nystatin 100,000 unit/gram topical powder (Nyamyc) 1 applic topical BID thrush #1 g 03/07/24 oxycodone 5 mg tablet 2.5 mg (1/2 x 5 mg) G-tube Q6H PRN PRN abd pain 1 day #1 TAB 03/07/24 sennosides 8.6 mg-docusate sodium 50 mg tablet (Stimulant Laxative Plus) 2 tab PO BID PRN Constipation #1 TAB 03/07/24 sertraline 100 mg tablet 100 mg G-tube DAILY mood #1 TAB 03/07/24 sodium chloride 1,000 mg soluble tablet 1,000 mg PO BID hyponatremia #1 TAB 03/07/24 thiamine HCl (vitamin B1) 100 mg tablet 100 mg G-tube BREAKFAST vitamin supple #1 TAB 03/07/24 white petrolatum 1 applic topical DAILY #1 g 03/07/24 Arthritis Pain Compound 03/08/24 bisacodyl 10 mg rectal suppository 10 mg OR DAILY PRN PRN Constipation 03/08/24 Hospital Course Operations None Procedures 2-D Echocardiogram and Peg tube placement Summary of Care Provided Minutes Spent on Discharge: 35 Hospital Course: BRANDEE CLIFTON is a 78-year-old male well-known to me from a previous admission for ischemic CVA in 2019 with a past medical history of BPH, history of prostate cancer, hypertension, 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 He was aphasic at presentation to the hospital. Stat CT brain showed no acute findings. CTA of the head and neck showed calcific plaque at the origin of the right and left internal carotid arteries causing greater than 70% stenosis. A subsequent carotid ultrasound showed less than 50% stenosis of the right internal carotid and 50 to 69% stenosis of the left internal carotid artery. Teleneurology was consulted and TNK was recommended and administered in the emergency department. Brain MRI on 02/13/2024 showed an acute lacunar type infarct involving the superior portion of the right external capsule. He was transferred to the acute inpatient rehab unit at [facility] on 02/14/2024 for 3 hours of therapy daily to restore function/independence at or near his level prior to the most recent CVA. He underwent EGD with PEG placement on 02/15/[address] Chan. UA shortly after admission was positive for Aerococcus urinae UTI and he was treated with Augmentin. Jkaub was tearful and admitted to feeling depressed and he was started on sertraline 50 mg daily which he tolerated well and this was increased to 100 mg daily the following week. While on rehab he developed a small rim of necrosis around the PEG site and a culture was positive for yeast which was treated with clotrimazole cream. Sodium has been persistently mildly decreased and he is on fluid restriction and sodium chloride tablets 1 g twice daily. Jakub had significant improvement in his swallowing while on rehab and he was able to start a pur?ed diet prior to discharge to TCU. At the time of discharge to TCU he is getting only 1 tube feed daily and that is 240 cc of Jevity 1.5 at bedtime. At the time of discharge from rehab he is able to do 7 sit to stands in 30 seconds using his upper extremities to rise at contact-guard assist. He is able to ascend/descend two 6 inch steps and three 4 inch steps with 2 handrails at contact-guard assist. He has ambulated up to 430 feet on various surfaces feet with a front wheel walker at contact-guard assist. He is supervision/set up for eating and upper body dressing. He is standby assist for grooming, bathing, lower body dressing, tub/shower transfer and toilet transfer. He is contact-guard assist for toileting. Jakub's desire is to return home with his . It was felt that he would benefit from additional long term prior to returning home. He was transferred ot the TCU at [facility] on 03/08/24 for additional strengthening/therapy prior to returining home. Alcohol cessation counselling was given on numerous occasions during his stay on rehab. he had been drinking up to 30 beers a day and not eating per his prior to DC. Prior to discharge from rehab an appointment was made for him to follow-up with Dr. Ken Mitchell from ophthalmology for complaint of blurred vision in the left eye since the stroke. He will also need to follow-up with Dr. Cortes postdischarge for left carotid stenosis, 50 to 69%. He will need to follow-up with neurology and his PCP as well. Physical Exam Const alert General Appearance: cooperative HEENT normocephalic Eyes PERRL and EOMs intact bilaterally Neck supple, no JVD and no carotid bruits Resp normal respiratory effort, normal air movement and clear to auscultation bilaterally Cardio regular rate and regular rhythm GI normal to inspection, nondistended, normoactive bowel sounds, non-tender and non-distended GI Narrative: PEG present. Extremity normal capillary refill General Extremity: Negative for edema Skin no rashes or lesions noted General Skin Exam: no breakdown Neuro moves all extremities Neuro Narrative: Dysarthric, left upper extremity hemiparesis, left lower extremity hemiparesis. Speech: speech abnormal Psych affect normal Appearance: appropriate Medical Records Data Medical Nutrition Assessment Dietitian: Malnutrition Criteria Met Start: 02/15/24 14:57 Freq: Status: Active Protocol: Document 02/27/24 10:17 SLA (Rec: 02/27/24 10:17 SLA [id number]) Nutrition Malnutrition Evidence of Malnutrition Exists Yes Malnutrition (severe): Acute Illness/Injury Evidenced By Suboptimal Energy Intake ( Severe),Weight Loss (Severe) Clinical Problem Swallowing Difficulty Etiology related to dysphagia and stroke Signs/Symptoms as evidenced by need for mechanically altered diet and PEG feeds to supplement po intake prn Status Active Problem Chronic Disease or Condition Related Malnutrition Etiology severe protein-calorie malnutrition related to inadequate oral intake, ETOH use, and swallowing difficulties Signs/Symptoms as evidenced by 11% unintentional weight loss x less than 6 months and PO meeting less than 75% of estimated nutrition needs x 6 months. Status Active Problem Recommendation Dietitian Recommendations/Changes Jevity 1.5 Tone with 240ml w/ 90 ml water flush before and after each bolus feed IF intake < 50% at meals. Continue HS feeding (240 ml). Each bolus feed provides 360 tone/ 15 gm pro/ 182 ml free water. Will liberalize diet to Regular puree/thin liquids and give magic cup tid w/ meals for increased nutrition if consumed. FR per MD. Rec liberalize fluid restriction as able. Will monitor weight, as available. Weight / BMI Weight Weight: 165 lb Body Mass Index (BMI) 23.6 ABG / Lab / Microbiology Data 03/07/24 08:09 03/07/24 08:09 Laboratory: Laboratory Results - last 24 hr 03/07/24 08:09: WBC 10.3, RBC 3.80 L, Hgb 11.2 L, Hct 34.4 L, MCV 90.5, MCH 29.5, MCHC 32.6, RDW Std Deviation 41.9, RDW Coeff of Denae 12.6, Plt Count 573 H, MPV 9.0, Sodium 132 L, Potassium 4.1, Chloride 100, Carbon Dioxide 28.0, Anion Gap 4 L, BUN 14, Creatinine 0.78, Estim Creat Clear Calc 81.11, Est GFR (MDRD) Af Amer 124, Est GFR (MDRD) Non-Af 103, BUN/Creatinine Ratio 17.9, Glucose 119 H, Calcium 9.9, Phosphorus 3.3, Magnesium 1.8 Microbiology: Microbiology 02/25/24 09:36 Wound - Abdominal Gram Stain - Final 02/25/24 09:36 Wound - Abdominal Wound Culture - Final Presumptive C albicans Escherichia coli 02/14/24 21:15 Urine, Catheterized Urine Culture - Final Aerococcus urinae Indicators for Scoring Admitted with or Primary Diagnosis of CVA/Stroke: Yes Hx of CVA/Stroke: Yes Modified Freestone Score MRS Score at time of Evaluation: 4-Moderate/severe disability NIHSS NIHSS 1a. Level of Consciousness: Alert; keenly responsive 1b. LOC Questions: Answers BOTH questions correctly. 1c. LOC Commands: Performs both tasks correctly. 2. Best Gaze: Normal 3. Visual: No visual loss (But with persistent complaints of blurred vision in the left eye since the stroke) 4. Facial Palsy: Partial paralysis (total or near-total paralysis of lower face) 5a. Left Arm: No drift; arm holds 90 (or 45) degrees for full 10 seconds 5b. Right Arm: No drift; arm holds 90 (or 45) degrees for full 10 seconds 6a. Left Leg: Drift; leg falls by the end of 5-seconds, but does not hit bed 6b. Right Leg: No drift; leg holds 30-degree position for full 5 seconds 7. Limb Ataxia: Absent 8. Sensory: Bzyt-dv-xwiulzor sensory loss; 9. Best Language: No aphasia; normal 10. Dysarthria: Dxyp-ja-wiewuxoz dysarthria; Total: 5 Stroke Questions Stroke Team Activated: No D/C Instructions DC O2, CPAP, BIPAP Needs PSN CPAP & BiPAP: BiPAP & CPAP Settings per PSN Fraction of Inspired Oxygen ( 02/17/24 07:37 FIO2) Home O2 Discharge instructions: No Please Follow Up With: Neurology Meaningful Use Info Meaningful Use Meaningful Use Diagnoses (Choose all that apply): Ischemic CVA CVA Therapy Assessed for PT,OT and/or ST?: Yes Ischemic Stroke Antithrombotic order at d/c?: Yes Dx of Atrial fib/flutter?: No Anticoagulant at discharge?: No Reason anticoagulant not ordered: Treatment not Indicated Statin Dosing Therapy Reference: STATIN DOSE THERAPY REFERENCE: * Patients > 75 years receive moderate or high dose statin therapy. * Patients 75 years or YOUNGER should receive HIGH intensity statin dose unless contraindicated. You will be required to document reason for non-treatment if statin daily dose does not meet guidelines. HIGH DOSE STATIN THERAPY DAILY Atorvastatin > than or = to 40 mg Rosuvastatin > than or = to 20 mg Amlodipine + Atorvastatin > than or = to 2.5/40 mg Ezetimibe + Simvastatin 10/80 mg Simvastatin 80mg Statins at discharge?: Yes Primary Dx Acute Ischemic CVA?: Yes IV thrombolytic ordered during stay?: No Discharge Plan Admission Admit Date/Time: 02/14/24 13:51 Primary Reason for Your Visit: Poststroke debility Attending Provider: Allison Mcbride Primary Care Provider: Gabi Alexis Consulting Providers: Sandro Chan Instructions Additional Instructions / Restrictions: He has SIADH and hyponatremia. Do Not DC the fluid restriction. Discharge Orders/Prescriptions Prescriptions: New acetaminophen 650 mg/20.3 mL Solution 650 mg G-tube Q4H PRN PRN (Reason: pain/fever) Qty: 1 0RF bacitracin zinc 500 unit/gram Ointment 1 applic topical BID Qty: 1 0RF Protocol: *Topical Application Instructions APPLICATION INSTRUCTIONS: Apply to the area around the PEG tube Rx Instructions: Apply around the PEG tube magnesium hydroxide 400 mg/5 mL Suspension 30 ml PO X1 PRN (Reason: Constipation) Qty: 30 0RF metoprolol tartrate 50 mg Tablet 50 mg G-tube BID Qty: 1 0RF lansoprazole 15 mg Capsule,Delayed Release(Dr/Ec) 30 mg G-tube BID Qty: 1 0RF nystatin [Nyamyc] 100,000 unit/gram Powder 1 applic topical BID Qty: 1 0RF Protocol: *Topical Application Instructions APPLICATION INSTRUCTIONS: groin fluconazole 40 mg/mL Suspension For Reconstitution 150 mg G-tube DAILY Qty: 3 0RF Rx Instructions: Discontinue after 3 doses lisinopril 2.5 mg Tablet 2.5 mg G-tube DAILY Qty: 1 0RF finasteride 5 mg Tablet 5 mg G-tube DAILY Qty: 1 0RF oxycodone 5 mg Tablet 2.5 mg G-tube Q6H PRN PRN (Reason: abd pain) 1 Days Qty: 1 0RF loperamide 1 mg/7.5 mL Liquid 2 mg PO Q4H PRN (Reason: Diarrhea/Loose Stools) Qty: 1 0RF menthol-zinc oxide [Calmoseptine] 0.44-20.6 % Ointment 1 applic topical BID Qty: 1 0RF Protocol: *Topical Application Instructions APPLICATION INSTRUCTIONS: Apply to buttocks Jevity 1.5 Tone 0.06 gram-1.5 kcal/mL Liquid 240 ml G-tube 2200 Qty: 240 0RF Magnesium Oxide 400 mg tablet 400 mg G-tube BID Qty: 1 0RF sennosides-docusate sodium [Stimulant Laxative Plus] 8.6-50 mg Tablet 2 tab PO BID PRN (Reason: Constipation) Qty: 1 0RF sertraline 100 mg Tablet 100 mg G-tube DAILY Qty: 1 0RF thiamine HCl (vitamin B1) 100 mg Tablet 100 mg G-tube BREAKFAST Qty: 1 0RF sodium chloride 1,000 mg Tablet,Soluble 1,000 mg PO BID Qty: 1 0RF white petrolatum Ointment In Packet 1 applic topical DAILY Qty: 1 0RF Protocol: *Topical Application Instructions APPLICATION INSTRUCTIONS: Applied to both lower extremities from the base of the toes to the tibial plateau. Continued clopidogrel 75 MG tablet 75 mg PO DAILY Qty: 30 0RF Patient Comments: Patient does not take regularly cholecalciferol (vitamin D3) 1,250 mcg (50,000 unit) capsule 1,250 mcg PO .q2week Patient Comments: Patient does not take regularly atorvastatin 80 mg Tablet 80 mg PO QHS Qty: 0 0RF aspirin 81 mg Tablet,Chewable 81 mg PO BREAKFAST Qty: 0 0RF enoxaparin [Lovenox] 40 mg/0.4 mL syringe 40 mg subcut DAILY Qty: 4 0RF Discontinued potassium chloride 10 mEq capsule, extended release 10 meq PO DAILY Patient Comments: Patient does not take regularly metoprolol tartrate 50 mg tablet 50 mg PO BID Qty: 14 0RF acetaminophen 325 mg Tablet 650 mg PO X1 PRN (Reason: Temp > 99.6 F) Qty: 0 0RF No Action tamsulosin 0.4 mg capsule 0.4 mg PO DAILY Patient Comments: Patient does not take regularly bisacodyl 10 mg Suppository 10 mg OR DAILY PRN PRN (Reason: Constipation) (DME) Arthritis Pain Compound See Rx Instructions .Route .MEDSUPPLY Rx Instructions: As directed Referrals / Follow Up: Ken Martinez [Other] (03/10/24 1530. Arrive at 1520 and bring insurance information. Eyes will be dilated at appt. ) Deric Cortes MD [Med Staff - Active Staff] - 03/21/24 3:00 pm Juan Norwood MD [Non-Staff -Ordering Privileges] - 04/14/24 11:00 am () Gabi Alexis MD [Primary Care Provider] - 03/11/24 1:00 pm Disposition Disposition (needs filled in before D/C Order can be placed): Detention Facility Charges/Coding Visit Charges Inpatient E&M: 50935 Disch Hosp >30min
[2024-03-07 18:00] VITALS: BP 129/74; PULSE 68; RESP 18; TEMP 37.1; O2SAT 95
[2024-03-07] MEDS: Clotrimazole 1 APPLIC Tube TOPICAL (22:51)
[2024-03-07] MEDS: Jevity 1.5. 1,000 ML Bottle 240 ML GT (22:51)
[2024-03-07 22:52] VITALS: BP 132/71; PULSE 62
[2024-03-07] MEDS: Atorvastatin Calcium 80 MG Tablet GT (22:52)
[2024-03-08] MEDS: Clotrimazole 1 APPLIC Tube TOPICAL (05:22)
[2024-03-08 05:27] VITALS: BP 123/73; PULSE 60; RESP 18; TEMP 36.8; O2SAT 94
[2024-03-08 05:52] VITALS: BMI 23.6
[2024-03-08] MEDS: Lansoprazole 15 MG Capsule.DR 30 MG GT ×2 (08:26→08:27)
[2024-03-08] MEDS: Finasteride 5 MG Tablet GT (08:26)
[2024-03-08] MEDS: Lisinopril 2.5 MG Tablet GT (08:26)
[2024-03-08] MEDS: Thiamine Hydrochloride 100 MG Tablet GT (08:26)
[2024-03-08] MEDS: BACITRACIN 15 GM Tube 1 APPLIC TOPICAL (08:27)
[2024-03-08] MEDS: Sertraline 100 MG Tablet GT (08:28)
[2024-03-08] MEDS: Sodium Chloride 1 GM Tablet PO (08:28)
[2024-03-08] MEDS: Nystatin Powder 15gm Bottle 1 APPLIC TOPICAL (08:28)
[2024-03-08] MEDS: Arthritis Pain Compound 60 CLICK TUBE TOPICAL (08:28)
[2024-03-08] MEDS: MAGNESIUM OXIDE 400 MG TABLET GT (08:28)
[2024-03-08] MEDS: Aspirin 81 MG TAB.CHEW GT (08:28)
[2024-03-08] MEDS: Menthol/Lanolin/Calamine/Znox 113 GM Tube 1 APPLIC TOPICAL (08:29)
[2024-03-08] MEDS: Fluconazole Suspension 40 MG/ML 35 ML Bottle 150 MG GT (08:29)
[2024-03-08 08:40] VITALS: BP 125/70; PULSE 65
[2024-03-08] MEDS: Metoprolol Tartrate 50 MG Tablet GT (08:40)
[2024-03-08] MEDS: Clopidogrel Bisulfate 75 MG Tablet GT (08:42)
[2024-03-08 13:02] VITALS: BMI 23.6
--- NOTE | 2024-03-08 13:03 | NURSING ---
Report given to TCU and patient discharged at this time
== END 2024-03-08 13:04 | disposition skilled nursing facility (03) | DRG 56 ==
PROVIDERS: Family Medicine; Internal Medicine Gastroenterology; Admitting Provider Internal Medicine; PCP Family Medicine; Referring Provider Internal Medicine; Visit Provider Internal Medicine
PROC: 0DJ08ZZ Inspection of Upper Intestinal Tract, Via Natural or Artificial Opening Endoscopic (ICD-10-PCS; CPT 43235; principal; 2024-02-15 14:55)
DX: I69.354 Hemiplegia and hemiparesis following cerebral infarction affecting left non-dominant side (principal); K29.01 Acute gastritis with bleeding; E43 Unspecified severe protein-calorie malnutrition; K25.4 Chronic or unspecified gastric ulcer with hemorrhage; B37.89 Other sites of candidiasis; E22.2 Syndrome of inappropriate secretion of antidiuretic hormone; N17.9 Acute kidney failure, unspecified; J98.11 Atelectasis; N30.00 Acute cystitis without hematuria; I69.391 Dysphagia following cerebral infarction; F10.10 Alcohol abuse, uncomplicated; I10 Essential (primary) hypertension; F32.A Depression, unspecified; I69.322 Dysarthria following cerebral infarction; K22.70 Barrett's esophagus without dysplasia; E78.5 Hyperlipidemia, unspecified; E53.8 Deficiency of other specified B group vitamins; E87.6 Hypokalemia; M19.90 Unspecified osteoarthritis, unspecified site; E83.42 Hypomagnesemia; I69.392 Facial weakness following cerebral infarction; F09 Unspecified mental disorder due to known physiological condition; H53.8 Other visual disturbances; Z87.891 Personal history of nicotine dependence; Z79.01 Long term (current) use of anticoagulants; R06.81 Apnea, not elsewhere classified; N40.0 Benign prostatic hyperplasia without lower urinary tract symptoms; Z79.02 Long term (current) use of antithrombotics/antiplatelets; Z79.82 Long term (current) use of aspirin; R13.10 Dysphagia, unspecified; Z79.899 Other long term (current) drug therapy; M99.08 Segmental and somatic dysfunction of rib cage; B96.89 Other specified bacterial agents as the cause of diseases classified elsewhere
CPT/HCPCS: 36415; 71045; 71275; 73502; 74018; 80048; 80053; 81001; 82570; 83690; 83735; 83880; 83930; 83935; 84100; 84300; 85014; 85018; 85025; 85027; 85379; 87070; 87077; 87086; 87088; 87186; 87205; 87640; 92507; 92523; 92526; 92610; 93880; 94668; 94762; 97110; 97112; 97116; 97129; 97130; 97162; 97166; 97530; 97535; 97802; 97803; Q9967; A4216; J1940; J2405

== ENCOUNTER 2024-03-08 13:15 | Inpatient (IN) | payer MEDICARE, OTHER, SELFPAY ==
[2024-03-08 13:29] VITALS: BP 130/68; PULSE 63; RESP 16; RESP 18; TEMP 36.6; O2SAT 98; BMI 23.2
--- NOTE | 2024-03-08 16:38 | HP.PCM_ITS ---
HPI - General General Date of Admission: 03/08/24 Date of Service: 03/10/24 Chief Complaint: Here for rehabilitation. HPI Narrative BRANDEE CLIFTON, is a 78 Male who presents with followin02/12/2024 [facility] ED with near syncope, left sided weakness, aphasic. CT head okay, CTA head/neck > 70% stenosis bilateral carotid arteries. TNK given. 02/13/2024 MRI brain right sided stroke. Echo LVEF 70%. Stage 1 diastolic dysfunction. MBS moderate oropharyngeal dysphagia, regular texture diet with thin liquids recommended. 02/14/2024 Admit to RU. PT/OT/ST. NIHSS 8. Consider PEG for dysphagia. Thiamine, Folic acid for alcohol abuse. Carotid doppler ultrasound, Dr. Cortes for bilateral carotid artery stenosis. 02/15/2024 Dr. Chan EGD showed Barretts esophagus, acute gastritis with hemorrhage treated with argon plasma coagulation, PEG placed. 02/15/2024 Carotid duplex showed mild right internal carotid artery stenosis, moderate left internal carotid artery stenosis. 02/16/2024 Jevity TF. Lansoprazole 30mg bid for Barretts esophagus, Gastritis. Recommend alcohol cessation. Augmentin for UTI. 02/17/2024 Feeling better, Augmentin for Aerococcus UTI. 02/18/2024 Sertraline 50mg daily for depression. 02/20/2024 NPO, tolerating TF. Augmentin x 7 days for Aerococcus UTI. Add Lisinopril 2.5mg daily for HTN. 02/21/2024 Imodium PRN diarrhea. 02/25/2024 Increase Sertraline to 100mg daily for depression. Keflex, Bacitracin for PEG site infection. Eating mashed potatoes with gravy. 02/28/2024 PEG cultured showed yeast, add clotrimazole cream. 03/03/2024 Eating, trying to take pills today with ST. 03/05/2024 Sodium chloride 1gm bid for hyponatremia. 03/06/2024 1200mL fluid restriction, Sodium chloride 1gm bid for hyponatremia. Sodium 132. Not quite ready to go home, his had recent back surgery and is unable to lift anything. 03/08/2024 Admit to TCU with debility, here for rehabilitation, strengthening, prior to discharge home with . [facility] Medical History (Updated 03/08/24 @ 16:[address] Kevin Watt MD) Hypertension Acute stroke due to ischemia Dysphagia Alcohol abuse Dehydration Carotid stenosis Cognitive dysfunction Vertigo Left carotid stenosis Biatrial enlargement Diastolic dysfunction Hypokalemia Hyponatremia History of prostate cancer Venous insufficiency Vitamin B12 deficiency BPH (benign prostatic hyperplasia) Home Medications ?Medication ?Instructions ?Recorded ?Last Taken ?Type clopidogrel 75 mg tablet 75 mg PO DAILY blood thinner #30 12/05/19 02/14/24 Rx tabs tamsulosin 0.4 mg capsule 0.4 mg PO DAILY prostate 01/29/20 02/13/24 History cholecalciferol (vitamin D3) 1,250 1,250 mcg PO .q2week supplement 02/12/24 Unknown History mcg (50,000 unit) capsule aspirin 81 mg chewable tablet 81 mg PO BREAKFAST Heart health #0 02/14/24 02/14/24 Rx tabs atorvastatin 80 mg tablet 80 mg PO QHS Cholestrol #0 tabs 02/14/24 Unknown Rx enoxaparin 40 mg/0.4 mL 40 mg (0.4 mL) subcut DAILY Blood 02/14/24 Unknown Rx subcutaneous syringe (Lovenox) thinner #4 mL Magnesium Oxide 400 mg G-tube BID magnesium 03/07/24 Unknown Rx supplement #1 TAB acetaminophen 650 mg/20.3 mL oral 650 mg (20.3 mL) G-tube Q4H PRN 03/07/24 Unknown Rx solution PRN pain/fever #1 mL bacitracin zinc 500 unit/gram 1 applic topical BID inflammation 03/07/24 Unknown Rx topical ointment #1 g finasteride 5 mg tablet 5 mg G-tube DAILY cholesterol #1 03/07/24 Unknown Rx TAB fluconazole 40 mg/mL oral 150 mg (3.75 mL) G-tube DAILY 03/07/24 Unknown Rx suspension fungal #3 mL lactose-reduced food with fiber 240 ml G-tube 2200 nourishment 03/07/24 Unknown Rx 0.06 gram-1.5 kcal/mL oral liquid #240 mL (Jevity 1.5 Tone) lansoprazole 15 mg capsule,delayed 30 mg (2 x 15 mg) G-tube BID 03/07/24 Unknown Rx release stomach/reflux #1 cap lisinopril 2.5 mg tablet 2.5 mg G-tube DAILY BP #1 TAB 03/07/24 Unknown Rx loperamide 1 mg/7.5 mL oral liquid 2 mg (15 mL) PO Q4H PRN 03/07/24 Unknown Rx Diarrhea/Loose Stools #1 mL magnesium hydroxide 400 mg/5 mL 30 ml PO X1 PRN Constipation #30 mL 03/07/24 Unknown Rx oral suspension menthol 0.44 %-zinc oxide 20.6 % 1 applic topical BID skin #1 g 03/07/24 Unknown Rx topical ointment (Calmoseptine) metoprolol tartrate 50 mg tablet 50 mg G-tube BID BP #1 TAB 03/07/24 Unknown Rx nystatin 100,000 unit/gram topical 1 applic topical BID thrush #1 g 03/07/24 Unknown Rx powder (Nyamyc) oxycodone 5 mg tablet 2.5 mg (1/2 x 5 mg) G-tube Q6H PRN 03/07/24 Unknown Rx PRN abd pain 1 day #1 TAB sennosides 8.6 mg-docusate sodium 2 tab PO BID PRN Constipation #1 03/07/24 Unknown Rx 50 mg tablet (Stimulant Laxative TAB Plus) sertraline 100 mg tablet 100 mg G-tube DAILY mood #1 TAB 03/07/24 Unknown Rx sodium chloride 1,000 mg soluble 1,000 mg PO BID hyponatremia #1 TAB 03/07/24 Unknown Rx tablet thiamine HCl (vitamin B1) 100 mg 100 mg G-tube BREAKFAST vitamin 03/07/24 Unknown Rx tablet supple #1 TAB white petrolatum 1 applic topical DAILY #1 g 03/07/24 Unknown Rx Arthritis Pain Compound 03/08/24 Unknown History bisacodyl 10 mg rectal suppository 10 mg [place] DAILY PRN PRN Constipation 03/08/24 Unknown History Allergy/AdvReac Type Severity Reaction Status Date / Time Iodinated Contrast Media Allergy Hives Verified 02/13/24 11:20 (CONTRASTS) Family History Father Heart disease Cancer Surgical History History of vein stripping History of appendectomy History of tonsillectomy History of bilateral cataract extraction Social History (Updated 03/08/24 @ 16:[address] Kevin Watt MD) household members: spouse Smoking Status: Former smoker alcohol intake: current details: 10+ beers daily ROS Constitutional Constitutional: Reports weakness; Denies chills, fever(s) or weight gain ENT HEENT: Denies headache(s), nasal congestion or nasal discharge Cardiovascular Cardiovascular: Denies chest pain or palpitations Respiratory/Chest Respiratory/Chest: Denies cough, excessive phlegm production or shortness of breath with exertion Gastrointestinal Gastrointestinal: Denies abdominal pain, nausea or vomiting Genitourinary Genitourinary: Denies dysuria Musculoskeletal Musculoskeletal: Denies joint pain or joint swelling Integumentary Integumentary: Denies rash or wounds Neurologic Neurologic: Denies focal weakness, numbness or tingling Psychiatric Psychiatric: Denies anxiety, auditory hallucinations, depression, homicidal ideation or suicidal ideation Vital Signs Vital Signs Vital Signs: 03/08/24 13:29 03/08/24 13:29 03/08/24 15:39 Temperature 97.9 F Temperature Source Temporal Pulse Rate 63 63 Pulse Rhythm Irregular Pulse Strength Normal (2+) Normal (2+) Respiratory Rate 18 16 Respiratory Effort Normal Non-Labored Respiratory Depth Normal Respiratory Pattern Normal Blood Pressure 130/68 H Blood Pressure Mean 88 Blood Pressure Source Monitor Blood Pressure Position Semi-Fowlers Blood Pressure Location Right Arm Pulse Ox 98 98 Oxygen Delivery Method Room Air Room Air Weight Weight: 75.523 kg Body Mass Index (BMI) 23.2 Physical Exam Const alert General Appearance: cooperative HEENT normocephalic Eyes PERRL and EOMs intact bilaterally Neck supple, no JVD and no carotid bruits Resp normal respiratory effort, normal air movement and clear to auscultation bilaterally Cardio regular rate and regular rhythm GI normal to inspection, nondistended, normoactive bowel sounds, non-tender and non-distended GI Narrative: PEG present. Extremity normal capillary refill General Extremity: Negative for edema Skin no rashes or lesions noted General Skin Exam: no breakdown Neuro moves all extremities Neuro Narrative: Dysarthric, left upper extremity hemiparesis, left lower extremity hemiparesis. Speech: speech abnormal Psych affect normal Appearance: appropriate Results Lab / Micro Data 03/09/24 05:29 03/09/24 05:29 Assessment & Plan Assessment/Plan (1) Debility: (2) Stroke: (3) Left hemiparesis: (4) Dysphagia: QUALIFIERS: Dysphagia type: unspecified Qualified Code(s): R13.10 - Dysphagia, unspecified (5) BPH (benign prostatic hyperplasia): QUALIFIERS: Lower urinary tract symptom presence: symptoms absent Qualified Code(s): N40.0 - Benign prostatic hyperplasia without lower urinary tract symptoms (6) Alcohol abuse: (7) History of prostate cancer: (8) Essential (primary) hypertension: (9) Bilateral carotid artery stenosis: (10) Vitamin B12 deficiency: (11) Hypokalemia: (12) Hyperlipidemia: QUALIFIERS: Hyperlipidemia type: unspecified Qualified Code(s): E 78.5 - Hyperlipidemia, unspecified PLAN: Plan 78 year old male with below past medical history hospitalized for stroke, left hemiparesis, dysphagia requiring PEG, admitted to 02/14/2024, admitted to TCU with debility, here for rehabilitation, strengthening, prior to discharge home with . * Debility - PT/OT/ST. * Pain - Tylenol 650mg q6 prn, Oxycodone 2.5mg q6 prn. * Bowel - senna/colace 2 tablets bid prn, Dulcolax 10mg pr daily prn, MOM 30mL x 1 prn, Loperamide 2mg q4 prn. * Adult immunization - Administer pneumonia vaccine, covid vaccine, flu vaccine as appropriate. * DVT prophylaxis - Lovenox 40mg sc daily. * Stroke - Aspirin 81mg daily, Plavix 75mg daily. * Hyperlipidemia - Atorvastatin 80mg qhs. * Skin - Bacitracin topical bid, Calmoseptine topical bid, Eucern topical qhs, Nystatin powder topical bid. * BPH - Finasteride 5mg daily. * PEG yeast infection - Fluconazole 150mg daily thru 03/11/2024. * Nutrition - Jevity 1.5 240mL 4x/day. * Barretts esophagus/Gastritis - Lansoprazole 30mg bid. * Hypertension - Metoprolol 50mg bid, Lisinopril 2.5mg daily. * Hypomagnesemia - Magnesium Oxide 400mg bid. * Depression - Sertraline 100mg daily, stable chronic use, GDR not recommended. * Hyponatremia - Sodium 1gm bid.
[2024-03-08] MEDS: BACITRACIN 15 GM Tube 1 APPLIC TOPICAL (22:02)
[2024-03-08] MEDS: Nystatin Powder 15gm Bottle 1 APPLIC TOPICAL (22:03)
[2024-03-08] MEDS: Lansoprazole 15 MG Capsule.DR 30 MG GT (22:04)
[2024-03-08] MEDS: Atorvastatin Calcium 80 MG Tablet GT (22:04)
[2024-03-08] MEDS: Jevity 1.5. 1,000 ML Bottle 240 ML GT (22:04)
[2024-03-08] MEDS: Magnesium Oxide 400 MG Tablet GT (22:04)
[2024-03-08] MEDS: Sodium Chloride 1 GM Tablet GT (22:05)
[2024-03-08 22:10] VITALS: BP 116/69; PULSE 58
[2024-03-08] MEDS: Metoprolol Tartrate 50 MG Tablet GT (22:10)
[2024-03-08] MEDS: Menthol/Lanolin/Calamine/Znox 113 GM Tube 1 APPLIC TOPICAL (22:39)
[2024-03-08] MEDS: Petrolatum,White 5 GM PACKET 1 APPLIC TOPICAL (22:43)
[2024-03-08] MEDS: Acetaminophen 650 MG/20 ML UDC GT (22:54)
[2024-03-09 05:52] LABS: Absolute Lymphocyte Count 0.94 X10^3/uL (0.83-4.51); Basophil# 0.04 X10^3/uL; Basophil% 0.5 % (0-1); Eosinophil# 0.87 X10^3/uL; Eosinophils% 9.8 % (0-5); Hematocrit 31.8 % (40-54); Hemoglobin 10.4 g/dL (13.0-16.5); Lymphocyte # 0.94 X10^3/ul (0.83-4.51); Lymphocyte % 10.6 % (19-41); Mean Corp Hgb Conc 32.7 g/dL (32-36); Mean Corpuscular Hgb 29.3 pg (27.0-32.0); Mean Corpuscular Volume 89.6 fL (80-94); Mean Platelet Vol. 9.1 fl (6.2-12.0); Monocyte# 0.95 X10^3/uL; Monocyte% 10.7 % (0-10); NRBC Flagged by Analyzer 0 % (0-5); Neutrophil # 6.01 X10^3/uL (2.7-7.7); Neutrophil % 67.8 % (47-70); Platelet Count 461 K/mm3 (150-450); RBC Distribution Width CV 12.8 % (11.6-14.6); RBC Distribution Width SD 42.1 fl (35.1-43.9); Red Blood Count 3.55 M/mm3 (4.6-6.2); White Blood Count 8.9 K/mm3 (4.4-11.0)
[2024-03-09 05:54] VITALS: BMI 23.3
[2024-03-09 06:27] LABS: Anion Gap 5 (5-15); BUN 16 mg/dL (7-18); Calcium,Total 9.3 mg/dL (8.5-10.1); Chloride 99 mmol/L (98-107); Creatinine, Serum 0.64 mg/dL (0.70-1.30); EST Glomerular Filtration Rate 129 mL/min (>60); Est Glom Filt Rate - Afr Amer 156 mL/min (>60); Estimated Creatinine Clearance 83.67 ml/min; Glucose 117 mg/dL (74-106); Potassium 4.2 mmol/L (3.5-5.1); Sodium Level 130 mmol/L (136-145)
[2024-03-09] MEDS: Menthol/Lanolin/Calamine/Znox 113 GM Tube 1 APPLIC TOPICAL ×2 (09:52→22:20)
[2024-03-09] MEDS: Aspirin 81 MG TAB.CHEW GT (09:52)
[2024-03-09] MEDS: Nystatin Powder 15gm Bottle 1 APPLIC TOPICAL ×2 (09:52→22:22)
[2024-03-09] MEDS: Thiamine Hydrochloride 100 MG Tablet GT (09:57)
[2024-03-09] MEDS: BACITRACIN 15 GM Tube 1 APPLIC TOPICAL ×2 (09:58→22:20)
[2024-03-09 10:00] VITALS: BP 134/76; PULSE 67
[2024-03-09] MEDS: Lansoprazole 15 MG Capsule.DR 30 MG GT ×2 (10:00→22:21)
[2024-03-09] MEDS: Metoprolol Tartrate 50 MG Tablet GT ×2 (10:00→22:21)
[2024-03-09] MEDS: Clopidogrel Bisulfate 75 MG Tablet GT ×2 (10:01→10:02)
[2024-03-09] MEDS: Enoxaparin 40 MG/0.4 ML Syringe SC (10:01)
[2024-03-09] MEDS: Magnesium Oxide 400 MG Tablet GT ×2 (10:01→22:22)
[2024-03-09] MEDS: Finasteride 5 MG Tablet GT (10:03)
[2024-03-09] MEDS: Sodium Chloride 1 GM Tablet GT ×2 (10:03→22:22)
[2024-03-09] MEDS: Lisinopril 2.5 MG Tablet GT (10:04)
[2024-03-09] MEDS: Sertraline 100 MG Tablet GT (10:04)
[2024-03-09] MEDS: Tuberculin,Purif.prot.deriv. 50 TU/ML Vial 0.1 ML ID (10:05)
[2024-03-09 10:15] VITALS: PULSE 67; RESP 18; O2SAT 97
[2024-03-09] MEDS: Fluconazole Suspension 40 MG/ML 35 ML Bottle 150 MG GT (10:25)
[2024-03-09 10:47] VITALS: BP 134/76; PULSE 67; RESP 18; O2SAT 97
[2024-03-09 13:43] VITALS: TEMP 36.4
--- NOTE | 2024-03-09 13:59 | NURSING ---
PT HAS NOT CAME IN TO SEE PT SINCE PT HAS BEEN MOVED TO TCU AND PER PT SHE WAS SUPPOSE TO COME IN YESTERDAY AND HAS NOT HEARD FROM HER. THIS NURSE CALLED PT AND NO ANSWER,SO LEFT MESSAGE. THIS NURSE THEN CALLED PT SON ERMELINDA AND UPDATED HIM ON PT AND STATED TO HIM WE HAVE NOT HEARD FROM HIS MOM AND THIS NURSE TRIED CALLING HER AND HIS DAD WAS GETTING CONCERNED. SON STATED HE HAS NOT TALKED TO HIS MOM SENSE SUNDAY AND WILL TRY TO GET A HOLD OF HER AND WAS GOING TO COME IN TO TCU TODAY TO SEE HIS DAD. ALSO STATED TO SON THAT HIS DAD HAS A APPOINTMENT AT [facility] TOMORROW DUE TO HIS VISION FROM THE STROKE AND REALLY NEEDS TO GO TO APPOINTMENT AND HIS DAD WAS CONCERNED ABOUT HIS MOM TAKEN HIM. SON STATED HE DIDNT KNOW ABOUT THE APPOINTMENT AND WOULD TALK TO HIS MOM AND LET US KNOW. GAVE ROOM PHONE NUMBER TO SON AND UPDATED PT. RN AWARE.
[2024-03-09] MEDS: Acetaminophen 650 MG/20 ML UDC GT ×2 (14:53→22:25)
--- NOTE | 2024-03-09 15:03 | NURSING ---
PT CAME IN AND STATED SHE WAS GOING TO PICK PT UP AT 1500 FOR APPOINTMENT AT [facility] ON 03/10/24. UPDATED ON PT.
--- NOTE | 2024-03-09 19:27 | NURSING ---
PEG PLACEMENT VERIFIED TODAY,RESIDUAL OF 35 CC ABOUT AN HOUR AFTER SPEECH THERAPY SEEN PT AT THE TIME I WAS TO GIVE MEDS. PT TOLERATED WELL. PT ATE OVER 50% ALL MEALS. PEG SITE CLEANED, OINTMENT PER ORDER ON AND NEW DRESSING APPLIED. HEART MONITOR CHECKED AND STILL CHARGED. BROUGHT IN PT A MILKSHAKE TODAY, HALF GONE WHEN THIS NURSE SEEN. EDUCATED PT AND ON PT BEING ON A FLUID RESTRICTION. PT AND STATED THEY UNDERSTOOD. RN AWARE.
[2024-03-09 22:19] VITALS: BP 122/68; PULSE 60
[2024-03-09] MEDS: Jevity 1.5. 1,000 ML Bottle 240 ML GT (22:20)
[2024-03-09 22:21] VITALS: PULSE 60
[2024-03-09] MEDS: Atorvastatin Calcium 80 MG Tablet GT (22:21)
[2024-03-09] MEDS: Petrolatum,White 5 GM PACKET 1 APPLIC TOPICAL (22:22)
[2024-03-10 05:56] VITALS: BMI 23.4
[2024-03-10 09:11] VITALS: BP 117/68; PULSE 62
[2024-03-10] MEDS: Aspirin 81 MG TAB.CHEW GT (09:11)
[2024-03-10] MEDS: Metoprolol Tartrate 50 MG Tablet GT ×2 (09:11→22:23)
[2024-03-10] MEDS: Sertraline 100 MG Tablet GT (09:11)
[2024-03-10] MEDS: Lansoprazole 15 MG Capsule.DR 30 MG GT ×2 (09:11→22:20)
[2024-03-10] MEDS: Magnesium Oxide 400 MG Tablet GT ×2 (09:11→22:24)
[2024-03-10] MEDS: Sodium Chloride 1 GM Tablet GT ×2 (09:11→22:25)
[2024-03-10] MEDS: Thiamine Hydrochloride 100 MG Tablet GT (09:11)
[2024-03-10] MEDS: Lisinopril 2.5 MG Tablet GT (09:11)
[2024-03-10] MEDS: Finasteride 5 MG Tablet GT (09:11)
[2024-03-10] MEDS: BACITRACIN 15 GM Tube 1 APPLIC TOPICAL ×2 (09:12→22:22)
[2024-03-10] MEDS: Enoxaparin 40 MG/0.4 ML Syringe SC (09:12)
[2024-03-10] MEDS: Nystatin Powder 15gm Bottle 1 APPLIC TOPICAL ×2 (09:12→22:24)
[2024-03-10] MEDS: Fluconazole Suspension 40 MG/ML 35 ML Bottle 150 MG GT (09:12)
[2024-03-10] MEDS: Menthol/Lanolin/Calamine/Znox 113 GM Tube 1 APPLIC TOPICAL ×2 (09:13→22:23)
[2024-03-10 09:30] VITALS: PULSE 62; RESP 18; O2SAT 97
--- NOTE | 2024-03-10 09:58 | CASEMGMT ---
Social Work SW met with pt and introduced self and role of SW. Pt admitted to TCU from [facility] RU for continuation for therapy after CVA. Pt is currently a full code. Pt is hopeful to return home with his at time of discharge. Pt's is willing for pt to return home and to assist as needed, however, pt's had recent back surgery and has restrictions on amount of lifting she can do. Will need to follow and assess if pt can meet care requirements of to return home safely. SW to follow for dc planning. ЕЛЕНА White
--- NOTE | 2024-03-10 11:56 | NURSING ---
Offered covid vaccine, VIS provided. Resident refuses at this time.
--- NOTE | 2024-03-10 12:31 | NURSING ---
Laborer Prestressed Concrete Note; Activity Asst: Nicole Lawton is independent in his choice of daily activities w/reminders. Due to his stroke he is un able to read vision is blurry and hopefully after eye doc appt he is hopping he can get new glasses and see again. At this time he will listen to the tv and have family read the daily to him. He welcomes visits from the therapy dog. Staff will remind him of weekly activities, offer in room activities and respect his right to say no.
[2024-03-10] MEDS: Loperamide (Oral Liquid) 1 MG/7.5 ML ML 2 MG GT ×2 (13:16→18:31)
--- NOTE | 2024-03-10 16:01 | PCM.PN.DRR ---
Documented by User: Kailyn Patel 03/10/24 16:22 TCU RX Drug Regimen Review Subjective/Objective Subjective/Objective Subjective: TCU Admission. 78 YOM from . Hospitalized for stroke, left hemiparesis, dysphagia requiring PEG, admitted to 02/14/2024. Admitted to TCU with debility for strengthening and rehabilitation. Objective: Allergies Iodinated Contrast Media (CONTRASTS) Allergy (Verified 02/13/24 11:20) Hives Current Medications Generic Name Dose Route Start Last Admin Trade Name Freq PRN Reason Stop Dose Admin Acetaminophen 650 mg 03/08/24 14:09 03/09/24 22:25 Acetaminophen 650 Mg/20 Ml Udc GT 650 mg Q4H PRN PRN Administration pain 1-10/fever Aspirin 81 mg 03/09/24 08:00 03/10/24 09:11 Aspirin 81 Mg Tab.Chew GT 81 mg BREAKFAST JESUS Administration Atorvastatin Calcium 80 mg 03/08/24 22:00 03/09/24 22:21 Atorvastatin Calcium 80 Mg Tablet GT 80 mg QHS JESUS Administration Bacitracin 1 applic 03/08/24 22:00 03/10/24 09:12 Bacitracin 15 Gm Tube TOPICAL 1 applic BID JESUS Administration Protocol Bisacodyl 10 mg 03/08/24 14:09 Bisacodyl 10 Mg Suppository RC DAILY PRN PRN Constipation Calamine/Phenol 1 applic 03/08/24 22:00 03/10/24 09:13 Menthol/Lanolin/Calamine/Znox 113 Gm Tube TOPICAL 1 applic BID JESUS Administration Protocol Clopidogrel Bisulfate 75 mg 03/09/24 10:00 03/09/24 10:02 Clopidogrel Bisulfate 75 Mg Tablet GT 75 mg DAILY JESUS Administration Enoxaparin Sodium 40 mg 03/09/24 10:00 03/10/24 09:12 Enoxaparin 40 Mg/0.4 Ml Syringe SC 40 mg DAILY JESUS Administration Enteral Nutritional Formula 240 ml 03/08/24 22:00 03/09/24 22:20 Jevity 1.5. 1,000 Ml Bottle GT 240 ml 2200 JESUS Administration Enteral Nutritional Formula 240 ml 03/08/24 17:00 03/10/24 13:01 Jevity 1.5. 1,000 Ml Bottle GT Not Given 0800,1200,1700 JESUS Finasteride 5 mg 03/09/24 10:00 03/10/24 09:11 Finasteride 5 Mg Tablet GT 5 mg DAILY JESUS Administration Fluconazole 150 mg 03/09/24 10:00 03/10/24 09:12 Fluconazole Suspension 40 Mg/Ml 35 Ml Bottle GT 03/11/24 10:01 3.75 ml DAILY JESUS Administration Lansoprazole 30 mg 03/08/24 22:00 03/10/24 09:11 Lansoprazole 15 Mg Capsule.Dr GT 30 mg BID JESUS Administration Lisinopril 2.5 mg 03/09/24 10:00 03/10/24 09:11 Lisinopril 2.5 Mg Tablet GT 2.5 mg DAILY JESUS Administration Protocol Loperamide HCl 2 mg 03/08/24 15:05 03/10/24 13:16 Loperamide (Oral Liquid) 1 Mg/7.5 Ml Ml GT 2 mg Q4H PRN Administration Diarrhea/Loose Stools Magnesium Hydroxide 30 ml 03/08/24 15:05 Magnesium Hydroxide 30 Ml Udc GT X1 PRN Constipation Magnesium Oxide 400 mg 03/08/24 22:00 03/10/24 09:11 Magnesium Oxide 400 Mg Tablet GT 400 mg BID JESUS Administration Metoprolol Tartrate 50 mg 03/08/24 22:00 03/10/24 09:11 Metoprolol Tartrate 50 Mg Tablet GT 50 mg BID JESUS Administration Protocol Nystatin 1 applic 03/08/24 22:00 03/10/24 09:12 Nystatin Powder 15gm Bottle TOPICAL 1 applic BID JESUS Administration Protocol Oxycodone HCl 2.5 mg 03/08/24 14:14 Oxycodone 5 Mg Tablet GT Q6H PRN PRN abd pain Petrolatum 1 applic 03/08/24 22:00 03/09/24 22:22 Petrolatum,White 5 Gm Packet TOPICAL 1 applic QHS [facility] Administration Protocol Senna/Docusate Sodium 2 tablet 03/08/24 15:05 Senna/Docusate Sodium 1 Tablet GT BID PRN Constipation Sertraline HCl 100 mg 03/09/24 10:00 03/10/24 09:11 Sertraline 100 Mg Tablet GT 100 mg DAILY JESUS Administration Sodium Chloride 10 - 40 ml 03/08/24 14:13 0.9% Saline Lock 10 Ml Syringe IV UD PRN SALINE FLUSH Sodium Chloride 1 gm 03/08/24 22:00 03/10/24 09:11 Sodium Chloride 1 Gm Tablet GT 1 gm BID JESUS Administration Thiamine HCl 100 mg 03/09/24 08:00 03/10/24 09:11 Thiamine Hydrochloride 100 Mg Tablet GT 100 mg BREAKFAST JESUS Administration Tuberculin PPD 0.1 ml 03/16/24 10:00 Tuberculin,Purif.Prot.Deriv. 50 Tu/Ml Vial ID 03/16/24 10:01 X1 ONE Problem List Bilateral carotid artery stenosis (Acute) Essential (primary) hypertension (Acute) History of prostate cancer (Acute) Left hemiparesis (Acute) Stroke (Acute) Hyperlipidemia (Acute) Alcohol abuse (Chronic) Hypokalemia (Acute) Debility (Acute) Dysphagia (Acute) BPH (benign prostatic hyperplasia) (Chronic) Vitamin B12 deficiency (Chronic) Vital Signs Temp Pulse Resp BP Pulse Ox O2 Del Method 97.6 F L 62 18 117/68 97 Room Air 03/09/24 13:43 03/10/24 09:30 03/10/24 09:30 03/10/24 09:11 03/10/24 09:30 03/10/24 09:30 Oxygen Delivery Method Room Air Weight: 76.294 kg Body Mass Index (BMI) 23.4 Sodium 130 mmol/L (136-145) L 03/09/24 05:29 Potassium 4.2 mmol/L (3.5-5.1) 03/09/24 05:29 Chloride 99 mmol/L (98-107) 03/09/24 05:29 Carbon Dioxide 26.0 mmol/L (21.0-32.0) 03/09/24 05:29 Anion Gap 5 (5-15) 03/09/24 05:29 BUN 16 mg/dL (7-18) 03/09/24 05:29 Creatinine 0.64 mg/dL (0.70-1.30) L 03/09/24 05:29 Est GFR (MDRD) Af Amer 156 mL/min (>60) 03/09/24 05:29 Est GFR (MDRD) Non-Af 129 mL/min (>60) 03/09/24 05:29 BUN/Creatinine Ratio 25.0 RATIO (10-20) H 03/09/24 05:29 Glucose 117 mg/dL (74-106) H 03/09/24 05:29 Assessment/Plan: 1. Pain: acetaminophen 650mg liquid GT Q6H PRN pain1-10/fever and oxycodone 2.5mg GT Q6H PRN abdominal pain. Resident has had 3 doses of acetaminophen (pain of 5-6 in the neck) and no doses of oxycodone. Please continue to monitor for increased pain and PRN usage. 2. Bowel: senna/docusate 2T GT BID PRN constipation, bisacodyl 10mg RC daily PRN constipation, MOM 30mL GT x1 PRN constipation and loperamide liquid 2mg GTQ4H PRN diarrhea/loose stools. No PRN doses for constipation have been given. Resident did have 1 dose of loperamide. Please continue to monitor for constipation, diarrhea and PRN usage. 3. DVT prophylaxis: enoxaparin 40mg SC daily. Please continue to monitor for S/S of bleeding/DVT, hemoglobin (last 10.4g/dL), platelets (last 461,000) and renal function. 4. Stroke: aspirin 81mg GT daily and clopidogrel 75mg GT daily. Please continue to monitor for S/S of stroke/bleeding and hemoglobin. 5. Hyperlipidemia: atorvastatin 80mg GT QHS. Please continue to monitor lipid panel (last 02/13/24), LFTs (last 02/15/24) and muscle pain. 6. PEG yeast infection: fluconazole suspension 150mg GT daily thru 03/11/23. Please continue to monitor for S/S of infection and diarrhea. 7. Hypertension: metoprolol tartrate 50mg GT BID and lisinopril 2.5mg GT daily. Please continue to monitor BP (last 117/68), HR (last 62), renal function, cough and potassium (last 4.2mmol/L). 8. BPH: finasteride 5mg PO daily. Please continue to monitor for S/S of BPH and rash. 9. Barretts esophagus: lansoprazole 30mg GT BID. Please continue to monitor for diarrhea (BETHs). 10. Hypomagnesemia/hyponatremia: magnesium oxide 400mg GT BID and sodium chloride 1gm GT BID. Please continue to monitor magnesium (last 1.8mg/dl) and sodium (last 130mmol/L). 11. Skin: Bacitracin topical bid, Calmoseptine topical bid, Eucern topical qhs, Nystatin powder topical bid. Please continue to monitor. 12. EtOH Abuse: thiamine 100mg GT breakfast. Please continue to monitor. Assessment/Plan for indications treated with psychotropic medications: 1. Depression: sertraline 100mg GT daily. Please see physician note regarding GDR. Thanks. Please continue to monitor for suicidal ideation (black box), falls/fractures (BEERs), and sodium. Medical chart and medication regimen reviewed. The following medication irregularities or issues were identified: None Date Date of Note: 03/10/24 Documented by User: Dr. Kevin Watt MD 03/10/24 17:27 TCU RX Drug Regimen Review Provider Comments Provider responsibility Provider Comments to Recommendations by Pharmacy Agree
[2024-03-10] MEDS: FLU VACCINE **HIGH DOSE** TV 24-25 180 MCG/0.5 ML SYRINGE IM (17:57)
--- NOTE | 2024-03-10 18:14 | NURSING ---
Patient left for eye doctor appointment at this time with .
--- NOTE | 2024-03-10 18:15 | NURSING ---
Patient returned from appointment at this time.
[2024-03-10] MEDS: Acetaminophen 650 MG/20 ML UDC GT (18:31)
--- NOTE | 2024-03-10 19:01 | NURSING ---
Flu vaccine given in right deltoid. Tolerated well. No concerns noted/voiced.
[2024-03-10 22:23] VITALS: BP 135/75; PULSE 60
[2024-03-10] MEDS: Atorvastatin Calcium 80 MG Tablet GT (22:23)
[2024-03-10] MEDS: Petrolatum,White 5 GM PACKET 1 APPLIC TOPICAL (22:28)
[2024-03-10] MEDS: Jevity 1.5. 1,000 ML Bottle 240 ML GT (22:30)
[2024-03-11 05:57] VITALS: BMI 23.3
[2024-03-11 06:32] LABS: Anion Gap 4 (5-15); BUN 14 mg/dL (7-18); BUN/Creat Ratio 20.7 RATIO (10-20); Calcium,Total 9.4 mg/dL (8.5-10.1); Chloride 98 mmol/L (98-107); Creatinine, Serum 0.68 mg/dL (0.70-1.30); EST Glomerular Filtration Rate 121 mL/min (>60); Est Glom Filt Rate - Afr Amer 147 mL/min (>60); Estimated Creatinine Clearance 83.67 ml/min; Glucose 103 mg/dL (74-106); Potassium 4.2 mmol/L (3.5-5.1); Sodium Level 132 mmol/L (136-145)
[2024-03-11 08:56] VITALS: BP 98/57; PULSE 63; RESP 18; TEMP 36.2; O2SAT 93
[2024-03-11 09:01] VITALS: PULSE 63
[2024-03-11] MEDS: Metoprolol Tartrate 50 MG Tablet GT ×2 (09:01→21:17)
[2024-03-11] MEDS: Thiamine Hydrochloride 100 MG Tablet GT (09:02)
[2024-03-11] MEDS: Aspirin 81 MG TAB.CHEW GT (09:02)
[2024-03-11] MEDS: BACITRACIN 15 GM Tube 1 APPLIC TOPICAL ×2 (09:02→21:15)
[2024-03-11] MEDS: Lansoprazole 15 MG Capsule.DR 30 MG GT ×2 (09:02→21:16)
[2024-03-11] MEDS: Fluconazole Suspension 40 MG/ML 35 ML Bottle 150 MG GT (09:03)
[2024-03-11] MEDS: Magnesium Oxide 400 MG Tablet GT ×2 (09:03→21:16)
[2024-03-11] MEDS: Clopidogrel Bisulfate 75 MG Tablet GT (09:03)
[2024-03-11] MEDS: Enoxaparin 40 MG/0.4 ML Syringe SC (09:03)
[2024-03-11] MEDS: Sodium Chloride 1 GM Tablet GT ×2 (09:04→21:16)
[2024-03-11] MEDS: Finasteride 5 MG Tablet GT (09:04)
[2024-03-11] MEDS: Sertraline 100 MG Tablet GT (09:04)
[2024-03-11] MEDS: Lisinopril 2.5 MG Tablet GT (09:04)
[2024-03-11] MEDS: Menthol/Lanolin/Calamine/Znox 113 GM Tube 1 APPLIC TOPICAL ×2 (09:05→21:16)
[2024-03-11] MEDS: Nystatin Powder 15gm Bottle 1 APPLIC TOPICAL ×2 (09:05→21:17)
[2024-03-11 10:00] VITALS: BMI 23.3
[2024-03-11] MEDS: Atorvastatin Calcium 80 MG Tablet GT (21:16)
[2024-03-11 21:17] VITALS: PULSE 60
[2024-03-11] MEDS: Petrolatum,White 5 GM PACKET 1 APPLIC TOPICAL (21:17)
[2024-03-11] MEDS: Jevity 1.5. 1,000 ML Bottle 240 ML GT (21:24)
[2024-03-12] MEDS: Menthol/Lanolin/Calamine/Znox 113 GM Tube 1 APPLIC TOPICAL ×2 (09:31→20:57)
[2024-03-12] MEDS: Enoxaparin 40 MG/0.4 ML Syringe SC (09:32)
[2024-03-12] MEDS: Nystatin Powder 15gm Bottle 1 APPLIC TOPICAL ×2 (09:32→20:58)
[2024-03-12] MEDS: BACITRACIN 15 GM Tube 1 APPLIC TOPICAL ×2 (09:35→20:57)
[2024-03-12] MEDS: Thiamine Hydrochloride 100 MG Tablet GT (09:48)
[2024-03-12] MEDS: Aspirin 81 MG TAB.CHEW GT (09:48)
[2024-03-12 09:49] VITALS: BP 116/61; PULSE 61
[2024-03-12] MEDS: Metoprolol Tartrate 50 MG Tablet GT ×2 (09:49→20:30)
[2024-03-12] MEDS: Lansoprazole 15 MG Capsule.DR 30 MG GT ×2 (09:49→20:32)
[2024-03-12] MEDS: Sertraline 100 MG Tablet GT (09:52)
[2024-03-12] MEDS: Magnesium Oxide 400 MG Tablet GT ×2 (09:52→20:31)
[2024-03-12] MEDS: Lisinopril 2.5 MG Tablet GT (09:52)
[2024-03-12] MEDS: Sodium Chloride 1 GM Tablet GT ×2 (09:52→20:31)
[2024-03-12] MEDS: Finasteride 5 MG Tablet GT (09:52)
[2024-03-12] MEDS: Clopidogrel Bisulfate 75 MG Tablet GT (09:52)
--- NOTE | 2024-03-12 09:56 | CASEMGMT ---
Plan of care meeting held with pt and pt's present. Therapy/customer acquisition specialist/activities updated on pt progress. Pt continues to make progress with PT/OT/ST. SW updated pt and to Medicare benefit and provided written communication on insurance process and copay coverage during stay. Pt is able to state goals of walking again and talking better. No dc set at this time. Will continue with plan of care and rehab. SW to continue to follow. ЕЛЕНА White
[2024-03-12 10:13] VITALS: BP 116/61; PULSE 61; RESP 18; O2SAT 98
--- NOTE | 2024-03-12 10:15 | NURSING ---
Addendum entered by Herman Hernandez 03/12/24 10:23: HEART MONITOR BLINKING RED,THIS NURSE PUT IT ON MANAGER EDUCATION ALSO. Original Note: PEG PLACEMENT VERIFIED, 30 CC RESIDUAL WAS 2 HOURS AFTER BREAKFAST AND PT ATE 100%. MEDS ADMINISTERED THREW PEG TUBE ORDERED. CLEANED,APPLIED BACITRACIN AND NEW DRESSING TO PEG SITE ORDERED. PT TOLERATED WELL.
--- NOTE | 2024-03-12 13:13 | NURSING ---
HEART MONITOR HOOKED BACK UP TO PT AT 1100 AM FULLY CHARGED.
[2024-03-12 16:00] VITALS: TEMP 36.1
[2024-03-12 20:30] VITALS: BP 100/57; PULSE 56
[2024-03-12] MEDS: Atorvastatin Calcium 80 MG Tablet GT (20:31)
[2024-03-12] MEDS: Jevity 1.5. 1,000 ML Bottle 240 ML GT (20:38)
[2024-03-13 04:52] VITALS: BMI 23.8
[2024-03-13] MEDS: BACITRACIN 15 GM Tube 1 APPLIC TOPICAL ×2 (09:33→22:41)
[2024-03-13] MEDS: Aspirin 81 MG TAB.CHEW GT (09:40)
[2024-03-13 09:41] VITALS: BP 115/66; PULSE 72
[2024-03-13] MEDS: Menthol/Lanolin/Calamine/Znox 113 GM Tube 1 APPLIC TOPICAL ×2 (09:41→22:41)
[2024-03-13] MEDS: Metoprolol Tartrate 50 MG Tablet GT ×2 (09:41→22:42)
[2024-03-13] MEDS: Lansoprazole 15 MG Capsule.DR 30 MG GT ×2 (09:41→22:41)
[2024-03-13] MEDS: Thiamine Hydrochloride 100 MG Tablet GT (09:41)
[2024-03-13] MEDS: Enoxaparin 40 MG/0.4 ML Syringe SC (09:42)
[2024-03-13] MEDS: Magnesium Oxide 400 MG Tablet GT ×2 (09:42→22:42)
[2024-03-13] MEDS: Nystatin Powder 15gm Bottle 1 APPLIC TOPICAL ×2 (09:43→22:42)
[2024-03-13] MEDS: Sodium Chloride 1 GM Tablet GT ×2 (09:43→22:41)
[2024-03-13] MEDS: Clopidogrel Bisulfate 75 MG Tablet GT (09:43)
[2024-03-13] MEDS: Finasteride 5 MG Tablet GT (09:43)
[2024-03-13] MEDS: Lisinopril 2.5 MG Tablet GT (09:43)
[2024-03-13] MEDS: Sertraline 100 MG Tablet GT (09:44)
[2024-03-13 10:03] VITALS: BP 115/66; PULSE 72; RESP 18; O2SAT 97
--- NOTE | 2024-03-13 10:08 | NURSING ---
PT ATE OVER 50% FOR BREAKFAST, PEG SITE CLEANED AND BACITRACIN,NEW DRESSING APPLIED PER ORDER.PEG PLACEMENT VERIFIED, 0 RESIDUAL AT MED TIME. PT TOLERATED WELL. HEART MONITOR PLACED ON PERSONAL ASSISTANT DO TO RED LIGHT BLINKING. WILL CONTINUE TO MONITOR.
--- NOTE | 2024-03-13 10:37 | MDS.RN ---
Pain assessment for MDS complete.
[2024-03-13] MEDS: Jevity 1.5. 1,000 ML Bottle 240 ML GT ×2 (12:57→22:42)
[2024-03-13 15:11] VITALS: TEMP 36.4
[2024-03-13] MEDS: Petrolatum 33% Tube 1 APPLIC TOPICAL (22:41)
[2024-03-13 22:42] VITALS: BP 116/62; PULSE 60
[2024-03-13] MEDS: Atorvastatin Calcium 80 MG Tablet GT (22:42)
[2024-03-14 10:00] VITALS: BP 110/64; PULSE 64; RESP 18; TEMP 36.4; O2SAT 96
[2024-03-14 10:08] VITALS: BP 110/64; PULSE 64
[2024-03-14] MEDS: Clopidogrel Bisulfate 75 MG Tablet GT (10:08)
[2024-03-14] MEDS: Sodium Chloride 1 GM Tablet GT ×2 (10:08→23:02)
[2024-03-14] MEDS: Lisinopril 2.5 MG Tablet GT (10:08)
[2024-03-14] MEDS: Metoprolol Tartrate 50 MG Tablet GT ×2 (10:08→23:01)
[2024-03-14] MEDS: Enoxaparin 40 MG/0.4 ML Syringe SC (10:09)
[2024-03-14] MEDS: Finasteride 5 MG Tablet GT (10:09)
[2024-03-14] MEDS: Thiamine Hydrochloride 100 MG Tablet GT (10:09)
[2024-03-14] MEDS: BACITRACIN 15 GM Tube 1 APPLIC TOPICAL ×2 (10:09→23:03)
[2024-03-14] MEDS: Lansoprazole 15 MG Capsule.DR 30 MG GT ×2 (10:09→22:59)
[2024-03-14] MEDS: Aspirin 81 MG TAB.CHEW GT (10:09)
[2024-03-14] MEDS: Sertraline 100 MG Tablet GT (10:09)
[2024-03-14] MEDS: Menthol/Lanolin/Calamine/Znox 113 GM Tube 1 APPLIC TOPICAL ×3 (10:10→23:02)
[2024-03-14] MEDS: Nystatin Powder 15gm Bottle 1 APPLIC TOPICAL ×2 (10:10→23:03)
[2024-03-14] MEDS: Magnesium Oxide 400 MG Tablet GT ×2 (10:56→23:02)
--- NOTE | 2024-03-14 13:16 | CASEMGMT ---
Social Work SW completed BIMS () and PHQ-9 () for MDS assessment. SW explored positive responses. SW known to this pt from RU stay and pt is grieving loss of independence and changes in medical/functional status. Pt reports his mood is improving overall and is motivated continuing working with therapy. RU MD started pt on antidepressant and pt responding well. SW will continue to follow and offered ongoing supportive visits, if needed. Pt appreciative/ Carla Kurtz, [employer] SUR[employer]GET[employer]
[2024-03-14 22:58] VITALS: BP 123/63; PULSE 80
[2024-03-14 23:01] VITALS: PULSE 80
[2024-03-14] MEDS: Atorvastatin Calcium 80 MG Tablet GT (23:01)
[2024-03-14] MEDS: Acetaminophen 650 MG/20 ML UDC GT (23:02)
[2024-03-14] MEDS: Petrolatum 33% Tube 1 APPLIC TOPICAL (23:03)
[2024-03-14] MEDS: Jevity 1.5. 1,000 ML Bottle 240 ML GT (23:05)
[2024-03-15 05:26] VITALS: BMI 23.6
[2024-03-15] MEDS: Aspirin 81 MG TAB.CHEW GT (09:55)
[2024-03-15] MEDS: BACITRACIN 15 GM Tube 1 APPLIC TOPICAL ×2 (09:55→21:27)
[2024-03-15] MEDS: Thiamine Hydrochloride 100 MG Tablet GT (09:55)
[2024-03-15] MEDS: Lansoprazole 15 MG Capsule.DR 30 MG GT ×2 (09:56→21:25)
[2024-03-15] MEDS: Magnesium Oxide 400 MG Tablet GT ×2 (09:56→21:25)
[2024-03-15] MEDS: Sodium Chloride 1 GM Tablet GT ×2 (09:56→21:25)
[2024-03-15] MEDS: Lisinopril 2.5 MG Tablet GT (09:56)
[2024-03-15] MEDS: Enoxaparin 40 MG/0.4 ML Syringe SC (09:56)
[2024-03-15] MEDS: Sertraline 100 MG Tablet GT (09:56)
[2024-03-15] MEDS: Nystatin Powder 15gm Bottle 1 APPLIC TOPICAL ×2 (09:56→21:26)
[2024-03-15] MEDS: Finasteride 5 MG Tablet GT (09:56)
[2024-03-15] MEDS: Clopidogrel Bisulfate 75 MG Tablet GT (09:56)
[2024-03-15 09:57] VITALS: PULSE 58
[2024-03-15] MEDS: Metoprolol Tartrate 50 MG Tablet GT ×2 (09:57→21:41)
[2024-03-15 10:20] VITALS: BP 107/61; PULSE 58; RESP 16; TEMP 36.4; O2SAT 97
[2024-03-15] MEDS: Atorvastatin Calcium 80 MG Tablet GT (21:25)
[2024-03-15] MEDS: Petrolatum 33% Tube 1 APPLIC TOPICAL (21:26)
[2024-03-15] MEDS: Menthol/Lanolin/Calamine/Znox 113 GM Tube 1 APPLIC TOPICAL (21:26)
[2024-03-15 21:41] VITALS: BP 140/65; PULSE 56
[2024-03-15] MEDS: Jevity 1.5. 1,000 ML Bottle 240 ML GT (21:56)
[2024-03-16 05:24] VITALS: BMI 23.8
[2024-03-16 09:23] VITALS: BP 119/67; PULSE 62
[2024-03-16] MEDS: Metoprolol Tartrate 50 MG Tablet GT ×2 (09:23→22:04)
[2024-03-16] MEDS: Sodium Chloride 1 GM Tablet GT ×2 (09:24→22:04)
[2024-03-16] MEDS: Clopidogrel Bisulfate 75 MG Tablet GT (09:24)
[2024-03-16] MEDS: Finasteride 5 MG Tablet GT (09:24)
[2024-03-16] MEDS: Magnesium Oxide 400 MG Tablet GT ×2 (09:24→22:04)
[2024-03-16] MEDS: Enoxaparin 40 MG/0.4 ML Syringe SC (09:24)
[2024-03-16] MEDS: Lisinopril 2.5 MG Tablet GT (09:24)
[2024-03-16] MEDS: Aspirin 81 MG TAB.CHEW GT (09:24)
[2024-03-16] MEDS: Lansoprazole 15 MG Capsule.DR 30 MG GT ×2 (09:24→22:04)
[2024-03-16] MEDS: Sertraline 100 MG Tablet GT (09:24)
[2024-03-16] MEDS: Thiamine Hydrochloride 100 MG Tablet GT (09:24)
[2024-03-16] MEDS: BACITRACIN 15 GM Tube 1 APPLIC TOPICAL ×2 (09:25→22:22)
[2024-03-16] MEDS: Nystatin Powder 15gm Bottle 1 APPLIC TOPICAL ×2 (09:26→22:22)
[2024-03-16] MEDS: Menthol/Lanolin/Calamine/Znox 113 GM Tube 1 APPLIC TOPICAL ×2 (09:26→22:22)
[2024-03-16] MEDS: Acetaminophen 650 MG/20 ML UDC GT ×2 (09:26→22:05)
[2024-03-16] MEDS: Tuberculin,Purif.prot.deriv. 50 TU/ML Vial 0.1 ML ID (09:44)
[2024-03-16 10:00] VITALS: BP 119/67; PULSE 62; RESP 16; TEMP 36.4; O2SAT 95
[2024-03-16 22:04] VITALS: BP 112/68; PULSE 56
[2024-03-16] MEDS: Jevity 1.5. 1,000 ML Bottle 240 ML GT (22:04)
[2024-03-16] MEDS: Atorvastatin Calcium 80 MG Tablet GT (22:04)
[2024-03-16] MEDS: Petrolatum 33% Tube 1 APPLIC TOPICAL (22:22)
[2024-03-17 05:12] VITALS: BMI 23.8
[2024-03-17 05:41] LABS: Absolute Lymphocyte Count 1.06 X10^3/uL (0.83-4.51); Absolute Neutrophil Count 5.3 X10^3/uL (2.0-7.7); Basophil# 0.06 X10^3/uL; Basophil% 0.7 % (0-1); Eosinophil# 0.99 X10^3/uL; Hematocrit 32.3 % (40-54); Hemoglobin 10.4 g/dL (13.0-16.5); Lymphocyte # 1.06 X10^3/ul (0.83-4.51); Lymphocyte % 12.8 % (19-41); Mean Corp Hgb Conc 32.2 g/dL (32-36); Mean Corpuscular Hgb 28.6 pg (27.0-32.0); Mean Corpuscular Volume 88.7 fL (80-94); Mean Platelet Vol. 9.3 fl (6.2-12.0); Monocyte# 0.87 X10^3/uL; Monocyte% 10.5 % (0-10); NRBC Flagged by Analyzer 0 % (0-5); Neutrophil # 5.25 X10^3/uL (2.7-7.7); Neutrophil % 63.5 % (47-70); Platelet Count 442 K/mm3 (150-450); RBC Distribution Width CV 13.2 % (11.6-14.6); RBC Distribution Width SD 42.9 fl (35.1-43.9); Red Blood Count 3.64 M/mm3 (4.6-6.2); White Blood Count 8.3 K/mm3 (4.4-11.0)
[2024-03-17 06:00] LABS: Anion Gap 5 (5-15); BUN 12 mg/dL (7-18); Calcium,Total 9.6 mg/dL (8.5-10.1); Chloride 100 mmol/L (98-107); Creatinine, Serum 0.71 mg/dL (0.70-1.30); EST Glomerular Filtration Rate 115 mL/min (>60); Est Glom Filt Rate - Afr Amer 139 mL/min (>60); Estimated Creatinine Clearance 83.67 ml/min; Glucose 117 mg/dL (74-106); Sodium Level 132 mmol/L (136-145)
--- NOTE | 2024-03-17 08:39 | CASEMGMT ---
Social Work SW asked family during pt's RU stay to provide copies of pt's advanced directives. Carla Kurtz [employer] AUDIO PRODUCTION INSTRUCTOR
--- NOTE | 2024-03-17 08:50 | NURSING ---
Pocket Stitcher Note; MDS for 03/15/2024 complete
[2024-03-17] MEDS: Thiamine Hydrochloride 100 MG Tablet GT (09:37)
[2024-03-17] MEDS: BACITRACIN 15 GM Tube 1 APPLIC TOPICAL ×2 (09:37→21:21)
[2024-03-17] MEDS: Aspirin 81 MG TAB.CHEW GT (09:37)
[2024-03-17] MEDS: Menthol/Lanolin/Calamine/Znox 113 GM Tube 1 APPLIC TOPICAL ×2 (09:38→21:21)
[2024-03-17 09:39] VITALS: BP 111/67; PULSE 60
[2024-03-17] MEDS: Magnesium Oxide 400 MG Tablet GT ×2 (09:39→21:15)
[2024-03-17] MEDS: Metoprolol Tartrate 50 MG Tablet GT ×2 (09:39→21:15)
[2024-03-17] MEDS: Lansoprazole 15 MG Capsule.DR 30 MG GT ×2 (09:39→21:16)
[2024-03-17] MEDS: Finasteride 5 MG Tablet GT (09:39)
[2024-03-17] MEDS: Enoxaparin 40 MG/0.4 ML Syringe SC (09:39)
[2024-03-17] MEDS: Nystatin Powder 15gm Bottle 1 APPLIC TOPICAL ×2 (09:40→21:20)
[2024-03-17] MEDS: Clopidogrel Bisulfate 75 MG Tablet GT (09:40)
[2024-03-17] MEDS: Sertraline 100 MG Tablet GT (09:40)
[2024-03-17] MEDS: Lisinopril 2.5 MG Tablet GT (09:40)
[2024-03-17] MEDS: Sodium Chloride 1 GM Tablet GT ×2 (09:40→21:15)
[2024-03-17 09:42] VITALS: BP 111/67; PULSE 61; RESP 16; O2SAT 98
[2024-03-17] MEDS: Acetaminophen 650 MG/20 ML UDC GT (10:07)
[2024-03-17 13:57] VITALS: TEMP 36.6
[2024-03-17 21:15] VITALS: BP 109/65; PULSE 58
[2024-03-17] MEDS: Atorvastatin Calcium 80 MG Tablet GT (21:16)
[2024-03-17 21:20] VITALS: BP 109/65; PULSE 58
[2024-03-17] MEDS: Jevity 1.5. 1,000 ML Bottle 240 ML GT (21:20)
[2024-03-17] MEDS: Petrolatum 33% Tube 1 APPLIC TOPICAL (21:20)
[2024-03-18 06:20] VITALS: BMI 23.3
[2024-03-18] MEDS: Lansoprazole 15 MG Capsule.DR 30 MG GT ×2 (09:28→22:08)
[2024-03-18] MEDS: Sodium Chloride 1 GM Tablet GT ×2 (09:28→22:06)
[2024-03-18] MEDS: Aspirin 81 MG TAB.CHEW GT (09:29)
[2024-03-18] MEDS: Finasteride 5 MG Tablet GT (09:29)
[2024-03-18] MEDS: Enoxaparin 40 MG/0.4 ML Syringe SC (09:29)
[2024-03-18] MEDS: Thiamine Hydrochloride 100 MG Tablet GT (09:29)
[2024-03-18] MEDS: Lisinopril 2.5 MG Tablet GT (09:30)
[2024-03-18] MEDS: Sertraline 100 MG Tablet GT (09:30)
[2024-03-18] MEDS: Clopidogrel Bisulfate 75 MG Tablet GT (09:30)
[2024-03-18] MEDS: Magnesium Oxide 400 MG Tablet GT ×2 (09:30→22:07)
[2024-03-18] MEDS: Nystatin Powder 15gm Bottle 1 APPLIC TOPICAL ×2 (09:31→22:05)
[2024-03-18] MEDS: Menthol/Lanolin/Calamine/Znox 113 GM Tube 1 APPLIC TOPICAL ×2 (09:35→22:02)
[2024-03-18 09:40] VITALS: BP 120/62; PULSE 65
[2024-03-18] MEDS: Metoprolol Tartrate 50 MG Tablet GT ×2 (09:40→22:07)
[2024-03-18 10:00] VITALS: BMI 23.2
[2024-03-18 12:00] VITALS: RESP 16
[2024-03-18 15:11] VITALS: BP 120/70; PULSE 61; RESP 17; TEMP 36.1; O2SAT 99
[2024-03-18 21:55] VITALS: BP 111/66; PULSE 59
[2024-03-18] MEDS: Petrolatum 33% Tube 1 APPLIC TOPICAL (22:02)
[2024-03-18 22:07] VITALS: BP 111/66; PULSE 59
[2024-03-18] MEDS: Atorvastatin Calcium 80 MG Tablet GT (22:08)
[2024-03-18] MEDS: Acetaminophen 650 MG/20 ML UDC GT (22:24)
[2024-03-18] MEDS: Jevity 1.5. 1,000 ML Bottle 240 ML GT (22:24)
[2024-03-19] MEDS: Aspirin 81 MG TAB.CHEW GT (09:21)
[2024-03-19] MEDS: Lisinopril 2.5 MG Tablet GT (09:21)
[2024-03-19] MEDS: Finasteride 5 MG Tablet GT (09:21)
[2024-03-19] MEDS: Thiamine Hydrochloride 100 MG Tablet GT (09:21)
[2024-03-19] MEDS: Magnesium Oxide 400 MG Tablet GT ×2 (09:21→22:25)
[2024-03-19] MEDS: Lansoprazole 15 MG Capsule.DR 30 MG GT ×2 (09:21→22:23)
[2024-03-19] MEDS: Sodium Chloride 1 GM Tablet GT ×2 (09:21→22:26)
[2024-03-19] MEDS: Clopidogrel Bisulfate 75 MG Tablet GT (09:22)
[2024-03-19] MEDS: Sertraline 100 MG Tablet GT (09:22)
[2024-03-19] MEDS: Enoxaparin 40 MG/0.4 ML Syringe SC (09:22)
[2024-03-19] MEDS: BACITRACIN 15 GM Tube 1 APPLIC TOPICAL ×2 (09:23→22:18)
[2024-03-19] MEDS: Menthol/Lanolin/Calamine/Znox 113 GM Tube 1 APPLIC TOPICAL ×2 (09:23→22:19)
[2024-03-19] MEDS: Nystatin Powder 15gm Bottle 1 APPLIC TOPICAL ×2 (09:25→22:25)
[2024-03-19] MEDS: Acetaminophen 650 MG/20 ML UDC GT ×2 (09:28→22:26)
[2024-03-19 09:30] VITALS: PULSE 62
[2024-03-19] MEDS: Metoprolol Tartrate 50 MG Tablet GT ×2 (09:30→22:24)
[2024-03-19 10:00] VITALS: PULSE 62; RESP 16; BMI 23.0
[2024-03-19 16:00] VITALS: BP 104/62; PULSE 55; RESP 14; TEMP 36; O2SAT 97
[2024-03-19 22:16] VITALS: BP 114/65; PULSE 57
[2024-03-19] MEDS: Petrolatum 33% Tube 1 APPLIC TOPICAL (22:19)
[2024-03-19] MEDS: Jevity 1.5. 1,000 ML Bottle 240 ML GT (22:22)
[2024-03-19 22:24] VITALS: BP 114/65; PULSE 57
[2024-03-19] MEDS: Atorvastatin Calcium 80 MG Tablet GT (22:24)
[2024-03-20 06:34] VITALS: BMI 23.3
[2024-03-20] MEDS: BACITRACIN 15 GM Tube 1 APPLIC TOPICAL ×2 (10:14→22:15)
[2024-03-20] MEDS: Nystatin Powder 15gm Bottle 1 APPLIC TOPICAL ×2 (10:14→22:16)
[2024-03-20] MEDS: Menthol/Lanolin/Calamine/Znox 113 GM Tube 1 APPLIC TOPICAL ×2 (10:14→22:16)
[2024-03-20] MEDS: Aspirin 81 MG TAB.CHEW GT (10:15)
[2024-03-20] MEDS: Thiamine Hydrochloride 100 MG Tablet GT (10:16)
[2024-03-20] MEDS: Lansoprazole 15 MG Capsule.DR 30 MG GT ×2 (10:16→22:20)
[2024-03-20] MEDS: Finasteride 5 MG Tablet GT (10:17)
[2024-03-20] MEDS: Magnesium Oxide 400 MG Tablet GT ×2 (10:17→22:22)
[2024-03-20] MEDS: Clopidogrel Bisulfate 75 MG Tablet GT (10:17)
[2024-03-20] MEDS: Sodium Chloride 1 GM Tablet GT ×2 (10:18→22:22)
[2024-03-20] MEDS: Sertraline 100 MG Tablet GT (10:18)
[2024-03-20 10:35] VITALS: BP 125/67; PULSE 67
[2024-03-20] MEDS: Metoprolol Tartrate 50 MG Tablet GT ×2 (10:35→22:21)
[2024-03-20] MEDS: Lisinopril 2.5 MG Tablet GT (10:36)
[2024-03-20] MEDS: Enoxaparin 40 MG/0.4 ML Syringe SC (10:36)
--- NOTE | 2024-03-20 10:50 | MDS.RN ---
Information for the MDS was obtained from review of the clinical record, interview of resident, staff, and direct observation of resident?s care.
[2024-03-20 11:13] VITALS: BP 125/67; PULSE 67; RESP 18; O2SAT 96
--- NOTE | 2024-03-20 11:39 | NURSING ---
PEG PLACEMENT VERIFIED,0 RESIDUAL AT 10 AM. MEDS GIVEN AND TEACHING TO . WILL NEED MORE TEACHING. PEG SITE CLEANED,OINTMENT AND NEW DRESSING TO SITE PER ORDER. NEW HEART MONITOR STRIP APPLIED DO TO SHOWER AND HEART MONITOR CHARGE AND PUT BACK ON GREEN LIGHT BLINKING. PER THERAPY CAN WALK PT IN ROOM AND BATHROOM WITH WALKER AND GAIT BELT.
[2024-03-20 12:00] VITALS: PULSE 67; RESP 18; O2SAT 96
[2024-03-20 14:24] VITALS: TEMP 36.7
[2024-03-20 22:13] VITALS: BP 111/60; PULSE 61
[2024-03-20] MEDS: Petrolatum 33% Tube 1 APPLIC TOPICAL (22:17)
[2024-03-20] MEDS: Acetaminophen 650 MG/20 ML UDC GT (22:19)
[2024-03-20] MEDS: Jevity 1.5. 1,000 ML Bottle 240 ML GT (22:20)
[2024-03-20 22:21] VITALS: BP 111/60; PULSE 61
[2024-03-20] MEDS: Atorvastatin Calcium 80 MG Tablet GT (22:21)
[2024-03-21 05:14] VITALS: BMI 23.3
[2024-03-21] MEDS: Thiamine Hydrochloride 100 MG Tablet GT (09:14)
[2024-03-21] MEDS: Aspirin 81 MG TAB.CHEW GT (09:14)
[2024-03-21] MEDS: BACITRACIN 15 GM Tube 1 APPLIC TOPICAL ×2 (09:15→21:43)
[2024-03-21] MEDS: Menthol/Lanolin/Calamine/Znox 113 GM Tube 1 APPLIC TOPICAL ×2 (09:15→21:44)
[2024-03-21] MEDS: Finasteride 5 MG Tablet GT (09:16)
[2024-03-21] MEDS: Lansoprazole 15 MG Capsule.DR 30 MG GT ×2 (09:16→21:44)
[2024-03-21] MEDS: Sodium Chloride 1 GM Tablet GT ×2 (09:16→21:45)
[2024-03-21] MEDS: Lisinopril 2.5 MG Tablet GT (09:16)
[2024-03-21 09:17] VITALS: BP 122/68; PULSE 59
[2024-03-21] MEDS: Metoprolol Tartrate 50 MG Tablet GT ×2 (09:17→21:45)
[2024-03-21] MEDS: Sertraline 100 MG Tablet GT (09:17)
[2024-03-21] MEDS: Clopidogrel Bisulfate 75 MG Tablet GT (09:17)
[2024-03-21] MEDS: Magnesium Oxide 400 MG Tablet GT ×2 (09:17→21:46)
[2024-03-21] MEDS: Enoxaparin 40 MG/0.4 ML Syringe SC (09:18)
[2024-03-21] MEDS: Nystatin Powder 15gm Bottle 1 APPLIC TOPICAL ×2 (09:25→21:46)
[2024-03-21 09:37] VITALS: BP 122/68; PULSE 59; RESP 18; O2SAT 98
--- NOTE | 2024-03-21 13:30 | NURSING ---
PER SPEECH THERAPY. OK TO GIVE PILLS CRUSHED IN PUDDING ONLY. THIS IS A TRAIL IF PT DOESN'T DO WELL THEN GIVE THRU PEG AND LET SPEECH KNOW.
[2024-03-21 13:50] VITALS: PULSE 60; RESP 18; O2SAT 95
--- NOTE | 2024-03-21 14:56 | NURSING ---
PT LEFT BY WHEEL CHAIR WITH AT 1440 TO APPOINTMENT WITH .
[2024-03-21 16:00] VITALS: TEMP 36.1
--- NOTE | 2024-03-21 16:48 | NURSING ---
PT RETURNED FROM APPOINTMENT BY WHEEL CHAIR WITH AT 1550 FROM 'S. NO NEW ORDERS.
--- NOTE | 2024-03-21 18:55 | NURSING ---
PEG PLACEMENT VERIFIED,40 RESIDUAL. MEDS GIVEN THREW PEG TUBE WITH FLUSH THIS MORNING. PT TOLERATED WELL. CLEANED,OINTMENT AND DRESSING TO PEG SITE PER ORDER. HEART MONITOR CHARGED AND GREEN LIGHT BLINKING.
[2024-03-21 21:41] VITALS: BP 127/65; PULSE 60
[2024-03-21] MEDS: Acetaminophen 650 MG/20 ML UDC GT (21:43)
[2024-03-21] MEDS: Petrolatum 33% Tube 1 APPLIC TOPICAL (21:44)
[2024-03-21 21:45] VITALS: PULSE 60
[2024-03-21] MEDS: Atorvastatin Calcium 80 MG Tablet GT (21:45)
[2024-03-21] MEDS: Jevity 1.5. 1,000 ML Bottle 240 ML GT (21:53)
[2024-03-22 05:49] VITALS: BMI 23.2
[2024-03-22 10:30] VITALS: BP 117/66; PULSE 56; RESP 18; TEMP 36.3; O2SAT 96
[2024-03-22 10:36] VITALS: BP 117/66; PULSE 56
[2024-03-22] MEDS: Metoprolol Tartrate 50 MG Tablet GT ×2 (10:36→23:50)
[2024-03-22] MEDS: Magnesium Oxide 400 MG Tablet GT ×2 (10:37→23:50)
[2024-03-22] MEDS: Thiamine Hydrochloride 100 MG Tablet GT (10:37)
[2024-03-22] MEDS: BACITRACIN 15 GM Tube 1 APPLIC TOPICAL ×2 (10:37→23:47)
[2024-03-22] MEDS: Finasteride 5 MG Tablet GT (10:37)
[2024-03-22] MEDS: Enoxaparin 40 MG/0.4 ML Syringe SC (10:37)
[2024-03-22] MEDS: Clopidogrel Bisulfate 75 MG Tablet GT (10:37)
[2024-03-22] MEDS: Sodium Chloride 1 GM Tablet GT ×2 (10:37→23:51)
[2024-03-22] MEDS: Lansoprazole 15 MG Capsule.DR 30 MG GT ×2 (10:37→23:51)
[2024-03-22] MEDS: Aspirin 81 MG TAB.CHEW GT (10:37)
[2024-03-22] MEDS: Sertraline 100 MG Tablet GT (10:37)
[2024-03-22] MEDS: Lisinopril 2.5 MG Tablet GT (10:37)
[2024-03-22] MEDS: Menthol/Lanolin/Calamine/Znox 113 GM Tube 1 APPLIC TOPICAL ×2 (10:38→23:48)
[2024-03-22] MEDS: Nystatin Powder 15gm Bottle 1 APPLIC TOPICAL ×2 (10:38→23:49)
[2024-03-22 10:45] VITALS: PULSE 56; RESP 18; O2SAT 96
--- NOTE | 2024-03-22 13:29 | NURSING ---
AM medications given crushed in pudding per speech therapy. Tolerated well. No concerns noted/voiced.
--- NOTE | 2024-03-22 23:45 | NURSING ---
PEG tube w/ 0 ml residual prior to scheduled feeding at hs.
[2024-03-22] MEDS: Petrolatum 33% Tube 1 APPLIC TOPICAL (23:48)
[2024-03-22] MEDS: Atorvastatin Calcium 80 MG Tablet GT (23:49)
[2024-03-22 23:50] VITALS: BP 122/69; PULSE 55
[2024-03-22] MEDS: Jevity 1.5. 1,000 ML Bottle 240 ML GT (23:52)
[2024-03-22] MEDS: Acetaminophen 650 MG/20 ML UDC GT (23:53)
[2024-03-23 05:50] VITALS: BMI 23.5
[2024-03-23 09:56] VITALS: BP 106/63; PULSE 75; RESP 16; TEMP 36.6; O2SAT 95
[2024-03-23] MEDS: Aspirin 81 MG TAB.CHEW GT (09:57)
[2024-03-23] MEDS: Thiamine Hydrochloride 100 MG Tablet GT (09:58)
[2024-03-23] MEDS: Menthol/Lanolin/Calamine/Znox 113 GM Tube 1 APPLIC TOPICAL ×2 (09:58→22:11)
[2024-03-23] MEDS: BACITRACIN 15 GM Tube 1 APPLIC TOPICAL ×2 (09:58→22:10)
[2024-03-23 09:59] VITALS: PULSE 75
[2024-03-23] MEDS: Enoxaparin 40 MG/0.4 ML Syringe SC (09:59)
[2024-03-23] MEDS: Metoprolol Tartrate 50 MG Tablet GT ×2 (09:59→22:16)
[2024-03-23] MEDS: Lansoprazole 15 MG Capsule.DR 30 MG GT ×2 (09:59→22:17)
[2024-03-23] MEDS: Clopidogrel Bisulfate 75 MG Tablet GT (10:00)
[2024-03-23] MEDS: Magnesium Oxide 400 MG Tablet GT ×2 (10:00→22:18)
[2024-03-23] MEDS: Nystatin Powder 15gm Bottle 1 APPLIC TOPICAL ×2 (10:00→22:10)
[2024-03-23] MEDS: Finasteride 5 MG Tablet GT (10:00)
[2024-03-23] MEDS: Lisinopril 2.5 MG Tablet GT (10:01)
[2024-03-23] MEDS: Sodium Chloride 1 GM Tablet GT ×2 (10:01→22:18)
[2024-03-23] MEDS: Sertraline 100 MG Tablet GT (10:01)
[2024-03-23] MEDS: Petrolatum 33% Tube 1 APPLIC TOPICAL (22:10)
[2024-03-23 22:16] VITALS: BP 115/62; PULSE 56
[2024-03-23] MEDS: Atorvastatin Calcium 80 MG Tablet GT (22:16)
[2024-03-23] MEDS: Jevity 1.5. 1,000 ML Bottle 240 ML GT (22:24)
[2024-03-23] MEDS: Acetaminophen 650 MG/20 ML UDC GT (22:55)
[2024-03-24 05:52] LABS: Absolute Lymphocyte Count 1.01 X10^3/uL (0.83-4.51); Absolute Neutrophil Count 4.3 X10^3/uL (2.0-7.7); Basophil# 0.07 X10^3/uL; Eosinophil# 0.88 X10^3/uL; Eosinophils% 12.1 % (0-5); Hematocrit 31.6 % (40-54); Hemoglobin 10.4 g/dL (13.0-16.5); Lymphocyte # 1.01 X10^3/ul (0.83-4.51); Lymphocyte % 13.8 % (19-41); Mean Corp Hgb Conc 32.9 g/dL (32-36); Mean Corpuscular Hgb 28.7 pg (27.0-32.0); Mean Corpuscular Volume 87.3 fL (80-94); Mean Platelet Vol. 9.1 fl (6.2-12.0); Monocyte# 1.02 X10^3/uL; NRBC Flagged by Analyzer 0 % (0-5); Neutrophil # 4.29 X10^3/uL (2.7-7.7); Neutrophil % 58.7 % (47-70); Platelet Count 414 K/mm3 (150-450); RBC Distribution Width CV 13.3 % (11.6-14.6); RBC Distribution Width SD 42.8 fl (35.1-43.9); Red Blood Count 3.62 M/mm3 (4.6-6.2); White Blood Count 7.3 K/mm3 (4.4-11.0)
[2024-03-24 06:00] VITALS: BMI 23.4
[2024-03-24 06:21] LABS: Anion Gap 6 (5-15); BUN 11 mg/dL (7-18); Calcium,Total 9.3 mg/dL (8.5-10.1); Chloride 98 mmol/L (98-107); Creatinine, Serum 0.74 mg/dL (0.70-1.30); EST Glomerular Filtration Rate 110 mL/min (>60); Est Glom Filt Rate - Afr Amer 133 mL/min (>60); Estimated Creatinine Clearance 83.67 ml/min; Glucose 103 mg/dL (74-106); Potassium 3.8 mmol/L (3.5-5.1); Sodium Level 130 mmol/L (136-145)
[2024-03-24 07:47] VITALS: BP 147/60; PULSE 55; RESP 16; TEMP 36.6; O2SAT 96
[2024-03-24] MEDS: Aspirin 81 MG TAB.CHEW GT (08:31)
[2024-03-24] MEDS: Thiamine Hydrochloride 100 MG Tablet GT (08:33)
[2024-03-24] MEDS: BACITRACIN 15 GM Tube 1 APPLIC TOPICAL ×2 (08:34→22:03)
[2024-03-24] MEDS: Menthol/Lanolin/Calamine/Znox 113 GM Tube 1 APPLIC TOPICAL ×2 (08:36→22:05)
[2024-03-24] MEDS: Lansoprazole 15 MG Capsule.DR 30 MG GT ×2 (08:37→22:09)
[2024-03-24 08:42] VITALS: BP 147/60; PULSE 60
[2024-03-24] MEDS: Metoprolol Tartrate 50 MG Tablet GT ×2 (08:42→22:10)
[2024-03-24] MEDS: Magnesium Oxide 400 MG Tablet GT ×2 (08:44→22:11)
[2024-03-24] MEDS: Enoxaparin 40 MG/0.4 ML Syringe SC (08:44)
[2024-03-24] MEDS: Nystatin Powder 15gm Bottle 1 APPLIC TOPICAL ×2 (08:45→22:11)
[2024-03-24] MEDS: Clopidogrel Bisulfate 75 MG Tablet GT (08:45)
[2024-03-24] MEDS: Finasteride 5 MG Tablet GT (08:46)
[2024-03-24] MEDS: Sodium Chloride 1 GM Tablet GT ×2 (08:48→22:10)
[2024-03-24] MEDS: Lisinopril 2.5 MG Tablet GT (08:48)
[2024-03-24] MEDS: Sertraline 100 MG Tablet GT (08:49)
[2024-03-24 10:00] VITALS: PULSE 55; RESP 16; O2SAT 96
[2024-03-24] MEDS: Acetaminophen 650 MG/20 ML UDC GT (11:08)
--- NOTE | 2024-03-24 17:36 | NURSING ---
30 day heart monitor removed per orders. Heart monitor placed inside pre-addressed box and placed in mailbox to be shipped.
[2024-03-24 22:02] VITALS: BP 118/68; PULSE 81
[2024-03-24] MEDS: Petrolatum 33% Tube 1 APPLIC TOPICAL (22:05)
[2024-03-24] MEDS: Jevity 1.5. 1,000 ML Bottle 240 ML GT (22:08)
[2024-03-24 22:10] VITALS: BP 118/68; PULSE 81
[2024-03-24] MEDS: Atorvastatin Calcium 80 MG Tablet GT (22:11)
[2024-03-25 06:00] VITALS: BMI 23.4
[2024-03-25 08:32] VITALS: BP 133/68; PULSE 60
[2024-03-25] MEDS: Sodium Chloride 1 GM Tablet GT ×2 (08:32→21:46)
[2024-03-25] MEDS: Metoprolol Tartrate 50 MG Tablet GT ×2 (08:32→22:04)
[2024-03-25] MEDS: Thiamine Hydrochloride 100 MG Tablet GT (08:32)
[2024-03-25] MEDS: Sertraline 100 MG Tablet GT (08:32)
[2024-03-25] MEDS: Lisinopril 2.5 MG Tablet GT (08:32)
[2024-03-25] MEDS: Lansoprazole 15 MG Capsule.DR 30 MG GT ×2 (08:32→21:45)
[2024-03-25] MEDS: Aspirin 81 MG TAB.CHEW GT (08:32)
[2024-03-25] MEDS: BACITRACIN 15 GM Tube 1 APPLIC TOPICAL ×2 (08:34→22:30)
[2024-03-25] MEDS: Clopidogrel Bisulfate 75 MG Tablet GT (08:34)
[2024-03-25] MEDS: Enoxaparin 40 MG/0.4 ML Syringe SC (08:34)
[2024-03-25] MEDS: Finasteride 5 MG Tablet GT (08:34)
[2024-03-25] MEDS: Magnesium Oxide 400 MG Tablet GT ×2 (08:34→21:46)
[2024-03-25] MEDS: Menthol/Lanolin/Calamine/Znox 113 GM Tube 1 APPLIC TOPICAL ×2 (08:35→22:34)
[2024-03-25] MEDS: Nystatin Powder 15gm Bottle 1 APPLIC TOPICAL ×2 (08:36→22:30)
[2024-03-25] MEDS: Acetaminophen 650 MG/20 ML UDC GT ×2 (14:19→22:09)
[2024-03-25 15:22] VITALS: BP 112/55; PULSE 55; RESP 14; TEMP 36.5; O2SAT 99
[2024-03-25] MEDS: Atorvastatin Calcium 80 MG Tablet GT (21:47)
[2024-03-25] MEDS: Jevity 1.5. 1,000 ML Bottle 240 ML GT (21:51)
[2024-03-25 22:04] VITALS: BP 122/67; PULSE 56
[2024-03-25] MEDS: Petrolatum 33% Tube 1 APPLIC TOPICAL (22:30)
[2024-03-26 06:00] VITALS: BMI 23.8
[2024-03-26] MEDS: Lisinopril 2.5 MG Tablet GT (08:46)
[2024-03-26] MEDS: Enoxaparin 40 MG/0.4 ML Syringe SC (08:46)
[2024-03-26] MEDS: Lansoprazole 15 MG Capsule.DR 30 MG GT ×2 (08:46→22:34)
[2024-03-26] MEDS: Finasteride 5 MG Tablet GT (08:46)
[2024-03-26] MEDS: Magnesium Oxide 400 MG Tablet GT ×2 (08:46→22:36)
[2024-03-26] MEDS: Clopidogrel Bisulfate 75 MG Tablet GT (08:46)
[2024-03-26] MEDS: Aspirin 81 MG TAB.CHEW GT (08:46)
[2024-03-26] MEDS: Thiamine Hydrochloride 100 MG Tablet GT (08:46)
[2024-03-26] MEDS: Sertraline 100 MG Tablet GT (08:46)
[2024-03-26] MEDS: Sodium Chloride 1 GM Tablet GT ×2 (08:46→22:36)
[2024-03-26] MEDS: Nystatin Powder 15gm Bottle 1 APPLIC TOPICAL ×2 (08:47→22:36)
[2024-03-26 08:48] VITALS: BP 114/69; PULSE 68
[2024-03-26] MEDS: Metoprolol Tartrate 50 MG Tablet GT ×2 (08:48→22:35)
[2024-03-26] MEDS: BACITRACIN 15 GM Tube 1 APPLIC TOPICAL ×2 (08:48→22:30)
[2024-03-26 13:23] VITALS: BP 110/61; PULSE 58; RESP 18; TEMP 36.7; O2SAT 95
[2024-03-26] MEDS: Menthol/Lanolin/Calamine/Znox 113 GM Tube 1 APPLIC TOPICAL ×2 (13:23→22:31)
--- NOTE | 2024-03-26 13:51 | HP.SPFEES ---
FEES Patient Information Date of Evaluation: 03/26/24 Time of Evaluation: 11:00 Diagnosis: CVA I63.9 Referring Physician: Kevin Watt Chi Staff Providing this Care/Treatment:: KATT Direct Billable Minutes: 120 History: Past Medical History:: A 78-year-old male presented to [facility] ED 02/12/2024 after colleagues at work observed him nearly passing out at 07:58. EMS was notified due to left-sided weakness, and he was transported to the hospital where he was found to be aphasic. The stroke team was activated, and the patient underwent a head CT and CTA of the head and neck, which revealed bilateral carotid stenosis. He was deemed a candidate for tenecteplase and received it in the emergency room. He was admitted to ICU. Brain MRI revealed Acute lacunar type infarct involving the superior portion of the right external capsule. BSE recommended NPO. MBSS 02/13/24 revealed moderate oropharyngeal dysphagia, spasms of UES, and recommended Easy to Chew textures / Thin liquids w/ direct supervision and the following strategies: Small Bites, Small Sips, Slow Rate, Sitting upright and Remain sitting upright for 30 minutes after PO intake. Pt was transferred to inpatient rehab unit for PT/OT/ST. Swallowing impairment rapidly declined and pt required PEG placement. He received continued dysphagia and speech therapy services on inpatient rehab w/ transfer to TCU for continued therapy services. Pt is currently on minced and moist diet textures / thin liquids. He has been recommended for FEES to re-assess swallow function and aspiration risk. Pt is well known to [facility] speech therapy department from prior CVA/inpatient rehab stay in 2019. Prior MBSS completed 12/02/2019, revealing mild oropharyngeal dysphagia w/ recommendation for a mechanically altered moist/minced diet texture and thin liquid diet w/ the following aspiration precautions in place: small bites, small sips, one sip at a time, reduce distractions during PO intake, medications to be taken whole/one at a time, seated upright at 90 degrees for PO intake, remain upright for 30-60 minutes after PO intake. The patient?s past medical history includes dehydration, carotid stenosis (left-sided), cognitive dysfunction, vertigo, physical debility, biatrial enlargement, diastolic dysfunction, hypokalemia, hypomagnesemia, hyponatremia, a history of prostate cancer, venous insufficiency, heavy alcohol consumption, vitamin B12 deficiency, benign prostatic hyperplasia, hypertension, and CVA (2020). Current Diet: Drinks/Liquids:: Thin Foods:: Minced & Moist Alternative Means of Nutrition/Hydration: PEG tube Medication Administration:: crushed in puree Comment:: tube utilized if pt eats <50% of meals Respiratory Status Observation:: Room air Dentition/Oral Hygiene: Observations:: Natural teeth Vocal Quality: Observations:: Hoarse and Strangled Comments:: tremulous Cognition: Observations:: WNL Position During FEES: Position During FEES:: Upright Location: In Chair Fiberoptic Endoscope: Size: 3.4 mm Nare Used:: Left Anatomical Findings: Anatomical Findings:: Pt reports hyper-reflexive gag. Long uvula reaching almost to tongue base. Consistent spasming of the laryngeal vestibule, arytenoids, and pyriform sinuses throughout evaluation consistent w/ tremulous vocal quality. Arytenoids, epiglottic petiole, and ventricular folds appeared mildly edematous and reddish in color. True vocal folds visualized w/ regular breathing. Pt appears to have bilateral vocal fold nodules on the posterior 1/3 of the vocal folds. Unable to view true vocal folds during phonation due to adduction of the ventricular folds. Ventricular folds did not fully adduct at anterior commissure. Posterior pharyngeal wall appeared weaker on the pt's right side. Poor pharyngeal contraction w/ vocal glides. Secretions: Description:: Thin Comment:: in vallecula and pyriform sinuses Penetration-Aspiration Scale Penetration-Aspiration Scale Thin Liquids by Teaspoon Food/Drink Provided:: green-colored water Swallow Onset Location:: Pyriform Sinuses PAS Score: PAS Score *5 Visual Analysis of Swallowing Efficiency and Safety (VASES) after the swallow: Oropharynx, Hypopharynx and Vocal Folds VASES Comments:: <5% vallecula, <5% pyriform sinuses, <5% true vocal folds Thin Liquids by Single Cup Food/Drink Provided:: green colored water Swallow Onset Location:: Pyriform Sinuses PAS Score: PAS Score *8 Visual Analysis of Swallowing Efficiency and Safety (VASES) after the swallow: Oropharynx, Hypopharynx and Vocal Folds Comments:: 20% L pyriform sinus, 10% aryepiglottic folds, 15% vallecula Strategies Trialed:: 3-second prep = somewhat effective head rotation L = not effective Thin Liquids by Single Straw Swallow Onset Location:: Laryngeal Vestibule PAS Score: PAS Score *7 Visual Analysis of Swallowing Efficiency and Safety (VASES) after the swallow: Hypopharynx and Vocal Folds Comments:: 15% in pyriform sinuses bilaterally, 10% aryepiglottic folds, <5% on vocal folds, 20% vallecula Mildly Thick Liquids by Single Cup Food/Drink Provided:: green colored mildly thick water Swallow Onset Location:: Vallecula and Epiglottis PAS Score: PAS Score *8 Visual Analysis of Swallowing Efficiency and Safety (VASES) after the swallow: Oropharynx, Laryngeal Vestibule and Vocal Folds Comments:: 5% ventricular folds, <5% true vocal folds, 10% aryepiglottic folds, 10% pyriform sinuses Puree Textures Food/Drink Provided:: pudding Swallow Onset Location:: Vallecula PAS Score: PAS Score *1 Visual Analysis of Swallowing Efficiency and Safety (VASES) after the swallow: Oropharynx Comments:: No residue after the swallow; however, pudding from oral cavity spills to vallecula after the swallow w/ independent initiation of a second swallow. Soft & Bite Sized Textures Food/Drink Provided:: pears Swallow Onset Location:: Vallecula PAS Score: PAS Score *1 Visual Analysis of Swallowing Efficiency and Safety (VASES) after the swallow: Oropharynx Comments:: 5% vallecula, <5% pyriform sinuses Regular Textures Food/Drink Provided:: cher doone cookie Swallow Onset Location:: Aryepiglottic Folds PAS Score: PAS Score *1 Visual Analysis of Swallowing Efficiency and Safety (VASES) after the swallow: Oropharynx Comments:: 5% vallecula Diagnosis/Impressions Diagnosis: Moderate oropharyngeal dysphagia R13.12 Impressions: The oral phase is marked by... -Decreased bolus control w/ posterior loss of liquids to the pyriforms, even spilling to the laryngeal vestibule 1X prior to swallow onset. The pharyngeal phase is marked by... -Delayed swallow onset. -Decreased pharyngeal contraction most notable w/ liquid trials. Residues of mildly thick liquids were seen spilling to the laryngeal vestibule after the swallow. Good clearance of solids and purees. Purees did spill to the vallecula from oral cavity after the swallow. -SILENT aspiration of thin and mildly thick liquid trials. 3-second prep and decreased bolus size were most effective in decreasing aspiration risk. Recommendations Diet: Minced and Moist Textures and Thin Liquids Medication Administration:: Whole in puree Comments: train 3-second prep w/ ST Compensatory Strategies: Small Bites, Small Sips, Slow Rate, Multiple Swallows, Sitting upright and Remain sitting upright for 30 minutes after PO intake Recommend Repeat Instrumental Swallow Assessment: TBD Need for Skilled Speech Therapy Services: Yes Comments: Continue per TCU dysphagia therapy POC Recommended Referrals: ENT Consult Education Completed: 1. Described result of evaluation., 2. Pt understands evaluation & agrees with goals and treatment plan., 4. Family/caregivers understand evaluation & agree w/ goals & tx plan. and 7. Pt requires further education on strategies & risks.
[2024-03-26 20:00] VITALS: PULSE 64; O2SAT 96
[2024-03-26 22:28] VITALS: BP 115/62; PULSE 64
[2024-03-26] MEDS: Petrolatum 33% Tube 1 APPLIC TOPICAL (22:31)
[2024-03-26] MEDS: Jevity 1.5. 1,000 ML Bottle 240 ML GT (22:34)
[2024-03-26 22:35] VITALS: BP 115/62; PULSE 64
[2024-03-26] MEDS: Atorvastatin Calcium 80 MG Tablet GT (22:35)
[2024-03-26] MEDS: Acetaminophen 650 MG/20 ML UDC GT (22:38)
[2024-03-27 03:27] VITALS: PULSE 58; O2SAT 93
[2024-03-27 03:57] VITALS: BMI 24.0
[2024-03-27] MEDS: Menthol/Lanolin/Calamine/Znox 113 GM Tube 1 APPLIC TOPICAL ×2 (10:45→21:54)
[2024-03-27] MEDS: BACITRACIN 15 GM Tube 1 APPLIC TOPICAL ×2 (10:46→21:55)
[2024-03-27] MEDS: Nystatin Powder 15gm Bottle 1 APPLIC TOPICAL ×2 (10:46→21:55)
[2024-03-27] MEDS: Aspirin 81 MG TAB.CHEW GT (10:48)
[2024-03-27] MEDS: Thiamine Hydrochloride 100 MG Tablet GT (10:48)
[2024-03-27] MEDS: Lansoprazole 15 MG Capsule.DR 30 MG GT ×2 (10:48→21:55)
[2024-03-27 10:49] VITALS: BP 108/72; PULSE 72
[2024-03-27] MEDS: Finasteride 5 MG Tablet GT (10:49)
[2024-03-27] MEDS: Clopidogrel Bisulfate 75 MG Tablet GT (10:49)
[2024-03-27] MEDS: Metoprolol Tartrate 50 MG Tablet GT ×2 (10:49→21:56)
[2024-03-27] MEDS: Magnesium Oxide 400 MG Tablet GT ×2 (10:49→21:55)
[2024-03-27] MEDS: Sertraline 100 MG Tablet GT (10:50)
[2024-03-27] MEDS: Lisinopril 2.5 MG Tablet GT (10:50)
[2024-03-27] MEDS: Sodium Chloride 1 GM Tablet GT ×2 (10:50→21:55)
[2024-03-27] MEDS: Enoxaparin 40 MG/0.4 ML Syringe SC (10:54)
[2024-03-27 10:59] VITALS: BP 108/72; PULSE 72; RESP 16; O2SAT 98
[2024-03-27 16:00] VITALS: TEMP 36.9
[2024-03-27] MEDS: Petrolatum 33% Tube 1 APPLIC TOPICAL (21:55)
[2024-03-27] MEDS: Atorvastatin Calcium 80 MG Tablet GT (21:55)
[2024-03-27 21:56] VITALS: PULSE 58
[2024-03-28 05:25] VITALS: BMI 23.7
[2024-03-28 08:17] VITALS: BP 110/58; PULSE 53; RESP 14; TEMP 35.9
[2024-03-28] MEDS: Aspirin 81 MG TAB.CHEW GT (08:23)
[2024-03-28] MEDS: Thiamine Hydrochloride 100 MG Tablet GT (08:24)
[2024-03-28] MEDS: Menthol/Lanolin/Calamine/Znox 113 GM Tube 1 APPLIC TOPICAL ×2 (08:25→22:25)
[2024-03-28] MEDS: BACITRACIN 15 GM Tube 1 APPLIC TOPICAL ×2 (08:25→22:25)
[2024-03-28] MEDS: Lansoprazole 15 MG Capsule.DR 30 MG GT ×2 (08:26→22:24)
[2024-03-28] MEDS: Magnesium Oxide 400 MG Tablet GT ×2 (08:29→22:23)
[2024-03-28] MEDS: Enoxaparin 40 MG/0.4 ML Syringe SC (08:29)
[2024-03-28] MEDS: Nystatin Powder 15gm Bottle 1 APPLIC TOPICAL ×2 (08:30→22:25)
[2024-03-28] MEDS: Clopidogrel Bisulfate 75 MG Tablet GT (08:30)
[2024-03-28] MEDS: Sodium Chloride 1 GM Tablet GT ×2 (08:31→22:23)
[2024-03-28] MEDS: Finasteride 5 MG Tablet GT (08:31)
[2024-03-28] MEDS: Sertraline 100 MG Tablet GT (08:32)
[2024-03-28] MEDS: Lisinopril 2.5 MG Tablet GT (08:33)
--- NOTE | 2024-03-28 09:07 | NURSING ---
Blood pressure 110/58, P 53. Dr. Watt updated on vitals and is Metoprolol is to be given this morning per orders. New order received 1) Hold Metoprolol. Patient aware of above.
[2024-03-28 09:20] VITALS: PULSE 53; RESP 14; O2SAT 95
--- NOTE | 2024-03-28 13:34 | DS.PCM_ITS ---
Providers Date of Admission: 03/08/24 Primary Care Physician: Dr. Gabi Alexis MD Reason For Visit: STROKE Diagnosis Discharge Diagnosis (1) Debility: Status: Acute Code(s): R53.81 - Other malaise (2) Stroke: Status: Acute Code(s): I63.9 - Cerebral infarction, unspecified (3) Left hemiparesis: Status: Acute Code(s): G81.94 - Hemiplegia, unspecified affecting left nondominant side (4) Dysphagia: Status: Acute Code(s): R13.10 - Dysphagia, unspecified Qualifiers: Dysphagia type: unspecified Qualified Code(s): R13.10 - Dysphagia, unspecified (5) BPH (benign prostatic hyperplasia): Status: Inactive Code(s): N40.0 - Benign prostatic hyperplasia without lower urinary tract symptoms Qualifiers: Lower urinary tract symptom presence: symptoms absent Qualified Code(s): N40.0 - Benign prostatic hyperplasia without lower urinary tract symptoms (6) Alcohol abuse: Status: Inactive Code(s): F10.10 - Alcohol abuse, uncomplicated (7) History of prostate cancer: Status: Acute Code(s): Z85.46 - Personal history of malignant neoplasm of prostate (8) Essential (primary) hypertension: Status: Acute Code(s): I10 - Essential (primary) hypertension (9) Bilateral carotid artery stenosis: Status: Acute Code(s): I65.23 - Occlusion and stenosis of bilateral carotid arteries (10) Vitamin B12 deficiency: Status: Inactive Code(s): E53.8 - Deficiency of other specified B group vitamins (11) Hypokalemia: Status: Resolved Code(s): E87.6 - Hypokalemia (12) Hyperlipidemia: Status: Inactive Code(s): E78.5 - Hyperlipidemia, unspecified Qualifiers: Hyperlipidemia type: unspecified Qualified Code(s): E78.5 - Hyperlipidemia, unspecified Plan 78 year old male with below past medical history hospitalized for stroke, left hemiparesis, dysphagia requiring PEG, admitted to 02/14/2024, admitted to TCU with debility, here for rehabilitation, strengthening, prior to discharge home with . * Debility - PT/OT/ST. * Pain - Tylenol 650mg q6 prn, Oxycodone 2.5mg q6 prn. * Bowel - senna/colace 2 tablets bid prn, Dulcolax 10mg pr daily prn, MOM 30mL x 1 prn, Loperamide 2mg q4 prn. * Adult immunization - Administer pneumonia vaccine, covid vaccine, flu vaccine as appropriate. * DVT prophylaxis - Lovenox 40mg sc daily. * Stroke - Aspirin 81mg daily, Plavix 75mg daily. * Hyperlipidemia - Atorvastatin 80mg qhs. * Skin - Bacitracin topical bid, Calmoseptine topical bid, Eucern topical qhs, Nystatin powder topical bid. * BPH - Finasteride 5mg daily. * PEG yeast infection - Fluconazole 150mg daily thru 03/11/2024. * Nutrition - Jevity 1.5 240mL 4x/day. * Barretts esophagus/Gastritis - Lansoprazole 30mg bid. * Hypertension - Metoprolol 50mg bid, Lisinopril 2.5mg daily. * Hypomagnesemia - Magnesium Oxide 400mg bid. * Depression - Sertraline 100mg daily, stable chronic use, GDR not recommended. * Hyponatremia - Sodium 1gm bid. Medications at Discharge Home Medications clopidogrel 75 mg tablet 75 mg PO DAILY blood thinner #30 tabs 12/05/19 cholecalciferol (vitamin D3) 1,250 mcg (50,000 unit) capsule 1,250 mcg PO .q2week supplement 02/12/24 aspirin 81 mg chewable tablet 81 mg PO BREAKFAST Heart health #0 tabs 02/14/24 atorvastatin 80 mg tablet 80 mg PO QHS Cholestrol #0 tabs 02/14/24 Arthritis Pain Compound 03/08/24 acetaminophen 650 mg/20.3 mL oral solution 650 mg (20.3 mL) G-tube Q4H PRN PRN pain 1-10/fever #0 mL 04/01/24 finasteride 5 mg tablet 5 mg PO DAILY 30 days #30 tabs 04/01/24 lansoprazole 15 mg capsule,delayed release 30 mg (2 x 15 mg) PO BID 30 days #120 caps 04/01/24 lisinopril 2.5 mg tablet 2.5 mg PO DAILY 30 days #30 tabs 04/01/24 magnesium oxide 400 mg (241.3 mg magnesium) tablet 400 mg PO BID 30 days #60 tabs 04/01/24 metoprolol tartrate 50 mg tablet 50 mg PO BID 30 days #60 tabs 04/01/24 sertraline 100 mg tablet 100 mg PO DAILY 30 days #30 tabs 04/01/24 sodium chloride 1,000 mg soluble tablet 1,000 mg PO BID 30 days #60 tabs 04/01/24 thiamine HCl (vitamin B1) 100 mg tablet 100 mg PO BREAKFAST 30 days #30 tabs 04/01/24 Hospital Course Operations None Procedures None Summary of Care Provided Minutes Spent on Discharge: 35 Hospital Course: 78 year old male with below past medical history hospitalized for stroke, left hemiparesis, dysphagia requiring PEG, admitted to 02/14/2024, admitted to TCU with debility, here for rehabilitation, strengthening, prior to discharge home with . 03/21/2024 Vascular Surgery: (1) Bilateral carotid artery stenosis: Status: Acute Plan: CTA read as 70% stenosis bilateral ICAs, but reviewed images with Dr. Cortes and R ICA <50% stenosis and L ICA stenosis at lower end of 50-69% consistent with duplex findings. Given very mild stenosis, do not feel R ICA was the source of this recent stroke; L ICA asymptomatic. No indication for surgical intervention at this time. Recommend continued maximal medical management and repeat duplex for routine surveillance in 1 year. 03/26/2024 Speech Therapy FEES: Recommendations Diet: Minced and Moist Textures and Thin Liquids Medication Administration:: Whole in puree Comments: train 3-second prep w/ ST Compensatory Strategies: Small Bites, Small Sips, Slow Rate, Multiple Swallows, Sitting upright and Remain sitting upright for 30 minutes after PO intake Recommend Repeat Instrumental Swallow Assessment: TBD Need for Skilled Speech Therapy Services: Yes Comments: Continue per TCU dysphagia therapy POC Recommended Referrals: ENT Consult Education Completed: 1. Described result of evaluation., 2. Pt understands evaluation & agrees with goals and treatment plan., 4. Family/caregivers understand evaluation & agree w/ goals & tx plan. and 7. Pt requires further education on strategies & risks. Plan: DC home with 04/08, [facility] PT/ST, FWW FWW: Patient is unsafe to use a cane and requires a walker for ambulation in the home and the community. Physical Exam Const alert General Appearance: cooperative HEENT normocephalic Eyes PERRL and EOMs intact bilaterally Neck supple, no JVD and no carotid bruits Resp normal respiratory effort, normal air movement and clear to auscultation bilaterally Cardio regular rate and regular rhythm GI normal to inspection, nondistended, normoactive bowel sounds, non-tender and non-distended GI Narrative: PEG present. Extremity normal capillary refill General Extremity: Negative for edema Skin no rashes or lesions noted General Skin Exam: no breakdown Neuro moves all extremities Neuro Narrative: Dysarthric, left upper extremity hemiparesis, left lower extremity hemiparesis. Speech: speech abnormal Psych affect normal Appearance: appropriate Medical Records Data Medical Nutrition Assessment Dietitian: Malnutrition Criteria Met Start: 03/09/24 12:00 Freq: Status: Active Protocol: Document 03/09/24 14:26 SB (Rec: 03/09/24 14:26 SB [id number]) Nutrition Malnutrition Evidence of Yes Malnutrition Exists Malnutrition (severe Chronic ): Evidenced By Suboptimal Energy Intake (Severe),Weight Loss (Severe) Clinical Problem Chronic Disease or Condition Related Malnutrition Etiology severe protein calorie malnutrition related inadequate oral intake, etoh use, and swallowing difficulties Signs/Symptoms as evidenced by 12% unintentional weight loss x less than 6 months and PO meeting <75% of estimated needs x 6 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 Continue magic cup TID with meals. Continue 240ml bolus feeding at 22:00 with 40ml flushes after feeding. Continue Jevity 1.5Cal with 240ml with 40ml water flushes after each bolus feeding if intake <50% of meals. If oral intake reminded adequate and weight remains stable, recommend decreasing nutrition support. Reviewed and approved by Corrina Campuzano MS, RDN, LD. Weight / BMI Weight Weight: 75.795 kg Body Mass Index (BMI) 23.3 ABG / Lab / Microbiology Data 03/31/24 05:09 03/31/24 05:09 D/C Instructions Discharge Diet: No restrictions Discharge Activity: Return to Normal Activity, May Shower and Use Walker Weight Bearing Status: Weight bearing as tolerated Call your doctor if you observe: Fever of 101 or Higher, Inability to urinate, Inability to have a bowel movement, Shortness of breath, Dizziness, Fainting spells, Swelling in the ankles, Chest pain and Uncontrolled pain DC O2, CPAP, BIPAP Needs Home O2 Discharge instructions: No Additional Instructions: Plan: DC home with 2, [facility] PT/ST, FWW Please Follow Up With: Ken Martinez When: As scheduled. Meaningful Use Info Meaningful Use Meaningful Use Diagnoses (Choose all that apply): Ischemic CVA CVA Therapy Assessed for PT,OT and/or ST?: Yes Ischemic Stroke Antithrombotic order at d/c?: Yes Dx of Atrial fib/flutter?: No Statin Dosing Therapy Reference: STATIN DOSE THERAPY REFERENCE: * Patients > 75 years receive moderate or high dose statin therapy. * Patients 75 years or YOUNGER should receive HIGH intensity statin dose unless contraindicated. You will be required to document reason for non-treatment if statin daily dose does not meet guidelines. HIGH DOSE STATIN THERAPY DAILY Atorvastatin > than or = to 40 mg Rosuvastatin > than or = to 20 mg Amlodipine + Atorvastatin > than or = to 2.5/40 mg Ezetimibe + Simvastatin 10/80 mg Simvastatin 80mg Statins at discharge?: Yes Primary Dx Acute Ischemic CVA?: Yes IV thrombolytic ordered during stay?: Yes Discharge Plan Admission Admit Date/Time: 03/08/24 13:15 Primary Reason for Your Visit: Debility. Attending Provider: Kevin Watt Chi Primary Care Provider: Gabi Alexis Instructions Additional Instructions / Restrictions: Plan: DC home with 2, [facility] PT/ST, FWW Discharge Orders/Prescriptions Prescriptions: New sertraline 100 mg Tablet 100 mg PO DAILY 30 Days Qty: 30 0RF thiamine HCl (vitamin B1) 100 mg Tablet 100 mg PO BREAKFAST 30 Days Qty: 30 0RF magnesium oxide 400 mg (241.3 mg magnesium) Tablet 400 mg PO BID 30 Days Qty: 60 0RF metoprolol tartrate 50 mg Tablet 50 mg PO BID 30 Days Qty: 60 0RF lansoprazole 15 mg Capsule,Delayed Release(Dr/Ec) 30 mg PO BID 30 Days Qty: 120 0RF lisinopril 2.5 mg Tablet 2.5 mg PO DAILY 30 Days Qty: 30 0RF finasteride 5 mg Tablet 5 mg PO DAILY 30 Days Qty: 30 0RF acetaminophen 650 mg/20.3 mL Solution 650 mg G-tube Q4H PRN PRN (Reason: pain 1-10/fever) Qty: 0 0RF sodium chloride 1,000 mg Tablet,Soluble 1,000 mg PO BID 30 Days Qty: 60 0RF Continued clopidogrel 75 MG tablet 75 mg PO DAILY Qty: 30 0RF Patient Comments: Patient does not take regularly cholecalciferol (vitamin D3) 1,250 mcg (50,000 unit) capsule 1,250 mcg PO .q2week Patient Comments: Patient does not take regularly atorvastatin 80 mg Tablet 80 mg PO QHS Qty: 0 0RF aspirin 81 mg Tablet,Chewable 81 mg PO BREAKFAST Qty: 0 0RF Discontinued tamsulosin 0.4 mg capsule 0.4 mg PO DAILY Patient Comments: Patient does not take regularly enoxaparin [Lovenox] 40 mg/0.4 mL syringe 40 mg subcut DAILY Qty: 4 0RF acetaminophen 650 mg/20.3 mL Solution 650 mg G-tube Q4H PRN PRN (Reason: pain/fever) Qty: 1 0RF bacitracin zinc 500 unit/gram Ointment 1 applic topical BID Qty: 1 0RF Protocol: *Topical Application Instructions APPLICATION INSTRUCTIONS: Apply to the area around the PEG tube Rx Instructions: Apply around the PEG tube magnesium hydroxide 400 mg/5 mL Suspension 30 ml PO X1 PRN (Reason: Constipation) Qty: 30 0RF metoprolol tartrate 50 mg Tablet 50 mg G-tube BID Qty: 1 0RF lansoprazole 15 mg Capsule,Delayed Release(Dr/Ec) 30 mg G-tube BID Qty: 1 0RF nystatin [Nyamyc] 100,000 unit/gram Powder 1 applic topical BID Qty: 1 0RF Protocol: *Topical Application Instructions APPLICATION INSTRUCTIONS: groin fluconazole 40 mg/mL Suspension For Reconstitution 150 mg G-tube DAILY Qty: 3 0RF Rx Instructions: Discontinue after 3 doses lisinopril 2.5 mg Tablet 2.5 mg G-tube DAILY Qty: 1 0RF finasteride 5 mg Tablet 5 mg G-tube DAILY Qty: 1 0RF oxycodone 5 mg Tablet 2.5 mg G-tube Q6H PRN PRN (Reason: abd pain) 1 Days Qty: 1 0RF loperamide 1 mg/7.5 mL Liquid 2 mg PO Q4H PRN (Reason: Diarrhea/Loose Stools) Qty: 1 0RF menthol-zinc oxide [Calmoseptine] 0.44-20.6 % Ointment 1 applic topical BID Qty: 1 0RF Protocol: *Topical Application Instructions APPLICATION INSTRUCTIONS: Apply to buttocks Jevity 1.5 Tone 0.06 gram-1.5 kcal/mL Liquid 240 ml G-tube 2200 Qty: 240 0RF Magnesium Oxide 400 mg tablet 400 mg G-tube BID Qty: 1 0RF sennosides-docusate sodium [Stimulant Laxative Plus] 8.6-50 mg Tablet 2 tab PO BID PRN (Reason: Constipation) Qty: 1 0RF sertraline 100 mg Tablet 100 mg G-tube DAILY Qty: 1 0RF thiamine HCl (vitamin B1) 100 mg Tablet 100 mg G-tube BREAKFAST Qty: 1 0RF sodium chloride 1,000 mg Tablet,Soluble 1,000 mg PO BID Qty: 1 0RF white petrolatum Ointment In Packet 1 applic topical DAILY Qty: 1 0RF Protocol: *Topical Application Instructions APPLICATION INSTRUCTIONS: Applied to both lower extremities from the base of the toes to the tibial plateau. bisacodyl 10 mg Suppository 10 mg [place] DAILY PRN PRN (Reason: Constipation) No Action (DME) Arthritis Pain Compound See Rx Instructions .Route .MEDSUPPLY Rx Instructions: As directed Referrals / Follow Up: Gabi Alexis MD [Primary Care Provider] - Disposition Disposition (needs filled in before D/C Order can be placed): Home, Self Care
[2024-03-28 22:20] VITALS: BP 111/65; PULSE 60
[2024-03-28 22:24] VITALS: BP 111/65; PULSE 60
[2024-03-28] MEDS: Petrolatum 33% Tube 1 APPLIC TOPICAL (22:24)
[2024-03-28] MEDS: Atorvastatin Calcium 80 MG Tablet GT (22:24)
[2024-03-28] MEDS: Jevity 1.5. 1,000 ML Bottle 240 ML GT (22:24)
[2024-03-28] MEDS: Metoprolol Tartrate 50 MG Tablet GT (22:24)
[2024-03-28] MEDS: Acetaminophen 650 MG/20 ML UDC GT (22:27)
[2024-03-29 06:00] VITALS: BMI 23.3
[2024-03-29] MEDS: Aspirin 81 MG TAB.CHEW GT (09:40)
[2024-03-29] MEDS: Lansoprazole 15 MG Capsule.DR 30 MG GT ×2 (09:40→22:52)
[2024-03-29] MEDS: Thiamine Hydrochloride 100 MG Tablet GT (09:40)
[2024-03-29] MEDS: Menthol/Lanolin/Calamine/Znox 113 GM Tube 1 APPLIC TOPICAL ×2 (09:40→22:54)
[2024-03-29 09:41] VITALS: PULSE 58
[2024-03-29] MEDS: Finasteride 5 MG Tablet GT (09:41)
[2024-03-29] MEDS: Clopidogrel Bisulfate 75 MG Tablet GT (09:41)
[2024-03-29] MEDS: Metoprolol Tartrate 50 MG Tablet GT ×2 (09:41→22:57)
[2024-03-29] MEDS: Nystatin Powder 15gm Bottle 1 APPLIC TOPICAL ×2 (09:41→22:56)
[2024-03-29] MEDS: Magnesium Oxide 400 MG Tablet GT ×2 (09:41→22:52)
[2024-03-29] MEDS: Enoxaparin 40 MG/0.4 ML Syringe SC (09:41)
[2024-03-29] MEDS: Lisinopril 2.5 MG Tablet GT (09:42)
[2024-03-29] MEDS: Sodium Chloride 1 GM Tablet GT ×2 (09:42→22:52)
[2024-03-29] MEDS: Sertraline 100 MG Tablet GT (09:42)
[2024-03-29] MEDS: BACITRACIN 15 GM Tube 1 APPLIC TOPICAL ×2 (09:46→23:14)
[2024-03-29 09:59] VITALS: O2SAT 97
[2024-03-29 11:11] VITALS: BP 107/59; PULSE 58; RESP 16; TEMP 37.3
[2024-03-29] MEDS: Jevity 1.5. 1,000 ML Bottle 240 ML GT (22:53)
[2024-03-29] MEDS: Petrolatum 33% Tube 1 APPLIC TOPICAL (22:54)
[2024-03-29] MEDS: Atorvastatin Calcium 80 MG Tablet GT (22:56)
[2024-03-29 22:57] VITALS: BP 117/58; PULSE 60
[2024-03-29] MEDS: Acetaminophen 650 MG/20 ML UDC GT (22:57)
[2024-03-30 05:45] VITALS: BMI 23.2
[2024-03-30] MEDS: Acetaminophen 650 MG/20 ML UDC GT ×2 (06:57→22:57)
[2024-03-30] MEDS: Clopidogrel Bisulfate 75 MG Tablet GT (09:16)
[2024-03-30] MEDS: Enoxaparin 40 MG/0.4 ML Syringe SC (09:16)
[2024-03-30] MEDS: Magnesium Oxide 400 MG Tablet GT ×2 (09:16→22:39)
[2024-03-30] MEDS: Thiamine Hydrochloride 100 MG Tablet GT (09:16)
[2024-03-30] MEDS: Aspirin 81 MG TAB.CHEW GT (09:16)
[2024-03-30] MEDS: Lansoprazole 15 MG Capsule.DR 30 MG GT ×2 (09:16→22:39)
[2024-03-30] MEDS: Sertraline 100 MG Tablet GT (09:17)
[2024-03-30] MEDS: Finasteride 5 MG Tablet GT (09:17)
[2024-03-30] MEDS: Nystatin Powder 15gm Bottle 1 APPLIC TOPICAL ×2 (09:17→22:40)
[2024-03-30] MEDS: Sodium Chloride 1 GM Tablet GT ×2 (09:17→22:40)
[2024-03-30] MEDS: Menthol/Lanolin/Calamine/Znox 113 GM Tube 1 APPLIC TOPICAL ×2 (09:17→22:37)
[2024-03-30] MEDS: BACITRACIN 15 GM Tube 1 APPLIC TOPICAL ×2 (11:19→22:57)
[2024-03-30] MEDS: Lisinopril 2.5 MG Tablet GT (11:19)
[2024-03-30 11:20] VITALS: BP 114/62; PULSE 58
[2024-03-30] MEDS: Metoprolol Tartrate 50 MG Tablet GT (11:20)
[2024-03-30 16:00] VITALS: BP 114/62; PULSE 68; RESP 18; TEMP 36.4; O2SAT 97
[2024-03-30] MEDS: Petrolatum 33% Tube 1 APPLIC TOPICAL (22:38)
[2024-03-30 22:39] VITALS: BP 104/56; PULSE 54
[2024-03-30] MEDS: Atorvastatin Calcium 80 MG Tablet GT (22:39)
[2024-03-31 05:49] LABS: Absolute Neutrophil Count 4.5 X10^3/uL (2.0-7.7); Basophil# 0.04 X10^3/uL; Basophil% 0.5 % (0-1); Eosinophil# 0.76 X10^3/uL; Hematocrit 33.4 % (40-54); Hemoglobin 10.7 g/dL (13.0-16.5); Lymphocyte % 17.2 % (19-41); Mean Corpuscular Hgb 28.5 pg (27.0-32.0); Mean Corpuscular Volume 88.8 fL (80-94); Mean Platelet Vol. 9.2 fl (6.2-12.0); Monocyte% 13.2 % (0-10); NRBC Flagged by Analyzer 0 % (0-5); Neutrophil # 4.46 X10^3/uL (2.7-7.7); Neutrophil % 58.8 % (47-70); Platelet Count 364 K/mm3 (150-450); RBC Distribution Width CV 13.9 % (11.6-14.6); RBC Distribution Width SD 44.8 fl (35.1-43.9); Red Blood Count 3.76 M/mm3 (4.6-6.2); White Blood Count 7.6 K/mm3 (4.4-11.0)
[2024-03-31 06:00] VITALS: BMI 23.5
[2024-03-31 06:15] LABS: Anion Gap 7 (5-15); BUN 15 mg/dL (7-18); BUN/Creat Ratio 20.5 RATIO (10-20); Calcium,Total 9.3 mg/dL (8.5-10.1); Chloride 99 mmol/L (98-107); Creatinine, Serum 0.73 mg/dL (0.70-1.30); EST Glomerular Filtration Rate 111 mL/min (>60); Est Glom Filt Rate - Afr Amer 134 mL/min (>60); Estimated Creatinine Clearance 83.66 ml/min; Glucose 105 mg/dL (74-106); Potassium 3.8 mmol/L (3.5-5.1); Sodium Level 133 mmol/L (136-145)
[2024-03-31 08:25] VITALS: BP 128/64; PULSE 64; RESP 16; TEMP 36.4; O2SAT 96
[2024-03-31] MEDS: Thiamine Hydrochloride 100 MG Tablet GT (08:34)
[2024-03-31] MEDS: Aspirin 81 MG TAB.CHEW GT (08:34)
[2024-03-31] MEDS: BACITRACIN 15 GM Tube 1 APPLIC TOPICAL ×2 (08:35→21:56)
[2024-03-31] MEDS: Menthol/Lanolin/Calamine/Znox 113 GM Tube 1 APPLIC TOPICAL ×3 (08:35→21:57)
[2024-03-31 08:37] VITALS: BP 128/64; PULSE 64
[2024-03-31] MEDS: Metoprolol Tartrate 50 MG Tablet GT ×2 (08:37→22:02)
[2024-03-31] MEDS: Enoxaparin 40 MG/0.4 ML Syringe SC (08:38)
[2024-03-31] MEDS: Nystatin Powder 15gm Bottle 1 APPLIC TOPICAL ×3 (08:39→22:03)
[2024-03-31] MEDS: Magnesium Oxide 400 MG Tablet GT ×2 (08:39→22:03)
[2024-03-31] MEDS: Finasteride 5 MG Tablet GT (08:40)
[2024-03-31] MEDS: Clopidogrel Bisulfate 75 MG Tablet GT (08:40)
[2024-03-31] MEDS: Sodium Chloride 1 GM Tablet GT ×2 (08:41→22:04)
[2024-03-31] MEDS: Lisinopril 2.5 MG Tablet GT (08:41)
[2024-03-31] MEDS: Sertraline 100 MG Tablet GT (08:42)
[2024-03-31 10:00] VITALS: PULSE 64; RESP 16; O2SAT 96
[2024-03-31] MEDS: Lansoprazole 15 MG Capsule.DR 30 MG GT ×2 (10:32→22:01)
--- NOTE | 2024-03-31 15:26 | NURSING ---
Sophia BLACK updated this RN that resident needs an ENT appt for vocal cord paralysis. Appt made with Shannon ACOSTA for 04/05/24 at 0830. was aware appt being made and will transport. Resident updated on date/time.
[2024-03-31 16:00] VITALS: BP 112/63; PULSE 65; RESP 14; TEMP 36.4; O2SAT 96
[2024-03-31 21:55] VITALS: BP 111/63; PULSE 61
[2024-03-31] MEDS: Petrolatum 33% Tube 1 APPLIC TOPICAL (21:58)
[2024-03-31 22:02] VITALS: BP 111/63; PULSE 61
[2024-03-31] MEDS: Atorvastatin Calcium 80 MG Tablet GT (22:02)
--- NOTE | 2024-03-31 22:20 | NURSING ---
Patient refused Jevity bolus at HS. PEG tube flushed with water.
[2024-04-01 05:24] VITALS: PULSE 62; O2SAT 94
[2024-04-01 06:00] VITALS: BMI 23.3
[2024-04-01] MEDS: Acetaminophen 650 MG/20 ML UDC GT ×2 (09:25→20:44)
[2024-04-01] MEDS: Aspirin 81 MG TAB.CHEW GT (09:26)
[2024-04-01] MEDS: Thiamine Hydrochloride 100 MG Tablet GT (09:27)
[2024-04-01] MEDS: Menthol/Lanolin/Calamine/Znox 113 GM Tube 1 APPLIC TOPICAL ×2 (09:27→20:47)
[2024-04-01 09:28] VITALS: BP 107/68; PULSE 66
[2024-04-01] MEDS: Magnesium Oxide 400 MG Tablet GT ×2 (09:28→20:42)
[2024-04-01] MEDS: Lansoprazole 15 MG Capsule.DR 30 MG GT ×2 (09:28→20:41)
[2024-04-01] MEDS: Metoprolol Tartrate 50 MG Tablet GT ×2 (09:28→20:43)
[2024-04-01] MEDS: Finasteride 5 MG Tablet GT (09:29)
[2024-04-01] MEDS: Sodium Chloride 1 GM Tablet GT ×2 (09:29→20:42)
[2024-04-01] MEDS: Clopidogrel Bisulfate 75 MG Tablet GT (09:29)
[2024-04-01] MEDS: Nystatin Powder 15gm Bottle 1 APPLIC TOPICAL ×2 (09:29→20:47)
[2024-04-01] MEDS: Lisinopril 2.5 MG Tablet GT (09:30)
[2024-04-01] MEDS: Enoxaparin 40 MG/0.4 ML Syringe SC (09:30)
[2024-04-01] MEDS: Sertraline 100 MG Tablet GT (09:30)
[2024-04-01] MEDS: BACITRACIN 15 GM Tube 1 APPLIC TOPICAL ×2 (09:31→20:41)
[2024-04-01 09:45] VITALS: BP 107/68; PULSE 66; RESP 16; O2SAT 96
--- NOTE | 2024-04-01 09:45 | CASEMGMT ---
Social Work SW collaborated with GATEMAN and Dietitian on update for pt's intake/feeding tube. Pt has been doing well on PO regular diet, not needing to use peg tube for feeding for an extended period of time. Pt has a bolus feeding ordered for 2200. However, after discussion with the Dietitian, d/t pt's stable weight and good PO intake, that bolus feeding can be discontinued starting this date. Staff can monitor pt over the next several days. If weight or PO intake starts to decline, pt to drink an Ensure or alike. Peg will just need flushed. Pt has an ENT appt for 04/05 at 0915 for vocal cords. Pt is doing well physically. - SW phoned to provide update on peg tube/intake status. SW discussed setting DC date for 04/08, to allow time for any needed follow up from the ENT appt. agreed. SW requested speak with nursing to get teaching on flushing pt's peg for homegoing. agreed. IDT recommending outpatient ST and is agreeable to [facility] as there are limited facilities that offer ST. can transport to appts.SW confirmed pt's need for FWW. SW to coordinate. - SW spoke with pt at bedside. Provided update on above. Pt is in agreement to monitor weight and supplement with Ensure, if needed, along with DC 04/08, and attending [facility] for therapy. Pt appreciative. - ALEXIS sent referral to [facility] via [employer]. Faxed referral to [facility]. 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
[2024-04-01 16:00] VITALS: TEMP 36.3
--- NOTE | 2024-04-01 18:18 | NURSING ---
TALKED TO PT AND PT NEEDS TEACHING WITH FLUSHING PEG. STATED SHE IS WILLING TO LEARN. RN AWARE
[2024-04-01] MEDS: Atorvastatin Calcium 80 MG Tablet GT (20:41)
[2024-04-01 20:43] VITALS: BP 113/66; PULSE 63
[2024-04-01] MEDS: Petrolatum 33% Tube 1 APPLIC TOPICAL (20:46)
[2024-04-02 05:08] VITALS: BMI 23.3
[2024-04-02] MEDS: Enoxaparin 40 MG/0.4 ML Syringe SC (08:24)
[2024-04-02] MEDS: Menthol/Lanolin/Calamine/Znox 113 GM Tube 1 APPLIC TOPICAL ×2 (08:25→21:11)
[2024-04-02] MEDS: Lansoprazole 15 MG Capsule.DR 30 MG GT ×2 (08:25→21:13)
[2024-04-02] MEDS: Thiamine Hydrochloride 100 MG Tablet GT (08:26)
[2024-04-02] MEDS: Aspirin 81 MG TAB.CHEW GT (08:26)
[2024-04-02] MEDS: BACITRACIN 15 GM Tube 1 APPLIC TOPICAL ×2 (08:26→21:13)
[2024-04-02 08:28] VITALS: BP 107/61; PULSE 64
[2024-04-02] MEDS: Magnesium Oxide 400 MG Tablet GT ×2 (08:28→21:12)
[2024-04-02] MEDS: Metoprolol Tartrate 50 MG Tablet GT ×2 (08:28→21:12)
[2024-04-02] MEDS: Clopidogrel Bisulfate 75 MG Tablet GT (08:29)
[2024-04-02] MEDS: Finasteride 5 MG Tablet GT (08:29)
[2024-04-02] MEDS: Sodium Chloride 1 GM Tablet GT ×2 (08:29→21:11)
[2024-04-02] MEDS: Nystatin Powder 15gm Bottle 1 APPLIC TOPICAL ×2 (08:29→21:11)
[2024-04-02] MEDS: Lisinopril 2.5 MG Tablet GT (08:30)
[2024-04-02] MEDS: Sertraline 100 MG Tablet GT (08:30)
[2024-04-02 08:47] VITALS: BP 107/61; PULSE 64; RESP 18; O2SAT 96
[2024-04-02 13:14] VITALS: TEMP 36.6
--- NOTE | 2024-04-02 16:13 | NURSING ---
PT LT EYE IN CORNER IS SWOLLEN AND WATERY. LEFT NOTE FOR . APPLIED WARM COMPRESS TO AREA. RN AWARE. WILL BE IN SUNDAY FOR PEG TUBE TEACHING AND EACH DAY SHE IS HERE TILL PT D/C ON 04/08/24.
[2024-04-02] MEDS: Neomycin/Polymyxin/Dexameth 5ML OPTH.BTL 2 DRP LEFT EYE ×2 (18:34→21:12)
[2024-04-02 20:00] VITALS: PULSE 62; O2SAT 98
[2024-04-02 21:10] VITALS: BP 110/63; PULSE 62
[2024-04-02 21:12] VITALS: BP 110/63; PULSE 62
[2024-04-02] MEDS: Petrolatum 33% Tube 1 APPLIC TOPICAL (21:12)
[2024-04-02] MEDS: Acetaminophen 650 MG/20 ML UDC GT (21:13)
[2024-04-02] MEDS: Atorvastatin Calcium 80 MG Tablet GT (21:13)
[2024-04-03 06:00] VITALS: BMI 23.1
[2024-04-03] MEDS: BACITRACIN 15 GM Tube 1 APPLIC TOPICAL ×2 (06:14→21:09)
[2024-04-03] MEDS: Neomycin/Polymyxin/Dexameth 5ML OPTH.BTL 2 DRP LEFT EYE ×5 (06:14→21:20)
[2024-04-03 06:15] VITALS: PULSE 64; O2SAT 96
[2024-04-03 09:36] VITALS: BP 108/66; PULSE 66; RESP 16; TEMP 36.4; O2SAT 97
[2024-04-03] MEDS: Thiamine Hydrochloride 100 MG Tablet GT (09:37)
[2024-04-03] MEDS: Aspirin 81 MG TAB.CHEW GT (09:37)
[2024-04-03] MEDS: Lansoprazole 15 MG Capsule.DR 30 MG GT ×2 (09:37→21:16)
[2024-04-03 09:38] VITALS: PULSE 66
[2024-04-03] MEDS: Magnesium Oxide 400 MG Tablet GT ×2 (09:38→21:18)
[2024-04-03] MEDS: Sertraline 100 MG Tablet GT (09:38)
[2024-04-03] MEDS: Finasteride 5 MG Tablet GT (09:38)
[2024-04-03] MEDS: Clopidogrel Bisulfate 75 MG Tablet GT (09:38)
[2024-04-03] MEDS: Lisinopril 2.5 MG Tablet GT (09:38)
[2024-04-03] MEDS: Sodium Chloride 1 GM Tablet GT ×2 (09:38→21:21)
[2024-04-03] MEDS: Metoprolol Tartrate 50 MG Tablet GT ×2 (09:38→21:17)
[2024-04-03] MEDS: Menthol/Lanolin/Calamine/Znox 113 GM Tube 1 APPLIC TOPICAL ×2 (09:48→21:15)
[2024-04-03] MEDS: Nystatin Powder 15gm Bottle 1 APPLIC TOPICAL ×2 (09:49→21:23)
[2024-04-03 21:08] VITALS: BP 109/60; PULSE 59
[2024-04-03] MEDS: Petrolatum 33% Tube 1 APPLIC TOPICAL (21:16)
[2024-04-03 21:17] VITALS: BP 109/60; PULSE 59
[2024-04-03] MEDS: Atorvastatin Calcium 80 MG Tablet GT (21:17)
[2024-04-04 05:18] VITALS: BMI 23.0
[2024-04-04] MEDS: Neomycin/Polymyxin/Dexameth 5ML OPTH.BTL 2 DRP LEFT EYE ×5 (05:23→20:12)
[2024-04-04 09:10] VITALS: BP 109/65; PULSE 63; RESP 20; TEMP 37.2; O2SAT 95
[2024-04-04] MEDS: Aspirin 81 MG TAB.CHEW GT (09:21)
[2024-04-04] MEDS: BACITRACIN 15 GM Tube 1 APPLIC TOPICAL ×2 (09:22→20:10)
[2024-04-04] MEDS: Thiamine Hydrochloride 100 MG Tablet GT (09:22)
[2024-04-04] MEDS: Lansoprazole 15 MG Capsule.DR 30 MG GT ×2 (09:23→20:10)
[2024-04-04] MEDS: Menthol/Lanolin/Calamine/Znox 113 GM Tube 1 APPLIC TOPICAL ×2 (09:23→20:13)
[2024-04-04 09:25] VITALS: BP 109/65; PULSE 63
[2024-04-04] MEDS: Metoprolol Tartrate 50 MG Tablet GT ×2 (09:25→20:14)
[2024-04-04] MEDS: Magnesium Oxide 400 MG Tablet GT ×2 (09:26→20:11)
[2024-04-04] MEDS: Nystatin Powder 15gm Bottle 1 APPLIC TOPICAL ×2 (09:27→20:13)
[2024-04-04] MEDS: Clopidogrel Bisulfate 75 MG Tablet GT (09:28)
[2024-04-04] MEDS: Finasteride 5 MG Tablet GT (09:28)
[2024-04-04] MEDS: Lisinopril 2.5 MG Tablet GT (09:29)
[2024-04-04] MEDS: Sertraline 100 MG Tablet GT (09:29)
[2024-04-04] MEDS: Sodium Chloride 1 GM Tablet GT ×2 (09:29→20:13)
[2024-04-04 10:00] VITALS: PULSE 63; RESP 20
[2024-04-04] MEDS: Petrolatum 33% Tube 1 APPLIC TOPICAL (20:08)
[2024-04-04] MEDS: Acetaminophen 650 MG/20 ML UDC GT (20:09)
[2024-04-04] MEDS: Atorvastatin Calcium 80 MG Tablet GT (20:11)
[2024-04-04 20:14] VITALS: BP 108/65; PULSE 71
[2024-04-05 04:57] VITALS: BMI 22.9
[2024-04-05] MEDS: Neomycin/Polymyxin/Dexameth 5ML OPTH.BTL 2 DRP LEFT EYE ×5 (06:39→21:28)
[2024-04-05] MEDS: Magnesium Oxide 400 MG Tablet GT ×2 (07:39→21:27)
[2024-04-05] MEDS: Menthol/Lanolin/Calamine/Znox 113 GM Tube 1 APPLIC TOPICAL ×2 (07:39→21:24)
[2024-04-05 07:40] VITALS: PULSE 63
[2024-04-05] MEDS: Sertraline 100 MG Tablet GT (07:40)
[2024-04-05] MEDS: Lansoprazole 15 MG Capsule.DR 30 MG GT ×2 (07:40→21:26)
[2024-04-05] MEDS: Clopidogrel Bisulfate 75 MG Tablet GT (07:40)
[2024-04-05] MEDS: Sodium Chloride 1 GM Tablet GT ×2 (07:40→21:30)
[2024-04-05] MEDS: Lisinopril 2.5 MG Tablet GT (07:40)
[2024-04-05] MEDS: Metoprolol Tartrate 50 MG Tablet GT ×2 (07:40→21:27)
[2024-04-05] MEDS: Thiamine Hydrochloride 100 MG Tablet GT (07:41)
[2024-04-05] MEDS: Aspirin 81 MG TAB.CHEW GT (07:41)
[2024-04-05] MEDS: BACITRACIN 15 GM Tube 1 APPLIC TOPICAL ×2 (07:42→21:23)
[2024-04-05] MEDS: Nystatin Powder 15gm Bottle 1 APPLIC TOPICAL ×2 (07:55→21:29)
[2024-04-05] MEDS: Finasteride 5 MG Tablet GT (07:55)
--- NOTE | 2024-04-05 11:51 | NURSING ---
Pt left with spouse to go to appt at 8:55am and returned at 11:20am. Per pt NNO.
[2024-04-05 12:21] VITALS: BP 128/69; PULSE 64; RESP 16; TEMP 36.8; O2SAT 94
[2024-04-05 21:21] VITALS: BP 108/62; PULSE 58
[2024-04-05] MEDS: Petrolatum 33% Tube 1 APPLIC TOPICAL (21:24)
[2024-04-05] MEDS: Atorvastatin Calcium 80 MG Tablet GT (21:26)
[2024-04-05 21:27] VITALS: BP 108/62; PULSE 58
[2024-04-06] MEDS: Neomycin/Polymyxin/Dexameth 5ML OPTH.BTL 2 DRP LEFT EYE ×5 (05:26→21:47)
[2024-04-06 07:41] VITALS: BP 129/63; PULSE 69; RESP 16; TEMP 36.4; O2SAT 94
[2024-04-06 07:45] VITALS: PULSE 69
[2024-04-06] MEDS: Metoprolol Tartrate 50 MG Tablet GT ×2 (07:45→21:48)
[2024-04-06] MEDS: Clopidogrel Bisulfate 75 MG Tablet GT (07:45)
[2024-04-06] MEDS: Finasteride 5 MG Tablet GT (07:45)
[2024-04-06] MEDS: Magnesium Oxide 400 MG Tablet GT ×2 (07:45→21:49)
[2024-04-06] MEDS: Aspirin 81 MG TAB.CHEW GT (07:45)
[2024-04-06] MEDS: Lansoprazole 15 MG Capsule.DR 30 MG GT ×2 (07:45→21:48)
[2024-04-06] MEDS: Thiamine Hydrochloride 100 MG Tablet GT (07:45)
[2024-04-06] MEDS: Sodium Chloride 1 GM Tablet GT ×2 (07:46→21:49)
[2024-04-06] MEDS: Lisinopril 2.5 MG Tablet GT (07:46)
[2024-04-06] MEDS: Menthol/Lanolin/Calamine/Znox 113 GM Tube 1 APPLIC TOPICAL ×2 (07:47→21:50)
[2024-04-06] MEDS: BACITRACIN 15 GM Tube 1 APPLIC TOPICAL ×2 (07:47→21:50)
[2024-04-06] MEDS: Sertraline 100 MG Tablet GT (07:48)
[2024-04-06] MEDS: Nystatin Powder 15gm Bottle 1 APPLIC TOPICAL ×2 (07:48→21:51)
--- NOTE | 2024-04-06 08:05 | NURSING ---
Addendum entered by Allison Jimenez 04/06/24 08:08: PEG BUMPER AT 4CM Original Note: DRESSING CHANGED TO PEG SITE, APPLIED BACITRACIN PER ORDER. AREA TENDER PER PT W/CLEANING, SLIGHT REDNESS REMAINING. IMPROVING. NOTED PEG AT 3.5CM
[2024-04-06 13:11] VITALS: PULSE 67; RESP 16; O2SAT 99; BMI 23.1
[2024-04-06 21:48] VITALS: BP 112/57; PULSE 60
[2024-04-06] MEDS: Atorvastatin Calcium 80 MG Tablet GT (21:49)
[2024-04-06] MEDS: Petrolatum 33% Tube 1 APPLIC TOPICAL (21:49)
--- NOTE | 2024-04-06 22:02 | NURSING ---
pt reported that he passed another blood clot when voiding, c/o burning only with passing clot. message left for dr brown
[2024-04-07] MEDS: Neomycin/Polymyxin/Dexameth 5ML OPTH.BTL 2 DRP LEFT EYE ×6 (01:30→22:26)
[2024-04-07 05:25] VITALS: BMI 23.3
[2024-04-07 05:47] LABS: Absolute Lymphocyte Count 1.18 X10^3/uL (0.83-4.51); Absolute Neutrophil Count 6.3 X10^3/uL (2.0-7.7); Basophil# 0.07 X10^3/uL; Basophil% 0.8 % (0-1); Eosinophils% 6.5 % (0-5); Hematocrit 33.9 % (40-54); Lymphocyte # 1.18 X10^3/ul (0.83-4.51); Lymphocyte % 12.8 % (19-41); Mean Corp Hgb Conc 32.4 g/dL (32-36); Mean Corpuscular Hgb 28.5 pg (27.0-32.0); Mean Corpuscular Volume 87.8 fL (80-94); Mean Platelet Vol. 9.3 fl (6.2-12.0); Monocyte# 1.02 X10^3/uL; Monocyte% 11.1 % (0-10); NRBC Flagged by Analyzer 0 % (0-5); Neutrophil % 68.5 % (47-70); Platelet Count 372 K/mm3 (150-450); RBC Distribution Width CV 13.9 % (11.6-14.6); Red Blood Count 3.86 M/mm3 (4.6-6.2); White Blood Count 9.2 K/mm3 (4.4-11.0)
[2024-04-07 06:20] LABS: Anion Gap 7 (5-15); BUN 14 mg/dL (7-18); BUN/Creat Ratio 19.3 RATIO (10-20); Calcium,Total 9.3 mg/dL (8.5-10.1); Chloride 98 mmol/L (98-107); Creatinine, Serum 0.72 mg/dL (0.70-1.30); EST Glomerular Filtration Rate 112 mL/min (>60); Est Glom Filt Rate - Afr Amer 135 mL/min (>60); Estimated Creatinine Clearance 83.67 ml/min; Glucose 101 mg/dL (74-106); Sodium Level 134 mmol/L (136-145)
--- NOTE | 2024-04-07 07:48 | PN.TCU_ITS ---
Subjective Subjective Patient seen, examined for regulatory visit. Resident notes blood in his urine, along with burning with urination, otherwise no complaints. He is supposed to go home tomorrow. 03/21/2024 Vascular Surgery: 1) Bilateral carotid artery stenosis: Status: Acute Plan: CTA read as 70% stenosis bilateral ICAs, but reviewed images with Dr. Cortes and R ICA <50% stenosis and L ICA stenosis at lower end of 50-69% consistent with duplex findings. Given very mild stenosis, do not feel R ICA was the source of this recent stroke; L ICA asymptomatic. No indication for surgical intervention at this time. Recommend continued maximal medical management and repeat duplex for routine surveillance in 1 year. 03/26/2024 FEES: Recommendations Diet: Minced and Moist Textures and Thin Liquids Medication Administration:: Whole in puree Comments: train 3-second prep w/ ST Compensatory Strategies: Small Bites, Small Sips, Slow Rate, Multiple Swallows, Sitting upright and Remain sitting upright for 30 minutes after PO intake Recommend Repeat Instrumental Swallow Assessment: TBD Need for Skilled Speech Therapy Services: Yes Comments: Continue per TCU dysphagia therapy POC Recommended Referrals: ENT Consult Education Completed: 1. Described result of evaluation., 2. Pt understands evaluation & agrees with goals and treatment plan., 4. Family/caregivers understand evaluation & agree w/ goals & tx plan. and 7. Pt requires further education on strategies & risks. Objective Data Objective Data Vital Signs: Vital Signs Temp Pulse Resp BP Pulse Ox O2 Del Method FiO2 97.5 F L 60 16 112/57 L 99 Room Air 95 04/06/24 07:41 04/06/24 21:48 04/06/24 13:11 04/06/24 21:48 04/06/24 13:11 04/06/24 13:11 04/04/24 10:00 Oxygen Delivery Method Room Air Weight: 75.931 kg Body Mass Index (BMI) 23.3 Intake & Output: Intake and Output for Last 24 Hours 04/05/24 04/06/24 04/07/24 23:59 23:59 23:59 Intake Total 660 / 660 860 / 860 Output Total 250 / 250 Balance 660 / 660 610 / 610 Medical Nutrition Assessment Dietitian: Malnutrition Criteria Met Start: 03/09/24 12:00 Freq: Status: Active Protocol: Document 01/12/25 14:26 SB (Rec: 03/09/24 14:26 SB [id number]) Nutrition Malnutrition Evidence of Yes Malnutrition Exists Malnutrition (severe Chronic ): Evidenced By Suboptimal Energy Intake (Severe),Weight Loss (Severe) Clinical Problem Chronic Disease or Condition Related Malnutrition Etiology severe protein calorie malnutrition related inadequate oral intake, etoh use, and swallowing difficulties Signs/Symptoms as evidenced by 12% unintentional weight loss x less than 6 months and PO 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 Continue magic cup TID with meals. Continue 240ml bolus feeding at 22:00 with 40ml flushes after feeding. Continue Jevity 1.5Cal with 240ml with 40ml water flushes after each bolus feeding if intake <50% of meals. If oral intake reminded adequate and weight remains stable, recommend decreasing nutrition support. Reviewed and approved by Corrina Campuzano MS, RDN, LD. Lab / Micro Data 04/07/24 05:09 04/07/24 05:09 Labs: Laboratory Results - last 24 hr 04/07/24 05:09: WBC 9.2, RBC 3.86 L, Hgb 11.0 L, Hct 33.9 L, MCV 87.8, MCH 28.5, MCHC 32.4, RDW Std Deviation 45.0 H, RDW Coeff of Denae 13.9, Plt Count 372, MPV 9.3, Immature Gran % (Auto) 0.300, Neut % (Auto) 68.5, Lymph % (Auto) 12.8 L, M nat % (Auto) 11.1 H, Eos % (Auto) 6.5 H, Baso % (Auto) 0.8, Absolute Neuts (auto) 6.3, Absolute Lymphs (auto) 1.18, Nucleated RBC % 0, Sodium 134 L, Potassium 4.0, Chloride 98, Carbon Dioxide 28.0, Anion Gap 7, BUN 14, Creatinine 0.72, Estim Creat Clear Calc 83.67, Est GFR (MDRD) Af Amer 135, Est GFR (MDRD) Non-Af 112, BUN/Creatinine Ratio 19.3, Glucose 101, Calcium 9.3 Physical Exam Const alert General Appearance: cooperative HEENT normocephalic Eyes PERRL and EOMs intact bilaterally Neck supple, no JVD and no carotid bruits Resp normal respiratory effort, normal air movement and clear to auscultation bilaterally Cardio regular rate and regular rhythm GI normal to inspection, nondistended, normoactive bowel sounds, non-tender and non-distended GI Narrative: PEG present. Extremity normal capillary refill General Extremity: Negative for edema Skin no rashes or lesions noted General Skin Exam: no breakdown Neuro moves all extremities Neuro Narrative: Dysarthric, left upper extremity hemiparesis, left lower extremity hemiparesis. Speech: speech abnormal Psych affect normal Appearance: appropriate Assessment & Plan Assessment/Plan (1) Debility: (2) Stroke: (3) Left hemiparesis: (4) Dysphagia: QUALIFIERS: Dysphagia type: unspecified Qualified Code(s): R13.10 - Dysphagia, unspecified (5) BPH (benign prostatic hyperplasia): QUALIFIERS: Lower urinary tract symptom presence: symptoms absent Qualified Code(s): N40.0 - Benign prostatic hyperplasia without lower urinary tract symptoms (6) Alcohol abuse: (7) History of prostate cancer: (8) Essential (primary) hypertension: (9) Bilateral carotid artery stenosis: (10) Vitamin B12 deficiency: (11) Hypokalemia: (12) Hyperlipidemia: QUALIFIERS: Hyperlipidemia type: unspecified Qualified Code(s): E 78.5 - Hyperlipidemia, unspecified PLAN: Plan 78 year old male with below past medical history hospitalized for stroke, left hemiparesis, dysphagia requiring PEG, admitted to 02/14/2024, admitted to TCU with debility, here for rehabilitation, strengthening, prior to discharge home with . * Debility - PT/OT/ST. * Pain - Tylenol 650mg q6 prn, Oxycodone 2.5mg q6 prn. * Bowel - senna/colace 2 tablets bid prn, Dulcolax 10mg pr daily prn, MOM 30mL x 1 prn, Loperamide 2mg q4 prn. * Adult immunization - Administer pneumonia vaccine, covid vaccine, flu vaccine as appropriate. * DVT prophylaxis - Stopped. * Stroke - Aspirin 81mg daily, Plavix 75mg daily. * Hyperlipidemia - Atorvastatin 80mg qhs. * Skin - Bacitracin topical bid, Calmoseptine topical bid, Eucerin topical qhs, Nystatin powder topical bid. * BPH - Finasteride 5mg daily. * Barretts esophagus/Gastritis - Lansoprazole 30mg bid. * Hypertension - Metoprolol 50mg bid, Lisinopril 2.5mg daily. * Hypomagnesemia - Magnesium Oxide 400mg bid. * Depression - Sertraline 100mg daily, stable chronic use, GDR not recommended. * Hyponatremia - Sodium 1gm bid. * Alcohol abuse - Thiamine 100mg daily. * Conjunctivitis OS - Maxitrol 2gtt os q4 thru 04/08/2024. * Dysuria/hematuria - order urinalysis, c+s. * PEG - consult General Surgery for PEG removal.
[2024-04-07 09:23] VITALS: BP 111/61; PULSE 60; RESP 16; TEMP 36.7; O2SAT 99
[2024-04-07] MEDS: Aspirin 81 MG TAB.CHEW GT (09:34)
[2024-04-07] MEDS: Thiamine Hydrochloride 100 MG Tablet GT (09:36)
[2024-04-07] MEDS: Nystatin Powder 15gm Bottle 1 APPLIC TOPICAL ×2 (09:38→22:24)
[2024-04-07] MEDS: Clopidogrel Bisulfate 75 MG Tablet GT (09:39)
[2024-04-07] MEDS: Finasteride 5 MG Tablet GT (09:39)
[2024-04-07] MEDS: Sertraline 100 MG Tablet GT (09:41)
[2024-04-07] MEDS: Sodium Chloride 1 GM Tablet GT ×2 (09:41→22:23)
[2024-04-07] MEDS: Lisinopril 2.5 MG Tablet GT (09:41)
[2024-04-07] MEDS: Magnesium Oxide 400 MG Tablet GT ×2 (09:42→22:21)
[2024-04-07 09:43] VITALS: BP 111/61; PULSE 60
[2024-04-07] MEDS: Metoprolol Tartrate 50 MG Tablet GT ×2 (09:43→22:25)
[2024-04-07] MEDS: Lansoprazole 15 MG Capsule.DR 30 MG GT ×2 (09:44→22:21)
[2024-04-07] MEDS: BACITRACIN 15 GM Tube 1 APPLIC TOPICAL (09:47)
[2024-04-07] MEDS: Menthol/Lanolin/Calamine/Znox 113 GM Tube 1 APPLIC TOPICAL ×2 (09:47→22:22)
[2024-04-07 10:00] VITALS: RESP 18
[2024-04-07] MEDS: Acetaminophen 650 MG/20 ML UDC GT (10:01)
[2024-04-07 10:48] LABS: Bacteria 0 SEEN /hpf (None Seen); Glucose, Dipstick Normal (Normal); Ketone-Dipstick Negative (Negative); Leukocyte Esterase-Dipstick Negative /ul (Negative); Nitrite-Dipstick Negative (Negative); Occult Blood-Urine 250 /ul (Negative); Protein-Dipstick 30 mg/dl (Negative); Squamous Epithelial Cells - UA 0 SEEN /hpf (0-5); Urine Bilirubin Dipstick Negative (Negative); Urine Urobilinogen Normal (Normal); White Blood Cells 0 SEEN /hpf (0-5)
[2024-04-07 10:55] LABS: Color, Urine Yellow (Yellow); Urine Clarity Sl Cloudy (Clear)
[2024-04-07 10:56] LABS: Red Blood Cells-Urine 25-50 SEEN /hpf (0-5)
[2024-04-07 10:58] LABS: Hyaline Cast 0-5 SEEN /lpf (0-5); Mucous, Urine 1+ /hpf (<or=2+)
--- NOTE | 2024-04-07 11:37 | NURSING ---
Dr. Watt aware of patient passing blood clots. New order received 1) UA/ C&S. Patient aware. Sample obtained and send to lab.
--- NOTE | 2024-04-07 14:44 | NURSING ---
Dr. Painting in around noon today, PEG tube removed.
--- NOTE | 2024-04-07 15:57 | CON.PCM.SX_ITS ---
Assessment & Plan Assessment/Plan (1) Left hemiparesis: PLAN: Plan The patient is a 78-year-old male with recent stroke. PEG tube was placed about a month and a half ago. This is no longer being used. This was successfully removed at bedside today. No follow-up required. Please call if any questions or concerns arise. HPI Consult Data Date of Consult: 04/07/24 HPI Narrative HPI Narrative: BRANDEE CLIFTON, is a 78 M who has been admitted since the middle of January with strokelike symptoms. He has been recovering in the TCU. On February 14, he underwent PEG placement with GI. Patient is planned to be discharged to home tomorrow and so PEG tube removal consult was placed. Patient states that he has not been using the PEG to any appreciable extent. He is interested in having this removed PFSH Medical History GERD (gastroesophageal reflux disease) Hyperlipidemia Peptic ulcer disease with hemorrhage Barretts esophagus Hypertension Acute stroke due to ischemia Dysphagia Alcohol abuse Dehydration Carotid stenosis Cognitive dysfunction Vertigo Left carotid stenosis Biatrial enlargement Diastolic dysfunction Hypokalemia Hyponatremia History of prostate cancer Venous insufficiency Vitamin B12 deficiency BPH (benign prostatic hyperplasia) Home Medications ?Medication ?Instructions ?Recorded ?Last Taken ?Type clopidogrel 75 mg tablet 75 mg PO DAILY blood thinner #30 12/05/19 02/14/24 Rx tabs cholecalciferol (vitamin D3) 1,250 1,250 mcg PO .q2wee k supplement 02/12/24 Unknown History mcg (50,000 unit) capsule aspirin 81 mg chewable tablet 81 mg PO BREAKFAST Heart health #0 02/14/24 02/14/24 Rx tabs atorvastatin 80 mg tablet 80 mg PO QHS Cholestrol #0 t abs 02/14/24 Unknown Rx Arthritis Pain Compound 03/08/24 Unknown History acetaminophen 650 mg/20.3 mL oral 650 mg (20.3 mL) G-t ube Q4H PRN 04/01/24 Unknown Rx solution PRN pain 1-10/fever #0 mL finasteride 5 mg tablet 5 mg PO DAILY 30 days #30 ta bs 04/01/24 Unknown Rx lansoprazole 15 mg capsule,delayed 30 mg (2 x 15 mg) P O BID 30 days 04/01/24 Unknown Rx release #120 caps lisinopril 2.5 mg tablet 2.5 mg PO DAILY 30 days #30 tabs 04/01/24 Unknown Rx magnesium oxide 400 mg (241.3 mg 400 mg PO BID 30 days #60 tabs 04/01/24 Unknown Rx magnesium) tablet metoprolol tartrate 50 mg tablet 50 mg PO BID 30 days #60 tabs 04/01/24 Unknown Rx sertraline 100 mg tablet 100 mg PO DAILY 30 days #30 tabs 04/01/24 Unknown Rx sodium chloride 1,000 mg soluble 1,000 mg PO BID 30 da ys #60 tabs 04/01/24 Unknown Rx tablet thiamine HCl (vitamin B1) 100 mg 100 mg PO BREAKFAST 3 0 days #30 04/01/24 Unknown Rx tablet tabs Allergy/AdvReac Type Severity Reaction Status Date / Time Iodinated Contrast Media Allergy Hives Verified 03/21/24 15:10 (CONTRASTS) Family History Father Heart disease Cancer Surgical History History of vein stripping History of appendectomy History of tonsillectomy History of bilateral cataract extraction Social History household members: spouse Smoking Status: Former smoker alcohol intake: current details: 10+ beers daily ROS Eyes Eyes: Reports systems reviewed and no addt'l complaints, except as documented ENT HEENT: Reports systems reviewed and no addt'l complaints, except as documented Cardiovascular Cardiovascular: Reports systems reviewed and no addt'l complaints, except as documented Respiratory/Chest Respiratory/Chest: Reports systems reviewed and no addt'l complaints, except as documented Gastrointestinal Gastrointestinal: Reports systems reviewed and no addt'l complaints, except as documented Genitourinary Genitourinary: Reports systems reviewed and no addt'l complaints, except as documented Musculoskeletal Musculoskeletal: Reports systems reviewed and no addt'l complaints, except as documented Integumentary Integumentary: Reports systems reviewed and no addt'l complaints, except as documented Neurologic Neurologic: Reports systems reviewed and no addt'l complaints, except as documented Psychiatric Psychiatric: Reports systems reviewed and no addt'l complaints, except as documented Physical Exam Const alert, oriented x3 and no apparent distress HEENT normocephalic Eyes PERRL GI GI Narrative: Abdomen is soft, nontender nondistended. PEG tube is in place. The PEG tube was successfully removed at the bedside without difficulty. Some gastric contents did come out with the tube as patient was sitting in the chair when the procedure was performed. Gauze dressing was applied. I reassured him that he may notice some drainage for the first 24 to 36 hours but this should steadily subside. Patient tolerated this well. Medical Records Data Medical Nutrition Assessment Dietitian: Malnutrition Criteria Met Start: 03/09/24 12:00 Freq: Status: Active Protocol: Document 03/09/24 14:26 SB (Rec: 03/09/24 14:26 SB [id number]) Nutrition Malnutrition Evidence of Yes Malnutrition Exists Malnutrition (severe Chronic ): Evidenced By Suboptimal Energy Intake (Severe),Weight Loss (Severe) Clinical Problem Chronic Disease or Condition Related Malnutrition Etiology severe protein calorie malnutrition related inadequate oral intake, etoh use, and swallowing difficulties Signs/Symptoms as evidenced by 12% unintentional weight loss x less than 6 months and PO meeting <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 Continue magic cup TID with meals. Continue 240ml bolus feeding at 22:00 with 40ml flushes after feeding. Continue Jevity 1.5Cal with 240ml with 40ml water flushes after each bolus feeding if intake <50% of meals. If oral intake reminded adequate and weight remains stable, recommend decreasing nutrition support. Reviewed and approved by Corrina Campuzano, MS, RDN, LD. Lab / Micro Data 04/07/24 05:09 04/07/24 05:09 Labs: Laboratory Results - last 24 hr 04/07/24 05:09: WBC 9.2, RBC 3.86 L, Hgb 11.0 L, Hct 33.9 L, MCV 87.8, MCH 28.5, MCHC 32.4, RDW Std Deviation 45.0 H, RDW Coeff of Denae 13.9, Plt Count 372, MPV 9.3, Immature Gran % (Auto) 0.300, Neut % (Auto) 68.5, Lymph % (Auto) 12.8 L, M nat % (Auto) 11.1 H, Eos % (Auto) 6.5 H, Baso % (Auto) 0.8, Absolute Neuts (auto) 6.3, Absolute Lymphs (auto) 1.18, Nucleated RBC % 0, Sodium 134 L, Potassium 4.0, Chloride 98, Carbon Dioxide 28.0, Anion Gap 7, BUN 14, Creatinine 0.72, Estim Creat Clear Calc 83.67, Est GFR (MDRD) Af Amer 135, Est GFR (MDRD) Non-Af 112, BUN/Creatinine Ratio 19.3, Glucose 101, Calcium 9.3 04/07/24 10:30: Urine Color Yellow, Urine Clarity Sl Cloudy, Urine pH 7.0, Ur Specific Arbuckle 1.010, Urine Protein 30 H, Urine Glucose (UA) Normal, Urine Ketones Negative, Urine Occult Blood 250 H, Urine Nitrite Negative, Urine Bilirubin Negative, Urine Urobilinogen Normal, Ur Leukocyte Esterase Negative, Urine RBC 25-50 SEEN, Urine WBC 0 SEEN, Ur Squamous Epith Cells 0 SEEN, Urine Bacteria 0 SEEN, Hyaline Casts 0-5 SEEN, Urine Mucus 1+ Charges/Coding Procedures Gastroenterology CF Procedures [id number]: Other Procedure See Report (PEG tube removal)
[2024-04-07] MEDS: Petrolatum 33% Tube 1 APPLIC TOPICAL (22:23)
[2024-04-07] MEDS: Atorvastatin Calcium 80 MG Tablet GT (22:23)
[2024-04-07 22:25] VITALS: BP 113/62; PULSE 61
[2024-04-08] MEDS: Neomycin/Polymyxin/Dexameth 5ML OPTH.BTL 2 DRP LEFT EYE ×2 (05:22→08:39)
[2024-04-08 05:27] VITALS: PULSE 61; RESP 16; O2SAT 95
[2024-04-08] MEDS: Aspirin 81 MG TAB.CHEW GT (08:37)
[2024-04-08] MEDS: Thiamine Hydrochloride 100 MG Tablet GT (08:37)
[2024-04-08] MEDS: Lansoprazole 15 MG Capsule.DR 30 MG GT (08:38)
[2024-04-08] MEDS: Menthol/Lanolin/Calamine/Znox 113 GM Tube 1 APPLIC TOPICAL (08:38)
[2024-04-08] MEDS: Magnesium Oxide 400 MG Tablet GT (08:39)
[2024-04-08] MEDS: Finasteride 5 MG Tablet GT (08:40)
[2024-04-08] MEDS: Nystatin Powder 15gm Bottle 1 APPLIC TOPICAL (08:40)
[2024-04-08] MEDS: Sodium Chloride 1 GM Tablet GT (08:40)
[2024-04-08] MEDS: Clopidogrel Bisulfate 75 MG Tablet GT (08:40)
[2024-04-08] MEDS: Sertraline 100 MG Tablet GT (08:41)
[2024-04-08 08:43] VITALS: BP 100/61; PULSE 60
[2024-04-08] MEDS: Metoprolol Tartrate 50 MG Tablet GT (08:43)
[2024-04-08] MEDS: Lisinopril 2.5 MG Tablet GT (08:43)
[2024-04-08] MEDS: BACITRACIN 15 GM Tube 1 APPLIC TOPICAL (08:46)
[2024-04-08 09:11] VITALS: BP 100/61; PULSE 60; RESP 18; TEMP 36.7; O2SAT 96
--- NOTE | 2024-04-08 13:29 | CASEMGMT ---
Social Work SW completed BIMS () and PHQ-9 (10/22) for MDS assessment, which is an improvement from previous MDS. Carla Kurtz, LAST [employer] TEST DESIGNER
== END 2024-04-08 12:20 | disposition home or self-care (01) | DRG 57 ==
PROVIDERS: Admitting Provider Family Medicine Geriatric Medicine; PCP Family Medicine; Visit Provider Family Medicine Geriatric Medicine
DX: I69.354 Hemiplegia and hemiparesis following cerebral infarction affecting left non-dominant side (principal); B37.89 Other sites of candidiasis; E44.1 Mild protein-calorie malnutrition; E87.1 Hypo-osmolality and hyponatremia; I69.391 Dysphagia following cerebral infarction; Z93.1 Gastrostomy status; R13.10 Dysphagia, unspecified; F10.10 Alcohol abuse, uncomplicated; I10 Essential (primary) hypertension; F32.A Depression, unspecified; E53.8 Deficiency of other specified B group vitamins; K22.70 Barrett's esophagus without dysplasia; E78.5 Hyperlipidemia, unspecified; K29.70 Gastritis, unspecified, without bleeding; E83.42 Hypomagnesemia; H10.9 Unspecified conjunctivitis; Z87.891 Personal history of nicotine dependence; N40.0 Benign prostatic hyperplasia without lower urinary tract symptoms; Z79.899 Other long term (current) drug therapy; Z79.82 Long term (current) use of aspirin; Z79.02 Long term (current) use of antithrombotics/antiplatelets; Z68.23 Body mass index [BMI] 23.0-23.9, adult; R31.9 Hematuria, unspecified
CPT/HCPCS: 36415; 80048; 81001; 85025; 87086; 90662; 92507; 92523; 92526; 92610; 92612; 97110; 97116; 97129; 97130; 97162; 97165; 97530; 97535; 97803

== ENCOUNTER 2024-04-14 12:32 | Emergency (ER) | payer MEDICARE, OTHER, SELFPAY ==
[2024-04-14 12:37] VITALS: BP 138/74; PULSE 58; RESP 18; TEMP 36.4; O2SAT 100; BMI 23.6
[2024-04-14 14:34] VITALS: PULSE 64; RESP 17; O2SAT 94
--- NOTE | 2024-04-14 15:00 | EDS_ITS ---
HPI <SHASHA Huffman - Last Filed: 04/14/24 18:50> History of Present Illness Chief Complaint: Wound Check Narrative Narrative: Patient presenting today requesting a wound check to his abdomen where he had a feeding tube in place. He had a stroke about 2 months ago and spent 2 months in TCU. He did have a feeding tube at that time that was removed close to 2 weeks ago. Since having the tube removed he reports that he has had erythema to his abdomen where the tube was attached. He and his have been placing bacitracin ointment to the area and covering it with gauze and tape daily. Today, he saw his neurologist who looked at the area and had concerns for infection, prompting him to be sent here for evaluation. Additionally, he reports that he has had intermittent hematuria and dysuria over the past 3 to 4 days. He did have a temporary Kong catheter placed over a month ago while in TCU. He denies fevers, chills, abdominal pain, N/V, and flank pain. <Dr. Beatriz Shaffer DO - Last Filed: 04/15/24 12:55> Narrative Narrative: Patient presenting today requesting a wound check to his abdomen where he had a feeding tube in place. He had a stroke about 2 months ago and spent 2 months in TCU. He did have a feeding tube at that time that was removed close to 2 weeks ago. Since having the tube removed he reports that he has had erythema to his abdomen where the tube was attached. He and his have been placing bacitracin ointment to the area and covering it with gauze and tape daily. Today, he saw his neurologist who looked at the area and had concerns for infection, prompting him to be sent here for evaluation. Additionally, he reports that he has had intermittent hematuria and dysuria over the past 3 to 4 days. He did have a temporary Kong catheter placed over a month ago while in TCU. He denies fevers, chills, abdominal pain, N/V, and flank pain. I have personally performed a face to face assessment of the patient and have reviewed the DARRICK Note. I performed a substantive portion of the visit including all aspects of the following. My gilliam findings include: History is patient is a 78-year-old male with history of stroke 2 months ago who did have PEG tube placed. It was removed about 2 weeks ago. Throughout the course of the PEG tube and since removal he has had localized erythema around the site. Denies any significant pain with it. Has had some mild drainage. Family has been applying bacitracin ointment to it. He had an outpatient neurology appointment today and there is concern for possible infection and he was sent to the ER for further evaluation. In addition patient has had some hematuria intermittently and would like that to be looked at as well while he is in the emergency room. He has continued to be weak but is recovering as expected per . Feels that he is doing well at home. No report of any fevers or chills, abdominal pain, nausea or vomiting. Urinating well. Exam is chronically ill but overall well-appearing male. Head normocephalic atraumatic. Moist mucosal membranes. Easy respirations. Abdomen soft and nontender. At his abdominal wall the site of the PEG tube there is well demarcated area of thickening of the skin and erythema but no warmth. There is some mild serous drainage that is dried on it. There is some scattering satellite lesions right around the area. This is most consistent with a contact dermatitis with possibly some early developing impetigo. It is not consistent with a cellulitis or abscess. Patient will be switched to mupirocin in case there is a developing impetigo given the drainage. Also considered steroids but will trial mupirocin first. I do not think he requires IV antibiotics, blood work or surgical consult at this time. His urinalysis does show hematuria but is not consistent with infection. Is given referral for urology as prior urinalysis has showed hematuria as well. Patient and agreeable's plan of care. Patient discharged home in stable condition. Other additions or changes: [None] [facility] <SHASHA Huffman - Last Filed: 04/14/24 18:50> [facility] Medical History Osteoarthritis Vitamin D deficiency Lumbar spinal stenosis Degeneration of intervertebral disc of lumbar region Atrial fibrillation GERD (gastroesophageal reflux disease) Hyperlipidemia Peptic ulcer disease with hemorrhage Barretts esophagus Hypertension Acute stroke due to ischemia Dysphagia Alcohol abuse Dehydration Carotid stenosis Cognitive dysfunction Vertigo Left carotid stenosis Biatrial enlargement Diastolic dysfunction Hypokalemia Hyponatremia History of prostate cancer Venous insufficiency Vitamin B12 deficiency BPH (benign prostatic hyperplasia) Home Medications ?Medication ?Instructions ?Recorded ?Last Taken ?Type clopidogrel 75 mg tablet 75 mg PO DAILY blood thinner #30 12/05/19 02/14/24 Rx tabs finasteride 5 mg tablet 5 mg PO DAILY 30 days #30 ta bs 04/01/24 Unknown Rx lisinopril 2.5 mg tablet 2.5 mg PO DAILY 30 days #30 tabs 04/01/24 Unknown Rx metoprolol tartrate 50 mg tablet 50 mg PO BID 30 days #60 tabs 04/01/24 Unknown Rx sertraline 100 mg tablet 100 mg PO DAILY 30 days #30 tabs 04/01/24 Unknown Rx cholecalciferol (vitamin D3) 25 25 mcg PO QDAY 5 Unknown History mcg (1,000 unit) capsule ibuprofen 200 mg tablet 200 mg PO Q6H PRN 04/14/24 U nknown History losartan 100 mg tablet 100 mg PO QDAY 04/14/24 Unkn own History mupirocin 2 % topical ointment 1 applic topical TID #1 tube 04/14/24 Unknown Rx potassium chloride 10 mEq 10 meq PO QDAY 04/14/24 Unkn own History capsule,extended release sildenafil 100 mg tablet 100 mg PO QDAY PRN 04/14/24 Unknown History tamsulosin 0.4 mg capsule 0.4 mg PO QDAY 04/14/24 Unkn own History Allergy/AdvReac Type Severity Reaction Status Date / Time Iodinated Contrast Media Allergy Hives Verified 04/14/24 12:37 (CONTRASTS) Family History Father , 87 Heart disease Cancer leukemia Mother , 95 No problems noted. Surgical History History of vein stripping History of appendectomy History of tonsillectomy History of bilateral cataract extraction Social History household members: spouse current occupational status: retired pets and animals: No Smoking Status: Former smoker alcohol intake: current Alcohol type: beer details: 10+ beers daily caffeine: Yes (occasional coffee (not daily)) do you feel safe at home: Yes ROS <SHASHA Huffman - Last Filed: 04/14/24 18:50> ROS ED Constitutional Constitutional ED: Denies chills or fever(s) Cardiovascular Cardiovascular: Denies chest pain Respiratory/Chest Respiratory/Chest: Denies dyspnea Gastrointestinal Gastrointestinal: Denies abdominal pain, nausea or vomiting Genitourinary Genitourinary ED: Reports dysuria and hematuria Musculoskeletal Musculoskeletal: Denies back pain Integumentary Reports rash; Denies abscess Neurologic Neurologic: Denies weakness EXAM <SHASHA Huffman - Last Filed: 04/14/24 18:50> Physical Exam Const Vital Signs: 04/14/24 14:34 04/14/24 16:00 Pulse Rate 64 63 Respiratory Rate 17 14 Pulse Ox 94 96 Oxygen Delivery Method Room Air Positive well nourished, well developed and no apparent distress General Appearance ED: well developed HEENT Reports normocephalic and head/scalp atraumatic Mouth ED: Yes moist mucous membranes normal Eyes PERRL and EOMs intact bilaterally Neck full ROM and supple Chest Wall inspection of chest normal Resp normal respiratory effort and clear to auscultation bilaterally Cardio regular rate and regular rhythm GI soft to palpation, non-tender, non-distended and no masses GI Narrative: There is a circular well-demarcated area of erythema and small papules to patient's abdomen where the feeding tube was in place. The hole is healed, there is a small amount of serosanguineous appearing fluid on the gauze bandage. No abdominal tenderness, no abscess formation to the area. Back/Spine normal ROM and normal to inspection Extremity normal to inspection and full ROM Neuro oriented x3, CN's II-XII intact bilaterally, moves all extremities, no focal motor deficits and no sensory deficits noted Sensorium / Orientation: awake and alert Psych mental status grossly normal and thought process normal Skin Skin Narrative: See abdominal exam, otherwise no rashes or lesions noted. <Dr. Beatriz Shaffer DO - Last Filed: 04/15/24 12:55> Physical Exam Const Vital Signs: 04/14/24 14:34 04/14/24 16:00 Pulse Rate 64 63 Respiratory Rate 17 14 Pulse Ox 94 96 Oxygen Delivery Method Room Air MDM <SHASHA Huffman - Last Filed: 04/14/24 18:50> MDM MDM Narrative Medical decision making narrative: Patient presenting today for wound check. He recently had a stroke 2 months ago and spent about 2 months in TCU, he had a feeding tube placed at that time. He has a circular well-demarcated area of erythema and small papules to his abdomen where the feeding tube was in place. The hole where the tube was inserted is healed, there is a small amount of serosanguineous appearing fluid on the gauze bandage. He otherwise does not have any tenderness to the area, there is no abscess formation, warmth, or signs of infection. His examination is consistent with a contact dermatitis. He reports that it has looked like this since the tube was removed. I will give him a prescription for mupirocin ointment to put on the area due to the discharge but I do not feel he needs any oral antibiotics. Given his urinary symptoms, urinalysis was obtained. This does show microscopic hematuria, he does have a history of this it looks like. He does see a urologist, recommended that he follow-up with them regarding the hematuria. I also recommended he follow-up with his PCP regarding the contact of otitis. He will be discharged home in stable condition. Lab Data Attestation: I reviewed the patient's lab results. Labs: Laboratory Results - last 24 hr 04/14/24 15:40 Urine Color Yellow Urine Clarity Clear Urine pH 7.0 Ur Specific [place] 1.010 Urine Protein 15 H Urine Glucose (UA) Normal Urine Ketones Negative Urine Occult Blood 25 H Urine Nitrite Negative Urine Bilirubin Negative Urine Urobilinogen Normal Ur Leukocyte Esterase Negative Urine RBC 5-10 SEEN Urine WBC 0-5 SEEN Ur Squamous Epith Cells 0 SEEN Urine Bacteria 0 SEEN Urine Mucus 0 SEEN <Dr. Beatriz Shaffer, DO - Last Filed: 04/15/24 12:55> [facility] Narrative Medical decision making narrative: Patient presenting today for wound check. He recently had a stroke 2 months ago and spent about 2 months in TCU, he had a feeding tube placed at that time. He has a circular well-demarcated area of erythema and small papules to his abdomen where the feeding tube was in place. The hole where the tube was inserted is healed, there is a small amount of serosanguineous appearing fluid on the gauze bandage. He otherwise does not have any tenderness to the area, there is no abscess formation, warmth, or signs of infection. His examination is consistent with a contact dermatitis. He reports that it has looked like this since the tube was removed. I will give him a prescription for mupirocin ointment to put on the area due to the discharge but I do not feel he needs any oral antibiotics. Given his urinary symptoms, urinalysis was obtained. This does show microscopic hematuria, he does have a history of this it looks like. He does see a urologist, recommended that he follow-up with them regarding the hematuria. I also recommended he follow-up with his PCP regarding the contact dermatitis. He will be discharged home in stable condition. Lab Data Labs: Laboratory Results - last 24 hr 04/14/24 15:40 Urine Color Yellow Urine Clarity Clear Urine pH 7.0 Ur Specific [place] 1.010 Urine Protein 15 H Urine Glucose (UA) Normal Urine Ketones Negative Urine Occult Blood 25 H Urine Nitrite Negative Urine Bilirubin Negative Urine Urobilinogen Normal Ur Leukocyte Esterase Negative Urine RBC 5-10 SEEN Urine WBC 0-5 SEEN Ur Squamous Epith Cells 0 SEEN Urine Bacteria 0 SEEN Urine Mucus 0 SEEN Discharge Plan Triage Chief Complaint: Wound Check Other Complaint: Complaint ED Midlevel Provider: Lory Flores ED Provider: Beatriz Shaffer Dx/Rx/DC Orders Clinical Impression: Hematuria, Dermatitis Instructions: ED Contact Dermatitis, ED Hematuria Prescriptions: New mupirocin 2 % ointment 1 applic topical TID Qty: 1 0RF No Action ibuprofen 200 mg tablet 200 mg PO Q6H PRN losartan 100 mg tablet 100 mg PO QDAY potassium chloride 10 mEq capsule, extended release 10 meq PO QDAY cholecalciferol (vitamin D3) 25 mcg (1,000 unit) capsule 25 mcg PO QDAY tamsulosin 0.4 mg capsule 0.4 mg PO QDAY sildenafil 100 mg tablet 100 mg PO QDAY PRN Rx Instructions: administer 30 minutes to 4 hours before activity clopidogrel 75 MG tablet 75 mg PO DAILY Qty: 30 0RF Patient Comments: Patient does not take regularly sertraline 100 mg Tablet 100 mg PO DAILY 30 Days Qty: 30 0RF metoprolol tartrate 50 mg Tablet 50 mg PO BID 30 Days Qty: 60 0RF lisinopril 2.5 mg Tablet 2.5 mg PO DAILY 30 Days Qty: 30 0RF finasteride 5 mg Tablet 5 mg PO DAILY 30 Days Qty: 30 0RF Primary Care Provider: Reema Yates Referrals: Reema Yates MD [Primary Care Provider] - Donavan Johnson MD [Med Staff - Active Staff] - 5-7 Days Activity Restrictions/Additional Instructions: Follow-up with urology regarding the blood in the urine. Follow-up with your PCP as well regarding your contact dermatitis. You can use the mupirocin ointment 3 times daily for the next week. Print Language: Eritrean Disposition Disposition: Home, Self Care Discharge Date/Time: 04/14/24 17:25
[2024-04-14 15:46] LABS: Bacteria 0 SEEN /hpf (None Seen); Mucous, Urine 0 SEEN /hpf (<or=2+); Squamous Epithelial Cells - UA 0 SEEN /hpf (0-5)
[2024-04-14 16:00] VITALS: PULSE 63; RESP 14; O2SAT 96
[2024-04-14 16:01] LABS: Color, Urine Yellow (Yellow); Glucose, Dipstick Normal (Normal); Ketone-Dipstick Negative (Negative); Leukocyte Esterase-Dipstick Negative /ul (Negative); Nitrite-Dipstick Negative (Negative); Occult Blood-Urine 25 /ul (Negative); Protein-Dipstick 15 mg/dl (Negative); Urine Bilirubin Dipstick Negative (Negative); Urine Clarity Clear (Clear); Urine Urobilinogen Normal (Normal)
--- NOTE | 2024-04-14 16:33 | ED.RN ---
Patient ambulated to bathroom with walker
[2024-04-14 16:58] LABS: Red Blood Cells-Urine 5-10 SEEN /hpf (0-5); White Blood Cells 0-5 SEEN /hpf (0-5)
== END 2024-04-14 17:25 | disposition home or self-care (01) ==
PROVIDERS: Physician Assistant; Emergency Provider Emergency Medicine; PCP Student in an Organized Health Care Education/Training Program; Visit Provider Emergency Medicine
DX: L30.9 Dermatitis, unspecified (principal); R31.29 Other microscopic hematuria; E78.5 Hyperlipidemia, unspecified; I10 Essential (primary) hypertension; Z87.891 Personal history of nicotine dependence; R30.0 Dysuria; K21.9 Gastro-esophageal reflux disease without esophagitis
CPT/HCPCS: 81001; 99283

== ENCOUNTER 2024-08-06 15:00 | Outpatient (RCR) | payer MEDICARE, OTHER, SELFPAY ==
--- NOTE | 2024-04-09 14:09 | HP.PTEVAL ---
Patient's Visit Information Visit Information Visit Information: BRANDEE CLIFTON is a 78 year old M referred to Physical Therapy by Dr. Kevin Watt MD with a diagnosis of STROKE. Date of Evaluation: 04/09/24 Physical Therapist: Efren Vernon, PT, Cert MDT, OCS Visit Plan Frequency: 2x /Week Duration: 8 WEEKS Plan: CVA WITH LEFT SIDE WEAKNESS 02/11/24 PT INTERVENTIONS PROGRESSIVE GAIT AND BALANCE TRAINING ,TRANSFER TRAINING,NEUROMUSCULAR RE ED ,ENDURANCE TRAINING AND FUNCTIONAL STRENGTHENING Subjective Subjective: This 78 y/o male presents to physical therapy with stroke. Patient had Feb 11 2024 at work as joce had CVA affecting left side . Went To ER had MRI showed Acute lacunar type infarct involving the superior portion of the right external capsule.Patient was in ICU 3 days . When medical stable transferred to Rehab 4th ~ 4weeks then went to TCU ~ 1 month. Patient had peg tube removed yesterday . Patient to home 04/08.Patient has visual deficits and speech with dysarthria and dysphagia.No falls. Patient has had h/o CVA 2019. Prior level of function no device with gait and was working. C/O dizziness and BRAND. Patient lives with spouse 2 story home with 4 steps with rails 2 . Patient has tub/shower set and elevated toilet. Will get seat for shower. Needs some assist with bathing dressing. Patient spouse does cooking /cleaning. Patient condition affects QOL and function /gait/ADLS. Patient goals to get stronger and walk. 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 BP: 112/64 Objective Objective: POSTURE: forward posture GAIT: ambulates with fww with increase VASILIY shuffle steps slow martin with cues to step inside walker with supervision BALANCE: fair with fww TRANSFERS: sit-stand cues for tech and COG with occasional MIN Assist NEURO: tone WFL ,sensation slightly reduced left leg ,reflexes intact STAIRS: one steps with rails 2 FLEXABILITY: hamstrings min tight MMT: ( peak force) quads right 25.8 , left 18.9 ,hamstrings right 23.8 ,left 18.1,hip flexion 16.1 left ,right 24.0 Balance/Special Test Scores CATSIB Score (Max score 120 seconds): 34 Lower Extremity Functional Score: 10 Goals Goal 1:: Patient to be I with HEP or strengthening and balance Goal Time Frame: 6-8 Weeks Goal 2:: Patient to ambulate with appropriate device in community with improved gait pattern Goal Time Frame: 6-8 Weeks Goal 3:: Patient to improve CATSIB by 10-15# to decrease risk of fall Goal Time Frame: 6-8 Weeks Goal 4:: Patient to improve peak force quads/hams /hip by 5-10# to improve gait Goal Time Frame: 6-8 Weeks Goal 5:: Patient to improve LFES score by 5-10# to improve function and QOL Goal Time Frame: 6-8 Weeks Rehabilitation Potential Physical Therapy Diagnosis: This patient had CVA affected left side with dysphagia and dysarthria with weakness ,decrease balance ,gait thus impairs function thus benefit from skilled PT Rehabilitation Potential: Good Anticipated Interventions Patient/Client Instruction: Educate patient on: Condition and Plan of Care For the Purpose of:: To improve muscle performance and motor function, To increase tolerance to activity/condition/position, To improve performance and independence with ADL's, To improve ability of physical actions for home/community/work/leisure, To improve gait and locomotor functions, To improve endurance, To improve balance, To improve safety with gait, To assume or resume ADL's and To improve tolerance to ADL's Therapeutic Exercise to Include: Strength training, Endurance training, Balance training, Coordination and Gait and locomotor training Comment: BLE -LLE For the Purpose of:: To improve muscle performance and motor function, To improve ability to perform ADL's, To increase tolerance to activity/condition/position, To improve performance and independence with ADL's, To improve ability of physical actions for home/community/work/leisure, To improve gait and locomotor functions, To improve endurance, To improve balance, To improve safety with gait, To improve safety and To improve tolerance to ADL's Text: Thank you for the opportunity to evaluate your patient. For Medicare and Medicare HMO plans, please review the plan of care and approve it. It will need to be FAXED BACK to us at [phone] for Medicare purposes. For Medicare only, by signing this I certify the plan of care. Please let me know if there are questions or concerns regarding this plan of care. Physician Signature: Date:
--- NOTE | 2024-04-14 10:43 | HP.SP.EVAL ---
Visit History Visit Info Date of Eval: 04/09/24 Visit: 1 Insurance Date Limit: 02/25/25 [employer] Photograph: BLANCA Landrum Attending Doctor: Referring Doctor: Reason for Referral: DYSPHAGIA/STROKE. RX HERE Medical Diagnosis: 02/13/2024 Date of Onset of Diagnosis: 02/13/2024 Previous speech therapy: Yes Results: MRI on 02/13/2024: MRI/Brain without Contrast IMPRESSION: 1. 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 2. Chronic senescent changes. MBSS on 02/13/2024: Diagnosis/Impression Diagnosis: Moderate oropharyngeal dysphagia R13.12 Impression: Bony anterior protrusions on C4-C5, which [employer] reviewed w/ radiologist, Dr. Harrison, who confirmed the patient to have anterior cervical osteophytes. They do not appear to be obstructing bolus clearance. [employer] also reviewed images of what appears to be spasms of the UES, very notable prior to swallowing the pudding trial. Per discussion w/ Dr. Harrison, these spasms are possibly secondary to CVA. [employer] called wellness program coordinator, Dr. Chan, to review, as well. Likely, no immediate GI consult will be recommended as pt is very early in his recovery from current CVA. The oral phase is primarily marked by... -Decreased bolus control w/ posterior loss of >1/2 of thin liquid boluses to the pyriforms prior to swallow onset, increasing risk for aspiration before the swallow due to delayed swallow onset. -Delayed and slowed tongue motion for A-P transport. -Slowed, but complete mastication of cookie. The pharyngeal phase is primarily marked by... -Moderately delayed swallow onset. -Decreased anterior hyoid excursion and laryngeal elevation w/ aspiration of thin liquids via large, sequential sips. Reflexive cough did clear aspirated barium from trachea/vocal folds, but residues remained in laryngeal vestibule. Cued cough and re-swallow cleared residues from the laryngeal vestibule. Decreased bolus size was effective in decreasing risk for aspiration. Recommendations Diet: Regular Textures (Easy to Chew - IDDSI Level 7) and Thin Liquids Compensatory Strategies: Small Bites, Small Sips, Slow Rate, Sitting upright and Remain sitting upright for 30 minutes after PO intake Supervision: 1:1 Close Supervision Recommend Repeat Modified Barium Swallow: TBD Need for Skilled Speech Therapy Services: Yes Comment: Dysphagia treatment recommended 3-5X/week during acute stay. POC to include the following: -Train pt in strategies to decrease risk for aspiration (SMALL SIPS, SLOW RATE OF INTAKE). -Ongoing assessment of diet tolerance. -Implement oral motor and oropharyngeal exercise program for improving bolus control, swallow onset, and to promote relaxation of UES (lingual resistance/coordination, Sally, Yawn stretch) FEES on 03/26/2024: Diagnosis/Impressions Diagnosis: Moderate oropharyngeal dysphagia R13.12 Impressions: The oral phase is marked by... -Decreased bolus control w/ posterior loss of liquids to the pyriforms, even spilling to the laryngeal vestibule 1X prior to swallow onset. The pharyngeal phase is marked by... -Delayed swallow onset. -Decreased pharyngeal contraction most notable w/ liquid trials. Residues of mildly thick liquids were seen spilling to the laryngeal vestibule after the swallow. Good clearance of solids and purees. Purees did spill to the vallecula from oral cavity after the swallow. -SILENT aspiration of thin and mildly thick liquid trials. 3-second prep and decreased bolus size were most effective in decreasing aspiration risk. Recommendations Diet: Minced and Moist Textures and Thin Liquids Medication Administration:: Whole in puree Comments: train 3-second prep w/ ST Compensatory Strategies: Small Bites, Small Sips, Slow Rate, Multiple Swallows, Sitting upright and Remain sitting upright for 30 minutes after PO intake Recommend Repeat Instrumental Swallow Assessment: TBD Need for Skilled Speech Therapy Services: Yes Comments: Continue per TCU dysphagia therapy POC Recommended Referrals: ENT Consult Other Relevant Medical History/Diagnoses/Surgery: BRANDEE CLIFTON is a 78 year old male who presents to [facility] following a CVA on 02/12/2024. Brandee has been to [facility] where he had a nasoendoscopy completed. Pt reporting Dr. 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 It was recommended to return in a year for re-evaluation. Pt reporting Dr. Filipe Garay stating to give it time to heal. Pt reporting he knows the words he wants to say, it is difficult for him to pronounce them. Pt also having a hx of treated dysphagia while in the hospital. He had an MBSS and FEES. See impressions above and the full reports in patient's medical chart. Smoking Status: Never smoker Diagnosis Diagnosis: Moderate oropharyngeal dysphagia R13.12 Pain Is pain an issue with your current prescribed condition?: No Personal Preferred language: Tajik Patient Allergies Allergies Allergies: Allergies Iodinated Contrast Media (CONTRASTS) Allergy (Verified 03/21/24 15:10) Hives Objective Oralfacial Myology Masseters Masseters: Weaker L Side Tongue/Mandible Differentiation Lateralization: Difficult Shifting upon: Toward left and Forward Gag Gag: WNL Velum Velum: WNL Dentition Dentition: Permanent Lips Retraction: Weak Rounding: WNL Bolus Bolus Collection: WNL Additional Addtional Information: - L lower facial weakness - Poor labial retraction on L - Tongue Tip mildly deviates L - Pt reporting L buccal pocketing intermittently throughout meals Subjective Dysphagia Symptoms Reported Symptoms/Problems with: Drooling, Coughing and Difficulty Swallowing Liquids Current Diet Solids Current Diet: Regular Other: He was upgrade while in the hospital Current Diet Liquids Current Liquids: Thin NPO NPO - Alternative Nutrition Method: Gastrostomy Tube Date Tube Placed: Pt had his PEG tube removed yesterday, 04/08/24 Objective Dysphagia Administered by Administered by: Self Thin Liquids Administred via: Cup Oral Transit: Delay > 10 seconds Gagging: No Cough: immediate Pharyngeal phase: suspect pharyngeal deficits Patient Report: Not observed today, but Pt reporting at times he will have L labial escape when taking drinks from a cup. Comments: Trialed the [place] Protocol with a 3 oz continuous drink with Pt reporting he was unable to complete the task d/t difficulty with swallow initiation for sequential sips. Suspect holding his breath was also challenging d/t paralyzed vocal fold. Pt with overt s/x of pen/asp on this trial via immediate coughing. Pt consuming thin liquid single sips via cup with overt s/sx of penetration/aspiration via immediate coughing on half of trials. Smaller sips were effective in reducing s/sx of pen/asp. Trialed a 3 sec oral prep as recommend on his 03/26/2024 FEES and it resulted in immediate coughing. Pt seemed confused when ST asked him to perform this strategy, so unclear if this is something he was carrying over after then instrumental. Pureed Administered via: Spoon Oral Preparation: WNL Oral Transit: Delay > 10 seconds Cough: delayed, weak reflexive cough and throat clear Pharyngeal phase: suspect pharyngeal deficits Patient Report: Pt reporting difficulty triggering his swallow on the second bite. Comments: Pt consuming at least 10 bites of applesauce via spoon with 80% of trials with no observed s/sx of pen/asp. At times he had a delayed weak cough or throat clear. He did benefit from ST judging the initial bite for what would be considered small, but then he was able to carry that over into additional bites. Soft & Bite sized (Mechanical) Administered via: Spoon Comments: Pt trialing cubed peaches w/o juice with slow but effective mastication with overt s/sx of pen/asp via immediate throat clear. Pt trialing another bite of peach with added juice with Pt reporting feeling some of the juice escape posteriorly. Discussed when consuming mixed consistency foods like this (e.g., grapes, cereal with milk) that it is helpful to swallow the juice first and then chew the solid pieces. Pt showing understanding. Regular Oral Preparation: minimal chew thrust gravity assisted Oral Transit: Delay > 5 seconds Bolus clearance: some clearance/residue Cough: delayed, weak reflexive cough and throat clear Pharyngeal phase: suspect pharyngeal deficits Patient Report: Pt reports while he was in the hospital, he had a tendency to pocket the bolus in the L buccal cavity and reports having to use his tongue to clear the space. Pt appears functional in remembering to perform this safe swallowing strategy as needed. Comments: Pt consuming trail mix with nuts, raisins, and M&Ms with slow, slightly uncoordinated mastication, delayed AP transfer with subsequent delayed swallow trigger, and overt s/sx of pen/asp via delayed weak cough or throat clear on 2 out of 3 bites. Did not observe any pocketing of the bolus this date, however did observe min-mod residue of the nuts on the lingual and bilateral buccal surfaces. Swallowing Impairment Contributing Factors to Swallowing Impairment: Reduced Oral Strength/Coordination/Sensation, Impaired Oral-Pharyngeal Transport and Delayed Swallow Initiation Impact Impact on Safety & Functioning: Risk for Aspiration Recommendations Modified Barium Swallow/Cookie Swallow Recommended: Yes Swallowing Treatment: Yes Diet Texture Recommendations Solids: Soft & Bite sized (Level 6, Chopped) Liquids: Thin (Level 0) Other: Pt reporting he was upgraded to a regular diet following d/c from the hospital (this was confirmed by the speech therapy d/c summary), however given his presentation at bedside and review of most recent FEES (03/26/2024) ST would make a more conservative recommendation with Soft and Bite Sized (IDDSI Level 6). Safety Saftey Precautions/Swallowing Recommendations (Check all that Apply): 1 to 1 Close Supervision, Upright Position at Least 30 Minutes After Meals and Small Sips & Bites when Eating Results Swallowing Diagnosis: Oropharyngeal Phase Dysphagia (R13.12) Severity: Moderate Subjective Oral Motor Subjective Patient Reports: Slurred Speech and Difficulty being Understood Facial Drooping: Left Comments Comments: Pt reporting while in the hospital he was also working on the accuracy of his speech intelligibility. ST observing halting speech, difficulty with motor planning, intermittent difficulty with voicing, and some mild groping when speaking with Pt in conversation. Will obtain a new order including dysarthria so goals can be added to target speech errors following a formal assessment. Swallowing Performance Scale Swallowing Performance Scale Swallowing Performance Scale Result: 5 Moderate Reference: Neuro-QoL instrument Radiation Oncology Patient Plan Recommendations Treatment Warranted: Yes Treatment Warranted: Speech Sound Production, Dysphagia and Voice Progress Prognosis: Good Frequency Frequency: 1-2x /Week Duration: 2 Months Visits in this POC: 16 Patient/Family Goal Patient/Family Goal: To improve his speech and swallowing Goals that are Established Determination:: Goals will be added/modified as deemed necessary and appropriate. Therapy will be discontinued when results of re-evaluation indicate therapy is no longer needed or lack of progress has been documented. Goal #1-5 Goal #1: Brandee will participate in a follow-up Fiberoptic Endoscopic Evaluation of Swallow (FEES) to objectively assess his oropharyngeal swallow function to determine the least restrictive means of nutrition and accurately recommend a home exercise program along with compensatory strategies. Goal #2: Brandee will show understanding of his recommended oropharyngeal exercises (i.e., Inga, CTAR, Sally) to improve tongue base retraction and hyolaryngeal elevation and excursion across 3 measured sessions independently. Goal #3: Brandee will participate in further evaluation of speech and voice to determine additional goals. Education Patient has Indicated that the Following Identified Educational Needs: None The Patient has indicated that they have no educational or learning abilities that may effect their care.: Yes Patient Instruction Patient Education: Diagnosis and Treatment Plan Person Taught: Patient and Significant Other Teaching Method: Discussion and Demonstration Response to teaching: Return Demonstration and Verbalize Understanding
--- NOTE | 2024-05-08 15:14 | HP.PTREVAL_ITS ---
Re-Evaluation Intro: Dr. Kevin Watt MD, It has been my pleasure to treat BRANDEE CLIFTON over the last 9 visits for STROKE. Please see the progress note below for an update on the physical therapy plan of care! Subjective Subjective: Patient getting stronger ,plan to start walking outside more Objective Objective/Function: * Patient to benefit from skilled PT due to improve function and strength along with gait goals are updated and appropriate* POSTURE: forward posture GAIT: ambulates with fww with increase VASILIY shuffle steps slow martin with cues to step inside walker with supervision BALANCE: fair with fww TRANSFERS: sit-stand cues for tech and COG with supervision NEURO: tone WFL ,sensation slightly reduced left leg ,reflexes intact STAIRS: one steps with rails 2 FLEXABILITY: hamstrings min tight MMT: ( peak force) quads right 37.8 , left 41.1 ,hamstrings right 29.8 ,left 27.1.1,hip flexion 36.0 left ,right 37.8 Plan Plan Plan: CVA WITH LEFT SIDE WEAKNESS 02/11/24 PT INTERVENTIONS PROGRESSIVE GAIT AND BALANCE TRAINING ,TRANSFER TRAINING,NEUROMUSCULAR RE ED ,ENDURANCE TRAINING AND FUNCTIONAL STRENGTHENING Balance/Gait/Functional tests Balance/Special Test Scores CATSIB Score (Max score 120 seconds): 42 Lower Extremity Functional Score: 20 TUG Test Time Seconds: 19.59 Tug Test: <20 sec.=mostly independent Goals Goals Goal 1:: Patient to be I with HEP or strengthening and balance Goal Time Frame: 6-8 Weeks Goal Progress: Progressing Goal 2:: Patient to ambulate with appropriate device in community with improved gait pattern Goal Time Frame: 6-8 Weeks Goal Progress: Progressing Goal 3:: Patient to improve CATSIB by 10-15 points to decrease risk of fall Goal Time Frame: 6-8 Weeks Goal Progress: Progressing Goal 4:: Patient to improve peak force quads/hams /hip by 5-10# to improve gait( new goals) Goal Time Frame: 6-8 Weeks Goal 5:: Patient to improve LFES score by 5 points to improve function and QOL( new goal) Goal Time Frame: 6-8 Weeks Anticipated Interventions Anticipated Interventions Patient/Client Instruction: Educate patient on: Condition and Plan of Care For the Purpose of:: To improve muscle performance and motor function, To increase tolerance to activity/condition/position, To improve performance and independence with ADL's, To improve ability of physical actions for h ome/community/work/leisure, To improve gait and locomotor functions, To improve endurance, To improve balance, To improve safety with gait, To assume or resume ADL's and To improve tolerance to ADL's Therapeutic Exercise to Include: Strength training, Endurance training, Balance training, Coordination and Gait and locomotor training Comment: BLE -LLE For the Purpose of:: To improve muscle performance and motor function, To improve ability to perform ADL's, To increase tolerance to activity/condition/position, To improve performance and independence with ADL's, To improve ability of physical actions for home/community/work/leisure, To improve gait and locomotor functions, To improve endurance, To improve balance, To improve safety with gait, To improve safety and To improve tolerance to ADL's Re-Evaluation Ending Re-evaluation ending: Please do not hesitate to contact me at [phone] by phone or if you have questions or concerns regarding this new plan of care! Sincerely, Efren Vernon, PT, Cert MDT, OCS
--- NOTE | 2024-05-21 09:30 | HP.SP.REEV ---
Visit History Visit Info Date of Eval: 04/09/24 Visit: 1 Patient's Approved Number of Visits: 10 Insurance Date Limit: 02/25/25 Ethnology Professor: BLANCA Landrum Attending Doctor: Referring Doctor: Reason for Referral: DYSPHAGIA/STROKE. RX HERE Medical Diagnosis: 02/13/2024 Date of Onset of Diagnosis: 02/13/2024 Previous speech therapy: Yes Results: MRI on 02/13/2024: MRI/Brain without Contrast IMPRESSION: 1. 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 2. Chronic senescent changes. MBSS on 02/13/2024: Diagnosis/Impression Diagnosis: Moderate oropharyngeal dysphagia R13.12 Impression: Bony anterior protrusions on C4-C5, which RESTORATIVE REHAB AIDE reviewed w/ radiologist, Dr. Harrison, who confirmed the patient to have anterior cervical osteophytes. They do not appear to be obstructing bolus clearance. RESTORATIVE REHAB AIDE also reviewed images of what appears to be spasms of the UES, very notable prior to swallowing the pudding trial. Per discussion w/ Dr. Harrison, these spasms are possibly secondary to CVA. RESTORATIVE REHAB AIDE called software build engineer, Dr. Chan, to review, as well. Likely, no immediate GI consult will be recommended as pt is very early in his recovery from current CVA. The oral phase is primarily marked by... -Decreased bolus control w/ posterior loss of >1/2 of thin liquid boluses to the pyriforms prior to swallow onset, increasing risk for aspiration before the swallow due to delayed swallow onset. -Delayed and slowed tongue motion for A-P transport. -Slowed, but complete mastication of cookie. The pharyngeal phase is primarily marked by... -Moderately delayed swallow onset. -Decreased anterior hyoid excursion and laryngeal elevation w/ aspiration of thin liquids via large, sequential sips. Reflexive cough did clear aspirated barium from trachea/vocal folds, but residues remained in laryngeal vestibule. Cued cough and re-swallow cleared residues from the laryngeal vestibule. Decreased bolus size was effective in decreasing risk for aspiration. Recommendations Diet: Regular Textures (Easy to Chew - IDDSI Level 7) and Thin Liquids Compensatory Strategies: Small Bites, Small Sips, Slow Rate, Sitting upright and Remain sitting upright for 30 minutes after PO intake Supervision: 1:1 Close Supervision Recommend Repeat Modified Barium Swallow: TBD Need for Skilled Speech Therapy Services: Yes Comment: Dysphagia treatment recommended 3-5X/week during acute stay. POC to include the following: -Train pt in strategies to decrease risk for aspiration (SMALL SIPS, SLOW RATE OF INTAKE). -Ongoing assessment of diet tolerance. -Implement oral motor and oropharyngeal exercise program for improving bolus control, swallow onset, and to promote relaxation of UES (lingual resistance/coordination, Sally, Yawn stretch) FEES on 03/26/2024: Diagnosis/Impressions Diagnosis: Moderate oropharyngeal dysphagia R13.12 Impressions: The oral phase is marked by... -Decreased bolus control w/ posterior loss of liquids to the pyriforms, even spilling to the laryngeal vestibule 1X prior to swallow onset. The pharyngeal phase is marked by... -Delayed swallow onset. -Decreased pharyngeal contraction most notable w/ liquid trials. Residues of mildly thick liquids were seen spilling to the laryngeal vestibule after the swallow. Good clearance of solids and purees. Purees did spill to the vallecula from oral cavity after the swallow. -SILENT aspiration of thin and mildly thick liquid trials. 3-second prep and decreased bolus size were most effective in decreasing aspiration risk. Recommendations Diet: Minced and Moist Textures and Thin Liquids Medication Administration:: Whole in puree Comments: train 3-second prep w/ ST Compensatory Strategies: Small Bites, Small Sips, Slow Rate, Multiple Swallows, Sitting upright and Remain sitting upright for 30 minutes after PO intake Recommend Repeat Instrumental Swallow Assessment: TBD Need for Skilled Speech Therapy Services: Yes Comments: Continue per TCU dysphagia therapy POC Recommended Referrals: ENT Consult Other Relevant Medical History/Diagnoses/Surgery: BRANDEE CLIFTON is a 78 year old male who presents to [facility] following a CVA on 02/12/2024. Brandee has been to [facility] where he had a nasoendoscopy completed. Pt reporting Dr. 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 It was recommended to return in a year for re-evaluation. Pt reporting Dr. Filipe Garay stating to give it time to heal. Pt reporting he knows the words he wants to say, it is difficult for him to pronounce them. Pt also having a hx of treated dysphagia while in the hospital. He had an MBSS and FEES. See impressions above and the full reports in patient's medical chart. Smoking Status: Former smoker Diagnosis Diagnosis: Moderate oropharyngeal dysphagia R13.12; Hoarsenss (R49.0) Pain Is pain an issue with your current prescribed condition?: No Personal Preferred language: Haitian Patient Allergies Allergies Allergies: Allergies Iodinated Contrast Media (CONTRASTS) Allergy (Verified 04/14/24 12:37) Hives Previous/Current Goals Goals 1-5 Previous Goal #1: Brandee will participate in a follow-up Fiberoptic Endoscopic Evaluation of Swallow (FEES) to objectively assess his oropharyngeal swallow function to determine the least restrictive means of nutrition and accurately recommend a home exercise program along with compensatory strategies. Goal 1 Status: PROGRESSING: Follow-up FEES is scheduled for next 05/26/24. Rec'd history report and nasoendoscopy results from ENT on 04/05/24. Education has been provided re: results from the ENT revealing only a callus on the right true fold. There is no paralysis. Reviewed previous FEES from February and also observed no paralysis. Did observe Pt articulating with his ventricular folds. Showed Pt examples of this on his previous FEES. Previous Goal #2: Brandee will show understanding of his recommended oropharyngeal exercises (i.e., Inga, CTAR, Sally) to improve tongue base retraction and hyolaryngeal elevation and excursion across 3 measured sessions independently. Goal 2 Status: PROGRESSING: Reviewed Pt's oral motor exercises with visual models provided. Also briefly reviewed his oropharyngeal exercises with Pt reporting Inga and CTAR are difficult for him d/t having a hard time initiating his swallow. Education provided re: recommendations for a soft and bite size diet instead of a regular diet. Education provided on draining liquid off of his spoon when eating soup or cereal with milk. Pt showed understanding and teach back. Also educated his friend at the end of the session. Pt reporting having cereal and milk this week at home and he drained the milk off of the cereal. Pt reporting it felt like he had residue of the cereal w/o the milk to wash it down. Previous Goal #3: Brandee will practice semi-occluded vocal tract exercises for 5 minutes during each therapy session, 3x/week, with the goal of improving vocal quality and control, with min verbal cues. Goal 3 Status: PROGRESSING: - Brandee practiced straw phonation in water. He had choppy and inconsistent airflow at the beginning of task but after 2-3 trials his expiration into the straw was becoming smoother -- he was not phonating while blowing the bubbles. When trialing straw phonation w/o water, Pt was unable to complete the task while phonating. - Trialed lip trills. Education on how to complete along with examples provided. From continuous practice, Pt showing improvement on coordination of breath and vibrations. Cued to push with belly for more air. Towards the end of session, Pt's trills were less choppy and did not start and stop. Previous Goal #4: Brandee will complete pitch glides for 10 reps and vocal resonance tasks for 10 reps with min verbal cues across 5 measured sessions. Goal 4 Status: PROGRESSING: - Pt attempted the pitch glides with the higher pitches resulting in slightly less choppiness. The lower pitches were harsh, rough with choppy airflow. He had difficulty with sustained phonation tasks via holding phonation for about 2 secs. Objective Oralfacial Myology Masseters Masseters: Weaker L Side Tongue/Mandible Differentiation Lateralization: Difficult Shifting upon: Toward left and Forward Gag Gag: WNL Velum Velum: WNL Dentition Dentition: Permanent Lips Retraction: Weak Rounding: WNL Bolus Bolus Collection: WNL Additional Addtional Information: - L lower facial weakness - Poor labial retraction on L - Tongue Tip mildly deviates L - Pt reporting L buccal pocketing intermittently throughout meals Subjective Dysphagia Symptoms Reported Symptoms/Problems with: Drooling, Coughing and Difficulty Swallowing Liquids Current Diet Solids Current Diet: Regular Other: He was upgrade while in the hospital Current Diet Liquids Current Liquids: Thin NPO NPO - Alternative Nutrition Method: Gastrostomy Tube Date Tube Placed: Pt had his PEG tube removed yesterday, 04/08/24 Objective Dysphagia Administered by Administered by: Self Thin Liquids Administred via: Cup Oral Transit: Delay > 10 seconds Gagging: No Cough: immediate Pharyngeal phase: suspect pharyngeal deficits Patient Report: Not observed today, but Pt reporting at times he will have L labial escape when taking drinks from a cup. Comments: Trialed the [place] Protocol with a 3 oz continuous drink with Pt reporting he was unable to complete the task d/t difficulty with swallow initiation for sequential sips. Suspect holding his breath was also challenging d/t paralyzed vocal fold. Pt with overt s/x of pen/asp on this trial via immediate coughing. Pt consuming thin liquid single sips via cup with overt s/sx of penetration/aspiration via immediate coughing on half of trials. Smaller sips were effective in reducing s/sx of pen/asp. Trialed a 3 sec oral prep as recommend on his 03/26/2024 FEES and it resulted in immediate coughing. Pt seemed confused when ST asked him to perform this strategy, so unclear if this is something he was carrying over after then instrumental. Pureed Administered via: Spoon Oral Preparation: WNL Oral Transit: Delay > 10 seconds Cough: delayed, weak reflexive cough and throat clear Pharyngeal phase: suspect pharyngeal deficits Patient Report: Pt reporting difficulty triggering his swallow on the second bite. Comments: Pt consuming at least 10 bites of applesauce via spoon with 80% of trials with no observed s/sx of pen/asp. At times he had a delayed weak cough or throat clear. He did benefit from ST judging the initial bite for what would be considered small, but then he was able to carry that over into additional bites. Soft & Bite sized (Mechanical) Administered via: Spoon Comments: Pt trialing cubed peaches w/o juice with slow but effective mastication with overt s/sx of pen/asp via immediate throat clear. Pt trialing another bite of peach with added juice with Pt reporting feeling some of the juice escape posteriorly. Discussed when consuming mixed consistency foods like this (e.g., grapes, cereal with milk) that it is helpful to swallow the juice first and then chew the solid pieces. Pt showing understanding. Regular Oral Preparation: minimal chew thrust gravity assisted Oral Transit: Delay > 5 seconds Bolus clearance: some clearance/residue Cough: delayed, weak reflexive cough and throat clear Pharyngeal phase: suspect pharyngeal deficits Patient Report: Pt reports while he was in the hospital, he had a tendency to pocket the bolus in the L buccal cavity and reports having to use his tongue to clear the space. Pt appears functional in remembering to perform this safe swallowing strategy as needed. Comments: Pt consuming trail mix with nuts, raisins, and M&Ms with slow, slightly uncoordinated mastication, delayed AP transfer with subsequent delayed swallow trigger, and overt s/sx of pen/asp via delayed weak cough or throat clear on 2 out of 3 bites. Did not observe any pocketing of the bolus this date, however did observe min-mod residue of the nuts on the lingual and bilateral buccal surfaces. Swallowing Impairment Contributing Factors to Swallowing Impairment: Reduced Oral Strength/Coordination/Sensation, Impaired Oral-Pharyngeal Transport and Delayed Swallow Initiation Impact Impact on Safety & Functioning: Risk for Aspiration Recommendations Modified Barium Swallow/Cookie Swallow Recommended: Yes Swallowing Treatment: Yes Diet Texture Recommendations Solids: Soft & Bite sized (Level 6, Chopped) Liquids: Thin (Level 0) Other: Pt reporting he was upgraded to a regular diet following d/c from the hospital (this was confirmed by the speech therapy d/c summary), however given his presentation at bedside and review of most recent FEES (03/26/2024) ST would make a more conservative recommendation with Soft and Bite Sized (IDDSI Level 6). Safety Saftey Precautions/Swallowing Recommendations (Check all that Apply): 1 to 1 Close Supervision, Upright Position at Least 30 Minutes After Meals and Small Sips & Bites when Eating Results Swallowing Diagnosis: Oropharyngeal Phase Dysphagia (R13.12) Severity: Moderate Subjective Oral Motor Subjective Patient Reports: Slurred Speech and Difficulty being Understood Facial Drooping: Left Comments Comments: Pt reporting while in the hospital he was also working on the accuracy of his speech intelligibility. ST observing halting speech, difficulty with motor planning, intermittent difficulty with voicing, and some mild groping when speaking with Pt in conversation. Will obtain a new order including dysarthria so goals can be added to target speech errors following a formal assessment. Swallowing Performance Scale Swallowing Performance Scale Swallowing Performance Scale Result: 5 Moderate Reference: Neuro-QoL instrument Radiation Oncology Patient Plan Recommendations Treatment Warranted: Yes Treatment Warranted: Speech Sound Production, Dysphagia and Voice Progress Prognosis: Good Frequency Frequency: 1x/Week Additional (Frequency): FOR 60 MIN. THIS WORKS BETTER FOR PATIENT AND FAMILY THEN ATTENDING 2X/WEEK Duration: 2 Months Visits in this POC: 8 Patient/Family Goal Patient/Family Goal: To improve his speech and swallowing Goals that are Established Determination:: Goals will be added/modified as deemed necessary and appropriate. Therapy will be discontinued when results of re-evaluation indicate therapy is no longer needed or lack of progress has been documented. Goal #1-5 Goal #1: Brandee will problem solve challenging food textures with ST on how to modify them to maintain quality of life at home but also ensure safety during his swallowing at least 3x over this next POC. Goal #2: Brandee will show understanding of his recommended oropharyngeal exercises (i.e., Inga, CTAR, Sally) to improve tongue base retraction and hyolaryngeal elevation and excursion across 3 measured sessions independently. Goal #3: Brandee will practice semi-occluded vocal tract exercises for 5 minutes during each therapy session, 3x/week, with the goal of improving vocal quality and control, with min verbal cues. Goal #4: Brandee will complete pitch glides for 10 reps and vocal resonance tasks for 10 reps with min verbal cues across 5 measured sessions. Goal #5: Brandee will show understanding of how to self perform laryngeal massage and myofacial release for a home program of 2 min per each massage technique at least 2-3x/day over the course of this POC. Education Patient has Indicated that the Following Identified Educational Needs: None The Patient has indicated that they have no educational or learning abilities that may effect their care.: Yes Patient Instruction Patient Education: Diagnosis and Treatment Plan Person Taught: Patient and Significant Other Teaching Method: Discussion and Demonstration Response to teaching: Return Demonstration and Verbalize Understanding
--- NOTE | 2024-05-28 18:23 | SP.FEES_ITS ---
FEES Patient Information Date of Evaluation: 05/26/24 Time of Evaluation: 10:00 Diagnosis: Oropharyngeal Dysphagia Referring Physician: SHERIE Staff Providing this Care/Treatment:: BLANCA Direct Billable Minutes: 60 History: Past Medical History:: BRANDEE CLIFTON is a 78-year-old male presented to [facility] ED 02/12/2024 after colleagues at work observed him nearly passing out at 07:58. EMS was notified due to left-sided weakness, and he was transported to the hospital where he was found to be aphasic. The stroke team was activated, and the patient underwent a head CT and CTA of the head and neck, which revealed bilateral carotid stenosis. He was deemed a candidate for tenecteplase and received it in the emergency room. He was admitted to ICU. Brain MRI revealed Acute lacunar type infarct involving the superior portion of the right external capsule. BSE recommended NPO. MBSS 02/13/24 revealed moderate oropharyngeal dysphagia, spasms of UES, and recommended Easy to Chew textures / Thin liquids w/ direct supervision and the following strategies: Small Bites, Small Sips, Slow Rate, Sitting upright and Remain sitting upright for 30 minutes after PO intake. Pt was transferred to inpatient rehab unit for PT/OT/ST. Swallowing impairment rapidly declined and pt required PEG placement. He received continued dysphagia and speech therapy services on inpatient rehab w/ transfer to TCU for continued therapy services. Pt is currently on minced and moist diet textures / thin liquids. He has been recommended for FEES to re-assess swallow function and aspiration risk. Pt is well known to [facility] speech therapy department from prior CVA/inpatient rehab stay in 2019. Prior MBSS completed 12/02/2019, revealing mild oropharyngeal dysphagia w/ recommendation for a mechanically altered moist/minced diet texture and thin liquid diet w/ the following aspiration precautions in place: small bites, small sips, one sip at a time, reduce distractions during PO intake, medications to be taken whole/one at a time, seated upright at 90 degrees for PO intake, remain upright for 30-60 minutes after PO intake. The patient?s past medical history includes dehydration, carotid stenosis (left- sided), cognitive dysfunction, vertigo, physical debility, biatrial enlargement, diastolic dysfunction, hypokalemia, hypomagnesemia, hyponatremia, a history of prostate cancer, venous insufficiency, heavy alcohol consumption, vitamin B12 deficiency, benign prostatic hyperplasia, hypertension, and CVA (2019). Pt had a PEG tube but it was removed on 04/08/2024. TX/DX History:: Yes, FEES and MBSS Subjective: Subjective:: Brandee has participated in outpatient therapy for 10 visits since being discharged from the hospital on 04/07/24. 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 Current Diet: Drinks/Liquids:: Thin Foods:: Soft & bite size Medication Administration:: crushed in puree Comment:: History of PEG tube (removed 04/08/2024) Respiratory Status Observation:: Room air; pulse ox reading 98 or above at rest throughout the session. Dentition/Oral Hygiene: Observations:: Natural Dentition Vocal Quality: Observations:: Hoarse, Raspy and Strangled Cognition: Observations:: WNL Position During FEES: Position During FEES:: Upright Location: In Chair Fiberoptic Endoscope: Size: 3.4 mm Nare Used:: Right Comments: Penetration-Aspiration Scale: OBJECTIVE ASSESSMENT OF SWALLOW FUNCTION (QUANTITATIVE ? PER TRIAL): PENETRATION / ASPIRATION SCALE (ZHAO): 1 = does not enter airway 2 = enters airway/above vocal folds/ejected 3 = enters airway/above vocal folds/not ejected 4 = enters airway/contacts vocal folds/ejected 5 = enters airway/contacts vocal folds/not ejected 6 = enters airway/below vocal folds/ejected 7 = enters airway/below vocal folds/not ejected despite effort 8 = enters airway/below vocal folds/no effort Anatomical Findings: Anatomical Findings:: Pt reports hyper-reflexive gag and this was visible 3x throughout the study, however Pt okay to continue. Observed long uvula extending close to the base of tongue. Consistent with the previous FEES, observed frequent spasming of the velum, laryngeal vestibule, arytenoids, and pyriform sinuses throughout evaluation consistent w/ tremulous vocal quality. Arytenoids, epiglottic petiole, and ventricular folds continue to appear mildly edematous and reddish in color. True vocal folds visualized w/ regular breathing. 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 During phonation, Pt presenting with a pressed and almost strangled vocal quality likely d/t full adduction of the ventricular folds. Ventricular folds did not fully adduct at anterior commissure. Posterior pharyngeal wall appeared equally weak bilaterally. Pt presenting with poor pharyngeal contraction w/ pitch glides. Pt also with reduced lengthening of the ventricular folds with higher pitches - still unable to visualize the true folds. Secretions: Description:: Thin and Clear Penetration-Aspiration Scale Penetration-Aspiration Scale Thin Liquids by Teaspoon Food/Drink Provided:: Water Swallow Onset Location:: Tongue Base PAS Score: PAS Score *1 Visual Analysis of Swallowing Efficiency and Safety (VASES) after the swallow: Hypopharynx VASES Comments:: <2% Pyriform Sinus (right) Additional Comments:: Compared to previous study, this method of intake is improved from a PAS of 5. Thin Liquids by Single Cup Food/Drink Provided:: Water and Janette Franny Swallow Onset Location:: Pyriform Sinuses PAS Score: PAS Score *7 Visual Analysis of Swallowing Efficiency and Safety (VASES) after the swallow: Oropharynx, Hypopharynx, Vocal Folds and Subglottis Comments:: 5-10% Superior Pharyngeal Wall, <5% Vallecula, <5% Lateral glosso- epiglottic folds bilaterally, <5% Pyriform Sinus bilaterally, <5% Anterior Commissure, <5% Subglottic Shelf Strategies Trialed:: Effortful swallow was not trialed as a strategy d/t Pt having difficulty even coordinating a volitional swallow. Adding additional demands was deemed inappropriate by injection molding process technician. Three-second Prep was also not trialed d/t Pt independently requiring at least 5-6 seconds per trial to trigger an independent swallow d/t noted apraxia and difficulty with motor planning the volitional swallow. Even with this occurring at baseline, there continues to be spillage to the pyriform sinuses along with residue remaining after the swallow. Additional Comments:: Pt presenting with a weak throat clear on both of these liquid trials which did not clear the residue from the anterior commissure or the subglottic shelf. However when provided with a verbal cue to utilize a HARD cough with a reswallow, Pt was successful in removing the residue from both locations. Mildly Thick Liquids by Single Cup Food/Drink Provided:: Water Swallow Onset Location:: Vallecula PAS Score: PAS Score *8 Visual Analysis of Swallowing Efficiency and Safety (VASES) after the swallow: Oropharynx, Hypopharynx, Vocal Folds and Subglottis Comments:: Coated Vallecula, 10% Lateral glosso-epiglottic folds bilaterally, 60% Pyriform Sinus bilaterally, 15% Anterior Commissure, <5% Subglottic Shelf Strategies Trialed:: Pt with initially no reaction to the mildly thick liquid on the anterior commissure and on the subglottic shelf. He benefited from ST cueing a HARD cough and reswallow which then helped to remove the residue from these two locations. The re-swallow also helped to reduce the remaining residue in the lateral glosso-epiglottic folds and the pyriform sinus to about <5% for both. Puree Textures Food/Drink Provided:: Yogurt Swallow Onset Location:: Vallecula PAS Score: PAS Score *1 Visual Analysis of Swallowing Efficiency and Safety (VASES) after the swallow: Hypopharynx Comments:: <5% right Pyriform sinus Soft & Bite Sized Textures Food/Drink Provided:: Roast with Vegetables and Potatoes Swallow Onset Location:: Vallecula PAS Score: PAS Score *1 Visual Analysis of Swallowing Efficiency and Safety (VASES) after the swallow: Oropharynx Comments:: Pt taking a bite of roast, then carrot, then potato for three separate trials. When on the trial with the potato, observed vallecula filling with <5% residue of carrot from previous trial. After swallowing potato, there was no remaining residue. Regular Textures Food/Drink Provided:: Mixed Consistency with Milk and Cereal Swallow Onset Location:: Pyriform Sinuses Comments:: Trialed with milk drained off as well as a bite with milk PAS Score: PAS Score *1 Visual Analysis of Swallowing Efficiency and Safety (VASES) after the swallow: Hypopharynx Comments:: <5% Pyriform Sinus bilaterally Strategies Trialed:: Pt independent in using a second swallow Diagnosis/Impressions Diagnosis: Moderate Oropharyngeal Dysphagia (R13.12) Impressions: The oral phase is marked by... - Decreased bolus control w/ posterior loss of liquids to the pyriforms prior to the onset of the swallow. Solids spilled only to the vallecula. - Extended oral holding of bolus prior to triggering swallow of about 5-6 seconds for liquids d/t noted apraxia and difficulty with motor planning the v olitional swallow The pharyngeal phase is marked by... -Delayed swallow onset. -Decreased pharyngeal contraction most notable w/ liquid trials via visualization of green out where the liquid was visible on the camera vs. being constricted by the pharyngeal muscles. Residues of mildly thick liquids were seen spilling to the laryngeal vestibule after the swallow. He benefited from verbal cues to utilize a HARD COUGH and RESWALLOW to help clear aspirated residue. Good clearance of solids and purees. -SILENT aspiration of mildly thick liquid trials along with aspiration with insufficient effort to clear thin liquids via cup. Sip by tsp appeared to be the most effective for thin liquids along with the hard cough and reswallow when drinking from a cup. Swallowing Impairment: Impaired Oropharyngeal Transport, Premature Posterior Loss and Decreased Pharyngeal Contraction Recommendations Diet: Soft and Bite Sized Textures Medication Administration:: Crushed in puree Comments: Pt bringing pills only crushed, so unable to determine if whole in puree would be appropriate for him. Continue with crushed in puree Compensatory Strategies: Small Bites, Small Sips, No Straws, Liquid by Teaspoon Only, Slow Rate and Minimize/decrease distractions Supervision: Supervision/Assist as needed Recommend Repeat Instrumental Swallow Assessment: TBD Comments: - If drinking from a cup in between meals, utilize a HARD COUGH with RESWALLOW for every drink - Would recommend drinking via tsp during a meal - Implement Rodriguez Free Water Protocol in between meals Need for Skilled Speech Therapy Services: Yes Recommended Referrals: ENT Consult Education Completed: 1. Described result of evaluation. and 2. Pt understands evaluation & agrees with goals and treatment plan. Frequency Frequency: 1x/Week Additional (Frequency): 60 min sessions Duration: 3 Months Visits in this POC: 8 Goals that are Established Patient/Family Goal: To improve his speech and swallowing Determination:: Goals will be added/modified as deemed necessary and appropriate. Therapy will be discontinued when results of re-evaluation in dicate therapy is no longer needed or lack of progress has been documented. Goal #1: Brandee will problem solve challenging food textures with ST on how to modify them to maintain quality of life at home but also ensure safety during his swallowing at least 3x over this next POC. Goal #2: Brandee will show understanding of his recommended oropharyngeal exercises (i.e., Inga, CTAR, Sally) to improve tongue base retraction and hyolaryngeal elevation and excursion across 3 measured sessions independently. Goal #3: Brandee will practice semi-occluded vocal tract exercises for 5 minutes during each therapy session, 3x/week, with the goal of improving vocal quality and control, with min verbal cues. Goal #4: Brandee will complete pitch glides for 10 reps and vocal resonance tasks for 10 reps with min verbal cues across 5 measured sessions. Goal #5: Brandee will show understanding of how to self perform laryngeal massage and myofacial release for a home program of 2 min per each massage technique at least 2-3x/day over the course of this POC.
--- NOTE | 2024-06-26 15:44 | HP.PTREVAL_ITS ---
Re-Evaluation Intro: Dr. Kevin Watt MD, It has been my pleasure to treat BRANDEE CLIFTON over the last 16 visits for STROKE. Please see the progress note below for an update on the physical therapy plan of care! Subjective Subjective: Patient states doing good ,working on balance good treatment but wants to work on machines Objective Objective/Function: Patient to benefit from skilled PT due to improve function gait/balance and strength along with gait goals are updated and appropriate* POSTURE: forward posture GAIT: ambulates with fww with increase VASILIY shuffle steps slow martin with cues to step inside walker with supervision BALANCE: fair with fww TRANSFERS: sit-stand cues for tech and COG with supervision NEURO: tone WFL ,sensation slightly reduced left leg ,reflexes intact STAIRS: one steps with rails 2 FLEXABILITY: hamstrings min tight MMT: ( peak force) quads right 35.5 , left 29.1 ,hamstrings right 29.1 ,left 24.8.1,hip flexion 36.1 left ,right 37.1 Plan Plan Plan: CVA WITH LEFT SIDE WEAKNESS 02/11/24 ADD MACHINES PT INTERVENTIONS PROGRESSIVE GAIT AND BALANCE TRAINING ,TRANSFER TRAINING,NEURO MUSCULAR RE ED ,ENDURANCE TRAINING AND FUNCTIONAL STRENGTHENING Balance/Gait/Functional tests Balance/Special Test Scores CATSIB Score (Max score 120 seconds): 42 Lower Extremity Functional Score: 20 TUG Test Time Seconds: 19.59 Tug Test: <20 sec.=mostly independent Goals Goals Goal 1:: Patient to be I with HEP or strengthening and balance Goal Time Frame: 6-8 Weeks Goal Progress: Progressing Goal 2:: Patient to ambulate with appropriate device in community with improved gait pattern Goal Time Frame: 6-8 Weeks Goal Progress: Progressing Goal 3:: Patient to improve CATSIB by 10-15 points to decrease risk of fall Goal Time Frame: 6-8 Weeks Goal Progress: Progressing Goal 4:: Patient to improve peak force quads/hams /hip by 5-10# to improve gait( new goals) Goal Time Frame: 6-8 Weeks Goal 5:: Patient to improve LFES score by 5 points to improve function and QOL( new goal) Goal Time Frame: 6-8 Weeks Anticipated Interventions Anticipated Interventions Patient/Client Instruction: Educate patient on: Condition and Plan of Care For the Purpose of:: To improve muscle performance and motor function, To increase tolerance to activity/condition/position, To improve performance and in dependence with ADL's, To improve ability of physical actions for home/community/work/leisure, To improve gait and locomotor functions, To improve endurance, To improve balance, To improve safety with gait, To assume or resume ADL's and To improve tolerance to ADL's Therapeutic Exercise to Include: Strength training, Endurance training, Balance training, Coordination and Gait and locomotor training Comment: BLE -LLE For the Purpose of:: To improve muscle performance and motor function, To improve ability to perform ADL's, To increase tolerance to activity/condition/position, To improve performance and independence with ADL's, To improve ability of physical actions for home/community/work/leisure, To improve gait and locomotor functions, To improve endurance, To improve balance, To improve safety with gait, To improve safety and To improve tolerance to ADL's Re-Evaluation Ending Re-evaluation ending: Please do not hesitate to contact me at [phone] by phone or if you have questions or concerns regarding this new plan of care! Sincerely, Efren Vernon, PT, Cert MDT, OCS
--- NOTE | 2024-08-06 16:02 | HP.PTDCSUM ---
Discharge Summary D/C summary: It has been my pleasure to treat BRANDEE CLIFTON referred by Dr. Kevin Watt MD, with the diagnosis of STROKE for a total of 22 visit(s). Discharge Date: 08/06/24 Please see the following information for a summary of their discharge status. Subjective Subjective: Okay to be down Walking community Uses furniture Overall Improvement % Improvement: 50 Objective Objective/Function: POSTURE: forward posture GAIT: ambulates with fww with increase VASILIY shuffle steps slow martin with cues to step inside walker with mod I . Ambulates w/o device 80 ft x1 BALANCE: fair+ with fww TRANSFERS: sit-stand cues for tech and COG MOD I NEURO: tone WFL ,sensation slightly reduced left leg ,reflexes intact STAIRS: one steps with rails 2 FLEXABILITY: hamstrings min tight MMT: ( peak force) quads right 35.5 , left 29.1 ,hamstrings right 29.1 ,left 24.8.1,hip flexion 36.1 left ,right 37.1 Goals Goal 1:: Patient to be I with HEP or strengthening and balance Goal Progress: Goal Met Goal 2:: Patient to ambulate with appropriate device in community with improved gait pattern Goal Progress: Goal Met Goal 3:: Patient to improve CATSIB by 10-15 points to decrease risk of fall Goal Progress: Goal Met Goal 4:: Patient to improve peak force quads/hams /hip by 5-10# to improve gait( new goals) Goal Progress: Goal Met Goal 5:: Patient to improve LFES score by 5 points to improve function and QOL( new goal) Goal Progress: Goal Met Plan Plan: D/C TO HEP D/C Information d/c sentence: If there are questions or concerns regarding this patient's physical therapy, please feel free to call me at [phone]. Thank you for the referral of this patient. Sincerely, Efren Vernon, PT, Cert MDT, OCS Balance/Gait/Functional tests Balance/Special Test Scores CATSIB Score (Max score 120 seconds): 42 Lower Extremity Functional Score: 38 TUG Test Time Seconds: 19.59 Tug Test: <20 sec.=mostly independent Improvement % Improvement: 50
== END 2024-08-06 19:00 | disposition home or self-care (01) ==
LOC: PT 15:00
PROVIDERS: PCP Family Medicine; Referring Provider Family Medicine Geriatric Medicine; Visit Provider Family Medicine Geriatric Medicine
DX: R13.10 Dysphagia, unspecified (principal); R47.1 Dysarthria and anarthria; J38.01 Paralysis of vocal cords and larynx, unilateral
CPT/HCPCS: 92507; 92526; 92610; 92612; 97110; 97112; 97116; 97162; 97530